=== PATIENT | male | born 1985 | race Caucasian/White ===

== ENCOUNTER 2017-11-14 19:50 | Emergency (ER) | payer SELFPAY ==
[2017-11-14 20:18] LABS: BILIRUBIN,URINE NEGATIVE (NEG); CLARITY,URINE CLEAR; COLOR,URINE YELLOW; GLUCOSE,URINE NEGATIVE (NEG); NITRITE,URINE NEGATIVE (NEG); PROTEIN,URINE NEGATIVE (NEG-TRACE); UROBILINOGEN,URINE 0.2 mg/dL (0.2 mg/dL)
[2017-11-14 20:40] LABS: BACTERIA,URINE 0 /HPF (0-FEW); RBC,URINE OCC /HPF (0-2); SQUAMOUS EPITHELIAL CELL,UR FEW /LPF; WBC,URINE OCC /HPF (0-4)
[2017-11-14] MEDS: fentaNYL PF VIAL 100 MCG/2 ML VIAL IV (21:08)
[2017-11-14] MEDS: fentaNYL PF VIAL 100 MCG/2 ML VIAL IM (21:19)
[2017-11-14 21:33] LABS: ADD MAN DIFF? NO
[2017-11-14 21:42] LABS: BASO # 0.1 x10^3/uL (0.0-0.2); BASO % 1 % (0-3); EOS # 0.2 x10^3/uL (0.0-0.7); EOS % 3 % (0-3); HEMATOCRIT 41.2 % (39.0-53.0); HEMOGLOBIN 14.1 g/dL (13.0-17.5); LYMPH # 1.9 x10^3/uL (1.0-4.8); LYMPH % 35 % (24-48); MEAN CORPUSCULAR HEMOGLOBIN 30 pg (25-35); MEAN CORPUSCULAR HGB CONC 34 g/dL (31-37); MEAN CORPUSCULAR VOLUME 87 fL (79-100); MONO # 0.4 x10^3/uL (0.0-1.1); MONO % 7 % (0-9); NEUT # 2.9 x10^3uL (1.8-7.7); NEUT % 53 % (31-73); PLATELET COUNT 262 x10^3/uL (140-400); RED BLOOD COUNT 4.75 x10^6/uL (4.30-5.70); RED CELL DISTRIBUTION WIDTH 12.8 % (11.5-14.5); WHITE BLOOD COUNT 5.5 x10^3/uL (4.0-11.0)
[2017-11-14 22:01] LABS: LACTIC ACID 1.5 mmol/L (0.4-2.0)
[2017-11-14 22:05] LABS: ANION GAP 9 (6-14); BLOOD UREA NITROGEN 9 mg/dL (8-26); BUN/CREATININE RATIO 8 (6-20); CARBON DIOXIDE 29 mmol/L (21-32); CHLORIDE 104 mmol/L (98-107); CREATININE 1.1 mg/dL (0.7-1.3); GFR 76.6; GLUCOSE 92 mg/dL (70-99); POTASSIUM 3.3 mmol/L (3.5-5.1); SODIUM 142 mmol/L (136-145)
[2017-11-14 22:07] LABS: CKMB INDEX 1.1 % (0-4); CREATINE KINASE 174 U/L (39-308)
[2017-11-14 22:07] LABS: NT-PRO BNP 60 pg/mL (0-124)
[2017-11-14 22:10] LABS: ALBUMIN 3.9 g/dL (3.4-5.0); ALBUMIN/GLOBULIN RATIO 1.1 (1.0-1.7); ALK PHOS 89 U/L (46-116); ALT (SGPT) 41 U/L (16-63); AST (SGOT) 30 U/L (15-37); C-REACTIVE PROTEIN 2.9 mg/L (0-3.3); TOTAL BILIRUBIN 0.4 mg/dL (0.2-1.0); TOTAL PROTEIN 7.5 g/dL (6.4-8.2)
== END 2017-11-14 23:12 | disposition home or self-care (01) ==
LOC: ER 19:50
DX: R60.0 Localized edema (principal); R21 Rash and other nonspecific skin eruption; J45.909 Unspecified asthma, uncomplicated; Z91.048 Other nonmedicinal substance allergy status
CPT/HCPCS: 36415; 71045; 80053; 81001; 82553; 83605; 83880; 85025; 86140; 86592; 93005; 96372; 99285-25; J3010

== ENCOUNTER 2017-12-23 18:38 | Emergency (ER) | payer SELFPAY ==
[2017-12-23 19:12] LABS: ADD MAN DIFF? NO
[2017-12-23 19:17] LABS: BASO % 1 % (0-3); EOS # 0.1 x10^3/uL (0.0-0.7); EOS % 1 % (0-3); HEMATOCRIT 40.4 % (39.0-53.0); HEMOGLOBIN 14.1 g/dL (13.0-17.5); LYMPH # 1.9 x10^3/uL (1.0-4.8); LYMPH % 29 % (24-48); MEAN CORPUSCULAR HEMOGLOBIN 30 pg (25-35); MEAN CORPUSCULAR HGB CONC 35 g/dL (31-37); MEAN CORPUSCULAR VOLUME 85 fL (79-100); MONO # 0.4 x10^3/uL (0.0-1.1); MONO % 7 % (0-9); NEUT % 62 % (31-73); PLATELET COUNT 309 x10^3/uL (140-400); RED BLOOD COUNT 4.77 x10^6/uL (4.30-5.70); RED CELL DISTRIBUTION WIDTH 12.8 % (11.5-14.5); WHITE BLOOD COUNT 6.4 x10^3/uL (4.0-11.0)
[2017-12-23] MEDS: DEXAMETHASONE SOD PHOS 20 MG/5 ML VIAL. IV (19:25)
[2017-12-23] MEDS: ASPIRIN 325 MG TABLET PO (19:25)
[2017-12-23] MEDS: IPRATRPIUM/ALBUTEROL 0.5/2.5MG 3 ML NEBU. NEB (19:36)
[2017-12-23 19:39] LABS: ANION GAP 9 (6-14); BLOOD UREA NITROGEN 5 mg/dL (8-26); BUN/CREATININE RATIO 4 (6-20); CALCIUM 9.1 mg/dL (8.5-10.1); CARBON DIOXIDE 28 mmol/L (21-32); CHLORIDE 103 mmol/L (98-107); CREATININE 1.2 mg/dL (0.7-1.3); GFR 69.3; GLUCOSE 91 mg/dL (70-99); POTASSIUM 3.6 mmol/L (3.5-5.1); SODIUM 140 mmol/L (136-145)
[2017-12-23 19:45] LABS: ALBUMIN 3.8 g/dL (3.4-5.0); ALBUMIN/GLOBULIN RATIO 1.1 (1.0-1.7); ALK PHOS 90 U/L (46-116); ALT (SGPT) 29 U/L (16-63); AST (SGOT) 15 U/L (15-37); MAGNESIUM 1.8 mg/dL (1.8-2.4); TOTAL BILIRUBIN 0.4 mg/dL (0.2-1.0); TOTAL PROTEIN 7.4 g/dL (6.4-8.2)
[2017-12-23 19:48] LABS: TROPONINI < 0.017 ng/mL (0.000-0.055)
[2017-12-23 20:05] LABS: NT-PRO BNP 10 pg/mL (0-124)
[2017-12-23 20:05] LABS: CKMB MASS 0.9 ng/mL (0.0-3.6); CREATINE KINASE 92 U/L (39-308)
== END 2017-12-23 20:52 | disposition home or self-care (01) ==
LOC: ER 18:38
DX: J40 Bronchitis, not specified as acute or chronic (principal); R42 Dizziness and giddiness; M79.89 Other specified soft tissue disorders; J45.909 Unspecified asthma, uncomplicated; Z87.891 Personal history of nicotine dependence; Z90.89 Acquired absence of other organs; Z91.041 Radiographic dye allergy status
CPT/HCPCS: 36415; 71046; 80053; 82553; 83735; 83880; 84484; 85025; 93005; 94640; 96374; 99285-25; J1100; J7620

== ENCOUNTER 2018-01-17 20:38 | Emergency (ER) | payer SELFPAY ==
[~2018-01-17] VITALS: Ht 180.3 cm; Wt 93.0 kg
[~2018-01-17 20:38] MED LIST: ALBU2.5V5 NEB; DOXY100T PO; GUAI473L15 PO; MUPI15CR TP; PRED20TA PO; PROAIR HFA8.5 GM INH
[2018-01-17 20:54] VITALS: BP 144/86
[2018-01-17] MEDS ORDERED: IV NORMAL SALINE 1000ML BAG 1,000 ML IV ONE (21:15)
[2018-01-17] MEDS ORDERED: ONDANSETRON PF 4 MG/2 ML VIAL. IV ONE (21:15)
[2018-01-17] MEDS ORDERED: TAMSULOSIN 0.4 MG CAP.ER.24H. PO ONE (21:15)
[2018-01-17] MEDS ORDERED: MORPHINE SULFATE 10 MG/ML VIAL. IV ONE ×3 (21:15→23:00)
--- NOTE | 2018-01-17 21:17 | PHYS DOC ---
Past Medical History Past Medical History: Asthma, Kidney Stone Past Surgical History: Other Additional Past Surgical Histo: compartment syndrome, right forearm surgery Alcohol Use: None Drug Use: None Adult General Chief Complaint Chief Complaint: FLANK PAIN HPI HPI Patient is a 32 year old male with history of asthma, kidney stones, who presents today complaining of 9 out of 10 right flank pain that began 2 hours prior to coming to the ED. Patient describes the pain as sharp and constant. He states he tried taking an NSAID with no relief. Patient is also complaining of nausea with no vomiting. He states this pain feels similar to the last time he had a kidney stone years ago. Review of Systems Review of Systems Constitutional: Denies fever or chills [] Eyes: Denies change in visual acuity, redness, or eye pain [] HENT: Denies nasal congestion or sore throat [] Respiratory: Denies cough or shortness of breath [] Cardiovascular: No additional information not addressed in HPI [] GI: Reports nausea. Denies abdominal pain vomiting, bloody stools or diarrhea [] : Reports right flank pain. Denies dysuria or hematuria [] Musculoskeletal: Denies back pain or joint pain [] Integument: Denies rash or skin lesions [] Neurologic: Denies headache, focal weakness or sensory changes [] All other systems were reviewed and found to be within normal limits, except as documented in this note. Current Medications Current Medications Current Medications Medications (Trade) Dose Ordered Sig/Parish Start Time Stop Time Status Last Admin Dose Admin Diazepam (Valium) 5 mg 1X ONCE 01/17/18 23:00 01/17/18 23:01 DC 01/17/18 22:55 5 MG Ketorolac Tromethamine (Toradol 30mg Vial) 30 mg 1X ONCE 01/17/18 22:00 01/17/18 22:01 DC 01/17/18 21:49 30 MG Morphine Sulfate (Morphine Sulfate) 5 mg 1X ONCE 01/17/18 23:00 01/17/18 23:01 DC 01/17/18 22:55 5 MG Ondansetron HCl (Zofran) 4 mg 1X ONCE 01/17/18 21:15 01/17/18 21:16 DC 01/17/18 21:05 4 MG Sodium Chloride 1,000 ml @ 1,000 mls/hr 1X ONCE 01/17/18 21:15 01/17/18 22:14 DC 01/17/18 21:05 1,000 MLS/HR Tamsulosin HCl (Flomax) 0.4 mg 1X ONCE 01/17/18 21:15 01/17/18 21:16 DC 01/17/18 21:04 0.4 MG Allergies Allergies Allergies Coded Allergies Type Severity Reaction Last Updated Verified Iodine and Iodide Containing Produc Allergy Severe 01/17/18 Yes Physical Exam Physical Exam Constitutional: Well developed, well nourished, no acute distress, non-toxic appearance. [] HENT: Normocephalic, atraumatic, bilateral external ears normal, oropharynx moist, no oral exudates, nose normal. [] Eyes: PERRLA, EOMI, conjunctiva normal, no discharge. [] Neck: Normal range of motion, no tenderness, supple, no stridor. [] Cardiovascular:Heart rate regular rhythm, no murmur [] Lungs & Thorax: Bilateral breath sounds clear to auscultation [] Abdomen: Bowel sounds normal, soft, no tenderness, no masses, no pulsatile masses. [] Skin: Warm, dry, no erythema, no rash. [] Back: No tenderness, moderate right CVA tenderness. [] Extremities: No tenderness, no cyanosis, no clubbing, ROM intact, no edema. [] Neurologic: Alert and oriented X 3, normal motor function, normal sensory function, no focal deficits noted. [] Psychologic: Affect normal, judgement normal, mood normal. [] Current Patient Data Vital Signs Vital Signs Date Time Temp Pulse Resp B/P (MAP) Pulse Ox O2 Delivery O2 Flow Rate FiO2 01/17/18 22:55 14 01/17/18 21:05 100 Room Air 01/17/18 20:54 98.0 85 144/86 (105) 98.0 Lab Values Laboratory Tests Test 01/17/18 21:15 01/17/18 22:15 01/17/18 22:22 Sodium Level 137 mmol/L (136-145) Potassium Level 3.5 mmol/L (3.5-5.1) Chloride Level 103 mmol/L (98-107) Carbon Dioxide Level 25 mmol/L (21-32) Anion Gap 9 (6-14) Blood Urea Nitrogen 5 mg/dL (8-26) L Creatinine 1.0 mg/dL (0.7-1.3) Estimated GFR (Cockcroft-Gault) 85.5 BUN/Creatinine Ratio 5 (6-20) L Glucose Level 109 mg/dL (70-99) H Calcium Level 8.7 mg/dL (8.5-10.1) Total Bilirubin 0.6 mg/dL (0.2-1.0) Aspartate Amino Transferase (AST) 21 U/L (15-37) Alanine Aminotransferase (ALT) 36 U/L (16-63) Alkaline Phosphatase 69 U/L (46-116) Total Protein 6.9 g/dL (6.4-8.2) Albumin 3.5 g/dL (3.4-5.0) Albumin/Globulin Ratio 1.0 (1.0-1.7) Lipase 99 U/L (73-393) Ethyl Alcohol Level < 10 mg/dL (0-10) Urine Collection Type Unknown Urine Color Yellow Urine Clarity Clear Urine pH 7.5 Urine Specific [place] 1.020 Urine Protein Negative mg/dL (NEG-TRACE) Urine Glucose (UA) Negative mg/dL (NEG) Urine Ketones (Stick) Negative mg/dL (NEG) Urine Blood Moderate (NEG) Urine Nitrite Negative (NEG) Urine Bilirubin Negative (NEG) Urine Urobilinogen Dipstick 0.2 mg/dL (0.2 mg/dL) Urine Leukocyte Esterase Trace (NEG) Urine RBC 0 /HPF (0-2) Urine WBC 1-4 /HPF (0-4) Urine Squamous Epithelial Cells Occ /LPF Urine Bacteria 0 /HPF (0-FEW) Urine Mucus Slight /LPF Urine Opiates Screen Pos (NEG) Urine Methadone Screen Neg (NEG) Urine Barbiturates Neg (NEG) Urine Phencyclidine Screen Neg (NEG) Urine Amphetamine/Methamphetamine Neg (NEG) Urine Benzodiazepines Screen Pos (NEG) Urine Cocaine Screen Neg (NEG) Urine Cannabinoids Screen Neg (NEG) Urine Ethyl Alcohol Neg (NEG) White Blood Count 5.8 x10^3/uL (4.0-11.0) Red Blood Count 4.45 x10^6/uL (4.30-5.70) Hemoglobin 13.3 g/dL (13.0-17.5) Hematocrit 37.9 % (39.0-53.0) L Mean Corpuscular Volume 85 fL (79-100) Mean Corpuscular Hemoglobin 30 pg (25-35) Mean Corpuscular Hemoglobin Concent 35 g/dL (31-37) Red Cell Distribution Width 13.2 % (11.5-14.5) Platelet Count 262 x10^3/uL (140-400) Neutrophils (%) (Auto) 68 % (31-73) Lymphocytes (%) (Auto) 24 % (24-48) Monocytes (%) (Auto) 6 % (0-9) Eosinophils (%) (Auto) 1 % (0-3) Basophils (%) (Auto) 1 % (0-3) Neutrophils # (Auto) 3.9 x10^3uL (1.8-7.7) Lymphocytes # (Auto) 1.4 x10^3/uL (1.0-4.8) Monocytes # (Auto) 0.4 x10^3/uL (0.0-1.1) Eosinophils # (Auto) 0.1 x10^3/uL (0.0-0.7) Basophils # (Auto) 0.0 x10^3/uL (0.0-0.2) Laboratory Tests 01/17/18 22:22 Laboratory Tests 01/17/18 21:15 EKG EKG [] Radiology/Procedures Radiology/Procedures []PROCEDURE: CT ABDOMEN PELVIS WO CONTRAST PQRS Compliance statement: One or more of the following individualized dose reduction techniques were utilized for this examination: 1. Automated exposure control. 2. Adjustment of the mA and/or kV according to patient size. 3. Use of iterative reconstruction technique. Indication:R FLANK PAIN H/O STONES TECHNIQUE: CT abdomen and pelvis without IV contrast with multiplanar reformats. COMPARISON: None FINDINGS: Limited evaluation of solid abdominal and pelvic organs due to lack of IV contrast. Heart is normal in size. No pericardial or pleural effusion. Clear lung bases. Noncontrast appearance of the liver, spleen, gallbladder, pancreas, adrenals and kidneys are within normal limits. No free pelvic fluid or ascites. No enlarged retroperitoneal or pelvic adenopathy. Normal appendix. No bowel obstruction. Urinary bladder demonstrates no radiopaque stones. The prostate and seminal vesicles show no large mass. No suspicious bony lesion. IMPRESSION: No acute findings. Electronically signed by: Gucci Whitmore DO (01/17/2018 9:47 PM) [facility] DICTATED and SIGNED BY: GUCCI WHITMORE DO DATE: 01/17/182140 Course & Med Decision Making Course & Med Decision Making Pertinent Labs and Imaging studies reviewed. (See chart for details) This is a 32-year-old male patient presenting to the ED today with a right flank pain and concern for kidney stone. Patient has previous history of kidney stones. Arrival to the ED patient was given morphine, Toradol, Flomax, Zofran and IV fluids. Pain is well controlled. Ct of the abdomen and pelvic with no contrast was negative for any acute findings. CBC, CMP are negative for any acute findings. Urine analysis is noted for moderate amount of blood and trace amount of leukocytes. Patient could've passed this kidney stone. Urine was sent for STD check. Patient to be discharged with Cipro. Also given prescription for Flomax for 6 days and hydrocodone. Follow-up with the urologist next week. Dragon Disclaimer Dragon Disclaimer This electronic medical record was generated, in whole or in part, using a voice recognition dictation system. Departure Departure Impression: Primary Impression: Right flank pain Additional Impression: Urinary tract infection Disposition: 01 HOME, SELF-CARE Condition: STABLE Referrals: YOMI BETANCOURT (PCP) follow up in one week RADHA ROMERO MD Follow-up in one week Patient Instructions: Flank Pain, [id number], Urinary Tract Infection Additional Instructions: You were evaluated in the emergency room for flank pain. Your CT of the abdomen was negative for any acute findings. Your urine has some infection in it with blood, you could have passed a kidney stone. We put you on antibiotics, ensure you complete them. Follow-up with the provided urologist in 1 week. Come back to the ED at any point symptoms worsen. Scripts Hydrocodone/Apap 5-325 (NORCO 5-325 TABLET) 1 Each Tablet 1 TAB PO Q6HRS, #10 TAB Prov: MUTUNGASHANTELL B[employer] WHEEL WORKER 01/17/18 Ondansetron (ZOFRAN ODT) 4 Mg Tab.rapdis 1 TAB SL Q8HRS, #15 TAB Prov: MUTUNGA,SHANTELL B[employer] WHEEL WORKER 01/17/18 Ciprofloxacin Hcl (CIPRO) 500 Mg Tablet 1 TAB PO BID, #14 TAB Prov: MUTUNGASHANTELL B[employer] WHEEL WORKER 01/17/18 Tamsulosin Hcl (FLOMAX) 0.4 Mg Cap.er.24h 1 CAP PO DAILY, #6 CAP 0 Refills Prov: SHANTELL HOPSON [employer] WHEEL WORKER 01/17/18 Attending Signature Attending Signature I have reviewed the PA/SPORTS MEDICINE COORDINATOR's note and plan of care. I was available for consultation as needed during the patient's visit in the emergency department. I agree with the clinical impression, plan, and disposition. Problem Qualifiers Additional Impression: Urinary tract infection Urinary tract infection type: site unspecified Hematuria presence: without hematuria Qualified Codes: N39.0 - Urinary tract infection, site not specified SHANTELL HOPSON B[employer] WHEEL WORKER Jan 17, 2018 21:17 SETH CORONA DO Jan 19, 2018 03:25
[2018-01-17 21:43] LABS: CALCIUM 8.7 mg/dL (8.5-10.1); GFR 85.5; POTASSIUM 3.5 mmol/L (3.5-5.1)
[2018-01-17 21:49] LABS: ALBUMIN 3.5 g/dL (3.4-5.0); TOTAL BILIRUBIN 0.6 mg/dL (0.2-1.0); TOTAL PROTEIN 6.9 g/dL (6.4-8.2)
--- NOTE | 2018-01-17 21:50 | RAD ---
PQRS Compliance statement: One or more of the following individualized dose reduction techniques were utilized for this examination: 1. Automated exposure control. 2. Adjustment of the mA and/or kV according to patient size. 3. Use of iterative reconstruction technique. Indication:R FLANK PAIN H/O STONES TECHNIQUE: CT abdomen and pelvis without IV contrast with multiplanar reformats. COMPARISON: None FINDINGS: Limited evaluation of solid abdominal and pelvic organs due to lack of IV contrast. Heart is normal in size. No pericardial or pleural effusion. Clear lung bases. Noncontrast appearance of the liver, spleen, gallbladder, pancreas, adrenals and kidneys are within normal limits. No free pelvic fluid or ascites. No enlarged retroperitoneal or pelvic adenopathy. Normal appendix. No bowel obstruction. Urinary bladder demonstrates no radiopaque stones. The prostate and seminal vesicles show no large mass. No suspicious bony lesion. IMPRESSION: No acute findings. Electronically signed by: Gucci Whitmore DO (01/17/2018 9:47 PM) [facility]
[2018-01-17] MEDS ORDERED: KETOROLAC 30 MG/ML VIAL. IV ONE (22:00)
[2018-01-17 22:20] LABS: BILIRUBIN,URINE NEGATIVE (NEG); CLARITY,URINE CLEAR; COLOR,URINE YELLOW; NITRITE,URINE NEGATIVE (NEG); PH,URINE 7.5; PROTEIN,URINE NEGATIVE (NEG-TRACE); UROBILINOGEN,URINE 0.2 mg/dL (0.2 mg/dL)
[2018-01-17 22:24] LABS: BACTERIA,URINE 0 /HPF (0-FEW); RBC,URINE 0 /HPF (0-2); SQUAMOUS EPITHELIAL CELL,UR OCC /LPF
[2018-01-17 22:26] LABS: BARBITURATES NEG (NEG); BENZODIAZEPINES POS (NEG); CANNABINOIDS NEG (NEG); COCAINE NEG (NEG); METHADONE NEG (NEG); OPIATES POS (NEG); PHENCYCLIDINE NEG (NEG)
[2018-01-17 22:27] LABS: BASO % 1 % (0-3); EOS # 0.1 x10^3/uL (0.0-0.7); EOS % 1 % (0-3); HEMATOCRIT 37.9 % (39.0-53.0); HEMOGLOBIN 13.3 g/dL (13.0-17.5); LYMPH # 1.4 x10^3/uL (1.0-4.8); LYMPH % 24 % (24-48); MEAN CORPUSCULAR HEMOGLOBIN 30 pg (25-35); MEAN CORPUSCULAR HGB CONC 35 g/dL (31-37); MEAN CORPUSCULAR VOLUME 85 fL (79-100); MONO # 0.4 x10^3/uL (0.0-1.1); MONO % 6 % (0-9); NEUT # 3.9 x10^3uL (1.8-7.7); NEUT % 68 % (31-73); PLATELET COUNT 262 x10^3/uL (140-400); RED BLOOD COUNT 4.45 x10^6/uL (4.30-5.70); RED CELL DISTRIBUTION WIDTH 13.2 % (11.5-14.5); WHITE BLOOD COUNT 5.8 x10^3/uL (4.0-11.0)
[2018-01-17 22:30] LABS: AMPHETAMINE/METHAMPHETAMINE NEG (NEG)
[2018-01-17] MEDS ORDERED: HYDR-971 PO (22:38)
[2018-01-17] MEDS ORDERED: TAMS0.4C97 PO (22:38)
[2018-01-17] MEDS ORDERED: CIPR500T94 PO (22:38)
[2018-01-17] MEDS ORDERED: ONDA4TAB10 SL (22:38)
[2018-01-17] MEDS ORDERED: diazePAM 5 MG TABLET PO ONE (23:00)
[2018-01-18] MEDS ORDERED: OXYC-323 PO (13:37)
[2018-01-18] MEDS ORDERED: CYCL10TA2 PO (13:37)
== END 2018-01-17 23:30 | disposition home or self-care (01) ==
LOC: ER 20:38
DX: N39.0 Urinary tract infection, site not specified (principal); J45.909 Unspecified asthma, uncomplicated; Z87.442 Personal history of urinary calculi; Z91.041 Radiographic dye allergy status
CPT/HCPCS: 36415; 74176; 80053; 80307; 81001; 83690; 85025; 87086; 87491; 87591; 96374; 96375; 96376; 99285; G0480; J1885; J2270; J2405; J7030; 96361; G0479

== ENCOUNTER 2018-01-18 12:09 | Emergency (ER) | payer SELFPAY ==
[~2018-01-18] VITALS: Ht 180.3 cm; Wt 93.0 kg
[~2018-01-18 12:09] MED LIST changes: +CIPR500T94 PO; +HYDR-971 PO; +ONDA4TAB10 SL; +TAMS0.4C97 PO
[2018-01-18 12:12] VITALS: BP 186/81
[2018-01-18] MEDS ORDERED: MORPHINE SULFATE 10 MG/ML VIAL. IM ONE (12:45)
[2018-01-18] MEDS ORDERED: diazePAM 5 MG TABLET PO ONE (12:45)
--- NOTE | 2018-01-18 12:53 | PHYS DOC ---
Past Medical History Past Medical History: Asthma, Kidney Stone Past Surgical History: Other Additional Past Surgical Histo: compartment syndrome, right forearm surgery Alcohol Use: None Drug Use: None Adult General Chief Complaint Chief Complaint: PAIN CONTROL HPI HPI Patient is a 32 year old male who presents with right rib and flank pain. The patient states he has a known prior history of kidney stones. Today, he presents to the emergency department complaining of pain in the right rib cage and right flank which she has had over the last 48 hours. 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 The patient was evaluated in this emergency department yesterday. He was checked for kidney stones with a CT scan but there were no stones present. He did not have hematuria. He also had complete lab panel that did not reveal acute findings. He has not had short of breath. No fever. The pain is over the area described. Pain is worse when he takes a deep breath. Pain is worse with movements. Review of Systems Review of Systems Constitutional: Denies fever Eyes: Denies change in visual acuity HENT: Denies nasal congestion Respiratory: Denies cough Cardiovascular: No additional information GI: Denies abdominal pain, nausea : Denies dysuria or hematuria Musculoskeletal: Denies back pain or joint pain Integument: Denies rash or skin lesions Neurologic: Denies headache All other systems were reviewed and found to be within normal limits, except as documented in this note. Current Medications Current Medications Current Medications Medications (Trade) Dose Ordered Sig/Parish Start Time Stop Time Status Last Admin Dose Admin Diazepam (Valium) 5 mg 1X ONCE 01/18/18 12:45 01/18/18 12:46 DC 01/18/18 12:54 5 MG Morphine Sulfate (Morphine Sulfate) 10 mg 1X ONCE 01/18/18 12:45 01/18/18 12:46 DC 01/18/18 12:54 10 MG Allergies Allergies Allergies Coded Allergies Type Severity Reaction Last Updated Verified Iodine and Iodide Containing Produc Allergy Severe 01/17/18 Yes Physical Exam Physical Exam Constitutional: Well developed, well nourished, no acute distress, non-toxic appearance HENT: Normocephalic, atraumatic, bilateral external ears normal, oropharynx moist Eyes: PERRLA, EOMI, conjunctiva normal Neck: Normal range of motion, no tenderness Cardiovascular:Heart rate regular rhythm, no murmur Lungs & Thorax: Bilateral breath sounds clear to auscultation Skin: Warm, dry, no erythema, no rash Extremities: No edema Neurologic: Alert and oriented X 3 Psychologic: Affect normal Current Patient Data Vital Signs Vital Signs Date Time Temp Pulse Resp B/P (MAP) Pulse Ox O2 Delivery O2 Flow Rate FiO2 01/18/18 12:54 18 01/18/18 12:12 97.7 93 186/81 (116) 100 Room Air 97.7 EKG EKG [] Radiology/Procedures Radiology/Procedures [] Course & Med Decision Making Course & Med Decision Making Pertinent Labs and Imaging studies reviewed. (See chart for details) 12:45: Patient is seen and examined. On physical exam, he has tenderness to palpation along the right lateral rib cage. He had a complete workup yesterday which was negative for any acute findings. Suspect this pain to be musculoskeletal in nature. Plan today is to treat the pain. The patient was given Nelson to use at home yesterday but states this medication did not adequately control his pain symptoms. 13:40: Patient currently resting comfortably. He has no distress. When aroused , the patient states his pain is completely resolved. Plan is for discharge home. He is advised to stop taking the Nelson he was prescribed. He is placed on Flexeril and Percocet for pain at home. He is also advised to continue ibuprofen and to stop taking Flomax. Patient is explained how to take opiate medications as well as precautions. He is advised not to work or drive while under the influence of these medications. All of his questions are answered prior to discharge and he is agreeable to the plan of care. Dragon Disclaimer Dragon Disclaimer This electronic medical record was generated, in whole or in part, using a voice recognition dictation system. Departure Departure Referrals: YOMI BETANCOURT (PCP) Scripts Oxycodone/Apap 5-325 (PERCOCET 5-325 MG TABLET) 1 Each Tablet 1-2 EACH PO PRN TID PRN for severe pain, #12 TAB pain Prov: ALCON CANADA DO 01/18/18 Cyclobenzaprine Hcl (CYCLOBENZAPRINE HCL) 10 Mg Tablet 1 TAB PO TID for muscle spasm, #21 TAB Prov: ALCON CANADA DO 01/18/18 ALCON CANADA DO Jan 18, 2018 12:53
[2018-01-18] MEDS ORDERED: CYCL10TA2 PO (13:37)
[2018-01-18] MEDS ORDERED: OXYC-323 PO (13:37)
== END 2018-01-18 13:46 | disposition home or self-care (01) ==
LOC: ER 12:09
DX: R07.81 Pleurodynia (principal); R10.9 Unspecified abdominal pain; J45.909 Unspecified asthma, uncomplicated; Z87.442 Personal history of urinary calculi; Z98.890 Other specified postprocedural states; Z91.041 Radiographic dye allergy status
CPT/HCPCS: 96372; 99283; J2270

== ENCOUNTER 2018-02-02 17:09 | Inpatient (IN) | payer SELFPAY ==
[~2018-02-02] VITALS: Ht 180.3 cm; Wt 93.0 kg
[~2018-02-02 17:09] MED LIST changes: +CYCL10TA2 PO; +OXYC-323 PO
[2018-02-02] MEDS ORDERED: IV NORMAL SALINE 1000ML BAG 1,000 ML IV SCH (17:57)
[2018-02-02] MEDS ORDERED: MORPHINE SULFATE 4 MG/ML VIAL. IV/SQ PRN (18:00)
[2018-02-02] MEDS ORDERED: diazePAM 5 MG TABLET PO ONE (18:00)
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
[2018-02-02 18:52] LABS: BASO # 0.1 x10^3/uL (0.0-0.2); BASO % 1 % (0-3); EOS % 0 % (0-3); HEMATOCRIT 44.6 % (39.0-53.0); HEMOGLOBIN 15.7 g/dL (13.0-17.5); LYMPH # 1.1 x10^3/uL (1.0-4.8); LYMPH % 11 % (24-48); MEAN CORPUSCULAR HEMOGLOBIN 30 pg (25-35); MEAN CORPUSCULAR HGB CONC 35 g/dL (31-37); MEAN CORPUSCULAR VOLUME 85 fL (79-100); MONO # 0.3 x10^3/uL (0.0-1.1); MONO % 3 % (0-9); NEUT # 8.5 x10^3uL (1.8-7.7); NEUT % 85 % (31-73); PLATELET COUNT 368 x10^3/uL (140-400); RED BLOOD COUNT 5.23 x10^6/uL (4.30-5.70); RED CELL DISTRIBUTION WIDTH 13.1 % (11.5-14.5)
[2018-02-02 19:02] LABS: CALCIUM 9.5 mg/dL (8.5-10.1); CREATININE 1.1 mg/dL (0.7-1.3); GFR 76.6; POTASSIUM 3.9 mmol/L (3.5-5.1)
[2018-02-02 19:07] LABS: MAGNESIUM 1.8 mg/dL (1.8-2.4)
--- NOTE | 2018-02-02 19:17 | RAD ---
Right forearm 2 views: Reason for examination: Fell today. Braced self with arm. History of compartment syndrome in the same forearm. No acute fracture or dislocation is seen. Bone density is normal. No abnormal periosteal reaction is seen. Wrist and elbow joints show no gross abnormalities. No joint effusion seen at the right elbow. There is soft tissue swelling over the dorsum of the distal forearm and wrist. IMPRESSION: No acute bony abnormality of the right forearm. Soft tissue swelling on the dorsum of the distal forearm and wrist. Right wrist 4 views: There is no evidence of fracture or dislocation. The bone density is normal. Joint spaces are maintained. No abnormal periosteal reaction is seen. There does appear to be soft tissue swelling on the dorsum of the wrist. IMPRESSION: Soft tissue swelling on the dorsum of the wrist. No acute bony abnormality evident. Electronically signed by: Ellen Deal MD (02/02/2018 7:14 PM) [facility]
[2018-02-02 19:18] LABS: % BANDS 3 % (0-9); % LYMPHS 8 % (24-48); % MONOS 3 % (0-10); % SEGS 86 % (35-66); PLT ESTIMATE ADEQUATE (ADEQUATE)
[2018-02-02] MEDS ORDERED: oxyCODONE/APAP 5/325 1 TAB TABLET PO PRN ×2 (21:00→21:15)
[2018-02-02] MEDS ORDERED: CALCIUM CARBONATE 500 MG TAB.CHEW PO PRN (21:00)
[2018-02-02] MEDS ORDERED: ONDANSETRON ODT 4 MG TAB.RAPDIS. PO PRN ×2 (21:00→21:15)
[2018-02-02] MEDS ORDERED: ACETAMINOPHEN 500 MG TABLET PO PRN (21:00)
[2018-02-02] MEDS ORDERED: ONDANSETRON PF 4 MG/2 ML VIAL. IV PRN (21:00)
[2018-02-02] MEDS ORDERED: ALBUTEROL SULFATE 2.5 MG/3 ML NEBU. NEB PRN (21:15)
[2018-02-02] MEDS ORDERED: NON FORMULARY ITEM (Albuterol Sulfate (Proair Hfa Inhaler) 1 PUFF) INH PRN (21:15)
[2018-02-02] MEDS ORDERED: guaiFENesin/CODEINE 100mg/10mg 5 ML LIQUID PO PRN (21:15)
[2018-02-02] MEDS: ZOLPIDEM 5 MG TABLET. PO PRN (22:36)
[2018-02-02] MEDS: oxyCODONE/APAP 10/325 1 TAB TABLET PO PRN (22:37)
[2018-02-02] MEDS: MORPHINE SULFATE 4 MG/ML VIAL. IV PRN (22:43)
[2018-02-02 23:00] VITALS: BP 122/70
[2018-02-02] MEDS: HYDROcodone/APAP 5/325MG 1 TAB TABLET PO SCH (23:56)
[2018-02-03] VITALS (9 sets, daily range): BP systolic 100–155; BP diastolic 46–73
[2018-02-03] MEDS: MORPHINE SULFATE 4 MG/ML VIAL. IV PRN ×2 (01:07→03:07)
[2018-02-03] MEDS: oxyCODONE/APAP 10/325 1 TAB TABLET PO PRN ×5 (03:06→23:05)
[2018-02-03] MEDS: diazePAM 5 MG TABLET PO PRN ×2 (03:58→22:35)
[2018-02-03] MEDS: fentaNYL PF VIAL 100 MCG/2 ML VIAL IV PRN ×12 (03:59→23:07)
[2018-02-03] MEDS: HYDROcodone/APAP 5/325MG 1 TAB TABLET PO SCH ×3 (05:41→18:14)
[2018-02-03] MEDS ORDERED: BUPIVACAINE-EPI 0.5%-1:200000 50 ML VIAL. ONE (08:34)
[2018-02-03] MEDS ORDERED: LIDOCAINE 1% Multi-Dose 20 ML VIAL. INJ ONE (09:00)
[2018-02-03] MEDS: CYCLOBENZAPRINE 10 MG TABLET. PO SCH ×3 (09:00→21:13)
[2018-02-03] MEDS ORDERED: LIDOCAINE 1% Multi-Dose 50 ML VIAL. INJ ONE (09:00)
[2018-02-03] MEDS: MUPIROCIN 2 % TOPICAL CREAM 15GM TUBE. TP SCH ×3 (09:00→21:00)
[2018-02-03] MEDS ORDERED: IV RINGERS,LACTATED 1000ML 1,000 ML IV SCH (09:23)
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
[2018-02-03] MEDS ORDERED: LIDOCAINE 1% PF 2 ML VIAL. ID PRN (09:30)
[2018-02-03] MEDS ORDERED: PROCHLORPERAZINE 10 MG/2 ML VIAL. IV PRN (09:30)
[2018-02-03] MEDS ORDERED: MORPHINE SULFATE 2 MG/ML VIAL. IV PRN (09:30)
[2018-02-03] MEDS ORDERED: fentaNYL PF VIAL 100 MCG/2 ML VIAL IV PRN ×2 (09:30→13:30)
[2018-02-03] MEDS ORDERED: MIDAZOLAM HCL/PF 2 MG/2 ML VIAL. ONE (09:33)
[2018-02-03] MEDS ORDERED: ONDANSETRON PF 4 MG/2 ML VIAL. ONE (09:41)
[2018-02-03] MEDS ORDERED: fentaNYL PF VIAL 100 MCG/2 ML VIAL ONE ×2 (09:41→10:43)
[2018-02-03] MEDS ORDERED: DEXAMETHASONE SOD PHOS 20 MG/5 ML VIAL. ONE (09:41)
[2018-02-03] MEDS ORDERED: SUCCINYLCHOLINE 200 MG/10 ML VIAL. ONE (09:42)
[2018-02-03] MEDS ORDERED: PROPOFOL 20 ML IV ONE (09:42)
[2018-02-03] MEDS ORDERED: FAMOTIDINE 20 MG/2 ML VIAL ONE (09:42)
[2018-02-03] MEDS ORDERED: MIDAZOLAM HCL/PF 2 MG/2 ML VIAL. IV ONE (09:45)
[2018-02-03] MEDS ORDERED: ROCURONIUM 50 MG/5 ML VIAL. ONE (09:45)
[2018-02-03] MEDS ORDERED: BUPIVACAINE-EPI 0.5%-1:200000 50 ML VIAL. INJ ONE (10:36)
[2018-02-03] MEDS ORDERED: NEOSTIGMINE METHYLSULFATE 5 MG/5 ML SYRINGE. ONE (11:04)
[2018-02-03] MEDS ORDERED: GLYCOPYRROLATE 1 MG/5 ML VIAL. ONE (11:05)
--- NOTE | 2018-02-03 11:27 | PDOC4 ---
Operative Note Operative Note Date of Procedure: February 03, 2018 Pre-Op Diagnosis: Forearm compartment syndrome and hand compartment syndrome, right Post-Op Diagnosis: Same Procedure: 1. Decompression fasciotomy, forearm and wrist, flexor and extensor compartments, without debridement of nonviable muscle, right CPT 99504 2. Decompression fasciotomy, hand, right CPT 61315 Surgeon: Esdras Messina MD [employer] Glazer: Gail Leiva PA-C Anesthesia: General EBL: 50 mL Specimens Obtained: none Complications: none Drains: none Tourniquet time: 5 minutes Findings: Compartment syndrome wrist and hand, extensive dorsal hematoma, Indications for Procedure: The patient is a 32-year-old man who injured his wrist when he fell onto the flexed wrist off of a trampoline yesterday. Initially the symptoms weren't too bad, but he had increasing pain overnight, increasing swelling, loss of light touch sensation. Compartment syndrome was diagnosed based on elevated pressure measurements greater than 50 mmHg in the extensor compartment at the distal forearm and wrist, using the Portero monitor. I recommended urgent fasciotomy and discussed the potential risks of scarring, need for additional surgery, bleeding, infection, possible need a skin graft or wound VAC, or other potential surgical or anesthetic complications. The patient has a history of prior compartment syndrome in this arm about 10 years ago, and is familiar with the treatment of compartment syndrome. The patient and I discussed the risks, benefits and alternatives of surgery. All of his questions about surgery were answered and he desired to proceed. Procedure in Detail: The patient was identified in the preoperative holding area. The correct right upper extremity was marked by me. The patient was taken to the operating room where general anesthesia was used. The patient was positioned supine on the operating table. Preoperative antibiotics were given intravenously. A timeout procedure was performed. A tourniquet was applied to the right upper limb. I remeasured the pressures, and measured 50 mmHg in the right forearm/wrist extensor compartment, 30 mmHg in the forearm/wrist flexor compartment, 50 mmHg on the radial dorsal hand, and greater than 100 mmHg on the ulnar dorsal hand. The compression fasciotomy of the hand, and flexor and extensor compartments was all indicated. The thenar and hypothenar compartments were soft. The limb was prepared in sterile fashion with surgical prep solution. Sterile drapes were applied. An Esmarch bandage was used to exsanguinate the limb and the tourniquet was inflated to 275 mmHg. The extensor forearm incision was made first with extensive hematoma which expressed immediately at skin incision. I did careful scissor dissection down to the extensor compartment tendons and muscles and released the compartments carefully, relieving the pressure. There was no nonviable tissue, except for the initial hematoma. The flexor forearm incision was made using the distal portion of the volar approach of Mario. Sharp dissection was used, and a small amount of hematoma and edema was noted, and the pressure was relieved with incision. Careful dissection was performed of the flexor carpi radialis, and flexor pollicis longus, relieving the pressure there. There was no nonviable tissue. The 2 dorsal hand incisions were made sharply, over the second and fourth metacarpals, and again significant pressure was encountered, along with hematoma and edema. The pressure was relieved primarily at incision. Careful dissection was performed down to the interosseous muscles, and the fascia opened for relief of pressure on the interosseous muscles and lumbricals. There was no nonviable tissue. The tourniquet was released. Copious irrigation was used at all of the incisions. The incision edges were injected with 0.5% Marcaine with epinephrine. Bovie electrocautery was used for hemostasis. All of the incisions were loosely reapproximated but not closed, using staple and vessel loop technique. Xeroform and sterile dressings were applied by Ms. Leiva. The patient tolerated the procedure well. Needle and sponge counts were correct. ESDRAS MESSINA MD Feb 03, 2018 11:27
[2018-02-03] MEDS ORDERED: POLYETHYLENE GLYCOL 3350 17 GM PACKET. PO PRN (11:30)
[2018-02-03] MEDS ORDERED: DEXTROSE 50% 25 GM / 50ML DISP.SYRIN. IV PRN (11:30)
[2018-02-03] MEDS ORDERED: ONDANSETRON PF 4 MG/2 ML VIAL. IV PRN (11:30)
[2018-02-03] MEDS: HYDROmorphone 2 MG/ML VIAL IV PRN ×4 (11:51→12:29)
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
[2018-02-03] MEDS: TAMSULOSIN 0.4 MG CAP.ER.24H. PO SCH (14:06)
[2018-02-03] MEDS: DOCUSATE SODIUM 100 MG CAPSULE. PO SCH (15:11)
[2018-02-03] MEDS: ZOLPIDEM 5 MG TABLET. PO PRN (23:33)
[2018-02-04] MEDS: HYDROcodone/APAP 5/325MG 1 TAB TABLET PO SCH ×2 (00:50→05:51)
[2018-02-04] MEDS: fentaNYL PF VIAL 100 MCG/2 ML VIAL IV PRN ×3 (01:30→08:44)
[2018-02-04 03:04] VITALS: BP 112/62
[2018-02-04] MEDS: oxyCODONE/APAP 10/325 1 TAB TABLET PO PRN ×4 (03:25→21:39)
[2018-02-04 05:30] LABS: BASO % 0 % (0-3); EOS % 0 % (0-3); HEMOGLOBIN 13.3 g/dL (13.0-17.5); LYMPH # 1.5 x10^3/uL (1.0-4.8); LYMPH % 9 % (24-48); MEAN CORPUSCULAR HEMOGLOBIN 30 pg (25-35); MEAN CORPUSCULAR HGB CONC 35 g/dL (31-37); MEAN CORPUSCULAR VOLUME 86 fL (79-100); MONO # 1.2 x10^3/uL (0.0-1.1); MONO % 7 % (0-9); NEUT # 14.6 x10^3uL (1.8-7.7); NEUT % 84 % (31-73); PLATELET COUNT 319 x10^3/uL (140-400); RED BLOOD COUNT 4.42 x10^6/uL (4.30-5.70); RED CELL DISTRIBUTION WIDTH 13.1 % (11.5-14.5); WHITE BLOOD COUNT 17.3 x10^3/uL (4.0-11.0)
[2018-02-04 05:46] LABS: CREATININE 1.1 mg/dL (0.7-1.3); GFR 76.6; POTASSIUM 3.8 mmol/L (3.5-5.1)
[2018-02-04] MEDS ORDERED: MAGNESIUM HYDROXIDE 2,400 MG/30 ML ORAL.SUSP. PO PRN (06:00)
[2018-02-04 07:00] VITALS: BP 105/54
[2018-02-04] MEDS: DOCUSATE SODIUM 100 MG CAPSULE. PO SCH (08:43)
[2018-02-04] MEDS: SENNOSIDES/DOCUSATE 8.6/50MG TABLET. PO SCH (08:44)
[2018-02-04] MEDS: TAMSULOSIN 0.4 MG CAP.ER.24H. PO SCH (08:44)
[2018-02-04] MEDS: CYCLOBENZAPRINE 10 MG TABLET. PO SCH ×3 (08:44→21:00)
[2018-02-04] MEDS: MUPIROCIN 2 % TOPICAL CREAM 15GM TUBE. TP SCH ×3 (08:47→21:00)
[2018-02-04] MEDS ORDERED: KETOROLAC 30 MG/ML VIAL. IV PRN (10:00)
--- NOTE | 2018-02-04 10:09 | PDOC ---
PROGRESS NOTES Subjective Subjective Pt states pain was initially better after surgery but is now worsening. Objective Vital Signs Vital Signs Date Time Temp Pulse Resp B/P (MAP) Pulse Ox O2 Delivery O2 Flow Rate FiO2 02/04/18 09:50 Room Air 02/04/18 07:00 98.7 72 18 105/54 (71) 98 98.7 02/04/18 06:32 2.0 Physical Exam Sitting up in bed with right arm propped on pillow. Right arm dressing c/d/i. Again holding fingers in flexed position. Able to passively straighten fingers, but this is painful. Sensation intact at fingers. Labs Laboratory Tests Test 02/02/18 18:30 02/02/18 18:40 02/04/18 04:50 White Blood Count 10.0 x10^3/uL (4.0-11.0) 17.3 x10^3/uL (4.0-11.0) Red Blood Count 5.23 x10^6/uL (4.30-5.70) 4.42 x10^6/uL (4.30-5.70) Hemoglobin 15.7 g/dL (13.0-17.5) 13.3 g/dL (13.0-17.5) Hematocrit 44.6 % (39.0-53.0) 38.0 % (39.0-53.0) Mean Corpuscular Volume 85 fL (79-100) 86 fL (79-100) Mean Corpuscular Hemoglobin 30 pg (25-35) 30 pg (25-35) Mean Corpuscular Hemoglobin Concent 35 g/dL (31-37) 35 g/dL (31-37) Red Cell Distribution Width 13.1 % (11.5-14.5) 13.1 % (11.5-14.5) Platelet Count 368 x10^3/uL (140-400) 319 x10^3/uL (140-400) Neutrophils (%) (Auto) 85 % (31-73) 84 % (31-73) Lymphocytes (%) (Auto) 11 % (24-48) 9 % (24-48) Monocytes (%) (Auto) 3 % (0-9) 7 % (0-9) Eosinophils (%) (Auto) 0 % (0-3) 0 % (0-3) Basophils (%) (Auto) 1 % (0-3) 0 % (0-3) Neutrophils # (Auto) 8.5 x10^3uL (1.8-7.7) 14.6 x10^3uL (1.8-7.7) Lymphocytes # (Auto) 1.1 x10^3/uL (1.0-4.8) 1.5 x10^3/uL (1.0-4.8) Monocytes # (Auto) 0.3 x10^3/uL (0.0-1.1) 1.2 x10^3/uL (0.0-1.1) Eosinophils # (Auto) 0.0 x10^3/uL (0.0-0.7) 0.0 x10^3/uL (0.0-0.7) Basophils # (Auto) 0.1 x10^3/uL (0.0-0.2) 0.0 x10^3/uL (0.0-0.2) Segmented Neutrophils % 86 % (35-66) Band Neutrophils % 3 % (0-9) Lymphocytes % 8 % (24-48) Monocytes % 3 % (0-10) Platelet Estimate Adequate (ADEQUATE) Sodium Level 139 mmol/L (136-145) 138 mmol/L (136-145) Potassium Level 3.9 mmol/L (3.5-5.1) 3.8 mmol/L (3.5-5.1) Chloride Level 99 mmol/L (98-107) 100 mmol/L (98-107) Carbon Dioxide Level 30 mmol/L (21-32) 29 mmol/L (21-32) Anion Gap 10 (6-14) 9 (6-14) Blood Urea Nitrogen 9 mg/dL (8-26) 9 mg/dL (8-26) Creatinine 1.1 mg/dL (0.7-1.3) 1.1 mg/dL (0.7-1.3) Estimated GFR (Cockcroft-Gault) 76.6 76.6 Glucose Level 112 mg/dL (70-99) 133 mg/dL (70-99) Calcium Level 9.5 mg/dL (8.5-10.1) 9.0 mg/dL (8.5-10.1) Magnesium Level 1.8 mg/dL (1.8-2.4) Creatine Kinase 79 U/L (39-308) C-Reactive Protein, Quantitative 0.7 mg/L (0-3.3) Phosphorus Level 2.8 mg/dL (2.6-4.7) Laboratory Tests Test 02/04/18 04:50 White Blood Count 17.3 x10^3/uL (4.0-11.0) Red Blood Count 4.42 x10^6/uL (4.30-5.70) Hemoglobin 13.3 g/dL (13.0-17.5) Hematocrit 38.0 % (39.0-53.0) Mean Corpuscular Volume 86 fL (79-100) Mean Corpuscular Hemoglobin 30 pg (25-35) Mean Corpuscular Hemoglobin Concent 35 g/dL (31-37) Red Cell Distribution Width 13.1 % (11.5-14.5) Platelet Count 319 x10^3/uL (140-400) Neutrophils (%) (Auto) 84 % (31-73) Lymphocytes (%) (Auto) 9 % (24-48) Monocytes (%) (Auto) 7 % (0-9) Eosinophils (%) (Auto) 0 % (0-3) Basophils (%) (Auto) 0 % (0-3) Neutrophils # (Auto) 14.6 x10^3uL (1.8-7.7) Lymphocytes # (Auto) 1.5 x10^3/uL (1.0-4.8) Monocytes # (Auto) 1.2 x10^3/uL (0.0-1.1) Eosinophils # (Auto) 0.0 x10^3/uL (0.0-0.7) Basophils # (Auto) 0.0 x10^3/uL (0.0-0.2) Sodium Level 138 mmol/L (136-145) Potassium Level 3.8 mmol/L (3.5-5.1) Chloride Level 100 mmol/L (98-107) Carbon Dioxide Level 29 mmol/L (21-32) Anion Gap 9 (6-14) Blood Urea Nitrogen 9 mg/dL (8-26) Creatinine 1.1 mg/dL (0.7-1.3) Estimated GFR (Cockcroft-Gault) 76.6 Glucose Level 133 mg/dL (70-99) Calcium Level 9.0 mg/dL (8.5-10.1) Assessment Assessment POD #1 right forearm, wrist, hand fasciotomies Plan Plan of Care Continue elevating right arm and applying ice. Will add Toradol and prednisone for swelling. Pt requested [facility] for pain control, which Dr. Messina has agreed to. D /w nurse. Plan for return to OR tomorrow 02/05/18 at 1pm for irrigation and debridement and hopeful wound closure. NPO after midnight. JULIO VILLANUEVA Feb 04, 2018 10:09
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
[2018-02-04] MEDS: IV NORMAL SALINE 1000ML BAG 1,000 ML IV SCH ×2 (10:42→22:07)
[2018-02-04 11:00] VITALS: BP 98/62
[2018-02-04] MEDS: KETOROLAC 30 MG/ML VIAL. IV SCH ×3 (11:52→23:52)
[2018-02-04] MEDS: predniSONE 10 MG TABLET PO SCH ×2 (11:53→21:00)
[2018-02-04] MEDS ORDERED: diphenhydrAMINE 50 MG/ML VIAL IVP ONE (12:00)
[2018-02-04 15:00] VITALS: BP 109/52
[2018-02-04] MEDS: diphenhydrAMINE HCL 25 MG CAPSULE PO PRN (15:40)
[2018-02-04] MEDS ORDERED: BISACODYL 10 MG SUPP.RECT. PR PRN (16:00)
[2018-02-04 19:00] VITALS: BP 127/58
[2018-02-04] MEDS: MAG HYDROX/ALUMINUM HYD/SIMETH 30 ML ORAL.SUSP PO PRN (19:10)
[2018-02-04] MEDS: LACTOBACILLUS RHAMNOSUS GG 1 CAPSULE. PO SCH (21:00)
[2018-02-04 23:02] VITALS: BP 121/67
[2018-02-05] MEDS: MORPHINE SULFATE/PF 30 ML IV PRN ×7 (00:13→20:06)
[2018-02-05] MEDS: diphenhydrAMINE HCL 25 MG CAPSULE PO PRN (02:33)
[2018-02-05 03:06] VITALS: BP 126/67
[2018-02-05] MEDS: diphenhydrAMINE 50 MG/ML VIAL IVP PRN ×3 (04:02→17:48)
[2018-02-05] MEDS: KETOROLAC 30 MG/ML VIAL. IV SCH ×4 (05:40→23:48)
[2018-02-05 07:00] VITALS: BP 136/68
[2018-02-05] MEDS ORDERED: LIDOCAINE 1% PF 2 ML VIAL. ID PRN (07:00)
[2018-02-05] MEDS ORDERED: MORPHINE SULFATE 2 MG/ML VIAL. IV PRN (07:00)
[2018-02-05] MEDS ORDERED: fentaNYL PF VIAL 100 MCG/2 ML VIAL IV PRN ×2 (07:00)
[2018-02-05] MEDS ORDERED: IV RINGERS,LACTATED 1000ML 1,000 ML IV SCH (07:00)
[2018-02-05] MEDS ORDERED: ONDANSETRON PF 4 MG/2 ML VIAL. IV PRN (07:00)
[2018-02-05] MEDS ORDERED: HYDROmorphone 2 MG/ML VIAL IV PRN (07:00)
[2018-02-05] MEDS ORDERED: PROCHLORPERAZINE 10 MG/2 ML VIAL. IV PRN (07:00)
[2018-02-05] MEDS: TAMSULOSIN 0.4 MG CAP.ER.24H. PO SCH (09:00)
[2018-02-05] MEDS: CYCLOBENZAPRINE 10 MG TABLET. PO SCH ×3 (09:00→21:11)
[2018-02-05] MEDS: MUPIROCIN 2 % TOPICAL CREAM 15GM TUBE. TP SCH ×3 (09:00→21:00)
[2018-02-05] MEDS ORDERED: BUPIVACAINE-EPI 0.5%-1:200000 50 ML VIAL. IJ ONE (10:30)
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
[2018-02-05 11:00] VITALS: BP 114/69
[2018-02-05] MEDS ORDERED: BUPIVACAINE 0.25% 50 ML VIAL. ONE (11:33)
[2018-02-05] MEDS ORDERED: MIDAZOLAM HCL/PF 2 MG/2 ML VIAL. ONE ×2 (12:44→12:52)
[2018-02-05] MEDS ORDERED: fentaNYL PF VIAL 100 MCG/2 ML VIAL ONE (12:44)
[2018-02-05] MEDS ORDERED: PROPOFOL 20 ML IV ONE (12:44)
[2018-02-05] MEDS ORDERED: MIDAZOLAM HCL/PF 2 MG/2 ML VIAL. IV ONE (13:00)
[2018-02-05] MEDS ORDERED: SUCCINYLCHOLINE 200 MG/10 ML VIAL. ONE (13:03)
[2018-02-05] MEDS ORDERED: KETOROLAC 30 MG/ML INJ FOR OR. INJ ONE (13:19)
[2018-02-05] MEDS ORDERED: ONDANSETRON PF 4 MG/2 ML VIAL. ONE (13:19)
[2018-02-05] MEDS ORDERED: DEXAMETHASONE SOD PHOS 20 MG/5 ML VIAL. ONE (13:19)
--- NOTE | 2018-02-05 14:07 | PDOC4 ---
Operative Note Operative Note Date of Procedure: February 05, 2018 Pre-Op Diagnosis: Open wounds right forearm and hand Post-Op Diagnosis: Same Procedure: * Debridement muscle and/or fascia, 20 cm or less, extensor compartment right forearm CPT 29826 * Repair, intermediate, wounds of extremities, 6 cm, flexor compartment right forearm CPT 00385 Surgeon: Esdras Messina MD Anesthesia: General EBL: 10 mL Specimens Obtained: none Complications: none Drains: none Findings: flexor compartment soft and able to be closed. Hand fasciotomy incisions and extensor forearm incision unable to be closed at this time. Indications for Procedure: The patient is a 32-year-old man who underwent forearm fasciotomy for compartment syndrome and hand fasciotomy for compartment syndrome 2 days ago. Symptoms are improving, although not completely resolved, and I recommended irrigation, debridement if required, and wound closure if possible. We discussed the potential risks of need for multiple staged surgeries for closure due to the typical findings of compartment syndrome where the tissue will not close immediately. He is familiar with that procedure and required multiple surgeries about 10 years ago when he had similar compartment syndrome in this arm. The patient and I discussed the risks, benefits and alternatives of surgery. All of his questions about surgery were answered and he desired to proceed. A written consent was obtained. Procedure in Detail: The patient was identified in the preoperative holding area. The correct extremity was marked by me. The patient was taken to the operating room where general anesthesia was used. The patient was positioned supine on the operating table. Preoperative antibiotics were given intravenously. A timeout procedure was performed. The limb was prepared in sterile fashion with surgical prep solution. Sterile drapes were applied. The prior staple and vessel loop loose closure was removed. All of the open wounds were irrigated, which includes the 2 open wounds on the dorsal hand, the wound on theextensor surface of the forearm distally, and the open wound on the flexor surface of the forearm distally. I palpated all the compartments in the forearm and hand, and they were soft. I reexplored the fasciotomy in the hand to ensure that there is no further pressure of the interosseous muscles. There was a small area of nonviable fascia on the extensor surface of the forearm wound, that was debrided by excision with electrocautery. There is no nonviable muscle. He typically keeps the hand in a flexed posture when he is awake but when he is asleep, there is supple range of motion, with no excess pressure or evidence of ongoing compartment syndrome. After thorough irrigation, I attempted to close the incisions. The volar flexor aspect forearm incision was supple and easily closed in layers with 3-0 Vicryl in the subcutaneous cutaneous tissue and 3-0 Prolene horizontal mattress sutures in the skin. The dorsal hand fasciotomy incisions and the extensor surface of the forearm fasciotomy incisions are unable to be closed at this time. There were irrigated a final time, and the skin edges were loosely tensioned with vessel loop and staple crisscross pattern. Xeroform was placed. Sterile dressings and a splint were applied. Needle and sponge counts were correct. There were no apparent complications. He will need further staged surgeries for closure and he possibly will require split-thickness skin graft for closure. I plan to reexplore and attempt closure in 2 days. ESDRAS MESSINA MD Feb 05, 2018 14:07
[2018-02-05 15:00] VITALS: BP 124/71
[2018-02-05] MEDS: DOCUSATE SODIUM 100 MG CAPSULE. PO SCH (16:51)
[2018-02-05] MEDS: predniSONE 10 MG TABLET PO SCH ×2 (16:51→21:11)
[2018-02-05] MEDS: LACTOBACILLUS RHAMNOSUS GG 1 CAPSULE. PO SCH ×2 (16:51→21:11)
[2018-02-05] MEDS: SENNOSIDES/DOCUSATE 8.6/50MG TABLET. PO SCH (16:51)
[2018-02-05] MEDS: diazePAM 5 MG TABLET PO PRN (17:50)
[2018-02-05] MEDS: IV NORMAL SALINE 1000ML BAG 1,000 ML IV SCH (17:53)
[2018-02-05 19:00] VITALS: BP 120/61
[2018-02-05 23:00] VITALS: BP 121/59
[2018-02-05] MEDS: ZOLPIDEM 5 MG TABLET. PO PRN (23:48)
[2018-02-06] MEDS: MORPHINE SULFATE/PF 30 ML IV PRN ×7 (00:23→21:57)
[2018-02-06] MEDS: diphenhydrAMINE HCL 25 MG CAPSULE PO PRN (00:23)
[2018-02-06 03:00] VITALS: BP 113/66
[2018-02-06] MEDS: KETOROLAC 30 MG/ML VIAL. IV SCH ×3 (05:04→20:22)
[2018-02-06] MEDS: IV NORMAL SALINE 1000ML BAG 1,000 ML IV SCH ×2 (05:05→15:35)
[2018-02-06 07:20] VITALS: BP 124/81
[2018-02-06] MEDS: MUPIROCIN 2 % TOPICAL CREAM 15GM TUBE. TP SCH ×3 (09:00→21:00)
[2018-02-06] MEDS: LACTOBACILLUS RHAMNOSUS GG 1 CAPSULE. PO SCH ×2 (10:15→20:21)
[2018-02-06] MEDS: CYCLOBENZAPRINE 10 MG TABLET. PO SCH ×3 (10:16→20:21)
[2018-02-06] MEDS: TAMSULOSIN 0.4 MG CAP.ER.24H. PO SCH (10:16)
[2018-02-06] MEDS: SENNOSIDES/DOCUSATE 8.6/50MG TABLET. PO SCH (10:16)
[2018-02-06] MEDS: DOCUSATE SODIUM 100 MG CAPSULE. PO SCH (10:16)
[2018-02-06] MEDS: predniSONE 10 MG TABLET PO SCH ×2 (10:16→20:21)
[2018-02-06] MEDS: MAG HYDROX/ALUMINUM HYD/SIMETH 30 ML ORAL.SUSP PO PRN (10:22)
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
[2018-02-06 11:20] VITALS: BP 113/61
[2018-02-06 15:00] VITALS: BP 125/78
[2018-02-06] MEDS: LORazepam 0.5 MG TABLET PO PRN (15:02)
--- NOTE | 2018-02-06 16:18 | PDOC ---
PROGRESS NOTES Subjective Subjective Pt states he is still having pain, but is better on morphine [employer] [place] [employer]. He is able to actively extend fingers now. Objective Vital Signs Vital Signs Date Time Temp Pulse Resp B/P (MAP) Pulse Ox O2 Delivery O2 Flow Rate FiO2 02/06/18 15:22 Room Air 02/06/18 11:20 97.9 86 20 113/61 (78) 98 97.9 02/06/18 05:50 2.0 Physical Exam Right arm dressing c/d/i. He is now actively extending fingers. Some numbness at fingertips, but neurovascularly intact. Labs Laboratory Tests Test 02/04/18 16:54 Glucose (Fingerstick) 115 mg/dL (70-99) Assessment Assessment POD #1 right forearm and hand irrigation and debridement, closure of volar wound Plan Plan of Care Continue postop care. Pain control. Plan for return to OR tomorrow 02/07/18 at 12 :30pm for irrigation and debridement and hopeful wound closure. NPO after midnight. JULIO VILLANUEVA Feb 06, 2018 16:18
[2018-02-06 19:00] VITALS: BP 105/70
[2018-02-06 23:00] VITALS: BP 109/69
[2018-02-07] MEDS: ZOLPIDEM 5 MG TABLET. PO PRN ×2 (00:09→21:20)
[2018-02-07] MEDS: KETOROLAC 30 MG/ML VIAL. IV SCH ×6 (00:09→23:47)
[2018-02-07] MEDS: MORPHINE SULFATE/PF 30 ML IV PRN ×4 (01:37→21:15)
[2018-02-07 03:00] VITALS: BP 109/74
[2018-02-07 07:00] VITALS: BP 122/81
[2018-02-07] MEDS: MUPIROCIN 2 % TOPICAL CREAM 15GM TUBE. TP SCH ×3 (09:00→21:00)
[2018-02-07] MEDS: LACTOBACILLUS RHAMNOSUS GG 1 CAPSULE. PO SCH ×2 (09:00→21:20)
[2018-02-07] MEDS: CYCLOBENZAPRINE 10 MG TABLET. PO SCH ×3 (09:00→21:20)
[2018-02-07] MEDS: predniSONE 10 MG TABLET PO SCH ×2 (09:00→21:20)
[2018-02-07] MEDS: IV NORMAL SALINE 1000ML BAG 1,000 ML IV SCH ×2 (10:00→21:20)
[2018-02-07] MEDS: diphenhydrAMINE 50 MG/ML VIAL IVP PRN (11:21)
[2018-02-07] MEDS ORDERED: BUPIVAC MPF-EPI 0.5%-1:200000 30 ML VIAL. ONE (11:29)
[2018-02-07] MEDS ORDERED: fentaNYL PF VIAL 100 MCG/2 ML VIAL ONE (12:00)
[2018-02-07] MEDS ORDERED: SUCCINYLCHOLINE 200 MG/10 ML VIAL. ONE (12:00)
[2018-02-07] MEDS ORDERED: MIDAZOLAM HCL/PF 2 MG/2 ML VIAL. ONE (12:00)
[2018-02-07] MEDS ORDERED: PROPOFOL 20 ML IV ONE (12:01)
[2018-02-07] MEDS ORDERED: DEXAMETHASONE SOD PHOS 20 MG/5 ML VIAL. ONE (12:01)
[2018-02-07] MEDS ORDERED: FAMOTIDINE 20 MG/2 ML VIAL ONE (12:01)
[2018-02-07] MEDS ORDERED: ONDANSETRON PF 4 MG/2 ML VIAL. ONE (12:01)
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
[2018-02-07] MEDS ORDERED: DESFLURANE 31 TO 60 MINUTES IH ONE ×2 (13:34→14:00)
--- NOTE | 2018-02-07 13:36 | PDOC4 ---
Operative Note Operative Note Date of Procedure: February 07, 2018 Pre-Op Diagnosis: open wounds hand and forearm, after fasciotomies for compartment syndrome Post-Op Diagnosis: Same Procedure: * Repair, intermediate, wounds of extremities, right forearm, 10.5 cm CPT 14486 * Repair, intermediate, wounds of right hand, 8.5 cm CPT 64974 Surgeon: Esdras Messina MD [place]: Gail Leiva PA-C Anesthesia: General EBL: 10 mL Specimens Obtained: none Complications: none Drains: none Findings: Compartments are now soft. Closure of both open wounds was without tension Indications for Procedure: The patient is a 32-year-old man who presented with compartment syndrome nearly a week ago. He had fasciotomies of the hand and forearm previously, and I was able to accomplish partial closure 2 days ago. I recommended return to the operating room today for irrigation, debridement if necessary, and attempted closure. The patient and I discussed the risks, benefits and alternatives of surgery. All of his questions about surgery were answered and he desired to proceed. A written consent was obtained. Procedure in Detail: The patient was identified in the preoperative holding area. The correct extremity was marked by me. The patient was taken to the operating room where general anesthesia was used. The patient was positioned supine on the operating table. He remains on scheduled antibiotics. A timeout procedure was performed. The limb was prepared in sterile fashion with Betadine. Sterile drapes were applied. All of the compartments remained soft and supple to palpation. There is persistent superficial edema but no evidence of ongoing compartment syndrome. Copious irrigation was performed with saline in all 3 open wounds, 2 on the hand and 1 on the extensor surface of the forearm. There was no nonviable muscle or fascia, and no debridement was required. The 2 dorsal hand incisions were a total of 8.5 cm. These were closed in layers with 3-0 Vicryl and 3-0 Prolene horizontal mattress suture without difficulty. The extensor surface of the forearm was irrigated with saline, and then closed in layers, without tension using 3-0 Vicryl simple interrupted sutures, and 3-0 Prolene horizontal mattress sutures. Needle and sponge counts were correct. There were no apparent complications. Sterile dressings and a splint were applied by Ms. Leiva. ESDRAS MESSINA MD Feb 07, 2018 13:36
[2018-02-07] MEDS ORDERED: ONDANSETRON PF 4 MG/2 ML VIAL. IV PRN (14:00)
[2018-02-07] MEDS ORDERED: POLYETHYLENE GLYCOL 3350 17 GM PACKET. PO PRN (14:00)
[2018-02-07] MEDS ORDERED: DEXTROSE 50% 25 GM / 50ML DISP.SYRIN. IV PRN (14:00)
[2018-02-07] MEDS: TAMSULOSIN 0.4 MG CAP.ER.24H. PO SCH (16:40)
[2018-02-07] MEDS: LORazepam 0.5 MG TABLET PO PRN (16:40)
[2018-02-07] MEDS: diphenhydrAMINE HCL 25 MG CAPSULE PO PRN (16:40)
[2018-02-07] MEDS: SENNOSIDES/DOCUSATE 8.6/50MG TABLET. PO SCH (16:40)
[2018-02-07] MEDS: DOCUSATE SODIUM 100 MG CAPSULE. PO SCH (16:40)
[2018-02-07 19:00] VITALS: BP 119/82
[2018-02-07 23:00] VITALS: BP 118/74
[2018-02-08 03:00] VITALS: BP 118/74
[2018-02-08] MEDS: KETOROLAC 30 MG/ML VIAL. IV SCH ×4 (05:28→23:31)
[2018-02-08 05:46] LABS: BASO % 0 % (0-3); EOS % 0 % (0-3); HEMATOCRIT 36.2 % (39.0-53.0); HEMOGLOBIN 12.3 g/dL (13.0-17.5); LYMPH # 1.1 x10^3/uL (1.0-4.8); LYMPH % 7 % (24-48); MEAN CORPUSCULAR HEMOGLOBIN 30 pg (25-35); MEAN CORPUSCULAR HGB CONC 34 g/dL (31-37); MEAN CORPUSCULAR VOLUME 87 fL (79-100); MONO # 0.6 x10^3/uL (0.0-1.1); MONO % 4 % (0-9); NEUT # 13.2 x10^3uL (1.8-7.7); NEUT % 88 % (31-73); PLATELET COUNT 298 x10^3/uL (140-400); RED BLOOD COUNT 4.15 x10^6/uL (4.30-5.70); RED CELL DISTRIBUTION WIDTH 13.5 % (11.5-14.5)
[2018-02-08] MEDS ORDERED: MAGNESIUM HYDROXIDE 2,400 MG/30 ML ORAL.SUSP. PO PRN (06:00)
[2018-02-08 06:11] LABS: CALCIUM 8.7 mg/dL (8.5-10.1); CREATININE 0.8 mg/dL (0.7-1.3); GFR 110.7; POTASSIUM 3.9 mmol/L (3.5-5.1)
[2018-02-08 07:00] VITALS: BP 134/75
[2018-02-08] MEDS: IV NORMAL SALINE 1000ML BAG 1,000 ML IV SCH ×2 (07:35→20:36)
[2018-02-08] MEDS ORDERED: SENNOSIDES/DOCUSATE 8.6/50MG TABLET. PO SCH (09:00)
[2018-02-08] MEDS: DOCUSATE SODIUM 100 MG CAPSULE. PO SCH (09:15)
[2018-02-08] MEDS: LACTOBACILLUS RHAMNOSUS GG 1 CAPSULE. PO SCH ×2 (09:15→20:36)
[2018-02-08] MEDS: predniSONE 10 MG TABLET PO SCH ×2 (09:16→20:37)
[2018-02-08] MEDS: MUPIROCIN 2 % TOPICAL CREAM 15GM TUBE. TP SCH ×3 (09:16→19:12)
[2018-02-08] MEDS: TAMSULOSIN 0.4 MG CAP.ER.24H. PO SCH (09:16)
[2018-02-08] MEDS: SENNOSIDES/DOCUSATE 8.6/50MG TABLET. PO SCH (09:16)
[2018-02-08] MEDS: CYCLOBENZAPRINE 10 MG TABLET. PO SCH ×3 (09:16→20:37)
[2018-02-08] MEDS: MORPHINE SULFATE/PF 30 ML IV PRN ×3 (09:27→23:57)
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
[2018-02-08] MEDS: MORPHINE ER 15 MG TABLET.ER PO SCH ×2 (10:40→20:36)
[2018-02-08] MEDS: oxyCODONE/APAP 10/325 1 TAB TABLET PO PRN ×3 (10:40→19:16)
[2018-02-08 11:00] VITALS: BP 160/78
[2018-02-08] MEDS: LORazepam 0.5 MG TABLET PO PRN (12:51)
[2018-02-08] MEDS: MORPHINE SULFATE 4 MG/ML VIAL. IV PRN ×4 (12:52→19:17)
[2018-02-08 14:48] LABS: HEMATOCRIT 38.9 % (39.0-53.0); HEMOGLOBIN 13.2 g/dL (13.0-17.5)
[2018-02-08 15:00] VITALS: BP 115/68
[2018-02-08] MEDS ORDERED: BISACODYL 10 MG SUPP.RECT. PR PRN (16:00)
[2018-02-08 19:00] VITALS: BP 130/89
[2018-02-08] MEDS: MAG HYDROX/ALUMINUM HYD/SIMETH 30 ML ORAL.SUSP PO PRN (19:21)
[2018-02-08] MEDS ORDERED: NALOXONE 0.4 MG/ML VIAL. IV PRN (20:15)
[2018-02-08] MEDS: ZOLPIDEM 5 MG TABLET. PO PRN (20:36)
[2018-02-08 23:00] VITALS: BP 132/87
[2018-02-08] MEDS: diphenhydrAMINE 50 MG/ML VIAL IVP PRN (23:56)
[2018-02-09 03:00] VITALS: BP 137/87
[2018-02-09] MEDS: MORPHINE SULFATE/PF 30 ML IV PRN ×7 (03:25→22:16)
[2018-02-09] MEDS: KETOROLAC 30 MG/ML VIAL. IV SCH (05:09)
[2018-02-09] MEDS: diphenhydrAMINE 50 MG/ML VIAL IVP PRN ×3 (05:52→18:11)
[2018-02-09 07:00] VITALS: BP 120/80
[2018-02-09] MEDS: MUPIROCIN 2 % TOPICAL CREAM 15GM TUBE. TP SCH ×3 (07:37→20:24)
[2018-02-09] MEDS: DOCUSATE SODIUM 100 MG CAPSULE. PO SCH (08:03)
[2018-02-09] MEDS: LACTOBACILLUS RHAMNOSUS GG 1 CAPSULE. PO SCH ×2 (08:03→20:25)
[2018-02-09] MEDS: TAMSULOSIN 0.4 MG CAP.ER.24H. PO SCH (08:04)
[2018-02-09] MEDS: CYCLOBENZAPRINE 10 MG TABLET. PO SCH ×3 (08:04→20:26)
[2018-02-09] MEDS: predniSONE 10 MG TABLET PO SCH ×2 (08:05→20:26)
[2018-02-09] MEDS: MORPHINE ER 15 MG TABLET.ER PO SCH ×2 (08:05→20:26)
[2018-02-09] MEDS: SENNOSIDES/DOCUSATE 8.6/50MG TABLET. PO SCH (08:05)
[2018-02-09] MEDS: LORazepam 0.5 MG TABLET PO PRN ×2 (08:06→18:26)
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
[2018-02-09 11:00] VITALS: BP 114/74
[2018-02-09 15:00] VITALS: BP 117/74
[2018-02-09] MEDS: MAG HYDROX/ALUMINUM HYD/SIMETH 30 ML ORAL.SUSP PO PRN (18:26)
[2018-02-09 19:00] VITALS: BP 122/74
[2018-02-09] MEDS: IV NORMAL SALINE 1000ML BAG 1,000 ML IV SCH (20:25)
[2018-02-09] MEDS: ZOLPIDEM 5 MG TABLET. PO PRN (20:26)
[2018-02-09 23:02] VITALS: BP 112/74
[2018-02-10] MEDS: diphenhydrAMINE 50 MG/ML VIAL IVP PRN ×2 (00:01→05:58)
[2018-02-10 03:02] VITALS: BP 113/72
[2018-02-10] MEDS: MORPHINE SULFATE/PF 30 ML IV PRN ×2 (03:07→07:41)
[2018-02-10 07:00] VITALS: BP 128/80
[2018-02-10] MEDS: LACTOBACILLUS RHAMNOSUS GG 1 CAPSULE. PO SCH ×2 (09:00→20:57)
[2018-02-10] MEDS: MUPIROCIN 2 % TOPICAL CREAM 15GM TUBE. TP SCH ×3 (09:00→19:34)
[2018-02-10] MEDS: MORPHINE ER 15 MG TABLET.ER PO SCH ×2 (09:41→20:57)
[2018-02-10] MEDS: DOCUSATE SODIUM 100 MG CAPSULE. PO SCH (09:41)
[2018-02-10] MEDS: SENNOSIDES/DOCUSATE 8.6/50MG TABLET. PO SCH (09:42)
[2018-02-10] MEDS: predniSONE 10 MG TABLET PO SCH ×2 (09:42→20:57)
[2018-02-10] MEDS: CYCLOBENZAPRINE 10 MG TABLET. PO SCH ×3 (09:42→20:57)
[2018-02-10] MEDS: TAMSULOSIN 0.4 MG CAP.ER.24H. PO SCH (09:42)
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
[2018-02-10 11:00] VITALS: BP 108/76
[2018-02-10 13:42] LABS: CALCIUM 8.5 mg/dL (8.5-10.1); CREATININE 0.8 mg/dL (0.7-1.3); GFR 110.7; POTASSIUM 3.7 mmol/L (3.5-5.1)
[2018-02-10] MEDS: diphenhydrAMINE HCL 25 MG CAPSULE PO PRN (13:55)
[2018-02-10] MEDS: oxyCODONE/APAP 10/325 1 TAB TABLET PO PRN ×3 (13:55→22:29)
[2018-02-10 14:14] LABS: BASO # 0.1 x10^3/uL (0.0-0.2); BASO % 1 % (0-3); EOS # 0.2 x10^3/uL (0.0-0.7); EOS % 1 % (0-3); HEMATOCRIT 39.3 % (39.0-53.0); HEMOGLOBIN 13.1 g/dL (13.0-17.5); LYMPH # 1.7 x10^3/uL (1.0-4.8); LYMPH % 12 % (24-48); MEAN CORPUSCULAR HEMOGLOBIN 30 pg (25-35); MEAN CORPUSCULAR HGB CONC 33 g/dL (31-37); MEAN CORPUSCULAR VOLUME 90 fL (79-100); MONO # 1.2 x10^3/uL (0.0-1.1); MONO % 9 % (0-9); NEUT # 10.7 x10^3uL (1.8-7.7); NEUT % 77 % (31-73); PLATELET COUNT 261 x10^3/uL (140-400); RED BLOOD COUNT 4.37 x10^6/uL (4.30-5.70); WHITE BLOOD COUNT 13.8 x10^3/uL (4.0-11.0)
[2018-02-10 14:48] LABS: % BANDS 2 % (0-9); % EOS 1 % (0-5); % LYMPHS 13 % (24-48); % METAS 1 % (0-0); % MONOS 5 % (0-10)
[2018-02-10 14:49] LABS: % MYELOS 3 % (0-0); % SEGS 75 % (35-66)
[2018-02-10 14:50] LABS: PLT ESTIMATE ADEQUATE (ADEQUATE)
[2018-02-10 15:00] VITALS: BP 153/84
[2018-02-10 19:00] VITALS: BP 123/71
[2018-02-10] MEDS: LORazepam 0.5 MG TABLET PO PRN (20:56)
[2018-02-10] MEDS: ZOLPIDEM 5 MG TABLET. PO PRN (20:58)
[2018-02-10] MEDS: MAG HYDROX/ALUMINUM HYD/SIMETH 30 ML ORAL.SUSP PO PRN (21:24)
[2018-02-10 23:00] VITALS: BP 116/78
[2018-02-11] MEDS: oxyCODONE/APAP 10/325 1 TAB TABLET PO PRN ×6 (02:28→23:00)
[2018-02-11 03:00] VITALS: BP 123/66
[2018-02-11] MEDS: MAG HYDROX/ALUMINUM HYD/SIMETH 30 ML ORAL.SUSP PO PRN ×2 (05:46→23:06)
[2018-02-11 07:00] VITALS: BP 122/69
[2018-02-11] MEDS: MORPHINE ER 15 MG TABLET.ER PO SCH ×2 (08:43→21:24)
[2018-02-11] MEDS: predniSONE 10 MG TABLET PO SCH ×2 (08:43→21:23)
[2018-02-11] MEDS: SENNOSIDES/DOCUSATE 8.6/50MG TABLET. PO SCH (08:43)
[2018-02-11] MEDS: DOCUSATE SODIUM 100 MG CAPSULE. PO SCH (08:43)
[2018-02-11] MEDS: CYCLOBENZAPRINE 10 MG TABLET. PO SCH ×3 (08:43→21:23)
[2018-02-11] MEDS: TAMSULOSIN 0.4 MG CAP.ER.24H. PO SCH (08:43)
[2018-02-11] MEDS: MUPIROCIN 2 % TOPICAL CREAM 15GM TUBE. TP SCH ×3 (08:45→21:00)
[2018-02-11] MEDS: LACTOBACILLUS RHAMNOSUS GG 1 CAPSULE. PO SCH ×2 (10:32→21:23)
[2018-02-11 11:00] VITALS: BP 124/78
[2018-02-11] MEDS ORDERED: MORPHINE SULFATE 4 MG/ML VIAL. IV ONE ×2 (11:15→11:30)
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
[2018-02-11] MEDS: LORazepam 0.5 MG TABLET PO PRN (14:37)
[2018-02-11 15:00] VITALS: BP 131/78
--- NOTE | 2018-02-11 16:11 | PDOC ---
PROGRESS NOTES Subjective Subjective Pt states right hand and forearm is now more swollen and painful. Per RN, patient took off postop splint and dressing. Objective Vital Signs Vital Signs Date Time Temp Pulse Resp B/P (MAP) Pulse Ox O2 Delivery O2 Flow Rate FiO2 02/11/18 15:57 Room Air 02/11/18 11:00 98.1 105 18 124/78 (93) 96 98.1 02/11/18 03:25 2.0 Physical Exam Dressing removed. Incisions are intact and well-approximated with sutures in the skin. Minimal drainage. Mild swelling. Holding hand in fist with wrist flexed again. Generalized tenderness to palpation of hand and forearm. NVI distally. Labs Laboratory Tests Test 02/10/18 13:10 White Blood Count 13.8 x10^3/uL (4.0-11.0) Red Blood Count 4.37 x10^6/uL (4.30-5.70) Hemoglobin 13.1 g/dL (13.0-17.5) Hematocrit 39.3 % (39.0-53.0) Mean Corpuscular Volume 90 fL (79-100) Mean Corpuscular Hemoglobin 30 pg (25-35) Mean Corpuscular Hemoglobin Concent 33 g/dL (31-37) Red Cell Distribution Width 14.0 % (11.5-14.5) Platelet Count 261 x10^3/uL (140-400) Neutrophils (%) (Auto) 77 % (31-73) Lymphocytes (%) (Auto) 12 % (24-48) Monocytes (%) (Auto) 9 % (0-9) Eosinophils (%) (Auto) 1 % (0-3) Basophils (%) (Auto) 1 % (0-3) Neutrophils # (Auto) 10.7 x10^3uL (1.8-7.7) Lymphocytes # (Auto) 1.7 x10^3/uL (1.0-4.8) Monocytes # (Auto) 1.2 x10^3/uL (0.0-1.1) Eosinophils # (Auto) 0.2 x10^3/uL (0.0-0.7) Basophils # (Auto) 0.1 x10^3/uL (0.0-0.2) Segmented Neutrophils % 75 % (35-66) Band Neutrophils % 2 % (0-9) Lymphocytes % 13 % (24-48) Monocytes % 5 % (0-10) Eosinophils % 1 % (0-5) Metamyelocytes % 1 % (0-0) Myelocytes % 3 % (0-0) Platelet Estimate Adequate (ADEQUATE) Sodium Level 138 mmol/L (136-145) Potassium Level 3.7 mmol/L (3.5-5.1) Chloride Level 101 mmol/L (98-107) Carbon Dioxide Level 30 mmol/L (21-32) Anion Gap 7 (6-14) Blood Urea Nitrogen 13 mg/dL (8-26) Creatinine 0.8 mg/dL (0.7-1.3) Estimated GFR (Cockcroft-Gault) 110.7 Glucose Level 114 mg/dL (70-99) Calcium Level 8.5 mg/dL (8.5-10.1) Assessment Assessment POD #4 right forearm and hand debridement and wound closure Plan Plan of Care Compartments remain soft and incisions are well-approximated. 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 Messina declined, but we will add morphine 4mg q4hrs. Right wrist and forearm MRI ordered. JULIO VILLANUEVA Feb 11, 2018 16:11
[2018-02-11] MEDS: MORPHINE SULFATE 4 MG/ML VIAL. IV PRN ×2 (16:42→21:24)
[2018-02-11] MEDS: diphenhydrAMINE 50 MG/ML VIAL IVP PRN (16:48)
[2018-02-11 19:00] VITALS: BP 112/64
[2018-02-11] MEDS: ZOLPIDEM 5 MG TABLET. PO PRN (21:24)
[2018-02-11 23:00] VITALS: BP 126/78
[2018-02-12] MEDS: MORPHINE SULFATE 4 MG/ML VIAL. IV PRN ×5 (01:58→21:30)
[2018-02-12] MEDS: LORazepam 0.5 MG TABLET PO PRN ×3 (01:58→22:57)
[2018-02-12 03:00] VITALS: BP 118/85
[2018-02-12] MEDS: oxyCODONE/APAP 10/325 1 TAB TABLET PO PRN ×6 (03:55→22:57)
[2018-02-12 07:00] VITALS: BP 117/67
[2018-02-12] MEDS: LACTOBACILLUS RHAMNOSUS GG 1 CAPSULE. PO SCH ×2 (08:31→20:45)
[2018-02-12] MEDS: TAMSULOSIN 0.4 MG CAP.ER.24H. PO SCH (08:32)
[2018-02-12] MEDS: MORPHINE ER 15 MG TABLET.ER PO SCH ×2 (08:32→20:45)
[2018-02-12] MEDS: predniSONE 10 MG TABLET PO SCH ×2 (08:32→20:46)
[2018-02-12] MEDS: CYCLOBENZAPRINE 10 MG TABLET. PO SCH ×3 (08:32→20:45)
[2018-02-12] MEDS: SENNOSIDES/DOCUSATE 8.6/50MG TABLET. PO SCH (08:33)
[2018-02-12] MEDS: DOCUSATE SODIUM 100 MG CAPSULE. PO SCH (08:33)
[2018-02-12] MEDS: MUPIROCIN 2 % TOPICAL CREAM 15GM TUBE. TP SCH ×3 (08:34→20:48)
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
[2018-02-12 11:00] VITALS: BP 120/73
[2018-02-12] MEDS ORDERED: VANCOMYCIN 1.5 GM in IV NORMAL SALINE 500ML BAG 500 ML IV ONE (12:00)
[2018-02-12] MEDS ORDERED: VANCOMYCIN 2 GM in IV NORMAL SALINE 500ML BAG 500 ML IV ONE (12:15)
[2018-02-12] MEDS: diphenhydrAMINE HCL 25 MG CAPSULE PO PRN (12:55)
--- NOTE | 2018-02-12 16:00 | RAD ---
MR of the right wrist without contrast HISTORY: Compartment syndrome. Wrist pain. Swelling. TECHNIQUE: Routine multiplanar sequences are obtained. FINDINGS: Subcutaneous edema with swelling particularly along the dorsum of the wrist. No organized fluid collection. Mild edema/fluid around the flexor digitorum tendons and in the carpal tunnel, particularly at its deeper aspect. There is moderate to severe motion degradation on the exam. No evidence of acute tendon rupture. No significant tendon sheath fluid. No obvious TFCC tear or ligament tear but motion degradation could limit evaluation. No large joint effusion. No bone destruction or acute fracture. IMPRESSION: 1. Soft tissue swelling or cellulitis along the posterior wrist and within the deep carpal tunnel. 2. No other definite abnormalities. Note there is moderate to severe motion degradation. Electronically signed by: Francisco Reich MD (02/12/2018 3:57 PM) [facility]
[2018-02-12 17:53] VITALS: BP 109/71
[2018-02-12 19:00] VITALS: BP 112/77
[2018-02-12] MEDS: ZOLPIDEM 5 MG TABLET. PO PRN (20:45)
[2018-02-12 23:00] VITALS: BP 121/70
[2018-02-12] MEDS: MAG HYDROX/ALUMINUM HYD/SIMETH 30 ML ORAL.SUSP PO PRN (23:23)
[2018-02-13] MEDS: MORPHINE SULFATE 4 MG/ML VIAL. IV PRN ×6 (01:44→22:32)
[2018-02-13 03:00] VITALS: BP 108/74
[2018-02-13] MEDS: oxyCODONE/APAP 10/325 1 TAB TABLET PO PRN ×5 (03:39→21:23)
[2018-02-13 07:00] VITALS: BP 121/73
[2018-02-13] MEDS ORDERED: TETANUS AND DIPHTHERIA TOX/PF 0.5 ML DISP.SYRIN. VAX IM ONE (08:00)
[2018-02-13] MEDS ORDERED: TETANUS IMMUNE GLOBULIN PF 250 UNIT DISP.SYRIN. VAX IM ONE (08:00)
[2018-02-13] MEDS: DOCUSATE SODIUM 100 MG CAPSULE. PO SCH (08:25)
[2018-02-13] MEDS: TAMSULOSIN 0.4 MG CAP.ER.24H. PO SCH (08:25)
[2018-02-13] MEDS: CYCLOBENZAPRINE 10 MG TABLET. PO SCH ×3 (08:25→20:56)
[2018-02-13] MEDS: MORPHINE ER 15 MG TABLET.ER PO SCH ×2 (08:26→20:56)
[2018-02-13] MEDS: predniSONE 10 MG TABLET PO SCH ×2 (08:26→20:57)
[2018-02-13] MEDS: SENNOSIDES/DOCUSATE 8.6/50MG TABLET. PO SCH (08:26)
[2018-02-13] MEDS: PIPERACILLIN/TAZOBACTAM 4.5 GM in IV NORMAL SALINE 100ML 100 ML IV SCH ×3 (08:30→18:28)
--- NOTE | 2018-02-13 08:53 | PDOC ---
Infectious Disease Note Vital Sign Vital Signs Vital Signs Date Time Temp Pulse Resp B/P (MAP) Pulse Ox O2 Delivery O2 Flow Rate FiO2 02/13/18 06:49 Room Air 02/13/18 03:00 97.8 109 18 108/74 (85) 98 97.8 02/12/18 21:30 2.0 Labs Lab Laboratory Tests Test 02/12/18 12:10 Erythrocyte Sedimentation Rate 6 (0-15) Lactic Acid Level 1.8 mmol/L (0.4-2.0) Micro IMPRESSION: 1. Soft tissue swelling or cellulitis along the posterior wrist and within the deep carpal tunnel. 2. No other definite abnormalities. Note there is moderate to severe motion degradation. Objective Assessment Right forearm compartment syndrome s/p Decompression fasciotomy, forearm and wrist, flexor and extensor compartments, without debridement of nonviable muscle , right Decompression fasciotomy, hand, right 02/03 back to OR 02/05 and 02/07 Right wrist/hand contracture Leukocytosis - on steroids H/o Asthma Plan Plan of Care Wounds look very clean but will change abx to address deeper structures with spasms. D/c Cefazolin and dose Zosyn/Zyvox (decrease potential toxin production of potential toxin producing bacteria)/Flagyl Dose Tetanus vaccine and immunoglobulin although his contractures started within hours of the injury so unlikely tetanus as incubation period min 3 days but can't remember his last vaccine May benefit neuro eval F/u labs Thank you # [id number] SELENA MAGANA MD Feb 13, 2018 08:53
[2018-02-13] MEDS: MUPIROCIN 2 % TOPICAL CREAM 15GM TUBE. TP SCH ×3 (09:00→20:58)
[2018-02-13 09:30] LABS: BASO % 0 % (0-3); EOS # 0.1 x10^3/uL (0.0-0.7); EOS % 1 % (0-3); HEMATOCRIT 44.4 % (39.0-53.0); HEMOGLOBIN 15.3 g/dL (13.0-17.5); LYMPH % 17 % (24-48); MEAN CORPUSCULAR HEMOGLOBIN 30 pg (25-35); MEAN CORPUSCULAR HGB CONC 34 g/dL (31-37); MEAN CORPUSCULAR VOLUME 88 fL (79-100); MONO # 0.8 x10^3/uL (0.0-1.1); MONO % 7 % (0-9); NEUT # 8.9 x10^3uL (1.8-7.7); NEUT % 75 % (31-73); PLATELET COUNT 302 x10^3/uL (140-400); RED BLOOD COUNT 5.06 x10^6/uL (4.30-5.70); RED CELL DISTRIBUTION WIDTH 13.9 % (11.5-14.5); WHITE BLOOD COUNT 11.9 x10^3/uL (4.0-11.0)
[2018-02-13 09:56] LABS: ALBUMIN 3.7 g/dL (3.4-5.0); CALCIUM 9.4 mg/dL (8.5-10.1); CREATININE 0.9 mg/dL (0.7-1.3); GFR 96.6; POTASSIUM 3.6 mmol/L (3.5-5.1); TOTAL BILIRUBIN 0.6 mg/dL (0.2-1.0); TOTAL PROTEIN 7.5 g/dL (6.4-8.2)
[2018-02-13] MEDS: LINEZOLID 600 MG TABLET PO SCH ×2 (09:57→20:56)
[2018-02-13] MEDS: LACTOBACILLUS RHAMNOSUS GG 1 CAPSULE. PO SCH ×2 (09:58→20:56)
[2018-02-13] MEDS: diphenhydrAMINE HCL 25 MG CAPSULE PO PRN ×2 (10:17→18:29)
--- NOTE | 2018-02-13 10:43 | PDOC ---
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 Pulse 114 Resp 18 20 20 B/P (MAP) 121/73 (89) Pulse Ox 99 98 98 O2 Delivery Room Air Room Air Room Air Room Air 02/13/18 02/13/18 09:27 10:00 Resp 20 Pulse Ox 98 O2 Delivery Room Air Room Air Intake and Output 02/12/18 02/12/18 02/13/18 15:00 23:00 07:00 Intake Total 500 ml 720 ml Balance 500 ml 720 ml MARCELLUS CAIN MD Feb 13, 2018 10:43
[2018-02-13 11:00] VITALS: BP 109/72
[2018-02-13] MEDS: LORazepam 0.5 MG TABLET PO PRN ×2 (12:38→20:57)
--- NOTE | 2018-02-13 13:06 | CONS ---
DATE OF CONSULTATION: 02/13/2018 INFECTIOUS DISEASE CONSULTATION LOCATION: The patient is in room 526. REQUESTING PHYSICIAN: Dr. Lloyd. REASON FOR CONSULTATION: Questionable cellulitis. HISTORY OF PRESENT ILLNESS: The patient is a 32-year-old gentleman with a history of previous right upper extremity compartment syndrome. He presented to [facility] Emergency Room on 02/02/2018m having fell off a, trampoline and landing on his right outstretched arm approximately 3 hours prior to his presentation. He began to experience increased swelling and contractions of his fingers. He was evaluated by Dr. Messina and was taken to the operating room on 02/03/2018 for a forearm compartment syndrome and hand compartment syndrome, underwent decompression fasciotomy of the forearm and wrist flexor and extensor compartments without debridement of nonviable muscle and decompression fasciotomy of the hand on the right. He was taken back to the operating room on two other occasions, including 02/05/2018 and 02/07/2018. He has been on IV cefazolin since at least 02/03/2018. He has also received steroids. He has not run a fever. He complains of ongoing wrist contractures on the right side. He has a sensation and increased pain, but is unable to straighten his fingers. He underwent an MRI of the right upper extremity on 02/11/2018, which revealed soft tissue swelling or cellulitis along the posterior wrist and within the deep carpal tunnel. No other definite abnormalities. Currently, the patient is sitting in bed. Denies any fevers, chills or sweats. He has no headaches. He has no change in vision. No swallowing problems. No shortness of air or cough. Denies nausea, vomiting or diarrhea. No dysuria, frequency or urgency. PAST MEDICAL HISTORY: Positive for asthma; previous compartment syndrome on his right upper extremity, has had surgery there; surgery on his ears and submandibular area and tonsillectomy. REVIEW OF SYSTEMS: Otherwise negative, except for what is mentioned above. ALLERGIES: LISTED IODINATED CONTRAST. FAMILY HISTORY: Noncontributory. 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 PHYSICAL EXAMINATION: VITAL SIGNS: He is afebrile. Temperature is 97.8, pulse 109, respirations 20, satting 98% on room air and blood pressure 108/74. CONSTITUTIONAL: He is cooperative. He is in no acute distress. HEENT: Pupils are equal and reactive. Normal conjunctivae. Oral cavity, pharynx is clear. NECK: Supple, with good range of motion. No JVD. LUNGS: Clear to auscultation bilaterally. HEART: S1, S2, mild tachycardic. No murmur. ABDOMEN: Soft, nontender and nondistended, with positive bowel sounds. EXTREMITIES: Without clubbing or cyanosis. His right forearm has intact and well-approximated wounds. There is no surrounding erythema. There is no warmth. There is no drainage. He has trace to 1+ edema. He has tattoos. His right wrist and fingers are contracted. He has tenderness, but he does have good capillary refill and is neurovascularly intact. SKIN: Otherwise without signs of rash. NEUROLOGIC: He is nonfocal and answers questions appropriately. PSYCHIATRIC: Affect is appropriate. LABORATORY DATA: Laboratory values from 02/10/2018, white count 13.8, hemoglobin 13.1, platelets of 261,000 with bands 2, segs 75 and lymphs 13. Labs from today are currently ordered and pending. Most recent creatinine is 0.8, glucose of 114. Drug screen from 01/17/2018 positive for benzos and opiates. MRI reviewed in the history of present illness. IMPRESSION: 1. Right forearm compartment syndrome, status post decompression fasciotomy forearm and wrist flexor and extensor compartments, without debridement of nonviable muscle on the right; decompression fasciotomy of the right hand on 02/03/2018. He has come in back to the operating room on 02/05/2018 as well as 02/07/2018. 2. Right wrist hand contracture. 3. Leukocytosis, currently on steroids. 4. History of asthma. RECOMMENDATIONS: The wounds look very clean, but we will change antibiotics to address deeper structures with ongoing spasms. We will discontinue the cefazolin dose Zosyn, Zyvox as well as Flagyl. He cannot remember when his last tetanus vaccine was; therefore, we will dose the vaccine and also give him a dose of immunoglobulin, although his contracture started within hours of the injury, so unlikely tetanus with incubation, minimum of 3 days, but cannot remember when his last vaccine was. May benefit from neuro eval and follow up labs. Thank you for letting me participate in the patient's care. Should you have further questions, please do not hesitate to contact me. Discussed with nursing as well as pharmacy. SELENA MAGANA MD DR: MARIANA/sydnie JOB#: [id number] / [id number]
[2018-02-13 15:00] VITALS: BP 114/69
--- NOTE | 2018-02-13 16:06 | PDOC2 ---
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 patient's care. CIRILO MEIER MD Feb 13, 2018 16:06
--- NOTE | 2018-02-13 17:25 | PDOC ---
PROGRESS NOTES Subjective Subjective Pt still c/o severe pain and still holding hand in fist with wrist flexed. Objective Vital Signs Vital Signs Date Time Temp Pulse Resp B/P (MAP) Pulse Ox O2 Delivery O2 Flow Rate FiO2 02/13/18 17:17 20 98 Room Air 02/13/18 11:00 96.1 97 109/72 (84) 96.1 02/12/18 21:30 2.0 Physical Exam Holding hand in fist with wrist flexed. Unable to relax hand. Compartments soft. Dressing c/d/i. Labs Laboratory Tests Test 02/12/18 12:10 02/13/18 09:00 Erythrocyte Sedimentation Rate 6 (0-15) Lactic Acid Level 1.8 mmol/L (0.4-2.0) White Blood Count 11.9 x10^3/uL (4.0-11.0) Red Blood Count 5.06 x10^6/uL (4.30-5.70) Hemoglobin 15.3 g/dL (13.0-17.5) Hematocrit 44.4 % (39.0-53.0) Mean Corpuscular Volume 88 fL (79-100) Mean Corpuscular Hemoglobin 30 pg (25-35) Mean Corpuscular Hemoglobin Concent 34 g/dL (31-37) Red Cell Distribution Width 13.9 % (11.5-14.5) Platelet Count 302 x10^3/uL (140-400) Neutrophils (%) (Auto) 75 % (31-73) Lymphocytes (%) (Auto) 17 % (24-48) Monocytes (%) (Auto) 7 % (0-9) Eosinophils (%) (Auto) 1 % (0-3) Basophils (%) (Auto) 0 % (0-3) Neutrophils # (Auto) 8.9 x10^3uL (1.8-7.7) Lymphocytes # (Auto) 2.0 x10^3/uL (1.0-4.8) Monocytes # (Auto) 0.8 x10^3/uL (0.0-1.1) Eosinophils # (Auto) 0.1 x10^3/uL (0.0-0.7) Basophils # (Auto) 0.0 x10^3/uL (0.0-0.2) Sodium Level 138 mmol/L (136-145) Potassium Level 3.6 mmol/L (3.5-5.1) Chloride Level 97 mmol/L (98-107) Carbon Dioxide Level 30 mmol/L (21-32) Anion Gap 11 (6-14) Blood Urea Nitrogen 19 mg/dL (8-26) Creatinine 0.9 mg/dL (0.7-1.3) Estimated GFR (Cockcroft-Gault) 96.6 BUN/Creatinine Ratio 21 (6-20) Glucose Level 114 mg/dL (70-99) Calcium Level 9.4 mg/dL (8.5-10.1) Total Bilirubin 0.6 mg/dL (0.2-1.0) Aspartate Amino Transf (AST/SGOT) 12 U/L (15-37) Alanine Aminotransferase (ALT/SGPT) 36 U/L (16-63) Alkaline Phosphatase 77 U/L (46-116) Total Protein 7.5 g/dL (6.4-8.2) Albumin 3.7 g/dL (3.4-5.0) Albumin/Globulin Ratio 1.0 (1.0-1.7) Laboratory Tests Test 02/13/18 09:00 White Blood Count 11.9 x10^3/uL (4.0-11.0) Red Blood Count 5.06 x10^6/uL (4.30-5.70) Hemoglobin 15.3 g/dL (13.0-17.5) Hematocrit 44.4 % (39.0-53.0) Mean Corpuscular Volume 88 fL (79-100) Mean Corpuscular Hemoglobin 30 pg (25-35) Mean Corpuscular Hemoglobin Concent 34 g/dL (31-37) Red Cell Distribution Width 13.9 % (11.5-14.5) Platelet Count 302 x10^3/uL (140-400) Neutrophils (%) (Auto) 75 % (31-73) Lymphocytes (%) (Auto) 17 % (24-48) Monocytes (%) (Auto) 7 % (0-9) Eosinophils (%) (Auto) 1 % (0-3) Basophils (%) (Auto) 0 % (0-3) Neutrophils # (Auto) 8.9 x10^3uL (1.8-7.7) Lymphocytes # (Auto) 2.0 x10^3/uL (1.0-4.8) Monocytes # (Auto) 0.8 x10^3/uL (0.0-1.1) Eosinophils # (Auto) 0.1 x10^3/uL (0.0-0.7) Basophils # (Auto) 0.0 x10^3/uL (0.0-0.2) Sodium Level 138 mmol/L (136-145) Potassium Level 3.6 mmol/L (3.5-5.1) Chloride Level 97 mmol/L (98-107) Carbon Dioxide Level 30 mmol/L (21-32) Anion Gap 11 (6-14) Blood Urea Nitrogen 19 mg/dL (8-26) Creatinine 0.9 mg/dL (0.7-1.3) Estimated GFR (Cockcroft-Gault) 96.6 BUN/Creatinine Ratio 21 (6-20) Glucose Level 114 mg/dL (70-99) Calcium Level 9.4 mg/dL (8.5-10.1) Total Bilirubin 0.6 mg/dL (0.2-1.0) Aspartate Amino Transf (AST/SGOT) 12 U/L (15-37) Alanine Aminotransferase (ALT/SGPT) 36 U/L (16-63) Alkaline Phosphatase 77 U/L (46-116) Total Protein 7.5 g/dL (6.4-8.2) Albumin 3.7 g/dL (3.4-5.0) Albumin/Globulin Ratio 1.0 (1.0-1.7) Assessment Assessment s/p right forearm and hand fasciotomies with subsequent debridements and closure Plan Plan of Care Pt is still having severe pain and holding hand in flexed position. We will take patient back to the OR tomorrow around 12pm for examination under anesthesia, including rechecking compartment pressures and splinting. Changed Percocet 10/325 to 2 tabs q4hrs for hopeful better pain control. NPO after midnight. JULIO VILLANUEVA Feb 13, 2018 17:25
[2018-02-13 19:00] VITALS: BP 105/74
[2018-02-13] MEDS: ZOLPIDEM 5 MG TABLET. PO PRN (20:56)
[2018-02-13 23:02] VITALS: BP 95/78
[2018-02-14] VITALS (11 sets, daily range): BP systolic 106–141; BP diastolic 58–97
[2018-02-14] MEDS: oxyCODONE/APAP 10/325 1 TAB TABLET PO PRN ×5 (01:40→21:37)
[2018-02-14] MEDS: diphenhydrAMINE HCL 25 MG CAPSULE PO PRN ×3 (02:45→18:24)
[2018-02-14] MEDS: MORPHINE SULFATE 4 MG/ML VIAL. IV PRN ×6 (02:45→23:04)
[2018-02-14] MEDS: PIPERACILLIN/TAZOBACTAM 4.5 GM in IV NORMAL SALINE 100ML 100 ML IV SCH ×5 (05:03→18:23)
--- NOTE | 2018-02-14 07:29 | PDOC ---
Infectious Disease Note Subjective Subjective Doing ok but hand is the same No F/C/S/N/V/d/SOA/Rash ROS ROS o/w neg Vital Sign Vital Signs Vital Signs Date Time Temp Pulse Resp B/P (MAP) Pulse Ox O2 Delivery O2 Flow Rate FiO2 02/14/18 06:29 Room Air 02/14/18 03:15 96 02/14/18 03:14 97.0 94 20 117/61 (79) 97.0 02/13/18 21:23 2.0 Physical Exam PHYSICAL EXAM CONSTITUTIONAL: He is cooperative. He is in no acute distress. HEENT: Pupils are equal and reactive. Normal conjunctivae. Oral cavity, pharynx is clear. NECK: Supple, with good range of motion. No JVD. LUNGS: Clear to auscultation bilaterally. HEART: S1, S2, mild tachycardic. No murmur. ABDOMEN: Soft, nontender and nondistended, with positive bowel sounds. EXTREMITIES: Without clubbing or cyanosis. His right forearm has trace to 1+ edema. He has tattoos. His right wrist and fingers are contracted. He has tenderness, but he does have good capillary refill and is neurovascularly intact. SKIN: Otherwise without signs of rash. NEUROLOGIC: He is nonfocal and answers questions appropriately. PSYCHIATRIC: Affect is appropriate Labs Lab Laboratory Tests Test 02/13/18 09:00 White Blood Count 11.9 x10^3/uL (4.0-11.0) Red Blood Count 5.06 x10^6/uL (4.30-5.70) Hemoglobin 15.3 g/dL (13.0-17.5) Hematocrit 44.4 % (39.0-53.0) Mean Corpuscular Volume 88 fL (79-100) Mean Corpuscular Hemoglobin 30 pg (25-35) Mean Corpuscular Hemoglobin Concent 34 g/dL (31-37) Red Cell Distribution Width 13.9 % (11.5-14.5) Platelet Count 302 x10^3/uL (140-400) Neutrophils (%) (Auto) 75 % (31-73) Lymphocytes (%) (Auto) 17 % (24-48) Monocytes (%) (Auto) 7 % (0-9) Eosinophils (%) (Auto) 1 % (0-3) Basophils (%) (Auto) 0 % (0-3) Neutrophils # (Auto) 8.9 x10^3uL (1.8-7.7) Lymphocytes # (Auto) 2.0 x10^3/uL (1.0-4.8) Monocytes # (Auto) 0.8 x10^3/uL (0.0-1.1) Eosinophils # (Auto) 0.1 x10^3/uL (0.0-0.7) Basophils # (Auto) 0.0 x10^3/uL (0.0-0.2) Sodium Level 138 mmol/L (136-145) Potassium Level 3.6 mmol/L (3.5-5.1) Chloride Level 97 mmol/L (98-107) Carbon Dioxide Level 30 mmol/L (21-32) Anion Gap 11 (6-14) Blood Urea Nitrogen 19 mg/dL (8-26) Creatinine 0.9 mg/dL (0.7-1.3) Estimated GFR (Cockcroft-Gault) 96.6 BUN/Creatinine Ratio 21 (6-20) Glucose Level 114 mg/dL (70-99) Calcium Level 9.4 mg/dL (8.5-10.1) Total Bilirubin 0.6 mg/dL (0.2-1.0) Aspartate Amino Transf (AST/SGOT) 12 U/L (15-37) Alanine Aminotransferase (ALT/SGPT) 36 U/L (16-63) Alkaline Phosphatase 77 U/L (46-116) Total Protein 7.5 g/dL (6.4-8.2) Albumin 3.7 g/dL (3.4-5.0) Albumin/Globulin Ratio 1.0 (1.0-1.7) Micro IMPRESSION: 1. Soft tissue swelling or cellulitis along the posterior wrist and within the deep carpal tunnel. 2. No other definite abnormalities. Note there is moderate to severe motion degradation. Objective Assessment Right forearm compartment syndrome s/p Decompression fasciotomy, forearm and wrist, flexor and extensor compartments, without debridement of nonviable muscle , right Decompression fasciotomy, hand, right 02/03 back to OR 02/05 and 02/07 Right wrist/hand contracture - ? sec to injury from sec compartment syndrome Leukocytosis - on steroids - improved prior to abx change H/o Asthma Plan Plan of Care Wounds look very clean but will changed abx 02/13 to address deeper structures with spasms. Cont Zosyn/Zyvox (decrease potential toxin production of potential toxin producing bacteria)/Flagyl Dosed Tetanus vaccine and immunoglobulin 02/13 although his contractures started within hours of the injury so unlikely tetanus as incubation period min 3 days but can't remember his last vaccine Await for eval under anesthesia today F/u labs SELENA MAGANA MD Feb 14, 2018 07:29
[2018-02-14] MEDS ORDERED: fentaNYL PF VIAL 100 MCG/2 ML VIAL IV PRN (07:30)
[2018-02-14] MEDS ORDERED: LIDOCAINE 1% PF 2 ML VIAL. ID PRN (07:30)
[2018-02-14] MEDS ORDERED: HYDROmorphone 2 MG/ML VIAL IV PRN (07:30)
[2018-02-14] MEDS ORDERED: ONDANSETRON PF 4 MG/2 ML VIAL. IV PRN ×2 (07:30→13:45)
[2018-02-14] MEDS ORDERED: PROCHLORPERAZINE 10 MG/2 ML VIAL. IV PRN (07:30)
[2018-02-14] MEDS ORDERED: MORPHINE SULFATE 2 MG/ML VIAL. IV PRN (07:30)
[2018-02-14] MEDS: LACTOBACILLUS RHAMNOSUS GG 1 CAPSULE. PO SCH ×2 (08:13→21:00)
[2018-02-14] MEDS: DOCUSATE SODIUM 100 MG CAPSULE. PO SCH (08:13)
[2018-02-14] MEDS: TAMSULOSIN 0.4 MG CAP.ER.24H. PO SCH (08:14)
[2018-02-14] MEDS: CYCLOBENZAPRINE 10 MG TABLET. PO SCH ×3 (08:14→21:01)
[2018-02-14] MEDS: MORPHINE ER 15 MG TABLET.ER PO SCH ×2 (08:15→21:02)
[2018-02-14] MEDS: SENNOSIDES/DOCUSATE 8.6/50MG TABLET. PO SCH (08:15)
[2018-02-14] MEDS: predniSONE 10 MG TABLET PO SCH ×2 (08:15→21:00)
[2018-02-14] MEDS: MUPIROCIN 2 % TOPICAL CREAM 15GM TUBE. TP SCH ×3 (08:16→21:00)
[2018-02-14] MEDS: LINEZOLID 600 MG TABLET PO SCH ×2 (08:16→21:00)
[2018-02-14 09:36] LABS: ALBUMIN/GLOBULIN RATIO 0.8 (1.0-1.7); CALCIUM 8.5 mg/dL (8.5-10.1); CREATININE 0.9 mg/dL (0.7-1.3); GFR 96.6; POTASSIUM 4.3 mmol/L (3.5-5.1); TOTAL BILIRUBIN 0.7 mg/dL (0.2-1.0)
--- NOTE | 2018-02-14 10:27 | PDOC ---
PROGRESS NOTES Assessment Problems Medical Problems: (1) Arm pain Status: Acute (2) Wrist spasm Status: Acute If there is any neurological damage is very mild Flexion of fingers and wrist due to musculoskeletal issues Plan Note Dr. Messina's plans for surgery Rehab Will follow Subjective No change in complaints Objective Vital Signs Date Time Temp Pulse Resp B/P (MAP) Pulse Ox O2 Delivery O2 Flow Rate FiO2 02/14/18 10:00 20 96 Room Air 02/14/18 07:00 97.1 105 114/76 (89) 97.1 02/13/18 21:23 2.0 Intake and Output 02/14/18 07:00 Intake Total 325 ml Balance 325 ml Intake Oral 325 ml # Voids 5 PHYSICAL EXAM Alert. Oriented to time, place and person. PERRL. EOMI. CN: no focal findings. Muscle tone: normal. Muscle strength: right fingers and wrist are flexed, he can move them a little , strength is otherwise normal DTR: 2+ Plantar reflex: flexor Gait: not examined in bed. Sensory exam: patchy right forearm loss. No cerebellar signs elicited. Review of Relevant I have reviewed the following items le (where applicable) has been applied. Labs Laboratory Tests Test 02/12/18 12:10 02/13/18 09:00 02/14/18 08:33 Erythrocyte Sedimentation Rate 6 (0-15) Lactic Acid Level 1.8 mmol/L (0.4-2.0) White Blood Count 11.9 x10^3/uL (4.0-11.0) Red Blood Count 5.06 x10^6/uL (4.30-5.70) Hemoglobin 15.3 g/dL (13.0-17.5) Hematocrit 44.4 % (39.0-53.0) Mean Corpuscular Volume 88 fL (79-100) Mean Corpuscular Hemoglobin 30 pg (25-35) Mean Corpuscular Hemoglobin Concent 34 g/dL (31-37) Red Cell Distribution Width 13.9 % (11.5-14.5) Platelet Count 302 x10^3/uL (140-400) Neutrophils (%) (Auto) 75 % (31-73) Lymphocytes (%) (Auto) 17 % (24-48) Monocytes (%) (Auto) 7 % (0-9) Eosinophils (%) (Auto) 1 % (0-3) Basophils (%) (Auto) 0 % (0-3) Neutrophils # (Auto) 8.9 x10^3uL (1.8-7.7) Lymphocytes # (Auto) 2.0 x10^3/uL (1.0-4.8) Monocytes # (Auto) 0.8 x10^3/uL (0.0-1.1) Eosinophils # (Auto) 0.1 x10^3/uL (0.0-0.7) Basophils # (Auto) 0.0 x10^3/uL (0.0-0.2) Sodium Level 138 mmol/L (136-145) 132 mmol/L (136-145) Potassium Level 3.6 mmol/L (3.5-5.1) 4.3 mmol/L (3.5-5.1) Chloride Level 97 mmol/L (98-107) 98 mmol/L (98-107) Carbon Dioxide Level 30 mmol/L (21-32) 24 mmol/L (21-32) Anion Gap 11 (6-14) 10 (6-14) Blood Urea Nitrogen 19 mg/dL (8-26) 20 mg/dL (8-26) Creatinine 0.9 mg/dL (0.7-1.3) 0.9 mg/dL (0.7-1.3) Estimated GFR (Cockcroft-Gault) 96.6 96.6 BUN/Creatinine Ratio 21 (6-20) 22 (6-20) Glucose Level 114 mg/dL (70-99) 103 mg/dL (70-99) Calcium Level 9.4 mg/dL (8.5-10.1) 8.5 mg/dL (8.5-10.1) Total Bilirubin 0.6 mg/dL (0.2-1.0) 0.7 mg/dL (0.2-1.0) Aspartate Amino Transf (AST/SGOT) 12 U/L (15-37) 17 U/L (15-37) Alanine Aminotransferase (ALT/SGPT) 36 U/L (16-63) 29 U/L (16-63) Alkaline Phosphatase 77 U/L (46-116) 73 U/L (46-116) Total Protein 7.5 g/dL (6.4-8.2) 7.0 g/dL (6.4-8.2) Albumin 3.7 g/dL (3.4-5.0) 3.0 g/dL (3.4-5.0) Albumin/Globulin Ratio 1.0 (1.0-1.7) 0.8 (1.0-1.7) Laboratory Tests Test 02/14/18 08:33 Sodium Level 132 mmol/L (136-145) Potassium Level 4.3 mmol/L (3.5-5.1) Chloride Level 98 mmol/L (98-107) Carbon Dioxide Level 24 mmol/L (21-32) Anion Gap 10 (6-14) Blood Urea Nitrogen 20 mg/dL (8-26) Creatinine 0.9 mg/dL (0.7-1.3) Estimated GFR (Cockcroft-Gault) 96.6 BUN/Creatinine Ratio 22 (6-20) Glucose Level 103 mg/dL (70-99) Calcium Level 8.5 mg/dL (8.5-10.1) Total Bilirubin 0.7 mg/dL (0.2-1.0) Aspartate Amino Transf (AST/SGOT) 17 U/L (15-37) Alanine Aminotransferase (ALT/SGPT) 29 U/L (16-63) Alkaline Phosphatase 73 U/L (46-116) Total Protein 7.0 g/dL (6.4-8.2) Albumin 3.0 g/dL (3.4-5.0) Albumin/Globulin Ratio 0.8 (1.0-1.7) Medications Current Medications Morphine Sulfate (Morphine Sulfate) 4 mg PRN Q15MIN PRN IV/SQ PAIN GREATER THAN 3/10 Last administered on 02/02/18at 18:48; Start 02/02/18 at 18:00; Stop at 03:55; Status DC Sodium Chloride 1,000 ml @ 1,000 mls/hr Q1H IV Last administered on 02/02/18at 18:50; Start 02/02/18 at 17:57; Stop 02/02/18 at 18:56; Status DC Diazepam (Valium) 5 mg 1X ONCE PO Last administered on 02/02/18at 18:47; Start 02/02/18 at 18:00; Stop 02/02/18 at 18:05; Status DC Morphine Sulfate (Morphine Sulfate) 4 mg PRN Q2HR PRN IV SEVERE PAIN Last administered on 02/03/18at 03:07; Start 02/02/18 at 21:00; Stop 02/03/18 at 03:51 ; Status DC Oxycodone/ Acetaminophen (Percocet 10/325) 1 tab PRN Q4HRS PRN PO SEVERE PAIN Last administered on 02/08/18at 19:16; Start 02/02/18 at 21:00; Stop 02/08/18 at 20:14; Status DC Oxycodone/ Acetaminophen (Percocet 5/325) 1 tab PRN Q4HRS PRN PO MODERATE PAIN ; Start 02/02/18 at 21:00; Stop 02/08/18 at 10:27; Status DC Zolpidem Tartrate (Ambien) 5 mg PRN QHS PRN PO INSOMNIA Last administered on at 20:56; Start 02/02/18 at 21:00 Ondansetron HCl (Zofran) 4 mg PRN Q6HRS PRN IV NAUSEA/VOMITING 1ST CHOICE; Start 02/02/18 at 21:00; Status Cancel Ondansetron HCl (Zofran Odt) 4 mg PRN Q6HRS PRN PO NAUSEA/VOMITING 1ST CHOICE; Start 02/02/18 at 21:00 Acetaminophen (Tylenol) 500 mg PRN Q6HRS PRN PO MILD PAIN / TEMP; Start at 21:00 Calcium Carbonate/ Glycine (Tums) 500 mg PRN AFTMEALHC PRN PO INDIGESTION; Start 02/02/18 at 21:00 Albuterol Sulfate (Ventolin Neb Soln) 2.5 mg PRN Q4HRS PRN NEB soa; Start 02/02 at 21:15 Cyclobenzaprine HCl (Flexeril) 10 mg TID PO Last administered on 02/14/18at 08: 14; Start 02/03/18 at 09:00 Acetaminophen/ Hydrocodone Bitart (Lortab 5/325) 1 tab Q6HRS PO Last administered on 02/04/18at 05:51; Start 02/03/18 at 00:00; Stop 02/04/18 at 10:03 ; Status DC Mupirocin (Bactroban) 1 bienvenido TID TP ; Start 02/03/18 at 09:00 Ondansetron HCl (Zofran Odt) 4 mg PRN Q8HRS PRN PO NAUSEA VOMITING 1ST CHOICE; Start 02/02/18 at 21:15; Stop 02/02/18 at 21:15; Status DC Oxycodone/ Acetaminophen (Percocet 5/325) 1 tab PRN TID PRN PO severe pain; Start 02/02/18 at 21:15; Status Cancel Tamsulosin HCl (Flomax) 0.4 mg DAILY PO Last administered on 02/14/18at 08:14; Start 02/03/18 at 09:00 Non-Formulary Medication (Albuterol Sulfate (Proair Hfa Inhaler)) 1 puff PRN Q6HRS PRN INH SHORTNESS OF BREATH; Start 02/02/18 at 21:15; Status UNV Guaifenesin/ Codeine Phosphate (Robitussin Ac) 10 ml PRN Q6HRS PRN PO COUGH; Start 02/02/18 at 21:15 Fentanyl Citrate (Fentanyl 2ml Vial) 50 mcg PRN Q2HR PRN IV SEVERE PAIN Last administered on 02/04/18at 08:44; Start 02/03/18 at 04:00; Stop 02/04/18 at 21:51 ; Status DC Diazepam (Valium) 10 mg PRN Q8HRS PRN PO ANXIETY Last administered on at 17:50; Start 02/03/18 at 04:00; Stop 02/07/18 at 19:56; Status DC Lidocaine HCl (Lidocaine 1% 20ml Vial) 20 ml 1X ONCE INJ ; Start 02/03/18 at 09 :00; Stop 02/03/18 at 09:01; Status Cancel Lidocaine HCl (Lidocaine 1% 50ml Vial) 20 ml 1X ONCE INJ Last administered on 02/03/18at 09:07; Start 02/03/18 at 09:00; Stop 02/03/18 at 09:01; Status DC Fentanyl Citrate (Fentanyl 2ml Vial) 25 mcg PRN Q5MIN PRN IV MILD PAIN; Start 02/03/18 at 09:30; Stop 02/03/18 at 19:00; Status DC Fentanyl Citrate (Fentanyl 2ml Vial) 50 mcg PRN Q5MIN PRN IV MODERATE TO SEVERE PAIN Last administered on 02/03/18at 12:40; Start 02/03/18 at 09:30; Stop 02/03/18 at 19:00; Status DC Morphine Sulfate (Morphine Sulfate) 1 mg PRN Q10MIN PRN IV SEVERE PAIN; Start 02/03/18 at 09:30; Stop 02/03/18 at 19:00; Status DC Ringer's Solution 1,000 ml @ 30 mls/hr Q24H IV Last administered on 02/03/18at 09:35; Start 02/03/18 at 09:23; Stop 02/03/18 at 21:22; Status DC Lidocaine HCl (Xylocaine-Mpf 1% 2ml Vial) 2 ml 1X PRN PRN ID IV START; Start at 09:30; Stop 02/03/18 at 19:00; Status DC Hydromorphone HCl (Dilaudid) 0.5 mg PRN Q10MIN PRN IV SEV PAIN, Second choice Last administered on 02/03/18at 12:29; Start 02/03/18 at 09:30; Stop 02/03/18 at 19:00; Status DC Prochlorperazine Edisylate (Compazine) 5 mg PACU PRN PRN IV NAUSEA, MRX1; Start 02/03/18 at 09:30; Stop 02/03/18 at 19:00; Status DC Midazolam HCl (Versed) 2 mg STK-MED ONCE .ROUTE ; Start 02/03/18 at 09:33; Stop 02/03/18 at 09:34; Status DC Bupivacaine HCl/ Epinephrine Bitart (Marcaine-Epi 0.5%-1:[id number]) 50 ml STK-MED ONCE .ROUTE ; Start 02/03/18 at 08:34; Stop 02/03/18 at 09:35; Status DC Midazolam HCl (Versed) 2 mg 1X ONCE IV Last administered on 02/03/18at 09:41; Start 02/03/18 at 09:45; Stop 02/03/18 at 09:46; Status DC Dexamethasone Sodium Phosphate (Decadron) 20 mg STK-MED ONCE .ROUTE ; Start at 09:41; Stop 02/03/18 at 09:42; Status DC Ondansetron HCl (Zofran) 4 mg STK-MED ONCE .ROUTE ; Start 02/03/18 at 09:41; Stop 02/03/18 at 09:42; Status DC Fentanyl Citrate (Fentanyl 2ml Vial) 100 mcg STK-MED ONCE .ROUTE ; Start at 09:41; Stop 02/03/18 at 09:42; Status DC Famotidine (Pepcid Vial) 20 mg STK-MED ONCE .ROUTE ; Start 02/03/18 at 09:42; Stop 02/03/18 at 09:43; Status DC Propofol 20 ml @ As Directed STK-MED ONCE IV ; Start 02/03/18 at 09:42; Stop at 09:43; Status DC Succinylcholine Chloride (Anectine) 200 mg STK-MED ONCE .ROUTE ; Start 02/03/18 at 09:42; Stop 02/03/18 at 09:43; Status DC Rocuronium [place] (Zemuron) 50 mg STK-MED ONCE .ROUTE ; Start 02/03/18 at 09:45 ; Stop 02/03/18 at 09:46; Status DC Cefazolin Sodium/ Dextrose 50 ml @ As Directed STK-MED ONCE IV ; Start 02/03/18 at 09:46; Stop 02/03/18 at 09:47; Status DC Cefazolin Sodium/ Dextrose 50 ml @ 100 mls/hr 1X PREOP PRN IV Pre Op dose Last administered on 02/03/18at 10:30; Start 02/03/18 at 10:30; Stop 02/03/18 at 18:00; Status DC Fentanyl Citrate (Fentanyl 2ml Vial) 100 mcg STK-MED ONCE .ROUTE ; Start at 10:43; Stop 02/03/18 at 10:44; Status DC Bupivacaine HCl/ Epinephrine Bitart (Marcaine-Epi 0.5%-1:[id number]) 50 ml STK-MED ONCE INJ Last administered on 02/03/18at 10:36; Start 02/03/18 at 10:36; Stop at 11:17; Status DC Neostigmine Methylsulfate (Neostigmine Methylsulfate) 5 mg STK-MED ONCE .ROUTE ; Start 02/03/18 at 11:04; Stop 02/03/18 at 11:05; Status DC Glycopyrrolate (Robinul) 1 mg STK-MED ONCE .ROUTE ; Start 02/03/18 at 11:05; Stop 02/03/18 at 11:06; Status DC Senna/Docusate Sodium (Senna Plus) 1 tab DAILY PO Last administered on at 08:15; Start 02/04/18 at 09:00 Polyethylene Glycol (miraLAX PACKET) 17 gm PRN DAILY PRN PO CONSTIPATION 1ST CHOICE; Start 02/03/18 at 11:30 Ondansetron HCl (Zofran) 4 mg PRN Q4HRS PRN IV NAUSEA/VOMITING; Start 02/03/18 at 11:30 Magnesium Hydroxide (Milk Of Magnesia) 2,400 mg 1X PRN PRN PO CONSTIPATION; Start 02/04/18 at 06:00; Stop 02/05/18 at 05:59; Status DC Bisacodyl (Dulcolax Supp) 10 mg 1X PRN PRN IA CONSTIPATION; Start 02/04/18 at 16:00; Stop 02/05/18 at 15:59; Status DC Dextrose (Dextrose 50%-Water Syringe) 12.5 gm PRN Q15MIN PRN IV SEE COMMENTS; Start 02/03/18 at 11:30 Cefazolin Sodium/ Dextrose 50 ml @ 100 mls/hr Q6H IV ; Start 02/03/18 at 11:30 ; Stop 02/03/18 at 23:59; Status UNV Cefazolin Sodium/ Dextrose 50 ml @ 100 mls/hr Q8HRS IV Last administered on at 05:48; Start 02/03/18 at 14:00; Stop 02/13/18 at 08:24; Status DC Fentanyl Citrate (Fentanyl 2ml Vial) 50 mcg PRN Q5MIN PRN IV MODERATE TO SEVERE PAIN; Start 02/03/18 at 13:30; Stop 02/03/18 at 19:00; Status DC Docusate Sodium (Colace) 100 mg DAILY PO Last administered on 02/14/18at 08:13; Start 02/03/18 at 14:00 Fentanyl Citrate 30 ml @ 0 mls/hr CONT PRN PRN IV PER PROTOCOL Last administered on 02/04/18at 21:05; Start 02/04/18 at 10:00; Stop 02/04/18 at 23:03 ; Status DC Prednisone (Prednisone) 10 mg BID PO Last administered on 02/14/18at 08:15; Start 02/04/18 at 11:00 Ketorolac Tromethamine (Toradol 30mg Vial) 30 mg Q6HRS PRN IV PAIN; Start 02/04 at 10:00; Stop 02/04/18 at 10:24; Status DC Sodium Chloride 1,000 ml @ 75 mls/hr [id number] IV Last administered on at 21:20; Start 02/04/18 at 10:15; Stop 02/08/18 at 17:22; Status DC Ketorolac Tromethamine (Toradol 30mg Vial) 30 mg Q6HRS IV Last administered on 02/09/18at 05:09; Start 02/04/18 at 12:00; Stop 02/09/18 at 11:59; Status DC Ondansetron HCl (Zofran) 4 mg PRN Q6HRS PRN IV NAUSEA/VOMITING; Start 02/05/18 at 07:00; Stop 02/05/18 at 18:00; Status DC Fentanyl Citrate (Fentanyl 2ml Vial) 25 mcg PRN Q5MIN PRN IV MILD PAIN; Start 02/05/18 at 07:00; Stop 02/05/18 at 18:00; Status DC Fentanyl Citrate (Fentanyl 2ml Vial) 50 mcg PRN Q5MIN PRN IV MODERATE TO SEVERE PAIN; Start 02/05/18 at 07:00; Stop 02/05/18 at 18:00; Status DC Morphine Sulfate (Morphine Sulfate) 1 mg PRN Q10MIN PRN IV SEVERE PAIN; Start 02/05/18 at 07:00; Stop 02/05/18 at 18:00; Status DC Ringer's Solution 1,000 ml @ 30 mls/hr Q24H IV ; Start 02/05/18 at 07:00; Stop 02/05/18 at 17:44; Status DC Lidocaine HCl (Xylocaine-Mpf 1% 2ml Vial) 2 ml PRN 1X PRN ID IV START; Start at 07:00; Stop 02/05/18 at 18:00; Status DC Hydromorphone HCl (Dilaudid) 0.5 mg PRN Q10MIN PRN IV SEV PAIN, Second choice; Start 02/05/18 at 07:00; Stop 02/05/18 at 18:00; Status DC Prochlorperazine Edisylate (Compazine) 5 mg PACU PRN PRN IV NAUSEA, MRX1; Start 02/05/18 at 07:00; Stop 02/05/18 at 18:00; Status DC Diphenhydramine HCl (Benadryl) 25 mg PRN Q6HRS PRN PO ITCHING Last administered on 02/14/18at 02:45; Start 02/04/18 at 11:45 Diphenhydramine HCl (Benadryl) 25 mg 1X ONCE IVP Last administered on at 11:52; Start 02/04/18 at 12:00; Stop 02/04/18 at 12:01; Status DC Lactobacillus Rhamnosus (Culturelle) 1 cap BID PO Last administered on at 08:13; Start 02/04/18 at 21:00 Al Hydroxide/Mg Hydroxide (Mylanta Plus Xs) 30 ml PRN Q2HR PRN PO HEARTBURN / GAS Last administered on 02/12/18at 23:23; Start 02/04/18 at 18:45 Morphine Sulfate 30 ml @ 0 mls/hr CONT PRN PRN IV PER PROTOCOL Last administered on 02/08/18at 09:27; Start 02/04/18 at 23:00; Stop 02/08/18 at 10:28 ; Status DC Diphenhydramine HCl (Benadryl) 25 mg PRN Q6HRS PRN IVP ITCHING Last administered on 02/10/18at 05:58; Start 02/05/18 at 03:15; Stop 02/10/18 at 15:28 ; Status DC Bupivacaine HCl/ Epinephrine Bitart (Marcaine-Epi 0.5%-1:[id number]) 50 ml 1X ONCE IJ ; Start 02/05/18 at 10:30; Stop 02/05/18 at 10:31; Status Cancel Bupivacaine HCl (Marcaine 0.25%) 50 ml STK-MED ONCE .ROUTE Last administered on 02/05/18at 13:56; Start 02/05/18 at 11:33; Stop 02/05/18 at 12:34; Status DC Propofol 20 ml @ As Directed STK-MED ONCE IV ; Start 02/05/18 at 12:44; Stop at 12:45; Status DC Midazolam HCl (Versed) 2 mg STK-MED ONCE .ROUTE ; Start 02/05/18 at 12:44; Stop 02/05/18 at 12:45; Status DC Fentanyl Citrate (Fentanyl 2ml Vial) 100 mcg STK-MED ONCE .ROUTE ; Start at 12:44; Stop 02/05/18 at 12:45; Status DC Midazolam HCl (Versed) 2 mg STK-MED ONCE .ROUTE ; Start 02/05/18 at 12:52; Stop 02/05/18 at 12:53; Status DC Succinylcholine Chloride (Anectine) 200 mg STK-MED ONCE .ROUTE ; Start 02/05/18 at 13:03; Stop 02/05/18 at 13:04; Status DC Midazolam HCl (Versed) 2 mg 1X ONCE IV Last administered on 02/05/18at 13:09; Start 02/05/18 at 13:00; Stop 02/05/18 at 13:08; Status DC Ondansetron HCl (Zofran) 4 mg STK-MED ONCE .ROUTE ; Start 02/05/18 at 13:19; Stop 02/05/18 at 13:20; Status DC Dexamethasone Sodium Phosphate (Decadron) 20 mg STK-MED ONCE .ROUTE ; Start at 13:19; Stop 02/05/18 at 13:20; Status DC Ketorolac Tromethamine (Toradol For Or Only) 30 mg STK-MED ONCE INJ ; Start at 13:19; Stop 02/05/18 at 13:20; Status DC Potassium Chloride/Sodium Chloride 1,000 ml @ 125 mls/hr Q8H IV ; Start at 09:00; Stop 02/06/18 at 14:20; Status DC Lorazepam (Ativan) 0.5 mg PRN Q8HRS PRN PO ANXIETY Last administered on at 20:57; Start 02/06/18 at 13:15 Lorazepam (Ativan) 0.5 mg 1X ONCE IV Last administered on 02/07/18at 11:19; Start 02/07/18 at 08:45; Stop 02/07/18 at 08:46; Status DC Fentanyl Citrate (Fentanyl 2ml Vial) 100 mcg STK-MED ONCE .ROUTE ; Start at 12:00; Stop 02/07/18 at 12:01; Status DC Midazolam HCl (Versed) 2 mg STK-MED ONCE .ROUTE ; Start 02/07/18 at 12:00; Stop 02/07/18 at 12:01; Status DC Succinylcholine Chloride (Anectine) 200 mg STK-MED ONCE .ROUTE ; Start 02/07/18 at 12:00; Stop 02/07/18 at 12:01; Status DC Dexamethasone Sodium Phosphate (Decadron) 20 mg STK-MED ONCE .ROUTE ; Start at 12:01; Stop 02/07/18 at 12:02; Status DC Famotidine (Pepcid Vial) 20 mg STK-MED ONCE .ROUTE ; Start 02/07/18 at 12:01; Stop 02/07/18 at 12:02; Status DC Propofol 20 ml @ As Directed STK-MED ONCE IV ; Start 02/07/18 at 12:01; Stop at 12:02; Status DC Ondansetron HCl (Zofran) 4 mg STK-MED ONCE .ROUTE ; Start 02/07/18 at 12:01; Stop 02/07/18 at 12:02; Status DC Bupivacaine HCl/ Epinephrine Bitart (Sensorcain-Mpf Epi 0.5%-1:[id number]) 30 ml STK -MED ONCE .ROUTE Last administered on 02/07/18at 13:29; Start 02/07/18 at 11:29 ; Stop 02/07/18 at 12:30; Status DC Desflurane (Suprane) 30 ml STK-MED ONCE IH ; Start 02/07/18 at 13:34; Stop 02/07 at 13:35; Status DC Senna/Docusate Sodium (Senna Plus) 1 tab DAILY PO ; Start 02/08/18 at 09:00; Status UNV Polyethylene Glycol (miraLAX PACKET) 17 gm PRN DAILY PRN PO CONSTIPATION; Start 02/07/18 at 14:00; Status UNV Ondansetron HCl (Zofran) 4 mg PRN Q4HRS PRN IV NAUSEA/VOMITING; Start 02/07/18 at 14:00; Status UNV Magnesium Hydroxide (Milk Of Magnesia) 2,400 mg 1X PRN PRN PO CONSTIPATION; Start 02/08/18 at 06:00; Stop 02/09/18 at 05:59; Status DC Bisacodyl (Dulcolax Supp) 10 mg 1X PRN PRN IA CONSTIPATION; Start 02/08/18 at 16:00; Stop 02/09/18 at 15:59; Status DC Dextrose (Dextrose 50%-Water Syringe) 12.5 gm PRN Q15MIN PRN IV SEE COMMENTS; Start 02/07/18 at 14:00; Status UNV Cefazolin Sodium/ Dextrose 50 ml @ 100 mls/hr Q6H IV ; Start 02/07/18 at 14:00 ; Stop 02/08/18 at 02:29; Status UNV Desflurane (Suprane) 30 ml STK-MED ONCE IH ; Start 02/07/18 at 14:00; Stop 02/07 at 14:01; Status DC Morphine Sulfate (Ms Contin) 15 mg BID PO Last administered on 02/14/18at 08:15 ; Start 02/08/18 at 10:30 Morphine Sulfate (Morphine Sulfate) 4 mg PRN Q2HR PRN IV PAIN Last administered on 02/08/18at 19:17; Start 02/08/18 at 10:30; Stop 02/08/18 at 20:14 ; Status DC Naloxone HCl (Narcan) 0.4 mg PRN Q2MIN PRN IV SEE INSTRUCTIONS; Start 02/08/18 at 20:15 Sodium Chloride 1,000 ml @ 25 mls/hr Q24H IV Last administered on 02/09/18at 20 :25; Start 02/08/18 at 20:10; Stop 02/10/18 at 19:44; Status DC Morphine Sulfate 30 ml @ 0 mls/hr CONT PRN PRN IV PER PROTOCOL Last administered on 02/10/18at 07:41; Start 02/08/18 at 20:15; Stop 02/10/18 at 08:52 ; Status DC Diphenhydramine HCl (Benadryl) 25 mg PRN Q6HRS PRN IVP ITCHING Last administered on 02/11/18at 16:48; Start 02/09/18 at 11:00 Oxycodone/ Acetaminophen (Percocet 10/325) 1 tab PRN Q4HRS PRN PO MODERATE PAIN Last administered on 02/13/18at 12:38; Start 02/10/18 at 10:00 Morphine Sulfate (Morphine Sulfate) 4 mg 1X ONCE IV Last administered on at 11:15; Start 02/11/18 at 11:15; Stop 02/11/18 at 11:16; Status DC Morphine Sulfate (Morphine Sulfate) 4 mg 1X ONCE IV Last administered on at 14:28; Start 02/11/18 at 11:30; Stop 02/11/18 at 11:31; Status DC Morphine Sulfate (Morphine Sulfate) 4 mg PRN Q4HRS PRN IV PAIN Last administered on 02/14/18at 06:29; Start 02/11/18 at 16:15 Vancomycin HCl 1.5 gm/Sodium Chloride 500 ml @ 250 mls/hr 1X ONCE IV ; Start 02/12/18 at 12:00; Stop 02/12/18 at 13:59; Status UNV Vancomycin HCl 2 gm/Sodium Chloride 500 ml @ 250 mls/hr ONCE ONCE IV Last administered on 02/12/18at 12:48; Start 02/12/18 at 12:15; Stop 02/12/18 at 14:14 ; Status DC Metronidazole 100 ml @ 100 mls/hr Q6HRS IV Last administered on 02/14/18at 05: 42; Start 02/13/18 at 08:00 Tetanus/ Diphtheria Toxoids (Tenivac Syringe) 0.5 ml ONCE ONCE VAX IM Last administered on 02/13/18at 09:45; Start 02/13/18 at 08:00; Stop 02/13/18 at 08:30 ; Status DC Tetanus Immune Globulin (Hypertet) 2 ml ONCE ONCE VAX IM Last administered on at 09:39; Start 02/13/18 at 08:00; Stop 02/13/18 at 08:28; Status DC Piperacillin Sod/ Tazobactam Sod 4.5 gm/Sodium Chloride 100 ml @ 200 mls/hr Q6HRS IV Last administered on 02/14/18at 05:03; Start 02/13/18 at 08:30 Linezolid (Zyvox) 600 mg BID PO Last administered on 02/14/18at 08:16; Start at 09:00 Oxycodone/ Acetaminophen (Percocet 10/325) 2 tab PRN Q4HRS PRN PO SEVERE PAIN Last administered on 02/14/18at 10:00; Start 02/13/18 at 17:00 Ondansetron HCl (Zofran) 4 mg PRN Q6HRS PRN IV NAUSEA/VOMITING; Start 02/14/18 at 07:30; Stop 02/14/18 at 18:00 Fentanyl Citrate (Fentanyl 2ml Vial) 25 mcg PRN Q5MIN PRN IV MILD PAIN; Start 02/14/18 at 07:30; Stop 02/14/18 at 18:00 Fentanyl Citrate (Fentanyl 2ml Vial) 50 mcg PRN Q5MIN PRN IV MODERATE TO SEVERE PAIN; Start 02/14/18 at 07:30; Stop 02/14/18 at 18:00 Morphine Sulfate (Morphine Sulfate) 1 mg PRN Q10MIN PRN IV SEVERE PAIN; Start 02/14/18 at 07:30; Stop 02/14/18 at 18:00 Ringer's Solution 1,000 ml @ 30 mls/hr Q24H IV ; Start 02/14/18 at 07:26; Stop 02/14/18 at 19:25 Lidocaine HCl (Xylocaine-Mpf 1% 2ml Vial) 2 ml 1X PRN PRN ID IV START; Start at 07:30; Stop 02/14/18 at 18:00 Hydromorphone HCl (Dilaudid) 0.5 mg PRN Q10MIN PRN IV SEV PAIN, Second choice; Start 02/14/18 at 07:30; Stop 02/14/18 at 18:00 Prochlorperazine Edisylate (Compazine) 5 mg PACU PRN PRN IV NAUSEA, MRX1; Start 02/14/18 at 07:30; Stop 02/14/18 at 18:00 Active Scripts Active Percocet 5-325 Mg Tablet (Oxycodone/Acetaminophen) 1 Each Tablet 1-2 Each PO PRN TID PRN pain Cyclobenzaprine Hcl 10 Mg Tablet 1 Tab PO TID [place] 5-325 Tablet (Acetaminophen/Hydrocodone Bitart) 1 Each Tablet 1 Tab PO Q6HRS Zofran Odt (Ondansetron) 4 Mg Tab.rapdis 1 Tab SL Q8HRS Cipro (Ciprofloxacin Hcl) 500 Mg Tablet 1 Tab PO BID Flomax (Tamsulosin Hcl) 0.4 Mg Cap.er.24h 1 Cap PO DAILY Albuterol Sulfate Neb Soln (Albuterol Sulfate) 2.5 Mg/3 Ml Vial.neb 1 Vial NEB PRN Q4HRS Guaifenesin Ac Cough Syrup (Guaifenesin/Codeine Phosphate) 473 Ml Liquid 10 Ml PO Q4-6HRS PRN Prednisone 20 Mg Tablet 2 Tab PO DAILY Start on Saturday12/24/17 Proair Hfa Inhaler (Albuterol Sulfate) 8.5 Gm Hfa.aer.ad 1 Puff INH PRN Q6HRS PRN Doxycycline Hyclate 100 Mg Tablet 1 Tab PO BID Bactroban Cream (Mupirocin) 15 Gm Cream..g. 1 [place] TP TID Vitals/I & O Vital Sign - Last 24 Hours 02/13/18 02/13/18 02/13/18 02/13/18 11:00 12:26 12:38 13:38 Temp 96.1 96.1 Pulse 97 Resp 18 20 20 20 B/P (MAP) 109/72 (84) Pulse Ox 97 98 98 O2 Delivery Room Air Room Air Room Air 02/13/18 02/13/18 02/13/18 02/13/18 14:26 15:00 17:17 18:30 Temp 98.0 98.0 Pulse 90 Resp 20 18 20 20 B/P (MAP) 114/69 (84) Pulse Ox 98 99 98 98 O2 Delivery Room Air Room Air Room Air Room Air 02/13/18 02/13/18 02/13/18 02/13/18 19:00 19:11 20:56 21:23 Temp 97.7 97.7 Pulse 112 Resp 20 B/P (MAP) 105/74 (84) Pulse Ox 95 98 98 O2 Delivery Room Air Room Air Room Air Room Air O2 Flow Rate 2.0 02/13/18 02/13/18 02/14/18 02/14/18 22:32 23:02 00:56 01:40 Temp 97.5 97.5 Pulse 100 Resp 20 B/P (MAP) 95/78 (84) Pulse Ox 95 95 O2 Delivery Room Air Room Air Room Air Room Air 02/14/18 02/14/18 02/14/18 02/14/18 02:45 03:14 05:43 06:29 Temp 97.0 97.0 Pulse 94 Resp 20 B/P (MAP) 117/61 (79) Pulse Ox 96 O2 Delivery Room Air Room Air Room Air Room Air 02/14/18 02/14/18 02/14/18 02/14/18 06:43 06:59 07:00 08:00 Temp 97.1 97.1 Pulse 105 Resp 20 20 18 B/P (MAP) 114/76 (89) Pulse Ox 96 96 96 O2 Delivery Room Air Room Air Room Air Room Air 02/14/18 02/14/18 08:15 10:00 Resp 20 20 Pulse Ox 96 96 O2 Delivery Room Air Room Air Intake and Output 02/13/18 02/13/18 02/14/18 15:00 23:00 07:00 Intake Total 325 ml Balance 325 ml CIRILO MEIER MD Feb 14, 2018 10:27
[2018-02-14] MEDS ORDERED: BUPIVACAINE-EPI 0.5%-1:200000 50 ML VIAL. ONE (10:43)
[2018-02-14] MEDS: IV RINGERS,LACTATED 1000ML 1,000 ML IV SCH ×2 (12:34→14:13)
[2018-02-14] MEDS ORDERED: DEXAMETHASONE SOD PHOS 20 MG/5 ML VIAL. ONE (13:23)
[2018-02-14] MEDS ORDERED: ONDANSETRON PF 4 MG/2 ML VIAL. ONE (13:23)
[2018-02-14] MEDS ORDERED: PROPOFOL 20 ML IV ONE (13:23)
[2018-02-14] MEDS ORDERED: SEVOFLURANE 31 TO 60 MINUTES. IH ONE (13:26)
[2018-02-14 13:31] LABS: BASO % 0 % (0-3); EOS % 0 % (0-3); HEMATOCRIT 39.6 % (39.0-53.0); HEMOGLOBIN 13.7 g/dL (13.0-17.5); LYMPH # 0.9 x10^3/uL (1.0-4.8); LYMPH % 8 % (24-48); MEAN CORPUSCULAR HEMOGLOBIN 30 pg (25-35); MEAN CORPUSCULAR HGB CONC 35 g/dL (31-37); MEAN CORPUSCULAR VOLUME 88 fL (79-100); MONO # 0.5 x10^3/uL (0.0-1.1); MONO % 4 % (0-9); NEUT # 10.1 x10^3uL (1.8-7.7); NEUT % 88 % (31-73); PLATELET COUNT 288 x10^3/uL (140-400); RED BLOOD COUNT 4.51 x10^6/uL (4.30-5.70); RED CELL DISTRIBUTION WIDTH 13.9 % (11.5-14.5); WHITE BLOOD COUNT 11.5 x10^3/uL (4.0-11.0)
[2018-02-14] MEDS ORDERED: POLYETHYLENE GLYCOL 3350 17 GM PACKET. PO PRN (13:45)
[2018-02-14] MEDS ORDERED: DEXTROSE 50% 25 GM / 50ML DISP.SYRIN. IV PRN (13:45)
[2018-02-14] MEDS ORDERED: fentaNYL PF VIAL 100 MCG/2 ML VIAL ONE (13:52)
--- NOTE | 2018-02-14 14:00 | PDOC4 ---
Operative Note Operative Note Date of Procedure: February 14, 2018 Pre-Op Diagnosis: Recent compartment syndrome right hand and forearm, hand contracture and pain Post-Op Diagnosis: Same Procedure: Examination under anesthesia, with intracompartmental pressure monitoring, and splinting. Surgeon: Esdras Messina MD Tax Consultant: Gail Leiva PA-C Anesthesia: General EBL: None Specimens Obtained: none Complications: none Drains: none Findings: As soon as the patient is relaxed under anesthesia, the wrist contracture relaxes. With fingertip pressure, I was able to extend fully all of the fingers and the hand, with no evidence of elevated pressures. I used the [employer] intra-compartment pressure monitoring device and verified pressures in the forearm and hand which indicate no ongoing compartment syndrome. Location Pressure Volar forearm 4 mm Hg Dorsal forearm 6 mm Hg Lateral hand interosseous space 6 mm Hg Medial hand interosseous space 17 mm Hg Thenar muscles 16 mm Hg Hypothenar muscles 4 mm Hg Indications for Procedure: The patient is a 32-year-old man with arm injury, and documented compartment syndrome at admission. He underwent fasciotomies of the volar and dorsal forearm, and of the hand. He still has a lot of pain, and he is holding the wrist and fingers in a maximally flexed position including severe flexion at the metacarpophalangeal joints. It is difficult to examine him. There is obvious spasm or contracture of the flexor compartment, and the muscles are firm, at least when he is awake. The reason for the ongoing active muscle contracture is not clear. The positioning of his hand is not consistent with Volkmann ischemia. Checking the pressures under anesthesia is indicated because they can be artificially elevated by active muscle contracture. I also recommend applying a splint under anesthesia, because it is impossible to splint him correctly while he is awake due to his severe pain and spasm. The patient and I discussed the risks, benefits and alternatives of surgery. I explained that if the compartment pressures were elevated we would repeat the fasciotomies. All of his questions were answered and he desires to proceed. Procedure in Detail: The patient was identified in the preoperative holding area. The correct extremity was marked by me. The patient was taken to the operating room where general anesthesia was used. The patient was positioned supine on the operating table. At the induction of anesthesia, the wrist flexion contracture relaxed, and the finger flexion contractures nearly relaxed. With gentle finger pressure I was able to fully extend the wrist, the metacarpophalangeal joints, and the interphalangeal joints. There is no evidence of ischemia. The compartments seem soft, and the spasm seen at the flexor carpi radialis and flexor carpi ulnaris resolve when he is asleep. I prepared multiple areas of the right forearm and hand with topical Betadine, and used the [employer] intracompartmental pressure monitor to check hand and forearm pressures as above. None of these pressures are diagnostic of compartment syndrome. The limb was cleansed with saline. Xeroform was placed over the prior incisions which are closed with sutures. A well-padded volar and dorsal splint was applied with the fingers in the safe position (wrist extended, metacarpophalangeal joints flexed, interphalangeal joints extended.) I used 15 layers of plaster each in the dorsal slab and the volar slab, hopefully to prevent his ability to overcome the splint. This should help prevent any long- term contracture. I made sure the splint hardened before he was awakened. Needle and sponge counts were correct. There were no apparent complications. He returned to the recovery room in stable condition. ESDRAS MESSINA MD Feb 14, 2018 14:00
[2018-02-14] MEDS: fentaNYL PF VIAL 100 MCG/2 ML VIAL IV PRN ×2 (14:12→14:35)
[2018-02-14] MEDS ORDERED: HYDROmorphone 2 MG/ML VIAL IV ONE (15:03)
--- NOTE | 2018-02-14 20:13 | PDOC ---
PROGRESS NOTES Chief Complaint Chief Complaint traumatic right forearm compartment syndrome from fall off a trampoline Examination under anesthesia, with intracompartmental pressure monitoring, and splinting. History of Present Illness History of Present Illness Has a total of 3 surgeries on the right forearm this admission, third one was unplanned but needed (first OR was left open, to heal via secondary intention) Off [employer] today (Saturday) right forearm is swollen some bleeding and sutures are very tense Ortho aware, to see the patient today Patient claims pain is not controlled POSSIBLE POST-OP INFEVTION Plan: neurology consult ID CONSULT ESR LACTIC ACID VANC 1 GM IV X 1 Percocet tens and MS Contin 15 twice a day on chart He is on Ativan 0.5 by mouth Orthopedics following Vitals Vitals Vital Signs Date Time Temp Pulse Resp B/P (MAP) Pulse Ox O2 Delivery O2 Flow Rate FiO2 02/14/18 19:00 97.9 110 20 120/65 (83) 95 Room Air 97.9 02/14/18 18:21 3.0 Physical Exam Physical Exam CONSTITUTIONAL: He is cooperative. He is in no acute distress. HEENT: Pupils are equal and reactive. Normal conjunctivae. Oral cavity, pharynx is clear. NECK: Supple, with good range of motion. No JVD. LUNGS: Clear to auscultation bilaterally. HEART: S1, S2, mild tachycardic. No murmur. ABDOMEN: Soft, nontender and nondistended, with positive bowel sounds. EXTREMITIES: Without clubbing or cyanosis. His right forearm has trace to 1+ edema. He has tattoos. His right wrist and fingers are contracted. He has tenderness, but he does have good capillary refill and is neurovascularly intact. SKIN: Otherwise without signs of rash. NEUROLOGIC: He is nonfocal and answers questions appropriately. PSYCHIATRIC: Affect is appropriate General: Alert, Oriented X3, Cooperative, mild distress, moderate distress Heart: Regular rate, Normal S1, Normal S2 Lungs: Clear Abdomen: Normal bowel sounds, Soft, No tenderness Extremities: No clubbing, No cyanosis, Other (unusual exam. Dorsal hand and wrist swelling, could be a hematoma, but pressures very high using [employer]uel[employer] monitor ~50 mm Hg. Volar compartments are in spasm and he can't straighten fingers and has pain with attempt to straighten fingers, but the volar compartment pressure is 10 mm Hg. Slight dysesthesias. No cyanosis.) Skin: Other (DRESSING DRY) Labs LABS Laboratory Tests Test 02/14/18 08:33 02/14/18 13:20 Sodium Level 132 mmol/L (136-145) Potassium Level 4.3 mmol/L (3.5-5.1) Chloride Level 98 mmol/L (98-107) Carbon Dioxide Level 24 mmol/L (21-32) Anion Gap 10 (6-14) Blood Urea Nitrogen 20 mg/dL (8-26) Creatinine 0.9 mg/dL (0.7-1.3) Estimated GFR (Cockcroft-Gault) 96.6 BUN/Creatinine Ratio 22 (6-20) Glucose Level 103 mg/dL (70-99) Calcium Level 8.5 mg/dL (8.5-10.1) Total Bilirubin 0.7 mg/dL (0.2-1.0) Aspartate Amino Transf (AST/SGOT) 17 U/L (15-37) Alanine Aminotransferase (ALT/SGPT) 29 U/L (16-63) Alkaline Phosphatase 73 U/L (46-116) Total Protein 7.0 g/dL (6.4-8.2) Albumin 3.0 g/dL (3.4-5.0) Albumin/Globulin Ratio 0.8 (1.0-1.7) White Blood Count 11.5 x10^3/uL (4.0-11.0) Red Blood Count 4.51 x10^6/uL (4.30-5.70) Hemoglobin 13.7 g/dL (13.0-17.5) Hematocrit 39.6 % (39.0-53.0) Mean Corpuscular Volume 88 fL (79-100) Mean Corpuscular Hemoglobin 30 pg (25-35) Mean Corpuscular Hemoglobin Concent 35 g/dL (31-37) Red Cell Distribution Width 13.9 % (11.5-14.5) Platelet Count 288 x10^3/uL (140-400) Neutrophils (%) (Auto) 88 % (31-73) Lymphocytes (%) (Auto) 8 % (24-48) Monocytes (%) (Auto) 4 % (0-9) Eosinophils (%) (Auto) 0 % (0-3) Basophils (%) (Auto) 0 % (0-3) Neutrophils # (Auto) 10.1 x10^3uL (1.8-7.7) Lymphocytes # (Auto) 0.9 x10^3/uL (1.0-4.8) Monocytes # (Auto) 0.5 x10^3/uL (0.0-1.1) Eosinophils # (Auto) 0.0 x10^3/uL (0.0-0.7) Basophils # (Auto) 0.0 x10^3/uL (0.0-0.2) Assessment and Plan Assessmemt and Plan Problems Medical Problems: (1) Arm pain Status: Acute (2) Wrist spasm Status: Acute Comment Review of Relevant I have reviewed the following items le (where applicable) has been applied. Labs Laboratory Tests Test 02/13/18 09:00 02/14/18 08:33 02/14/18 13:20 White Blood Count 11.9 x10^3/uL (4.0-11.0) 11.5 x10^3/uL (4.0-11.0) Red Blood Count 5.06 x10^6/uL (4.30-5.70) 4.51 x10^6/uL (4.30-5.70) Hemoglobin 15.3 g/dL (13.0-17.5) 13.7 g/dL (13.0-17.5) Hematocrit 44.4 % (39.0-53.0) 39.6 % (39.0-53.0) Mean Corpuscular Volume 88 fL (79-100) 88 fL (79-100) Mean Corpuscular Hemoglobin 30 pg (25-35) 30 pg (25-35) Mean Corpuscular Hemoglobin Concent 34 g/dL (31-37) 35 g/dL (31-37) Red Cell Distribution Width 13.9 % (11.5-14.5) 13.9 % (11.5-14.5) Platelet Count 302 x10^3/uL (140-400) 288 x10^3/uL (140-400) Neutrophils (%) (Auto) 75 % (31-73) 88 % (31-73) Lymphocytes (%) (Auto) 17 % (24-48) 8 % (24-48) Monocytes (%) (Auto) 7 % (0-9) 4 % (0-9) Eosinophils (%) (Auto) 1 % (0-3) 0 % (0-3) Basophils (%) (Auto) 0 % (0-3) 0 % (0-3) Neutrophils # (Auto) 8.9 x10^3uL (1.8-7.7) 10.1 x10^3uL (1.8-7.7) Lymphocytes # (Auto) 2.0 x10^3/uL (1.0-4.8) 0.9 x10^3/uL (1.0-4.8) Monocytes # (Auto) 0.8 x10^3/uL (0.0-1.1) 0.5 x10^3/uL (0.0-1.1) Eosinophils # (Auto) 0.1 x10^3/uL (0.0-0.7) 0.0 x10^3/uL (0.0-0.7) Basophils # (Auto) 0.0 x10^3/uL (0.0-0.2) 0.0 x10^3/uL (0.0-0.2) Sodium Level 138 mmol/L (136-145) 132 mmol/L (136-145) Potassium Level 3.6 mmol/L (3.5-5.1) 4.3 mmol/L (3.5-5.1) Chloride Level 97 mmol/L (98-107) 98 mmol/L (98-107) Carbon Dioxide Level 30 mmol/L (21-32) 24 mmol/L (21-32) Anion Gap 11 (6-14) 10 (6-14) Blood Urea Nitrogen 19 mg/dL (8-26) 20 mg/dL (8-26) Creatinine 0.9 mg/dL (0.7-1.3) 0.9 mg/dL (0.7-1.3) Estimated GFR (Cockcroft-Gault) 96.6 96.6 BUN/Creatinine Ratio 21 (6-20) 22 (6-20) Glucose Level 114 mg/dL (70-99) 103 mg/dL (70-99) Calcium Level 9.4 mg/dL (8.5-10.1) 8.5 mg/dL (8.5-10.1) Total Bilirubin 0.6 mg/dL (0.2-1.0) 0.7 mg/dL (0.2-1.0) Aspartate Amino Transf (AST/SGOT) 12 U/L (15-37) 17 U/L (15-37) Alanine Aminotransferase (ALT/SGPT) 36 U/L (16-63) 29 U/L (16-63) Alkaline Phosphatase 77 U/L (46-116) 73 U/L (46-116) Total Protein 7.5 g/dL (6.4-8.2) 7.0 g/dL (6.4-8.2) Albumin 3.7 g/dL (3.4-5.0) 3.0 g/dL (3.4-5.0) Albumin/Globulin Ratio 1.0 (1.0-1.7) 0.8 (1.0-1.7) Laboratory Tests Test 02/14/18 08:33 02/14/18 13:20 Sodium Level 132 mmol/L (136-145) Potassium Level 4.3 mmol/L (3.5-5.1) Chloride Level 98 mmol/L (98-107) Carbon Dioxide Level 24 mmol/L (21-32) Anion Gap 10 (6-14) Blood Urea Nitrogen 20 mg/dL (8-26) Creatinine 0.9 mg/dL (0.7-1.3) Estimated GFR (Cockcroft-Gault) 96.6 BUN/Creatinine Ratio 22 (6-20) Glucose Level 103 mg/dL (70-99) Calcium Level 8.5 mg/dL (8.5-10.1) Total Bilirubin 0.7 mg/dL (0.2-1.0) Aspartate Amino Transf (AST/SGOT) 17 U/L (15-37) Alanine Aminotransferase (ALT/SGPT) 29 U/L (16-63) Alkaline Phosphatase 73 U/L (46-116) Total Protein 7.0 g/dL (6.4-8.2) Albumin 3.0 g/dL (3.4-5.0) Albumin/Globulin Ratio 0.8 (1.0-1.7) White Blood Count 11.5 x10^3/uL (4.0-11.0) Red Blood Count 4.51 x10^6/uL (4.30-5.70) Hemoglobin 13.7 g/dL (13.0-17.5) Hematocrit 39.6 % (39.0-53.0) Mean Corpuscular Volume 88 fL (79-100) Mean Corpuscular Hemoglobin 30 pg (25-35) Mean Corpuscular Hemoglobin Concent 35 g/dL (31-37) Red Cell Distribution Width 13.9 % (11.5-14.5) Platelet Count 288 x10^3/uL (140-400) Neutrophils (%) (Auto) 88 % (31-73) Lymphocytes (%) (Auto) 8 % (24-48) Monocytes (%) (Auto) 4 % (0-9) Eosinophils (%) (Auto) 0 % (0-3) Basophils (%) (Auto) 0 % (0-3) Neutrophils # (Auto) 10.1 x10^3uL (1.8-7.7) Lymphocytes # (Auto) 0.9 x10^3/uL (1.0-4.8) Monocytes # (Auto) 0.5 x10^3/uL (0.0-1.1) Eosinophils # (Auto) 0.0 x10^3/uL (0.0-0.7) Basophils # (Auto) 0.0 x10^3/uL (0.0-0.2) Medications Current Medications Morphine Sulfate (Morphine Sulfate) 4 mg PRN Q15MIN PRN IV/SQ PAIN GREATER THAN 3/10 Last administered on 02/02/18at 18:48; Start 02/02/18 at 18:00; Stop at 03:55; Status DC Sodium Chloride 1,000 ml @ 1,000 mls/hr Q1H IV Last administered on 02/02/18at 18:50; Start 02/02/18 at 17:57; Stop 02/02/18 at 18:56; Status DC Diazepam (Valium) 5 mg 1X ONCE PO Last administered on 02/02/18at 18:47; Start 02/02/18 at 18:00; Stop 02/02/18 at 18:05; Status DC Morphine Sulfate (Morphine Sulfate) 4 mg PRN Q2HR PRN IV SEVERE PAIN Last administered on 02/03/18at 03:07; Start 02/02/18 at 21:00; Stop 02/03/18 at 03:51 ; Status DC Oxycodone/ Acetaminophen (Percocet 10/325) 1 tab PRN Q4HRS PRN PO SEVERE PAIN Last administered on 02/08/18at 19:16; Start 02/02/18 at 21:00; Stop 02/08/18 at 20:14; Status DC Oxycodone/ Acetaminophen (Percocet 5/325) 1 tab PRN Q4HRS PRN PO MODERATE PAIN ; Start 02/02/18 at 21:00; Stop 02/08/18 at 10:27; Status DC Zolpidem Tartrate (Ambien) 5 mg PRN QHS PRN PO INSOMNIA Last administered on at 20:56; Start 02/02/18 at 21:00 Ondansetron HCl (Zofran) 4 mg PRN Q6HRS PRN IV NAUSEA/VOMITING 1ST CHOICE; Start 02/02/18 at 21:00; Status Cancel Ondansetron HCl (Zofran Odt) 4 mg PRN Q6HRS PRN PO NAUSEA/VOMITING 1ST CHOICE; Start 02/02/18 at 21:00 Acetaminophen (Tylenol) 500 mg PRN Q6HRS PRN PO MILD PAIN / TEMP; Start at 21:00 Calcium Carbonate/ Glycine (Tums) 500 mg PRN AFTMEALHC PRN PO INDIGESTION; Start 02/02/18 at 21:00 Albuterol Sulfate (Ventolin Neb Soln) 2.5 mg PRN Q4HRS PRN NEB soa; Start 02/02 at 21:15 Cyclobenzaprine HCl (Flexeril) 10 mg TID PO Last administered on 02/14/18at 08: 14; Start 02/03/18 at 09:00 Acetaminophen/ Hydrocodone Bitart (Lortab 5/325) 1 tab Q6HRS PO Last administered on 02/04/18at 05:51; Start 02/03/18 at 00:00; Stop 02/04/18 at 10:03 ; Status DC Mupirocin (Bactroban) 1 bienvenido TID TP ; Start 02/03/18 at 09:00 Ondansetron HCl (Zofran Odt) 4 mg PRN Q8HRS PRN PO NAUSEA VOMITING 1ST CHOICE; Start 02/02/18 at 21:15; Stop 02/02/18 at 21:15; Status DC Oxycodone/ Acetaminophen (Percocet 5/325) 1 tab PRN TID PRN PO severe pain; Start 02/02/18 at 21:15; Status Cancel Tamsulosin HCl (Flomax) 0.4 mg DAILY PO Last administered on 02/14/18at 08:14; Start 02/03/18 at 09:00 Non-Formulary Medication (Albuterol Sulfate (Proair Hfa Inhaler)) 1 puff PRN Q6HRS PRN INH SHORTNESS OF BREATH; Start 02/02/18 at 21:15; Status UNV Guaifenesin/ Codeine Phosphate (Robitussin Ac) 10 ml PRN Q6HRS PRN PO COUGH; Start 02/02/18 at 21:15 Fentanyl Citrate (Fentanyl 2ml Vial) 50 mcg PRN Q2HR PRN IV SEVERE PAIN Last administered on 02/04/18at 08:44; Start 02/03/18 at 04:00; Stop 02/04/18 at 21:51 ; Status DC Diazepam (Valium) 10 mg PRN Q8HRS PRN PO ANXIETY Last administered on at 17:50; Start 02/03/18 at 04:00; Stop 02/07/18 at 19:56; Status DC Lidocaine HCl (Lidocaine 1% 20ml Vial) 20 ml 1X ONCE INJ ; Start 02/03/18 at 09 :00; Stop 02/03/18 at 09:01; Status Cancel Lidocaine HCl (Lidocaine 1% 50ml Vial) 20 ml 1X ONCE INJ Last administered on 02/03/18at 09:07; Start 02/03/18 at 09:00; Stop 02/03/18 at 09:01; Status DC Fentanyl Citrate (Fentanyl 2ml Vial) 25 mcg PRN Q5MIN PRN IV MILD PAIN; Start 02/03/18 at 09:30; Stop 02/03/18 at 19:00; Status DC Fentanyl Citrate (Fentanyl 2ml Vial) 50 mcg PRN Q5MIN PRN IV MODERATE TO SEVERE PAIN Last administered on 02/03/18at 12:40; Start 02/03/18 at 09:30; Stop 02/03/18 at 19:00; Status DC Morphine Sulfate (Morphine Sulfate) 1 mg PRN Q10MIN PRN IV SEVERE PAIN; Start 02/03/18 at 09:30; Stop 02/03/18 at 19:00; Status DC Ringer's Solution 1,000 ml @ 30 mls/hr Q24H IV Last administered on 02/03/18at 09:35; Start 02/03/18 at 09:23; Stop 02/03/18 at 21:22; Status DC Lidocaine HCl (Xylocaine-Mpf 1% 2ml Vial) 2 ml 1X PRN PRN ID IV START; Start at 09:30; Stop 02/03/18 at 19:00; Status DC Hydromorphone HCl (Dilaudid) 0.5 mg PRN Q10MIN PRN IV SEV PAIN, Second choice Last administered on 02/03/18at 12:29; Start 02/03/18 at 09:30; Stop 02/03/18 at 19:00; Status DC Prochlorperazine Edisylate (Compazine) 5 mg PACU PRN PRN IV NAUSEA, MRX1; Start 02/03/18 at 09:30; Stop 02/03/18 at 19:00; Status DC Midazolam HCl (Versed) 2 mg STK-MED ONCE .ROUTE ; Start 02/03/18 at 09:33; Stop 02/03/18 at 09:34; Status DC Bupivacaine HCl/ Epinephrine Bitart (Marcaine-Epi 0.5%-1:[id number]) 50 ml STK-MED ONCE .ROUTE ; Start 02/03/18 at 08:34; Stop 02/03/18 at 09:35; Status DC Midazolam HCl (Versed) 2 mg 1X ONCE IV Last administered on 02/03/18at 09:41; Start 02/03/18 at 09:45; Stop 02/03/18 at 09:46; Status DC Dexamethasone Sodium Phosphate (Decadron) 20 mg STK-MED ONCE .ROUTE ; Start at 09:41; Stop 02/03/18 at 09:42; Status DC Ondansetron HCl (Zofran) 4 mg STK-MED ONCE .ROUTE ; Start 02/03/18 at 09:41; Stop 02/03/18 at 09:42; Status DC Fentanyl Citrate (Fentanyl 2ml Vial) 100 mcg STK-MED ONCE .ROUTE ; Start at 09:41; Stop 02/03/18 at 09:42; Status DC Famotidine (Pepcid Vial) 20 mg STK-MED ONCE .ROUTE ; Start 02/03/18 at 09:42; Stop 02/03/18 at 09:43; Status DC Propofol 20 ml @ As Directed STK-MED ONCE IV ; Start 02/03/18 at 09:42; Stop at 09:43; Status DC Succinylcholine Chloride (Anectine) 200 mg STK-MED ONCE .ROUTE ; Start 02/03/18 at 09:42; Stop 02/03/18 at 09:43; Status DC Rocuronium Rifton (Zemuron) 50 mg STK-MED ONCE .ROUTE ; Start 02/03/18 at 09:45 ; Stop 02/03/18 at 09:46; Status DC Cefazolin Sodium/ Dextrose 50 ml @ As Directed STK-MED ONCE IV ; Start 02/03/18 at 09:46; Stop 02/03/18 at 09:47; Status DC Cefazolin Sodium/ Dextrose 50 ml @ 100 mls/hr 1X PREOP PRN IV Pre Op dose Last administered on 02/03/18at 10:30; Start 02/03/18 at 10:30; Stop 02/03/18 at 18:00; Status DC Fentanyl Citrate (Fentanyl 2ml Vial) 100 mcg STK-MED ONCE .ROUTE ; Start at 10:43; Stop 02/03/18 at 10:44; Status DC Bupivacaine HCl/ Epinephrine Bitart (Marcaine-Epi 0.5%-1:[id number]) 50 ml STK-MED ONCE INJ Last administered on 02/03/18at 10:36; Start 02/03/18 at 10:36; Stop at 11:17; Status DC Neostigmine Methylsulfate (Neostigmine Methylsulfate) 5 mg STK-MED ONCE .ROUTE ; Start 02/03/18 at 11:04; Stop 02/03/18 at 11:05; Status DC Glycopyrrolate (Robinul) 1 mg STK-MED ONCE .ROUTE ; Start 02/03/18 at 11:05; Stop 02/03/18 at 11:06; Status DC Senna/Docusate Sodium (Senna Plus) 1 tab DAILY PO Last administered on at 08:15; Start 02/04/18 at 09:00 Polyethylene Glycol (miraLAX PACKET) 17 gm PRN DAILY PRN PO CONSTIPATION 1ST CHOICE; Start 02/03/18 at 11:30 Ondansetron HCl (Zofran) 4 mg PRN Q4HRS PRN IV NAUSEA/VOMITING; Start 02/03/18 at 11:30 Magnesium Hydroxide (Milk Of Magnesia) 2,400 mg 1X PRN PRN PO CONSTIPATION; Start 02/04/18 at 06:00; Stop 02/05/18 at 05:59; Status DC Bisacodyl (Dulcolax Supp) 10 mg 1X PRN PRN MA CONSTIPATION; Start 02/04/18 at 16:00; Stop 02/05/18 at 15:59; Status DC Dextrose (Dextrose 50%-Water Syringe) 12.5 gm PRN Q15MIN PRN IV SEE COMMENTS; Start 02/03/18 at 11:30; Stop 02/14/18 at 15:08; Status DC Cefazolin Sodium/ Dextrose 50 ml @ 100 mls/hr Q6H IV ; Start 02/03/18 at 11:30 ; Stop 02/03/18 at 23:59; Status UNV Cefazolin Sodium/ Dextrose 50 ml @ 100 mls/hr Q8HRS IV Last administered on at 05:48; Start 02/03/18 at 14:00; Stop 02/13/18 at 08:24; Status DC Fentanyl Citrate (Fentanyl 2ml Vial) 50 mcg PRN Q5MIN PRN IV MODERATE TO SEVERE PAIN; Start 02/03/18 at 13:30; Stop 02/03/18 at 19:00; Status DC Docusate Sodium (Colace) 100 mg DAILY PO Last administered on 02/14/18at 08:13; Start 02/03/18 at 14:00 Fentanyl Citrate 30 ml @ 0 mls/hr CONT PRN PRN IV PER PROTOCOL Last administered on 02/04/18at 21:05; Start 02/04/18 at 10:00; Stop 02/04/18 at 23:03 ; Status DC Prednisone (Prednisone) 10 mg BID PO Last administered on 02/14/18at 08:15; Start 02/04/18 at 11:00 Ketorolac Tromethamine (Toradol 30mg Vial) 30 mg Q6HRS PRN IV PAIN; Start 02/04 at 10:00; Stop 02/04/18 at 10:24; Status DC Sodium Chloride 1,000 ml @ 75 mls/hr [id number] IV Last administered on at 21:20; Start 02/04/18 at 10:15; Stop 02/08/18 at 17:22; Status DC Ketorolac Tromethamine (Toradol 30mg Vial) 30 mg Q6HRS IV Last administered on 02/09/18at 05:09; Start 02/04/18 at 12:00; Stop 02/09/18 at 11:59; Status DC Ondansetron HCl (Zofran) 4 mg PRN Q6HRS PRN IV NAUSEA/VOMITING; Start 02/05/18 at 07:00; Stop 02/05/18 at 18:00; Status DC Fentanyl Citrate (Fentanyl 2ml Vial) 25 mcg PRN Q5MIN PRN IV MILD PAIN; Start 02/05/18 at 07:00; Stop 02/05/18 at 18:00; Status DC Fentanyl Citrate (Fentanyl 2ml Vial) 50 mcg PRN Q5MIN PRN IV MODERATE TO SEVERE PAIN; Start 02/05/18 at 07:00; Stop 02/05/18 at 18:00; Status DC Morphine Sulfate (Morphine Sulfate) 1 mg PRN Q10MIN PRN IV SEVERE PAIN; Start 02/05/18 at 07:00; Stop 02/05/18 at 18:00; Status DC Ringer's Solution 1,000 ml @ 30 mls/hr Q24H IV ; Start 02/05/18 at 07:00; Stop 02/05/18 at 17:44; Status DC Lidocaine HCl (Xylocaine-Mpf 1% 2ml Vial) 2 ml PRN 1X PRN ID IV START; Start at 07:00; Stop 02/05/18 at 18:00; Status DC Hydromorphone HCl (Dilaudid) 0.5 mg PRN Q10MIN PRN IV SEV PAIN, Second choice; Start 02/05/18 at 07:00; Stop 02/05/18 at 18:00; Status DC Prochlorperazine Edisylate (Compazine) 5 mg PACU PRN PRN IV NAUSEA, MRX1; Start 02/05/18 at 07:00; Stop 02/05/18 at 18:00; Status DC Diphenhydramine HCl (Benadryl) 25 mg PRN Q6HRS PRN PO ITCHING Last administered on 02/14/18at 18:24; Start 02/04/18 at 11:45 Diphenhydramine HCl (Benadryl) 25 mg 1X ONCE IVP Last administered on at 11:52; Start 02/04/18 at 12:00; Stop 02/04/18 at 12:01; Status DC Lactobacillus Rhamnosus (Culturelle) 1 cap BID PO Last administered on at 08:13; Start 02/04/18 at 21:00 Al Hydroxide/Mg Hydroxide (Mylanta Plus Xs) 30 ml PRN Q2HR PRN PO HEARTBURN / GAS Last administered on 02/12/18at 23:23; Start 02/04/18 at 18:45 Morphine Sulfate 30 ml @ 0 mls/hr CONT PRN PRN IV PER PROTOCOL Last administered on 02/08/18at 09:27; Start 02/04/18 at 23:00; Stop 02/08/18 at 10:28 ; Status DC Diphenhydramine HCl (Benadryl) 25 mg PRN Q6HRS PRN IVP ITCHING Last administered on 02/10/18at 05:58; Start 02/05/18 at 03:15; Stop 02/10/18 at 15:28 ; Status DC Bupivacaine HCl/ Epinephrine Bitart (Marcaine-Epi 0.5%-1:[id number]) 50 ml 1X ONCE IJ ; Start 02/05/18 at 10:30; Stop 02/05/18 at 10:31; Status Cancel Bupivacaine HCl (Marcaine 0.25%) 50 ml STK-MED ONCE .ROUTE Last administered on 02/05/18at 13:56; Start 02/05/18 at 11:33; Stop 02/05/18 at 12:34; Status DC Propofol 20 ml @ As Directed STK-MED ONCE IV ; Start 02/05/18 at 12:44; Stop at 12:45; Status DC Midazolam HCl (Versed) 2 mg STK-MED ONCE .ROUTE ; Start 02/05/18 at 12:44; Stop 02/05/18 at 12:45; Status DC Fentanyl Citrate (Fentanyl 2ml Vial) 100 mcg STK-MED ONCE .ROUTE ; Start at 12:44; Stop 02/05/18 at 12:45; Status DC Midazolam HCl (Versed) 2 mg STK-MED ONCE .ROUTE ; Start 02/05/18 at 12:52; Stop 02/05/18 at 12:53; Status DC Succinylcholine Chloride (Anectine) 200 mg STK-MED ONCE .ROUTE ; Start 02/05/18 at 13:03; Stop 02/05/18 at 13:04; Status DC Midazolam HCl (Versed) 2 mg 1X ONCE IV Last administered on 02/05/18at 13:09; Start 02/05/18 at 13:00; Stop 02/05/18 at 13:08; Status DC Ondansetron HCl (Zofran) 4 mg STK-MED ONCE .ROUTE ; Start 02/05/18 at 13:19; Stop 02/05/18 at 13:20; Status DC Dexamethasone Sodium Phosphate (Decadron) 20 mg STK-MED ONCE .ROUTE ; Start at 13:19; Stop 02/05/18 at 13:20; Status DC Ketorolac Tromethamine (Toradol For Or Only) 30 mg STK-MED ONCE INJ ; Start at 13:19; Stop 02/05/18 at 13:20; Status DC Potassium Chloride/Sodium Chloride 1,000 ml @ 125 mls/hr Q8H IV ; Start at 09:00; Stop 02/06/18 at 14:20; Status DC Lorazepam (Ativan) 0.5 mg PRN Q8HRS PRN PO ANXIETY Last administered on at 20:57; Start 02/06/18 at 13:15 Lorazepam (Ativan) 0.5 mg 1X ONCE IV Last administered on 02/07/18at 11:19; Start 02/07/18 at 08:45; Stop 02/07/18 at 08:46; Status DC Fentanyl Citrate (Fentanyl 2ml Vial) 100 mcg STK-MED ONCE .ROUTE ; Start at 12:00; Stop 02/07/18 at 12:01; Status DC Midazolam HCl (Versed) 2 mg STK-MED ONCE .ROUTE ; Start 02/07/18 at 12:00; Stop 02/07/18 at 12:01; Status DC Succinylcholine Chloride (Anectine) 200 mg STK-MED ONCE .ROUTE ; Start 02/07/18 at 12:00; Stop 02/07/18 at 12:01; Status DC Dexamethasone Sodium Phosphate (Decadron) 20 mg STK-MED ONCE .ROUTE ; Start at 12:01; Stop 02/07/18 at 12:02; Status DC Famotidine (Pepcid Vial) 20 mg STK-MED ONCE .ROUTE ; Start 02/07/18 at 12:01; Stop 02/07/18 at 12:02; Status DC Propofol 20 ml @ As Directed STK-MED ONCE IV ; Start 02/07/18 at 12:01; Stop at 12:02; Status DC Ondansetron HCl (Zofran) 4 mg STK-MED ONCE .ROUTE ; Start 02/07/18 at 12:01; Stop 02/07/18 at 12:02; Status DC Bupivacaine HCl/ Epinephrine Bitart (Sensorcain-Mpf Epi 0.5%-1:[id number]) 30 ml STK -MED ONCE .ROUTE Last administered on 02/07/18at 13:29; Start 02/07/18 at 11:29 ; Stop 02/07/18 at 12:30; Status DC Desflurane (Suprane) 30 ml STK-MED ONCE IH ; Start 02/07/18 at 13:34; Stop 02/07 at 13:35; Status DC Senna/Docusate Sodium (Senna Plus) 1 tab DAILY PO ; Start 02/08/18 at 09:00; Status UNV Polyethylene Glycol (miraLAX PACKET) 17 gm PRN DAILY PRN PO CONSTIPATION; Start 02/07/18 at 14:00; Status UNV Ondansetron HCl (Zofran) 4 mg PRN Q4HRS PRN IV NAUSEA/VOMITING; Start 02/07/18 at 14:00; Status UNV Magnesium Hydroxide (Milk Of Magnesia) 2,400 mg 1X PRN PRN PO CONSTIPATION; Start 02/08/18 at 06:00; Stop 02/09/18 at 05:59; Status DC Bisacodyl (Dulcolax Supp) 10 mg 1X PRN PRN MA CONSTIPATION; Start 02/08/18 at 16:00; Stop 02/09/18 at 15:59; Status DC Dextrose (Dextrose 50%-Water Syringe) 12.5 gm PRN Q15MIN PRN IV SEE COMMENTS; Start 02/07/18 at 14:00; Status UNV Cefazolin Sodium/ Dextrose 50 ml @ 100 mls/hr Q6H IV ; Start 02/07/18 at 14:00 ; Stop 02/08/18 at 02:29; Status UNV Desflurane (Suprane) 30 ml STK-MED ONCE IH ; Start 02/07/18 at 14:00; Stop 02/07 at 14:01; Status DC Morphine Sulfate (Ms Contin) 15 mg BID PO Last administered on 02/14/18at 08:15 ; Start 02/08/18 at 10:30 Morphine Sulfate (Morphine Sulfate) 4 mg PRN Q2HR PRN IV PAIN Last administered on 02/08/18at 19:17; Start 02/08/18 at 10:30; Stop 02/08/18 at 20:14 ; Status DC Naloxone HCl (Narcan) 0.4 mg PRN Q2MIN PRN IV SEE INSTRUCTIONS; Start 02/08/18 at 20:15 Sodium Chloride 1,000 ml @ 25 mls/hr Q24H IV Last administered on 02/09/18at 20 :25; Start 02/08/18 at 20:10; Stop 02/10/18 at 19:44; Status DC Morphine Sulfate 30 ml @ 0 mls/hr CONT PRN PRN IV PER PROTOCOL Last administered on 02/10/18at 07:41; Start 02/08/18 at 20:15; Stop 02/10/18 at 08:52 ; Status DC Diphenhydramine HCl (Benadryl) 25 mg PRN Q6HRS PRN IVP ITCHING Last administered on 02/11/18at 16:48; Start 02/09/18 at 11:00 Oxycodone/ Acetaminophen (Percocet 10/325) 1 tab PRN Q4HRS PRN PO MODERATE PAIN Last administered on 02/13/18at 12:38; Start 02/10/18 at 10:00 Morphine Sulfate (Morphine Sulfate) 4 mg 1X ONCE IV Last administered on at 11:15; Start 02/11/18 at 11:15; Stop 02/11/18 at 11:16; Status DC Morphine Sulfate (Morphine Sulfate) 4 mg 1X ONCE IV Last administered on at 14:28; Start 02/11/18 at 11:30; Stop 02/11/18 at 11:31; Status DC Morphine Sulfate (Morphine Sulfate) 4 mg PRN Q4HRS PRN IV PAIN Last administered on 02/14/18at 18:27; Start 02/11/18 at 16:15 Vancomycin HCl 1.5 gm/Sodium Chloride 500 ml @ 250 mls/hr 1X ONCE IV ; Start 02/12/18 at 12:00; Stop 02/12/18 at 13:59; Status UNV Vancomycin HCl 2 gm/Sodium Chloride 500 ml @ 250 mls/hr ONCE ONCE IV Last administered on 02/12/18at 12:48; Start 02/12/18 at 12:15; Stop 02/12/18 at 14:14 ; Status DC Metronidazole 100 ml @ 100 mls/hr Q6HRS IV Last administered on 02/14/18at 17: 22; Start 02/13/18 at 08:00 Tetanus/ Diphtheria Toxoids (Tenivac Syringe) 0.5 ml ONCE ONCE VAX IM Last administered on 02/13/18at 09:45; Start 02/13/18 at 08:00; Stop 02/13/18 at 08:30 ; Status DC Tetanus Immune Globulin (Hypertet) 2 ml ONCE ONCE VAX IM Last administered on at 09:39; Start 02/13/18 at 08:00; Stop 02/13/18 at 08:28; Status DC Piperacillin Sod/ Tazobactam Sod 4.5 gm/Sodium Chloride 100 ml @ 200 mls/hr Q6HRS IV Last administered on 02/14/18at 18:23; Start 02/13/18 at 08:30 Linezolid (Zyvox) 600 mg BID PO Last administered on 02/14/18at 08:16; Start at 09:00 Oxycodone/ Acetaminophen (Percocet 10/325) 2 tab PRN Q4HRS PRN PO SEVERE PAIN Last administered on 02/14/18at 17:21; Start 02/13/18 at 17:00 Ondansetron HCl (Zofran) 4 mg PRN Q6HRS PRN IV NAUSEA/VOMITING; Start 02/14/18 at 07:30; Stop 02/14/18 at 18:00; Status DC Fentanyl Citrate (Fentanyl 2ml Vial) 25 mcg PRN Q5MIN PRN IV MILD PAIN Last administered on 02/14/18at 14:35; Start 02/14/18 at 07:30; Stop 02/14/18 at 18:00 ; Status DC Fentanyl Citrate (Fentanyl 2ml Vial) 50 mcg PRN Q5MIN PRN IV MODERATE TO SEVERE PAIN Last administered on 02/14/18at 13:56; Start 02/14/18 at 07:30; Stop 02/14/18 at 18:00; Status DC Morphine Sulfate (Morphine Sulfate) 1 mg PRN Q10MIN PRN IV SEVERE PAIN; Start 02/14/18 at 07:30; Stop 02/14/18 at 18:00; Status DC Ringer's Solution 1,000 ml @ 30 mls/hr Q24H IV Last administered on 02/14/18at 14:13; Start 02/14/18 at 07:26; Stop 02/14/18 at 19:25; Status DC Lidocaine HCl (Xylocaine-Mpf 1% 2ml Vial) 2 ml 1X PRN PRN ID IV START; Start at 07:30; Stop 02/14/18 at 18:00; Status DC Hydromorphone HCl (Dilaudid) 0.5 mg PRN Q10MIN PRN IV SEV PAIN, Second choice Last administered on 02/14/18at 14:52; Start 02/14/18 at 07:30; Stop 02/14/18 at 18:00; Status DC Prochlorperazine Edisylate (Compazine) 5 mg PACU PRN PRN IV NAUSEA, MRX1; Start 02/14/18 at 07:30; Stop 02/14/18 at 18:00; Status DC Bupivacaine HCl/ Epinephrine Bitart (Marcaine-Epi 0.5%-1:[id number]) 50 ml [employer]-MED ONCE .ROUTE ; Start 02/14/18 at 10:43; Stop 02/14/18 at 11:44; Status DC Lorazepam (Ativan) 4 mg 1X ONCE IV Last administered on 02/14/18at 13:57; Start 02/14/18 at 13:45; Stop 02/14/18 at 13:46; Status DC Senna/Docusate Sodium (Senna Plus) 1 tab DAILY PO ; Start 02/15/18 at 09:00 Polyethylene Glycol (miraLAX PACKET) 17 gm PRN DAILY PRN PO CONSTIPATION; Start 02/14/18 at 13:45 Ondansetron HCl (Zofran) 4 mg PRN Q4HRS PRN IV NAUSEA/VOMITING; Start 02/14/18 at 13:45; Stop 02/14/18 at 16:46; Status DC Magnesium Hydroxide (Milk Of Magnesia) 2,400 mg 1X PRN PRN PO CONSTIPATION; Start 02/15/18 at 06:00; Stop 02/16/18 at 05:59 Dextrose (Dextrose 50%-Water Syringe) 12.5 gm PRN Q15MIN PRN IV SEE COMMENTS; Start 02/14/18 at 13:45 Hydromorphone HCl (Dilaudid) 1.5 mg 1X ONCE IV Last administered on 02/14/18at 15:03; Start 02/14/18 at 15:03; Stop 02/14/18 at 15:07; Status DC Propofol 20 ml @ As Directed STK-MED ONCE IV ; Start 02/14/18 at 13:23; Stop at 18:56; Status DC Ondansetron HCl (Zofran) 4 mg STK-MED ONCE .ROUTE ; Start 02/14/18 at 13:23; Stop 02/14/18 at 18:56; Status DC Dexamethasone Sodium Phosphate (Decadron) 20 mg STK-MED ONCE .ROUTE ; Start at 13:23; Stop 02/14/18 at 18:56; Status DC Sevoflurane (Ultane) 30 ml STK-MED ONCE IH ; Start 02/14/18 at 13:26; Stop 02/14 at 18:56; Status DC Fentanyl Citrate (Fentanyl 2ml Vial) 100 mcg STK-MED ONCE .ROUTE ; Start at 13:52; Stop 02/14/18 at 18:56; Status DC Active Scripts Active Percocet 5-325 Mg Tablet (Oxycodone/Acetaminophen) 1 Each Tablet 1-2 Each PO PRN TID PRN pain Cyclobenzaprine Hcl 10 Mg Tablet 1 Tab PO TID [place] 5-325 Tablet (Acetaminophen/Hydrocodone Bitart) 1 Each Tablet 1 Tab PO Q6HRS Zofran Odt (Ondansetron) 4 Mg Tab.rapdis 1 Tab SL Q8HRS Cipro (Ciprofloxacin Hcl) 500 Mg Tablet 1 Tab PO BID Flomax (Tamsulosin Hcl) 0.4 Mg Cap.er.24h 1 Cap PO DAILY Albuterol Sulfate Neb Soln (Albuterol Sulfate) 2.5 Mg/3 Ml Vial.neb 1 Vial NEB PRN Q4HRS Guaifenesin Ac Cough Syrup (Guaifenesin/Codeine Phosphate) 473 Ml Liquid 10 Ml PO Q4-6HRS PRN Prednisone 20 Mg Tablet 2 Tab PO DAILY Start on Saturday12/24/17 Proair Hfa Inhaler (Albuterol Sulfate) 8.5 Gm Hfa.aer.ad 1 Puff INH PRN Q6HRS PRN Doxycycline Hyclate 100 Mg Tablet 1 Tab PO BID Bactroban Cream (Mupirocin) 15 Gm Cream..g. 1 [place] TP TID Vitals/I & O Vital Sign - Last 24 Hours 02/13/18 02/13/18 02/13/18 02/13/18 20:56 21:23 22:32 23:02 Temp 97.5 97.5 Pulse 100 Resp 20 B/P (MAP) 95/78 (84) Pulse Ox 98 98 95 O2 Delivery Room Air Room Air Room Air Room Air O2 Flow Rate 2.0 02/14/18 02/14/18 02/14/18 02/14/18 00:56 01:40 02:45 03:14 Temp 97.0 97.0 Pulse 94 Resp 20 B/P (MAP) 117/61 (79) Pulse Ox 95 96 O2 Delivery Room Air Room Air Room Air Room Air 02/14/18 02/14/18 02/14/18 02/14/18 05:43 06:29 07:00 08:00 Temp 97.1 97.1 Pulse 105 Resp 18 B/P (MAP) 114/76 (89) Pulse Ox 96 O2 Delivery Room Air Room Air Room Air Room Air 02/14/18 02/14/18 02/14/18 02/14/18 08:15 10:00 10:33 11:00 Resp 20 20 20 20 Pulse Ox 96 96 96 96 O2 Delivery Room Air Room Air Room Air Room Air 02/14/18 02/14/18 02/14/18 02/14/18 11:00 13:40 13:40 13:55 Temp 98.0 98.4 98.0 98.4 Pulse 106 94 106 Resp 18 22 20 B/P (MAP) 106/74 (85) 141/75 139/76 Pulse Ox 94 100 98 O2 Delivery Room Air Simple Mask Mask Simple Mask O2 Flow Rate 10 10 10 02/14/18 02/14/18 02/14/18 02/14/18 13:56 14:10 14:12 14:18 Pulse 115 Resp 20 20 20 20 B/P (MAP) 120/75 Pulse Ox 99 91 92 O2 Delivery Room Air Simple Mask Room Air O2 Flow Rate 10.0 02/14/18 02/14/18 02/14/18 02/14/18 14:25 14:35 14:40 14:52 Pulse 99 98 Resp 20 20 20 20 B/P (MAP) 115/73 115/73 Pulse Ox 95 95 91 94 O2 Delivery Room Air Room Air Room Air Nasal Cannula O2 Flow Rate 2.0 02/14/18 02/14/18 02/14/18 02/14/18 14:56 15:03 15:11 15:30 Temp 98.0 98.0 Pulse 110 100 Resp 20 20 18 B/P (MAP) 156/65 116/70 (85) Pulse Ox 99 95 92 O2 Delivery Nasal Cannula Nasal Cannula Nasal Cannula Nasal Cannula O2 Flow Rate 2 2.0 2 2.0 02/14/18 02/14/18 02/14/18 02/14/18 15:33 15:52 15:59 16:17 Temp 97.5 97.5 Pulse 95 105 115 Resp 20 20 18 18 B/P (MAP) 109/61 (77) 119/67 (84) 123/67 (85) Pulse Ox 92 91 98 99 O2 Delivery Nasal Cannula Nasal Cannula Nasal Cannula Nasal Cannula O2 Flow Rate 2.0 2.0 3.0 3.0 02/14/18 02/14/18 02/14/18 02/14/18 17:21 17:26 18:21 18:27 Pulse 118 Resp 20 20 20 20 B/P (MAP) 141/97 (112) Pulse Ox 99 96 96 95 O2 Delivery Nasal Cannula Nasal Cannula Nasal Cannula Room Air O2 Flow Rate 3.0 3.0 3.0 02/14/18 02/14/18 18:37 19:00 Temp 97.9 97.9 Pulse 118 110 Resp 20 20 B/P (MAP) 125/58 (80) 120/65 (83) Pulse Ox 96 95 O2 Delivery Room Air Room Air Intake and Output 02/13/18 02/13/18 02/14/18 15:00 23:00 07:00 Intake Total 325 ml Balance 325 ml AISLINN BOWMAN MD Feb 14, 2018 20:13
[2018-02-15] MEDS: PIPERACILLIN/TAZOBACTAM 4.5 GM in IV NORMAL SALINE 100ML 100 ML IV SCH ×5 (00:46→23:43)
[2018-02-15] MEDS: oxyCODONE/APAP 10/325 1 TAB TABLET PO PRN ×6 (01:40→22:06)
[2018-02-15] MEDS: LORazepam 0.5 MG TABLET PO PRN ×2 (01:43→14:10)
[2018-02-15] MEDS: MAG HYDROX/ALUMINUM HYD/SIMETH 30 ML ORAL.SUSP PO PRN ×2 (01:43→23:49)
[2018-02-15] MEDS: MORPHINE SULFATE 4 MG/ML VIAL. IV PRN ×6 (03:09→23:44)
[2018-02-15 03:14] VITALS: BP 132/76
[2018-02-15] MEDS ORDERED: MAGNESIUM HYDROXIDE 2,400 MG/30 ML ORAL.SUSP. PO PRN (06:00)
[2018-02-15 07:19] LABS: ALBUMIN 3.3 g/dL (3.4-5.0); ALBUMIN/GLOBULIN RATIO 1.1 (1.0-1.7); CREATININE 0.9 mg/dL (0.7-1.3); GFR 96.6; POTASSIUM 4.4 mmol/L (3.5-5.1); TOTAL BILIRUBIN 0.4 mg/dL (0.2-1.0); TOTAL PROTEIN 6.4 g/dL (6.4-8.2)
[2018-02-15 07:48] VITALS: BP 111/61
[2018-02-15] MEDS: LACTOBACILLUS RHAMNOSUS GG 1 CAPSULE. PO SCH ×2 (08:13→21:04)
[2018-02-15] MEDS: DOCUSATE SODIUM 100 MG CAPSULE. PO SCH (08:13)
[2018-02-15] MEDS: SENNOSIDES/DOCUSATE 8.6/50MG TABLET. PO SCH (08:13)
[2018-02-15] MEDS: TAMSULOSIN 0.4 MG CAP.ER.24H. PO SCH (08:13)
[2018-02-15] MEDS: predniSONE 10 MG TABLET PO SCH ×2 (08:13→21:04)
[2018-02-15] MEDS: CYCLOBENZAPRINE 10 MG TABLET. PO SCH ×3 (08:13→21:04)
[2018-02-15] MEDS: LINEZOLID 600 MG TABLET PO SCH ×2 (08:13→21:04)
[2018-02-15] MEDS: MUPIROCIN 2 % TOPICAL CREAM 15GM TUBE. TP SCH ×3 (08:14→21:00)
[2018-02-15] MEDS ORDERED: SENNOSIDES/DOCUSATE 8.6/50MG TABLET. PO SCH (09:00)
[2018-02-15] MEDS: MORPHINE ER 15 MG TABLET.ER PO SCH ×2 (09:07→21:05)
[2018-02-15 09:11] LABS: BASO # 0.1 x10^3/uL (0.0-0.2); BASO % 1 % (0-3); EOS % 0 % (0-3); HEMATOCRIT 41.6 % (39.0-53.0); HEMOGLOBIN 13.9 g/dL (13.0-17.5); LYMPH # 1.3 x10^3/uL (1.0-4.8); LYMPH % 8 % (24-48); MEAN CORPUSCULAR HEMOGLOBIN 30 pg (25-35); MEAN CORPUSCULAR HGB CONC 33 g/dL (31-37); MEAN CORPUSCULAR VOLUME 90 fL (79-100); MONO # 0.8 x10^3/uL (0.0-1.1); MONO % 5 % (0-9); NEUT # 13.8 x10^3uL (1.8-7.7); NEUT % 87 % (31-73); PLATELET COUNT 299 x10^3/uL (140-400); RED BLOOD COUNT 4.62 x10^6/uL (4.30-5.70); RED CELL DISTRIBUTION WIDTH 13.7 % (11.5-14.5)
--- NOTE | 2018-02-15 10:26 | PDOC ---
PROGRESS NOTES Chief Complaint Chief Complaint traumatic right forearm compartment syndrome from fall off a trampoline History of Present Illness History of Present Illness Has a total of 3 surgeries on the right forearm this admission, third one was unplanned but needed (first OR was left open, to heal via secondary intention) Off [employer] 01/11/18 s/p another surgery 02/14/18 right forearm in splint wrapped with dressing Patient state pain control is better Plan: continue Abx per ID, given tetanus shot and IGg pain control He is on Ativan 0.5 by mouth Vitals Vitals Vital Signs Date Time Temp Pulse Resp B/P (MAP) Pulse Ox O2 Delivery O2 Flow Rate FiO2 02/15/18 10:10 97 Room Air 3.0 02/15/18 07:48 97.6 94 18 111/61 (78) 97.6 Physical Exam Physical Exam CONSTITUTIONAL: He is cooperative. He is in no acute distress. HEENT: Pupils are equal and reactive. Normal conjunctivae. Oral cavity, pharynx is clear. NECK: Supple, with good range of motion. No JVD. LUNGS: Clear to auscultation bilaterally. HEART: S1, S2, mild tachycardic. No murmur. ABDOMEN: Soft, nontender and nondistended, with positive bowel sounds. EXTREMITIES: Without clubbing or cyanosis. His right forearm is wrapped with dressing, He has tattoos. His right fingers are moving better. He has tenderness, but he does have good capillary refill and is neurovascularly intact. SKIN: Otherwise without signs of rash. NEUROLOGIC: He is nonfocal and answers questions appropriately. PSYCHIATRIC: Affect is appropriate General: Alert, Oriented X3, Cooperative, No acute distress Heart: Regular rate, Normal S1, Normal S2 Lungs: Clear Abdomen: Normal bowel sounds, Soft, No tenderness Extremities: No clubbing, No cyanosis, Other Skin: Other (DRESSING DRY) Labs LABS Laboratory Tests Test 02/14/18 13:20 02/15/18 06:30 02/15/18 08:45 White Blood Count 11.5 x10^3/uL (4.0-11.0) 16.0 x10^3/uL (4.0-11.0) Red Blood Count 4.51 x10^6/uL (4.30-5.70) 4.62 x10^6/uL (4.30-5.70) Hemoglobin 13.7 g/dL (13.0-17.5) 13.9 g/dL (13.0-17.5) Hematocrit 39.6 % (39.0-53.0) 41.6 % (39.0-53.0) Mean Corpuscular Volume 88 fL (79-100) 90 fL (79-100) Mean Corpuscular Hemoglobin 30 pg (25-35) 30 pg (25-35) Mean Corpuscular Hemoglobin Concent 35 g/dL (31-37) 33 g/dL (31-37) Red Cell Distribution Width 13.9 % (11.5-14.5) 13.7 % (11.5-14.5) Platelet Count 288 x10^3/uL (140-400) 299 x10^3/uL (140-400) Neutrophils (%) (Auto) 88 % (31-73) 87 % (31-73) Lymphocytes (%) (Auto) 8 % (24-48) 8 % (24-48) Monocytes (%) (Auto) 4 % (0-9) 5 % (0-9) Eosinophils (%) (Auto) 0 % (0-3) 0 % (0-3) Basophils (%) (Auto) 0 % (0-3) 1 % (0-3) Neutrophils # (Auto) 10.1 x10^3uL (1.8-7.7) 13.8 x10^3uL (1.8-7.7) Lymphocytes # (Auto) 0.9 x10^3/uL (1.0-4.8) 1.3 x10^3/uL (1.0-4.8) Monocytes # (Auto) 0.5 x10^3/uL (0.0-1.1) 0.8 x10^3/uL (0.0-1.1) Eosinophils # (Auto) 0.0 x10^3/uL (0.0-0.7) 0.0 x10^3/uL (0.0-0.7) Basophils # (Auto) 0.0 x10^3/uL (0.0-0.2) 0.1 x10^3/uL (0.0-0.2) Sodium Level 138 mmol/L (136-145) Potassium Level 4.4 mmol/L (3.5-5.1) Chloride Level 101 mmol/L (98-107) Carbon Dioxide Level 26 mmol/L (21-32) Anion Gap 11 (6-14) Blood Urea Nitrogen 17 mg/dL (8-26) Creatinine 0.9 mg/dL (0.7-1.3) Estimated GFR (Cockcroft-Gault) 96.6 BUN/Creatinine Ratio 19 (6-20) Glucose Level 121 mg/dL (70-99) Calcium Level 9.0 mg/dL (8.5-10.1) Total Bilirubin 0.4 mg/dL (0.2-1.0) Aspartate Amino Transf (AST/SGOT) 14 U/L (15-37) Alanine Aminotransferase (ALT/SGPT) 26 U/L (16-63) Alkaline Phosphatase 60 U/L (46-116) Total Protein 6.4 g/dL (6.4-8.2) Albumin 3.3 g/dL (3.4-5.0) Albumin/Globulin Ratio 1.1 (1.0-1.7) Assessment and Plan Assessmemt and Plan Problems Medical Problems: (1) Arm pain Status: Acute (2) Wrist spasm Status: Acute Comment Review of Relevant I have reviewed the following items le (where applicable) has been applied. Labs Laboratory Tests Test 02/14/18 08:33 02/14/18 13:20 02/15/18 06:30 02/15/18 08:45 Sodium Level 132 mmol/L (136-145) 138 mmol/L (136-145) Potassium Level 4.3 mmol/L (3.5-5.1) 4.4 mmol/L (3.5-5.1) Chloride Level 98 mmol/L (98-107) 101 mmol/L (98-107) Carbon Dioxide Level 24 mmol/L (21-32) 26 mmol/L (21-32) Anion Gap 10 (6-14) 11 (6-14) Blood Urea Nitrogen 20 mg/dL (8-26) 17 mg/dL (8-26) Creatinine 0.9 mg/dL (0.7-1.3) 0.9 mg/dL (0.7-1.3) Estimated GFR (Cockcroft-Gault) 96.6 96.6 BUN/Creatinine Ratio 22 (6-20) 19 (6-20) Glucose Level 103 mg/dL (70-99) 121 mg/dL (70-99) Calcium Level 8.5 mg/dL (8.5-10.1) 9.0 mg/dL (8.5-10.1) Total Bilirubin 0.7 mg/dL (0.2-1.0) 0.4 mg/dL (0.2-1.0) Aspartate Amino Transf (AST/SGOT) 17 U/L (15-37) 14 U/L (15-37) Alanine Aminotransferase (ALT/SGPT) 29 U/L (16-63) 26 U/L (16-63) Alkaline Phosphatase 73 U/L (46-116) 60 U/L (46-116) Total Protein 7.0 g/dL (6.4-8.2) 6.4 g/dL (6.4-8.2) Albumin 3.0 g/dL (3.4-5.0) 3.3 g/dL (3.4-5.0) Albumin/Globulin Ratio 0.8 (1.0-1.7) 1.1 (1.0-1.7) White Blood Count 11.5 x10^3/uL (4.0-11.0) 16.0 x10^3/uL (4.0-11.0) Red Blood Count 4.51 x10^6/uL (4.30-5.70) 4.62 x10^6/uL (4.30-5.70) Hemoglobin 13.7 g/dL (13.0-17.5) 13.9 g/dL (13.0-17.5) Hematocrit 39.6 % (39.0-53.0) 41.6 % (39.0-53.0) Mean Corpuscular Volume 88 fL (79-100) 90 fL (79-100) Mean Corpuscular Hemoglobin 30 pg (25-35) 30 pg (25-35) Mean Corpuscular Hemoglobin Concent 35 g/dL (31-37) 33 g/dL (31-37) Red Cell Distribution Width 13.9 % (11.5-14.5) 13.7 % (11.5-14.5) Platelet Count 288 x10^3/uL (140-400) 299 x10^3/uL (140-400) Neutrophils (%) (Auto) 88 % (31-73) 87 % (31-73) Lymphocytes (%) (Auto) 8 % (24-48) 8 % (24-48) Monocytes (%) (Auto) 4 % (0-9) 5 % (0-9) Eosinophils (%) (Auto) 0 % (0-3) 0 % (0-3) Basophils (%) (Auto) 0 % (0-3) 1 % (0-3) Neutrophils # (Auto) 10.1 x10^3uL (1.8-7.7) 13.8 x10^3uL (1.8-7.7) Lymphocytes # (Auto) 0.9 x10^3/uL (1.0-4.8) 1.3 x10^3/uL (1.0-4.8) Monocytes # (Auto) 0.5 x10^3/uL (0.0-1.1) 0.8 x10^3/uL (0.0-1.1) Eosinophils # (Auto) 0.0 x10^3/uL (0.0-0.7) 0.0 x10^3/uL (0.0-0.7) Basophils # (Auto) 0.0 x10^3/uL (0.0-0.2) 0.1 x10^3/uL (0.0-0.2) Laboratory Tests Test 02/14/18 13:20 02/15/18 06:30 02/15/18 08:45 White Blood Count 11.5 x10^3/uL (4.0-11.0) 16.0 x10^3/uL (4.0-11.0) Red Blood Count 4.51 x10^6/uL (4.30-5.70) 4.62 x10^6/uL (4.30-5.70) Hemoglobin 13.7 g/dL (13.0-17.5) 13.9 g/dL (13.0-17.5) Hematocrit 39.6 % (39.0-53.0) 41.6 % (39.0-53.0) Mean Corpuscular Volume 88 fL (79-100) 90 fL (79-100) Mean Corpuscular Hemoglobin 30 pg (25-35) 30 pg (25-35) Mean Corpuscular Hemoglobin Concent 35 g/dL (31-37) 33 g/dL (31-37) Red Cell Distribution Width 13.9 % (11.5-14.5) 13.7 % (11.5-14.5) Platelet Count 288 x10^3/uL (140-400) 299 x10^3/uL (140-400) Neutrophils (%) (Auto) 88 % (31-73) 87 % (31-73) Lymphocytes (%) (Auto) 8 % (24-48) 8 % (24-48) Monocytes (%) (Auto) 4 % (0-9) 5 % (0-9) Eosinophils (%) (Auto) 0 % (0-3) 0 % (0-3) Basophils (%) (Auto) 0 % (0-3) 1 % (0-3) Neutrophils # (Auto) 10.1 x10^3uL (1.8-7.7) 13.8 x10^3uL (1.8-7.7) Lymphocytes # (Auto) 0.9 x10^3/uL (1.0-4.8) 1.3 x10^3/uL (1.0-4.8) Monocytes # (Auto) 0.5 x10^3/uL (0.0-1.1) 0.8 x10^3/uL (0.0-1.1) Eosinophils # (Auto) 0.0 x10^3/uL (0.0-0.7) 0.0 x10^3/uL (0.0-0.7) Basophils # (Auto) 0.0 x10^3/uL (0.0-0.2) 0.1 x10^3/uL (0.0-0.2) Sodium Level 138 mmol/L (136-145) Potassium Level 4.4 mmol/L (3.5-5.1) Chloride Level 101 mmol/L (98-107) Carbon Dioxide Level 26 mmol/L (21-32) Anion Gap 11 (6-14) Blood Urea Nitrogen 17 mg/dL (8-26) Creatinine 0.9 mg/dL (0.7-1.3) Estimated GFR (Cockcroft-Gault) 96.6 BUN/Creatinine Ratio 19 (6-20) Glucose Level 121 mg/dL (70-99) Calcium Level 9.0 mg/dL (8.5-10.1) Total Bilirubin 0.4 mg/dL (0.2-1.0) Aspartate Amino Transf (AST/SGOT) 14 U/L (15-37) Alanine Aminotransferase (ALT/SGPT) 26 U/L (16-63) Alkaline Phosphatase 60 U/L (46-116) Total Protein 6.4 g/dL (6.4-8.2) Albumin 3.3 g/dL (3.4-5.0) Albumin/Globulin Ratio 1.1 (1.0-1.7) Medications Current Medications Morphine Sulfate (Morphine Sulfate) 4 mg PRN Q15MIN PRN IV/SQ PAIN GREATER THAN 3/10 Last administered on 02/02/18at 18:48; Start 02/02/18 at 18:00; Stop at 03:55; Status DC Sodium Chloride 1,000 ml @ 1,000 mls/hr Q1H IV Last administered on 02/02/18at 18:50; Start 02/02/18 at 17:57; Stop 02/02/18 at 18:56; Status DC Diazepam (Valium) 5 mg 1X ONCE PO Last administered on 02/02/18at 18:47; Start 02/02/18 at 18:00; Stop 02/02/18 at 18:05; Status DC Morphine Sulfate (Morphine Sulfate) 4 mg PRN Q2HR PRN IV SEVERE PAIN Last administered on 02/03/18at 03:07; Start 02/02/18 at 21:00; Stop 02/03/18 at 03:51 ; Status DC Oxycodone/ Acetaminophen (Percocet 10/325) 1 tab PRN Q4HRS PRN PO SEVERE PAIN Last administered on 02/08/18at 19:16; Start 02/02/18 at 21:00; Stop 02/08/18 at 20:14; Status DC Oxycodone/ Acetaminophen (Percocet 5/325) 1 tab PRN Q4HRS PRN PO MODERATE PAIN ; Start 02/02/18 at 21:00; Stop 02/08/18 at 10:27; Status DC Zolpidem Tartrate (Ambien) 5 mg PRN QHS PRN PO INSOMNIA Last administered on at 20:56; Start 02/02/18 at 21:00 Ondansetron HCl (Zofran) 4 mg PRN Q6HRS PRN IV NAUSEA/VOMITING 1ST CHOICE; Start 02/02/18 at 21:00; Status Cancel Ondansetron HCl (Zofran Odt) 4 mg PRN Q6HRS PRN PO NAUSEA/VOMITING 1ST CHOICE; Start 02/02/18 at 21:00 Acetaminophen (Tylenol) 500 mg PRN Q6HRS PRN PO MILD PAIN / TEMP; Start at 21:00 Calcium Carbonate/ Glycine (Tums) 500 mg PRN AFTMEALHC PRN PO INDIGESTION; Start 02/02/18 at 21:00 Albuterol Sulfate (Ventolin Neb Soln) 2.5 mg PRN Q4HRS PRN NEB soa; Start 02/02 at 21:15 Cyclobenzaprine HCl (Flexeril) 10 mg TID PO Last administered on 02/15/18at 08: 13; Start 02/03/18 at 09:00 Acetaminophen/ Hydrocodone Bitart (Lortab 5/325) 1 tab Q6HRS PO Last administered on 02/04/18at 05:51; Start 02/03/18 at 00:00; Stop 02/04/18 at 10:03 ; Status DC Mupirocin (Bactroban) 1 bienvenido TID TP ; Start 02/03/18 at 09:00 Ondansetron HCl (Zofran Odt) 4 mg PRN Q8HRS PRN PO NAUSEA VOMITING 1ST CHOICE; Start 02/02/18 at 21:15; Stop 02/02/18 at 21:15; Status DC Oxycodone/ Acetaminophen (Percocet 5/325) 1 tab PRN TID PRN PO severe pain; Start 02/02/18 at 21:15; Status Cancel Tamsulosin HCl (Flomax) 0.4 mg DAILY PO Last administered on 02/15/18at 08:13; Start 02/03/18 at 09:00 Non-Formulary Medication (Albuterol Sulfate (Proair Hfa Inhaler)) 1 puff PRN Q6HRS PRN INH SHORTNESS OF BREATH; Start 02/02/18 at 21:15; Status UNV Guaifenesin/ Codeine Phosphate (Robitussin Ac) 10 ml PRN Q6HRS PRN PO COUGH; Start 02/02/18 at 21:15 Fentanyl Citrate (Fentanyl 2ml Vial) 50 mcg PRN Q2HR PRN IV SEVERE PAIN Last administered on 02/04/18at 08:44; Start 02/03/18 at 04:00; Stop 02/04/18 at 21:51 ; Status DC Diazepam (Valium) 10 mg PRN Q8HRS PRN PO ANXIETY Last administered on at 17:50; Start 02/03/18 at 04:00; Stop 02/07/18 at 19:56; Status DC Lidocaine HCl (Lidocaine 1% 20ml Vial) 20 ml 1X ONCE INJ ; Start 02/03/18 at 09 :00; Stop 02/03/18 at 09:01; Status Cancel Lidocaine HCl (Lidocaine 1% 50ml Vial) 20 ml 1X ONCE INJ Last administered on 02/03/18at 09:07; Start 02/03/18 at 09:00; Stop 02/03/18 at 09:01; Status DC Fentanyl Citrate (Fentanyl 2ml Vial) 25 mcg PRN Q5MIN PRN IV MILD PAIN; Start 02/03/18 at 09:30; Stop 02/03/18 at 19:00; Status DC Fentanyl Citrate (Fentanyl 2ml Vial) 50 mcg PRN Q5MIN PRN IV MODERATE TO SEVERE PAIN Last administered on 02/03/18at 12:40; Start 02/03/18 at 09:30; Stop 02/03/18 at 19:00; Status DC Morphine Sulfate (Morphine Sulfate) 1 mg PRN Q10MIN PRN IV SEVERE PAIN; Start 02/03/18 at 09:30; Stop 02/03/18 at 19:00; Status DC Ringer's Solution 1,000 ml @ 30 mls/hr Q24H IV Last administered on 02/03/18at 09:35; Start 02/03/18 at 09:23; Stop 02/03/18 at 21:22; Status DC Lidocaine HCl (Xylocaine-Mpf 1% 2ml Vial) 2 ml 1X PRN PRN ID IV START; Start at 09:30; Stop 02/03/18 at 19:00; Status DC Hydromorphone HCl (Dilaudid) 0.5 mg PRN Q10MIN PRN IV SEV PAIN, Second choice Last administered on 02/03/18at 12:29; Start 02/03/18 at 09:30; Stop 02/03/18 at 19:00; Status DC Prochlorperazine Edisylate (Compazine) 5 mg PACU PRN PRN IV NAUSEA, MRX1; Start 02/03/18 at 09:30; Stop 02/03/18 at 19:00; Status DC Midazolam HCl (Versed) 2 mg STK-MED ONCE .ROUTE ; Start 02/03/18 at 09:33; Stop 02/03/18 at 09:34; Status DC Bupivacaine HCl/ Epinephrine Bitart (Marcaine-Epi 0.5%-[id number]) 50 ml STK-MED ONCE .ROUTE ; Start 02/03/18 at 08:34; Stop 02/03/18 at 09:35; Status DC Midazolam HCl (Versed) 2 mg 1X ONCE IV Last administered on 02/03/18at 09:41; Start 02/03/18 at 09:45; Stop 02/03/18 at 09:46; Status DC Dexamethasone Sodium Phosphate (Decadron) 20 mg STK-MED ONCE .ROUTE ; Start at 09:41; Stop 02/03/18 at 09:42; Status DC Ondansetron HCl (Zofran) 4 mg STK-MED ONCE .ROUTE ; Start 02/03/18 at 09:41; Stop 02/03/18 at 09:42; Status DC Fentanyl Citrate (Fentanyl 2ml Vial) 100 mcg STK-MED ONCE .ROUTE ; Start at 09:41; Stop 02/03/18 at 09:42; Status DC Famotidine (Pepcid Vial) 20 mg STK-MED ONCE .ROUTE ; Start 02/03/18 at 09:42; Stop 02/03/18 at 09:43; Status DC Propofol 20 ml @ As Directed STK-MED ONCE IV ; Start 02/03/18 at 09:42; Stop at 09:43; Status DC Succinylcholine Chloride (Anectine) 200 mg STK-MED ONCE .ROUTE ; Start 02/03/18 at 09:42; Stop 02/03/18 at 09:43; Status DC Rocuronium [place] (Zemuron) 50 mg STK-MED ONCE .ROUTE ; Start 02/03/18 at 09:45 ; Stop 02/03/18 at 09:46; Status DC Cefazolin Sodium/ Dextrose 50 ml @ As Directed STK-MED ONCE IV ; Start 02/03/18 at 09:46; Stop 02/03/18 at 09:47; Status DC Cefazolin Sodium/ Dextrose 50 ml @ 100 mls/hr 1X PREOP PRN IV Pre Op dose Last administered on 02/03/18at 10:30; Start 02/03/18 at 10:30; Stop 02/03/18 at 18:00; Status DC Fentanyl Citrate (Fentanyl 2ml Vial) 100 mcg STK-MED ONCE .ROUTE ; Start at 10:43; Stop 02/03/18 at 10:44; Status DC Bupivacaine HCl/ Epinephrine Bitart (Marcaine-Epi 0.5%-[id number]) 50 ml STK-MED ONCE INJ Last administered on 02/03/18at 10:36; Start 02/03/18 at 10:36; Stop at 11:17; Status DC Neostigmine Methylsulfate (Neostigmine Methylsulfate) 5 mg STK-MED ONCE .ROUTE ; Start 02/03/18 at 11:04; Stop 02/03/18 at 11:05; Status DC Glycopyrrolate (Robinul) 1 mg STK-MED ONCE .ROUTE ; Start 02/03/18 at 11:05; Stop 02/03/18 at 11:06; Status DC Senna/Docusate Sodium (Senna Plus) 1 tab DAILY PO Last administered on at 08:13; Start 02/04/18 at 09:00 Polyethylene Glycol (miraLAX PACKET) 17 gm PRN DAILY PRN PO CONSTIPATION 1ST CHOICE; Start 02/03/18 at 11:30 Ondansetron HCl (Zofran) 4 mg PRN Q4HRS PRN IV NAUSEA/VOMITING; Start 02/03/18 at 11:30 Magnesium Hydroxide (Milk Of Magnesia) 2,400 mg 1X PRN PRN PO CONSTIPATION; Start 02/04/18 at 06:00; Stop 02/05/18 at 05:59; Status DC Bisacodyl (Dulcolax Supp) 10 mg 1X PRN PRN [place] CONSTIPATION; Start 02/04/18 at 16:00; Stop 02/05/18 at 15:59; Status DC Dextrose (Dextrose 50%-Water Syringe) 12.5 gm PRN Q15MIN PRN IV SEE COMMENTS; Start 02/03/18 at 11:30; Stop 02/14/18 at 15:08; Status DC Cefazolin Sodium/ Dextrose 50 ml @ 100 mls/hr Q6H IV ; Start 02/03/18 at 11:30 ; Stop 02/03/18 at 23:59; Status UNV Cefazolin Sodium/ Dextrose 50 ml @ 100 mls/hr Q8HRS IV Last administered on at 05:48; Start 02/03/18 at 14:00; Stop 02/13/18 at 08:24; Status DC Fentanyl Citrate (Fentanyl 2ml Vial) 50 mcg PRN Q5MIN PRN IV MODERATE TO SEVERE PAIN; Start 02/03/18 at 13:30; Stop 02/03/18 at 19:00; Status DC Docusate Sodium (Colace) 100 mg DAILY PO Last administered on 02/15/18at 08:13; Start 02/03/18 at 14:00 Fentanyl Citrate 30 ml @ 0 mls/hr CONT PRN PRN IV PER PROTOCOL Last administered on 02/04/18at 21:05; Start 02/04/18 at 10:00; Stop 02/04/18 at 23:03 ; Status DC Prednisone (Prednisone) 10 mg BID PO Last administered on 02/15/18at 08:13; Start 02/04/18 at 11:00 Ketorolac Tromethamine (Toradol 30mg Vial) 30 mg Q6HRS PRN IV PAIN; Start 02/04 at 10:00; Stop 02/04/18 at 10:24; Status DC Sodium Chloride 1,000 ml @ 75 mls/hr [id number] IV Last administered on at 21:20; Start 02/04/18 at 10:15; Stop 02/08/18 at 17:22; Status DC Ketorolac Tromethamine (Toradol 30mg Vial) 30 mg Q6HRS IV Last administered on 02/09/18at 05:09; Start 02/04/18 at 12:00; Stop 02/09/18 at 11:59; Status DC Ondansetron HCl (Zofran) 4 mg PRN Q6HRS PRN IV NAUSEA/VOMITING; Start 02/05/18 at 07:00; Stop 02/05/18 at 18:00; Status DC Fentanyl Citrate (Fentanyl 2ml Vial) 25 mcg PRN Q5MIN PRN IV MILD PAIN; Start 02/05/18 at 07:00; Stop 02/05/18 at 18:00; Status DC Fentanyl Citrate (Fentanyl 2ml Vial) 50 mcg PRN Q5MIN PRN IV MODERATE TO SEVERE PAIN; Start 02/05/18 at 07:00; Stop 02/05/18 at 18:00; Status DC Morphine Sulfate (Morphine Sulfate) 1 mg PRN Q10MIN PRN IV SEVERE PAIN; Start 02/05/18 at 07:00; Stop 02/05/18 at 18:00; Status DC Ringer's Solution 1,000 ml @ 30 mls/hr Q24H IV ; Start 02/05/18 at 07:00; Stop 02/05/18 at 17:44; Status DC Lidocaine HCl (Xylocaine-Mpf 1% 2ml Vial) 2 ml PRN 1X PRN ID IV START; Start at 07:00; Stop 02/05/18 at 18:00; Status DC Hydromorphone HCl (Dilaudid) 0.5 mg PRN Q10MIN PRN IV SEV PAIN, Second choice; Start 02/05/18 at 07:00; Stop 02/05/18 at 18:00; Status DC Prochlorperazine Edisylate (Compazine) 5 mg PACU PRN PRN IV NAUSEA, MRX1; Start 02/05/18 at 07:00; Stop 02/05/18 at 18:00; Status DC Diphenhydramine HCl (Benadryl) 25 mg PRN Q6HRS PRN PO ITCHING Last administered on 02/14/18at 18:24; Start 02/04/18 at 11:45 Diphenhydramine HCl (Benadryl) 25 mg 1X ONCE IVP Last administered on at 11:52; Start 02/04/18 at 12:00; Stop 02/04/18 at 12:01; Status DC Lactobacillus Rhamnosus (Culturelle) 1 cap BID PO Last administered on at 08:13; Start 02/04/18 at 21:00 Al Hydroxide/Mg Hydroxide (Mylanta Plus Xs) 30 ml PRN Q2HR PRN PO HEARTBURN / GAS Last administered on 02/15/18at 01:43; Start 02/04/18 at 18:45 Morphine Sulfate 30 ml @ 0 mls/hr CONT PRN PRN IV PER PROTOCOL Last administered on 02/08/18at 09:27; Start 02/04/18 at 23:00; Stop 02/08/18 at 10:28 ; Status DC Diphenhydramine HCl (Benadryl) 25 mg PRN Q6HRS PRN IVP ITCHING Last administered on 02/10/18at 05:58; Start 02/05/18 at 03:15; Stop 02/10/18 at 15:28 ; Status DC Bupivacaine HCl/ Epinephrine Bitart (Marcaine-Epi 0.5%-1:[id number]) 50 ml 1X ONCE IJ ; Start 02/05/18 at 10:30; Stop 02/05/18 at 10:31; Status Cancel Bupivacaine HCl (Marcaine 0.25%) 50 ml STK-MED ONCE .ROUTE Last administered on 02/05/18at 13:56; Start 02/05/18 at 11:33; Stop 02/05/18 at 12:34; Status DC Propofol 20 ml @ As Directed STK-MED ONCE IV ; Start 02/05/18 at 12:44; Stop at 12:45; Status DC Midazolam HCl (Versed) 2 mg STK-MED ONCE .ROUTE ; Start 02/05/18 at 12:44; Stop 02/05/18 at 12:45; Status DC Fentanyl Citrate (Fentanyl 2ml Vial) 100 mcg STK-MED ONCE .ROUTE ; Start at 12:44; Stop 02/05/18 at 12:45; Status DC Midazolam HCl (Versed) 2 mg STK-MED ONCE .ROUTE ; Start 02/05/18 at 12:52; Stop 02/05/18 at 12:53; Status DC Succinylcholine Chloride (Anectine) 200 mg STK-MED ONCE .ROUTE ; Start 02/05/18 at 13:03; Stop 02/05/18 at 13:04; Status DC Midazolam HCl (Versed) 2 mg 1X ONCE IV Last administered on 02/05/18at 13:09; Start 02/05/18 at 13:00; Stop 02/05/18 at 13:08; Status DC Ondansetron HCl (Zofran) 4 mg STK-MED ONCE .ROUTE ; Start 02/05/18 at 13:19; Stop 02/05/18 at 13:20; Status DC Dexamethasone Sodium Phosphate (Decadron) 20 mg STK-MED ONCE .ROUTE ; Start at 13:19; Stop 02/05/18 at 13:20; Status DC Ketorolac Tromethamine (Toradol For Or Only) 30 mg STK-MED ONCE INJ ; Start at 13:19; Stop 02/05/18 at 13:20; Status DC Potassium Chloride/Sodium Chloride 1,000 ml @ 125 mls/hr Q8H IV ; Start at 09:00; Stop 02/06/18 at 14:20; Status DC Lorazepam (Ativan) 0.5 mg PRN Q8HRS PRN PO ANXIETY Last administered on at 01:43; Start 02/06/18 at 13:15 Lorazepam (Ativan) 0.5 mg 1X ONCE IV Last administered on 02/07/18at 11:19; Start 02/07/18 at 08:45; Stop 02/07/18 at 08:46; Status DC Fentanyl Citrate (Fentanyl 2ml Vial) 100 mcg STK-MED ONCE .ROUTE ; Start at 12:00; Stop 02/07/18 at 12:01; Status DC Midazolam HCl (Versed) 2 mg STK-MED ONCE .ROUTE ; Start 02/07/18 at 12:00; Stop 02/07/18 at 12:01; Status DC Succinylcholine Chloride (Anectine) 200 mg STK-MED ONCE .ROUTE ; Start 02/07/18 at 12:00; Stop 02/07/18 at 12:01; Status DC Dexamethasone Sodium Phosphate (Decadron) 20 mg STK-MED ONCE .ROUTE ; Start at 12:01; Stop 02/07/18 at 12:02; Status DC Famotidine (Pepcid Vial) 20 mg STK-MED ONCE .ROUTE ; Start 02/07/18 at 12:01; Stop 02/07/18 at 12:02; Status DC Propofol 20 ml @ As Directed STK-MED ONCE IV ; Start 02/07/18 at 12:01; Stop at 12:02; Status DC Ondansetron HCl (Zofran) 4 mg STK-MED ONCE .ROUTE ; Start 02/07/18 at 12:01; Stop 02/07/18 at 12:02; Status DC Bupivacaine HCl/ Epinephrine Bitart (Sensorcain-Mpf Epi 0.5%-[id number]) 30 ml STK -MED ONCE .ROUTE Last administered on 02/07/18at 13:29; Start 02/07/18 at 11:29 ; Stop 02/07/18 at 12:30; Status DC Desflurane (Suprane) 30 ml STK-MED ONCE IH ; Start 02/07/18 at 13:34; Stop 02/07 at 13:35; Status DC Senna/Docusate Sodium (Senna Plus) 1 tab DAILY PO ; Start 02/08/18 at 09:00; Status UNV Polyethylene Glycol (miraLAX PACKET) 17 gm PRN DAILY PRN PO CONSTIPATION; Start 02/07/18 at 14:00; Status UNV Ondansetron HCl (Zofran) 4 mg PRN Q4HRS PRN IV NAUSEA/VOMITING; Start 02/07/18 at 14:00; Status UNV Magnesium Hydroxide (Milk Of Magnesia) 2,400 mg 1X PRN PRN PO CONSTIPATION; Start 02/08/18 at 06:00; Stop 02/09/18 at 05:59; Status DC Bisacodyl (Dulcolax Supp) 10 mg 1X PRN PRN [place] CONSTIPATION; Start 02/08/18 at 16:00; Stop 02/09/18 at 15:59; Status DC Dextrose (Dextrose 50%-Water Syringe) 12.5 gm PRN Q15MIN PRN IV SEE COMMENTS; Start 02/07/18 at 14:00; Status UNV Cefazolin Sodium/ Dextrose 50 ml @ 100 mls/hr Q6H IV ; Start 02/07/18 at 14:00 ; Stop 02/08/18 at 02:29; Status UNV Desflurane (Suprane) 30 ml STK-MED ONCE IH ; Start 02/07/18 at 14:00; Stop 02/07 at 14:01; Status DC Morphine Sulfate (Ms Contin) 15 mg BID PO Last administered on 02/15/18at 09:07 ; Start 02/08/18 at 10:30 Morphine Sulfate (Morphine Sulfate) 4 mg PRN Q2HR PRN IV PAIN Last administered on 02/08/18at 19:17; Start 02/08/18 at 10:30; Stop 02/08/18 at 20:14 ; Status DC Naloxone HCl (Narcan) 0.4 mg PRN Q2MIN PRN IV SEE INSTRUCTIONS; Start 02/08/18 at 20:15 Sodium Chloride 1,000 ml @ 25 mls/hr Q24H IV Last administered on 02/09/18at 20 :25; Start 02/08/18 at 20:10; Stop 02/10/18 at 19:44; Status DC Morphine Sulfate 30 ml @ 0 mls/hr CONT PRN PRN IV PER PROTOCOL Last administered on 02/10/18at 07:41; Start 02/08/18 at 20:15; Stop 02/10/18 at 08:52 ; Status DC Diphenhydramine HCl (Benadryl) 25 mg PRN Q6HRS PRN IVP ITCHING Last administered on 02/11/18at 16:48; Start 02/09/18 at 11:00 Oxycodone/ Acetaminophen (Percocet 10/325) 1 tab PRN Q4HRS PRN PO MODERATE PAIN Last administered on 02/13/18at 12:38; Start 02/10/18 at 10:00 Morphine Sulfate (Morphine Sulfate) 4 mg 1X ONCE IV Last administered on at 11:15; Start 02/11/18 at 11:15; Stop 02/11/18 at 11:16; Status DC Morphine Sulfate (Morphine Sulfate) 4 mg 1X ONCE IV Last administered on at 14:28; Start 02/11/18 at 11:30; Stop 02/11/18 at 11:31; Status DC Morphine Sulfate (Morphine Sulfate) 4 mg PRN Q4HRS PRN IV PAIN Last administered on 02/15/18at 07:19; Start 02/11/18 at 16:15 Vancomycin HCl 1.5 gm/Sodium Chloride 500 ml @ 250 mls/hr 1X ONCE IV ; Start 02/12/18 at 12:00; Stop 02/12/18 at 13:59; Status UNV Vancomycin HCl 2 gm/Sodium Chloride 500 ml @ 250 mls/hr ONCE ONCE IV Last administered on 02/12/18at 12:48; Start 02/12/18 at 12:15; Stop 02/12/18 at 14:14 ; Status DC Metronidazole 100 ml @ 100 mls/hr Q6HRS IV Last administered on 02/15/18at 06: 12; Start 02/13/18 at 08:00 Tetanus/ Diphtheria Toxoids (Tenivac Syringe) 0.5 ml ONCE ONCE VAX IM Last administered on 02/13/18at 09:45; Start 02/13/18 at 08:00; Stop 02/13/18 at 08:30 ; Status DC Tetanus Immune Globulin (Hypertet) 2 ml ONCE ONCE VAX IM Last administered on at 09:39; Start 02/13/18 at 08:00; Stop 02/13/18 at 08:28; Status DC Piperacillin Sod/ Tazobactam Sod 4.5 gm/Sodium Chloride 100 ml @ 200 mls/hr Q6HRS IV Last administered on 02/15/18at 06:12; Start 02/13/18 at 08:30 Linezolid (Zyvox) 600 mg BID PO Last administered on 02/15/18at 08:13; Start at 09:00 Oxycodone/ Acetaminophen (Percocet 10/325) 2 tab PRN Q4HRS PRN PO SEVERE PAIN Last administered on 02/15/18at 10:10; Start 02/13/18 at 17:00 Ondansetron HCl (Zofran) 4 mg PRN Q6HRS PRN IV NAUSEA/VOMITING; Start 02/14/18 at 07:30; Stop 02/14/18 at 18:00; Status DC Fentanyl Citrate (Fentanyl 2ml Vial) 25 mcg PRN Q5MIN PRN IV MILD PAIN Last administered on 02/14/18at 14:35; Start 02/14/18 at 07:30; Stop 02/14/18 at 18:00 ; Status DC Fentanyl Citrate (Fentanyl 2ml Vial) 50 mcg PRN Q5MIN PRN IV MODERATE TO SEVERE PAIN Last administered on 02/14/18at 13:56; Start 02/14/18 at 07:30; Stop 02/14/18 at 18:00; Status DC Morphine Sulfate (Morphine Sulfate) 1 mg PRN Q10MIN PRN IV SEVERE PAIN; Start 02/14/18 at 07:30; Stop 02/14/18 at 18:00; Status DC Ringer's Solution 1,000 ml @ 30 mls/hr Q24H IV Last administered on 02/14/18at 14:13; Start 02/14/18 at 07:26; Stop 02/14/18 at 19:25; Status DC Lidocaine HCl (Xylocaine-Mpf 1% 2ml Vial) 2 ml 1X PRN PRN ID IV START; Start at 07:30; Stop 02/14/18 at 18:00; Status DC Hydromorphone HCl (Dilaudid) 0.5 mg PRN Q10MIN PRN IV SEV PAIN, Second choice Last administered on 02/14/18at 14:52; Start 02/14/18 at 07:30; Stop 02/14/18 at 18:00; Status DC Prochlorperazine Edisylate (Compazine) 5 mg PACU PRN PRN IV NAUSEA, MRX1; Start 02/14/18 at 07:30; Stop 02/14/18 at 18:00; Status DC Bupivacaine HCl/ Epinephrine Bitart (Marcaine-Epi 0.5%-[id number]) 50 ml STK-MED ONCE .ROUTE ; Start 02/14/18 at 10:43; Stop 02/14/18 at 11:44; Status DC Lorazepam (Ativan) 4 mg 1X ONCE IV Last administered on 02/14/18at 13:57; Start 02/14/18 at 13:45; Stop 02/14/18 at 13:46; Status DC Senna/Docusate Sodium (Senna Plus) 1 tab DAILY PO ; Start 02/15/18 at 09:00; Stop 02/15/18 at 09:00; Status DC Polyethylene Glycol (miraLAX PACKET) 17 gm PRN DAILY PRN PO CONSTIPATION; Start 02/14/18 at 13:45; Stop 02/15/18 at 08:08; Status DC Ondansetron HCl (Zofran) 4 mg PRN Q4HRS PRN IV NAUSEA/VOMITING; Start 02/14/18 at 13:45; Stop 02/14/18 at 16:46; Status DC Magnesium Hydroxide (Milk Of Magnesia) 2,400 mg 1X PRN PRN PO CONSTIPATION; Start 02/15/18 at 06:00; Stop 02/16/18 at 05:59 Dextrose (Dextrose 50%-Water Syringe) 12.5 gm PRN Q15MIN PRN IV SEE COMMENTS; Start 02/14/18 at 13:45 Hydromorphone HCl (Dilaudid) 1.5 mg 1X ONCE IV Last administered on 02/14/18at 15:03; Start 02/14/18 at 15:03; Stop 02/14/18 at 15:07; Status DC Propofol 20 ml @ As Directed STK-MED ONCE IV ; Start 02/14/18 at 13:23; Stop at 18:56; Status DC Ondansetron HCl (Zofran) 4 mg STK-MED ONCE .ROUTE ; Start 02/14/18 at 13:23; Stop 02/14/18 at 18:56; Status DC Dexamethasone Sodium Phosphate (Decadron) 20 mg STK-MED ONCE .ROUTE ; Start at 13:23; Stop 02/14/18 at 18:56; Status DC Sevoflurane (Ultane) 30 ml STK-MED ONCE IH ; Start 02/14/18 at 13:26; Stop 02/14 at 18:56; Status DC Fentanyl Citrate (Fentanyl 2ml Vial) 100 mcg STK-MED ONCE .ROUTE ; Start at 13:52; Stop 02/14/18 at 18:56; Status DC Active Scripts Active Percocet 5-325 Mg Tablet (Oxycodone/Acetaminophen) 1 Each Tablet 1-2 Each PO PRN TID PRN pain Cyclobenzaprine Hcl 10 Mg Tablet 1 Tab PO TID [place] 5-325 Tablet (Acetaminophen/Hydrocodone Bitart) 1 Each Tablet 1 Tab PO Q6HRS Zofran Odt (Ondansetron) 4 Mg Tab.rapdis 1 Tab SL Q8HRS Cipro (Ciprofloxacin Hcl) 500 Mg Tablet 1 Tab PO BID Flomax (Tamsulosin Hcl) 0.4 Mg Cap.er.24h 1 Cap PO DAILY Albuterol Sulfate Neb Soln (Albuterol Sulfate) 2.5 Mg/3 Ml Vial.neb 1 Vial NEB PRN Q4HRS Guaifenesin Ac Cough Syrup (Guaifenesin/Codeine Phosphate) 473 Ml Liquid 10 Ml PO Q4-6HRS PRN Prednisone 20 Mg Tablet 2 Tab PO DAILY Start on Saturday12/24/17 Proair Hfa Inhaler (Albuterol Sulfate) 8.5 Gm Hfa.aer.ad 1 Puff INH PRN Q6HRS PRN Doxycycline Hyclate 100 Mg Tablet 1 Tab PO BID Bactroban Cream (Mupirocin) 15 Gm Cream..g. 1 [place] TP TID Vitals/I & O Vital Sign - Last 24 Hours 02/14/18 02/14/18 02/14/18 02/14/18 10:33 11:00 13:40 13:40 Temp 98.0 98.4 98.0 98.4 Pulse 106 94 Resp 20 18 22 B/P (MAP) 106/74 (85) 141/75 Pulse Ox 96 94 100 O2 Delivery Room Air Room Air Simple Mask Mask O2 Flow Rate 10 10 02/14/18 02/14/18 02/14/18 02/14/18 13:55 13:56 14:10 14:12 Pulse 106 115 Resp 20 20 20 20 B/P (MAP) 139/76 120/75 Pulse Ox 98 99 91 O2 Delivery Simple Mask Room Air Simple Mask O2 Flow Rate 10 10.0 02/14/18 02/14/18 02/14/18 02/14/18 14:18 14:25 14:35 14:40 Pulse 99 98 Resp 20 20 20 20 B/P (MAP) 115/73 115/73 Pulse Ox 92 95 95 91 O2 Delivery Room Air Room Air Room Air Room Air 02/14/18 02/14/18 02/14/18 02/14/18 14:52 14:56 15:03 15:11 Temp 98.0 98.0 Pulse 110 Resp 20 20 20 B/P (MAP) 156/65 Pulse Ox 94 99 95 O2 Delivery Nasal Cannula Nasal Cannula Nasal Cannula Nasal Cannula O2 Flow Rate 2.0 2 2.0 2 02/14/18 02/14/18 02/14/18 02/14/18 15:30 15:33 15:52 15:59 Temp 97.5 97.5 Pulse 100 95 105 Resp 18 20 20 18 B/P (MAP) 116/70 (85) 109/61 (77) 119/67 (84) Pulse Ox 92 92 91 98 O2 Delivery Nasal Cannula Nasal Cannula Nasal Cannula Nasal Cannula O2 Flow Rate 2.0 2.0 2.0 3.0 02/14/18 02/14/18 02/14/18 02/14/18 16:17 17:21 17:26 18:21 Pulse 115 118 Resp 18 20 20 B/P (MAP) 123/67 (85) 141/97 (112) Pulse Ox 99 99 96 O2 Delivery Nasal Cannula Nasal Cannula Nasal Cannula O2 Flow Rate 3.0 3.0 3.0 3.0 02/14/18 02/14/18 02/14/18 02/14/18 18:27 18:37 19:00 20:00 Temp 97.9 97.9 Pulse 118 110 Resp 20 20 20 B/P (MAP) 125/58 (80) 120/65 (83) Pulse Ox 95 96 95 O2 Delivery Room Air Room Air Room Air Room Air 02/14/18 02/14/18 02/14/18 02/14/18 21:02 21:37 23:01 23:04 Temp 97.5 97.5 Pulse 88 Resp 20 20 20 B/P (MAP) 108/67 (81) Pulse Ox 95 96 96 O2 Delivery Nasal Cannula Room Air Room Air Nasal Cannula O2 Flow Rate 3.0 3.0 02/15/18 02/15/18 02/15/18 02/15/18 01:02 01:40 03:09 03:14 Temp 96.8 96.8 Pulse 98 Resp 18 20 20 20 B/P (MAP) 132/76 (94) Pulse Ox 98 96 96 98 O2 Delivery Room Air Nasal Cannula Room Air Room Air 02/15/18 02/15/18 02/15/18 02/15/18 03:39 06:11 07:11 07:19 Resp 18 18 20 20 Pulse Ox 98 98 98 O2 Delivery Room Air Room Air Room Air 9/29/18 02/15/18 02/15/18 02/15/18 07:30 07:48 07:50 09:07 Temp 97.6 97.6 Pulse 94 Resp 18 B/P (MAP) 111/61 (78) Pulse Ox 97 97 O2 Delivery Room Air Room Air Room Air Room Air O2 Flow Rate 3.0 3.0 02/15/18 10:10 Pulse Ox 97 O2 Delivery Room Air O2 Flow Rate 3.0 Intake and Output 02/14/18 02/14/18 02/15/18 15:00 23:00 07:00 Intake Total 1600 ml 290 ml Balance 1600 ml 290 ml MANDY FRANCIS MD Feb 15, 2018 10:26
[2018-02-15 11:16] VITALS: BP 112/60
--- NOTE | 2018-02-15 13:33 | PDOC ---
Infectious Disease Note Subjective Subjective Mild right arm pain Denies numbness/tingling No F/C/S/N/V/D ROS ROS per HPI otherwise negative Vital Sign Vital Signs Vital Signs Date Time Temp Pulse Resp B/P (MAP) Pulse Ox O2 Delivery O2 Flow Rate FiO2 02/15/18 13:12 97 Room Air 96.0 02/15/18 11:16 97.7 93 18 112/60 (77) 97.7 Physical Exam PHYSICAL EXAM GENERAL: Propped up in bed, watching TV, appears comfortable LUNGS: Clear to auscultation bilaterally. HEART: S1, S2 ABDOMEN: Soft, NT EXTREMITIES: Right forearm/hand in splint. Fingers are warm, cap refill brisk. No cyanosis SKIN: without rash. Multiple tattoos NEUROLOGIC: Alert and oriented Labs Lab Laboratory Tests Test 02/15/18 06:30 02/15/18 08:45 Sodium Level 138 mmol/L (136-145) Potassium Level 4.4 mmol/L (3.5-5.1) Chloride Level 101 mmol/L (98-107) Carbon Dioxide Level 26 mmol/L (21-32) Anion Gap 11 (6-14) Blood Urea Nitrogen 17 mg/dL (8-26) Creatinine 0.9 mg/dL (0.7-1.3) Estimated GFR (Cockcroft-Gault) 96.6 BUN/Creatinine Ratio 19 (6-20) Glucose Level 121 mg/dL (70-99) Calcium Level 9.0 mg/dL (8.5-10.1) Total Bilirubin 0.4 mg/dL (0.2-1.0) Aspartate Amino Transf (AST/SGOT) 14 U/L (15-37) Alanine Aminotransferase (ALT/SGPT) 26 U/L (16-63) Alkaline Phosphatase 60 U/L (46-116) Total Protein 6.4 g/dL (6.4-8.2) Albumin 3.3 g/dL (3.4-5.0) Albumin/Globulin Ratio 1.1 (1.0-1.7) White Blood Count 16.0 x10^3/uL (4.0-11.0) Red Blood Count 4.62 x10^6/uL (4.30-5.70) Hemoglobin 13.9 g/dL (13.0-17.5) Hematocrit 41.6 % (39.0-53.0) Mean Corpuscular Volume 90 fL (79-100) Mean Corpuscular Hemoglobin 30 pg (25-35) Mean Corpuscular Hemoglobin Concent 33 g/dL (31-37) Red Cell Distribution Width 13.7 % (11.5-14.5) Platelet Count 299 x10^3/uL (140-400) Neutrophils (%) (Auto) 87 % (31-73) Lymphocytes (%) (Auto) 8 % (24-48) Monocytes (%) (Auto) 5 % (0-9) Eosinophils (%) (Auto) 0 % (0-3) Basophils (%) (Auto) 1 % (0-3) Neutrophils # (Auto) 13.8 x10^3uL (1.8-7.7) Lymphocytes # (Auto) 1.3 x10^3/uL (1.0-4.8) Monocytes # (Auto) 0.8 x10^3/uL (0.0-1.1) Eosinophils # (Auto) 0.0 x10^3/uL (0.0-0.7) Basophils # (Auto) 0.1 x10^3/uL (0.0-0.2) Objective Assessment Right forearm compartment syndrome s/p Decompression fasciotomy, forearm and wrist, flexor and extensor compartments, without debridement of nonviable muscle Decompression fasciotomy, hand, right 02/03 back to OR 02/05 & 02/07. 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 Chart reviewed in detail. Case discussed with REGISTERED DIETETIC TECHNICIAN. I agree with the above Plan MARCELLA CASTILLO APRN Feb 15, 2018 13:33 LUKAS MOTA MD Feb 15, 2018 18:18
[2018-02-15 15:24] VITALS: BP 107/55
--- NOTE | 2018-02-15 18:37 | PDOC ---
PROGRESS NOTES Subjective Subjective Pt states he is doing better today. Has some pain, but states it is controlled. Objective Vital Signs Vital Signs Date Time Temp Pulse Resp B/P (MAP) Pulse Ox O2 Delivery O2 Flow Rate FiO2 02/15/18 18:06 95 Room Air 96.0 02/15/18 15:24 98.2 99 18 107/55 (72) 98.2 Physical Exam Left arm splint and dressing c/d/i. Neurovascularly intact at fingertips. Labs Laboratory Tests Test 02/14/18 08:33 02/14/18 13:20 02/15/18 06:30 02/15/18 08:45 Sodium Level 132 mmol/L (136-145) 138 mmol/L (136-145) Potassium Level 4.3 mmol/L (3.5-5.1) 4.4 mmol/L (3.5-5.1) Chloride Level 98 mmol/L (98-107) 101 mmol/L (98-107) Carbon Dioxide Level 24 mmol/L (21-32) 26 mmol/L (21-32) Anion Gap 10 (6-14) 11 (6-14) Blood Urea Nitrogen 20 mg/dL (8-26) 17 mg/dL (8-26) Creatinine 0.9 mg/dL (0.7-1.3) 0.9 mg/dL (0.7-1.3) Estimated GFR (Cockcroft-Gault) 96.6 96.6 BUN/Creatinine Ratio 22 (6-20) 19 (6-20) Glucose Level 103 mg/dL (70-99) 121 mg/dL (70-99) Calcium Level 8.5 mg/dL (8.5-10.1) 9.0 mg/dL (8.5-10.1) Total Bilirubin 0.7 mg/dL (0.2-1.0) 0.4 mg/dL (0.2-1.0) Aspartate Amino Transf (AST/SGOT) 17 U/L (15-37) 14 U/L (15-37) Alanine Aminotransferase (ALT/SGPT) 29 U/L (16-63) 26 U/L (16-63) Alkaline Phosphatase 73 U/L (46-116) 60 U/L (46-116) Total Protein 7.0 g/dL (6.4-8.2) 6.4 g/dL (6.4-8.2) Albumin 3.0 g/dL (3.4-5.0) 3.3 g/dL (3.4-5.0) Albumin/Globulin Ratio 0.8 (1.0-1.7) 1.1 (1.0-1.7) White Blood Count 11.5 x10^3/uL (4.0-11.0) 16.0 x10^3/uL (4.0-11.0) Red Blood Count 4.51 x10^6/uL (4.30-5.70) 4.62 x10^6/uL (4.30-5.70) Hemoglobin 13.7 g/dL (13.0-17.5) 13.9 g/dL (13.0-17.5) Hematocrit 39.6 % (39.0-53.0) 41.6 % (39.0-53.0) Mean Corpuscular Volume 88 fL (79-100) 90 fL (79-100) Mean Corpuscular Hemoglobin 30 pg (25-35) 30 pg (25-35) Mean Corpuscular Hemoglobin Concent 35 g/dL (31-37) 33 g/dL (31-37) Red Cell Distribution Width 13.9 % (11.5-14.5) 13.7 % (11.5-14.5) Platelet Count 288 x10^3/uL (140-400) 299 x10^3/uL (140-400) Neutrophils (%) (Auto) 88 % (31-73) 87 % (31-73) Lymphocytes (%) (Auto) 8 % (24-48) 8 % (24-48) Monocytes (%) (Auto) 4 % (0-9) 5 % (0-9) Eosinophils (%) (Auto) 0 % (0-3) 0 % (0-3) Basophils (%) (Auto) 0 % (0-3) 1 % (0-3) Neutrophils # (Auto) 10.1 x10^3uL (1.8-7.7) 13.8 x10^3uL (1.8-7.7) Lymphocytes # (Auto) 0.9 x10^3/uL (1.0-4.8) 1.3 x10^3/uL (1.0-4.8) Monocytes # (Auto) 0.5 x10^3/uL (0.0-1.1) 0.8 x10^3/uL (0.0-1.1) Eosinophils # (Auto) 0.0 x10^3/uL (0.0-0.7) 0.0 x10^3/uL (0.0-0.7) Basophils # (Auto) 0.0 x10^3/uL (0.0-0.2) 0.1 x10^3/uL (0.0-0.2) Laboratory Tests Test 02/15/18 06:30 02/15/18 08:45 Sodium Level 138 mmol/L (136-145) Potassium Level 4.4 mmol/L (3.5-5.1) Chloride Level 101 mmol/L (98-107) Carbon Dioxide Level 26 mmol/L (21-32) Anion Gap 11 (6-14) Blood Urea Nitrogen 17 mg/dL (8-26) Creatinine 0.9 mg/dL (0.7-1.3) Estimated GFR (Cockcroft-Gault) 96.6 BUN/Creatinine Ratio 19 (6-20) Glucose Level 121 mg/dL (70-99) Calcium Level 9.0 mg/dL (8.5-10.1) Total Bilirubin 0.4 mg/dL (0.2-1.0) Aspartate Amino Transf (AST/SGOT) 14 U/L (15-37) Alanine Aminotransferase (ALT/SGPT) 26 U/L (16-63) Alkaline Phosphatase 60 U/L (46-116) Total Protein 6.4 g/dL (6.4-8.2) Albumin 3.3 g/dL (3.4-5.0) Albumin/Globulin Ratio 1.1 (1.0-1.7) White Blood Count 16.0 x10^3/uL (4.0-11.0) Red Blood Count 4.62 x10^6/uL (4.30-5.70) Hemoglobin 13.9 g/dL (13.0-17.5) Hematocrit 41.6 % (39.0-53.0) Mean Corpuscular Volume 90 fL (79-100) Mean Corpuscular Hemoglobin 30 pg (25-35) Mean Corpuscular Hemoglobin Concent 33 g/dL (31-37) Red Cell Distribution Width 13.7 % (11.5-14.5) Platelet Count 299 x10^3/uL (140-400) Neutrophils (%) (Auto) 87 % (31-73) Lymphocytes (%) (Auto) 8 % (24-48) Monocytes (%) (Auto) 5 % (0-9) Eosinophils (%) (Auto) 0 % (0-3) Basophils (%) (Auto) 1 % (0-3) Neutrophils # (Auto) 13.8 x10^3uL (1.8-7.7) Lymphocytes # (Auto) 1.3 x10^3/uL (1.0-4.8) Monocytes # (Auto) 0.8 x10^3/uL (0.0-1.1) Eosinophils # (Auto) 0.0 x10^3/uL (0.0-0.7) Basophils # (Auto) 0.1 x10^3/uL (0.0-0.2) Assessment Assessment s/p left hand and arm fasciotomies with subsequent debridements and closure POD #1 left arm EUA, including compartment pressures and splinting Plan Plan of Care Continue left arm splint. Encouraged patient to keep splint intact this time. States he is doing better and pain is now controlled. From ortho standpoint, patient may be discharged when medically stable. Followup in 10-14 days. JULIO VILLANUEVA Feb 15, 2018 18:37
[2018-02-15 19:00] VITALS: BP 119/65
[2018-02-15] MEDS: diphenhydrAMINE HCL 25 MG CAPSULE PO PRN (22:05)
[2018-02-15 23:00] VITALS: BP 117/64
[2018-02-16] MEDS: oxyCODONE/APAP 10/325 1 TAB TABLET PO PRN ×6 (02:38→23:01)
[2018-02-16 03:00] VITALS: BP 107/68
[2018-02-16] MEDS: MORPHINE SULFATE 4 MG/ML VIAL. IV PRN ×5 (04:38→20:57)
[2018-02-16 06:08] LABS: BASO % 0 % (0-3); EOS % 0 % (0-3); HEMATOCRIT 37.5 % (39.0-53.0); HEMOGLOBIN 13.1 g/dL (13.0-17.5); LYMPH % 12 % (24-48); MEAN CORPUSCULAR HEMOGLOBIN 31 pg (25-35); MEAN CORPUSCULAR HGB CONC 35 g/dL (31-37); MEAN CORPUSCULAR VOLUME 89 fL (79-100); MONO # 0.6 x10^3/uL (0.0-1.1); MONO % 7 % (0-9); NEUT # 7.1 x10^3uL (1.8-7.7); NEUT % 81 % (31-73); PLATELET COUNT 257 x10^3/uL (140-400); RED BLOOD COUNT 4.23 x10^6/uL (4.30-5.70); RED CELL DISTRIBUTION WIDTH 13.8 % (11.5-14.5); WHITE BLOOD COUNT 8.8 x10^3/uL (4.0-11.0)
[2018-02-16] MEDS: PIPERACILLIN/TAZOBACTAM 4.5 GM in IV NORMAL SALINE 100ML 100 ML IV SCH ×3 (06:14→20:04)
[2018-02-16 06:31] LABS: ALBUMIN 3.3 g/dL (3.4-5.0); CALCIUM 8.6 mg/dL (8.5-10.1); CREATININE 0.9 mg/dL (0.7-1.3); GFR 96.6; POTASSIUM 4.1 mmol/L (3.5-5.1); TOTAL BILIRUBIN 0.3 mg/dL (0.2-1.0); TOTAL PROTEIN 6.7 g/dL (6.4-8.2)
[2018-02-16 07:00] VITALS: BP 114/71
[2018-02-16] MEDS: TAMSULOSIN 0.4 MG CAP.ER.24H. PO SCH (08:41)
[2018-02-16] MEDS: CYCLOBENZAPRINE 10 MG TABLET. PO SCH ×3 (08:42→20:05)
[2018-02-16] MEDS: predniSONE 10 MG TABLET PO SCH ×2 (08:42→20:05)
[2018-02-16] MEDS: DOCUSATE SODIUM 100 MG CAPSULE. PO SCH (08:42)
[2018-02-16] MEDS: SENNOSIDES/DOCUSATE 8.6/50MG TABLET. PO SCH (08:42)
[2018-02-16] MEDS: LINEZOLID 600 MG TABLET PO SCH ×2 (08:42→20:05)
[2018-02-16] MEDS: LACTOBACILLUS RHAMNOSUS GG 1 CAPSULE. PO SCH ×2 (08:42→20:05)
[2018-02-16] MEDS: diphenhydrAMINE 50 MG/ML VIAL IVP PRN ×2 (08:44→16:54)
[2018-02-16] MEDS: MUPIROCIN 2 % TOPICAL CREAM 15GM TUBE. TP SCH ×3 (09:00→20:08)
[2018-02-16] MEDS: MORPHINE ER 15 MG TABLET.ER PO SCH ×3 (09:45→20:05)
--- NOTE | 2018-02-16 10:37 | PDOC ---
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 He is in no acute distress. HEENT: Pupils are equal and reactive. Normal conjunctivae. Oral cavity, pharynx is clear. NECK: Supple, with good range of motion. No JVD. LUNGS: Clear to auscultation bilaterally. HEART: S1, S2, mild tachycardic. No murmur. ABDOMEN: Soft, nontender and nondistended, with positive bowel sounds. EXTREMITIES: Without clubbing or cyanosis. His right forearm is wrapped with dressing, He has tattoos. His right fingers are moving better. He has tenderness, but he does have good capillary refill and is neurovascularly intact. SKIN: Otherwise without signs of rash. NEUROLOGIC: He is nonfocal and answers questions appropriately. PSYCHIATRIC: Affect is appropriate General: Alert, Oriented X3, Cooperative, No acute distress Heart: Regular rate, Normal S1, Normal S2 Lungs: Clear Abdomen: Normal bowel sounds, Soft, No tenderness Extremities: No clubbing, No cyanosis, Other Skin: Other (DRESSING DRY) Labs LABS Laboratory Tests Test 02/16/18 05:10 White Blood Count 8.8 x10^3/uL (4.0-11.0) Red Blood Count 4.23 x10^6/uL (4.30-5.70) Hemoglobin 13.1 g/dL (13.0-17.5) Hematocrit 37.5 % (39.0-53.0) Mean Corpuscular Volume 89 fL (79-100) Mean Corpuscular Hemoglobin 31 pg (25-35) Mean Corpuscular Hemoglobin Concent 35 g/dL (31-37) Red Cell Distribution Width 13.8 % (11.5-14.5) Platelet Count 257 x10^3/uL (140-400) Neutrophils (%) (Auto) 81 % (31-73) Lymphocytes (%) (Auto) 12 % (24-48) Monocytes (%) (Auto) 7 % (0-9) Eosinophils (%) (Auto) 0 % (0-3) Basophils (%) (Auto) 0 % (0-3) Neutrophils # (Auto) 7.1 x10^3uL (1.8-7.7) Lymphocytes # (Auto) 1.0 x10^3/uL (1.0-4.8) Monocytes # (Auto) 0.6 x10^3/uL (0.0-1.1) Eosinophils # (Auto) 0.0 x10^3/uL (0.0-0.7) Basophils # (Auto) 0.0 x10^3/uL (0.0-0.2) Sodium Level 139 mmol/L (136-145) Potassium Level 4.1 mmol/L (3.5-5.1) Chloride Level 102 mmol/L (98-107) Carbon Dioxide Level 28 mmol/L (21-32) Anion Gap 9 (6-14) Blood Urea Nitrogen 14 mg/dL (8-26) Creatinine 0.9 mg/dL (0.7-1.3) Estimated GFR (Cockcroft-Gault) 96.6 BUN/Creatinine Ratio 16 (6-20) Glucose Level 118 mg/dL (70-99) Calcium Level 8.6 mg/dL (8.5-10.1) Total Bilirubin 0.3 mg/dL (0.2-1.0) Aspartate Amino Transf (AST/SGOT) 10 U/L (15-37) Alanine Aminotransferase (ALT/SGPT) 22 U/L (16-63) Alkaline Phosphatase 61 U/L (46-116) Total Protein 6.7 g/dL (6.4-8.2) Albumin 3.3 g/dL (3.4-5.0) Albumin/Globulin Ratio 1.0 (1.0-1.7) Assessment and Plan Assessmemt and Plan Problems Medical Problems: (1) Arm pain Status: Acute (2) Wrist spasm Status: Acute Comment Review of Relevant I have reviewed the following items le (where applicable) has been applied. Labs Laboratory Tests Test 02/14/18 13:20 02/15/18 06:30 02/15/18 08:45 02/16/18 05:10 White Blood Count 11.5 x10^3/uL (4.0-11.0) 16.0 x10^3/uL (4.0-11.0) 8.8 x10^3/uL (4.0-11.0) Red Blood Count 4.51 x10^6/uL (4.30-5.70) 4.62 x10^6/uL (4.30-5.70) 4.23 x10^6/uL (4.30-5.70) Hemoglobin 13.7 g/dL (13.0-17.5) 13.9 g/dL (13.0-17.5) 13.1 g/dL (13.0-17.5) Hematocrit 39.6 % (39.0-53.0) 41.6 % (39.0-53.0) 37.5 % (39.0-53.0) Mean Corpuscular Volume 88 fL (79-100) 90 fL (79-100) 89 fL (79-100) Mean Corpuscular Hemoglobin 30 pg (25-35) 30 pg (25-35) 31 pg (25-35) Mean Corpuscular Hemoglobin Concent 35 g/dL (31-37) 33 g/dL (31-37) 35 g/dL (31-37) Red Cell Distribution Width 13.9 % (11.5-14.5) 13.7 % (11.5-14.5) 13.8 % (11.5-14.5) Platelet Count 288 x10^3/uL (140-400) 299 x10^3/uL (140-400) 257 x10^3/uL (140-400) Neutrophils (%) (Auto) 88 % (31-73) 87 % (31-73) 81 % (31-73) Lymphocytes (%) (Auto) 8 % (24-48) 8 % (24-48) 12 % (24-48) Monocytes (%) (Auto) 4 % (0-9) 5 % (0-9) 7 % (0-9) Eosinophils (%) (Auto) 0 % (0-3) 0 % (0-3) 0 % (0-3) Basophils (%) (Auto) 0 % (0-3) 1 % (0-3) 0 % (0-3) Neutrophils # (Auto) 10.1 x10^3uL (1.8-7.7) 13.8 x10^3uL (1.8-7.7) 7.1 x10^3uL (1.8-7.7) Lymphocytes # (Auto) 0.9 x10^3/uL (1.0-4.8) 1.3 x10^3/uL (1.0-4.8) 1.0 x10^3/uL (1.0-4.8) Monocytes # (Auto) 0.5 x10^3/uL (0.0-1.1) 0.8 x10^3/uL (0.0-1.1) 0.6 x10^3/uL (0.0-1.1) Eosinophils # (Auto) 0.0 x10^3/uL (0.0-0.7) 0.0 x10^3/uL (0.0-0.7) 0.0 x10^3/uL (0.0-0.7) Basophils # (Auto) 0.0 x10^3/uL (0.0-0.2) 0.1 x10^3/uL (0.0-0.2) 0.0 x10^3/uL (0.0-0.2) Sodium Level 138 mmol/L (136-145) 139 mmol/L (136-145) Potassium Level 4.4 mmol/L (3.5-5.1) 4.1 mmol/L (3.5-5.1) Chloride Level 101 mmol/L (98-107) 102 mmol/L (98-107) Carbon Dioxide Level 26 mmol/L (21-32) 28 mmol/L (21-32) Anion Gap 11 (6-14) 9 (6-14) Blood Urea Nitrogen 17 mg/dL (8-26) 14 mg/dL (8-26) Creatinine 0.9 mg/dL (0.7-1.3) 0.9 mg/dL (0.7-1.3) Estimated GFR (Cockcroft-Gault) 96.6 96.6 BUN/Creatinine Ratio 19 (6-20) 16 (6-20) Glucose Level 121 mg/dL (70-99) 118 mg/dL (70-99) Calcium Level 9.0 mg/dL (8.5-10.1) 8.6 mg/dL (8.5-10.1) Total Bilirubin 0.4 mg/dL (0.2-1.0) 0.3 mg/dL (0.2-1.0) Aspartate Amino Transf (AST/SGOT) 14 U/L (15-37) 10 U/L (15-37) Alanine Aminotransferase (ALT/SGPT) 26 U/L (16-63) 22 U/L (16-63) Alkaline Phosphatase 60 U/L (46-116) 61 U/L (46-116) Total Protein 6.4 g/dL (6.4-8.2) 6.7 g/dL (6.4-8.2) Albumin 3.3 g/dL (3.4-5.0) 3.3 g/dL (3.4-5.0) Albumin/Globulin Ratio 1.1 (1.0-1.7) 1.0 (1.0-1.7) Laboratory Tests Test 02/16/18 05:10 White Blood Count 8.8 x10^3/uL (4.0-11.0) Red Blood Count 4.23 x10^6/uL (4.30-5.70) Hemoglobin 13.1 g/dL (13.0-17.5) Hematocrit 37.5 % (39.0-53.0) Mean Corpuscular Volume 89 fL (79-100) Mean Corpuscular Hemoglobin 31 pg (25-35) Mean Corpuscular Hemoglobin Concent 35 g/dL (31-37) Red Cell Distribution Width 13.8 % (11.5-14.5) Platelet Count 257 x10^3/uL (140-400) Neutrophils (%) (Auto) 81 % (31-73) Lymphocytes (%) (Auto) 12 % (24-48) Monocytes (%) (Auto) 7 % (0-9) Eosinophils (%) (Auto) 0 % (0-3) Basophils (%) (Auto) 0 % (0-3) Neutrophils # (Auto) 7.1 x10^3uL (1.8-7.7) Lymphocytes # (Auto) 1.0 x10^3/uL (1.0-4.8) Monocytes # (Auto) 0.6 x10^3/uL (0.0-1.1) Eosinophils # (Auto) 0.0 x10^3/uL (0.0-0.7) Basophils # (Auto) 0.0 x10^3/uL (0.0-0.2) Sodium Level 139 mmol/L (136-145) Potassium Level 4.1 mmol/L (3.5-5.1) Chloride Level 102 mmol/L (98-107) Carbon Dioxide Level 28 mmol/L (21-32) Anion Gap 9 (6-14) Blood Urea Nitrogen 14 mg/dL (8-26) Creatinine 0.9 mg/dL (0.7-1.3) Estimated GFR (Cockcroft-Gault) 96.6 BUN/Creatinine Ratio 16 (6-20) Glucose Level 118 mg/dL (70-99) Calcium Level 8.6 mg/dL (8.5-10.1) Total Bilirubin 0.3 mg/dL (0.2-1.0) Aspartate Amino Transf (AST/SGOT) 10 U/L (15-37) Alanine Aminotransferase (ALT/SGPT) 22 U/L (16-63) Alkaline Phosphatase 61 U/L (46-116) Total Protein 6.7 g/dL (6.4-8.2) Albumin 3.3 g/dL (3.4-5.0) Albumin/Globulin Ratio 1.0 (1.0-1.7) Medications Current Medications Morphine Sulfate (Morphine Sulfate) 4 mg PRN Q15MIN PRN IV/SQ PAIN GREATER THAN 3/10 Last administered on 02/02/18at 18:48; Start 02/02/18 at 18:00; Stop at 03:55; Status DC Sodium Chloride 1,000 ml @ 1,000 mls/hr Q1H IV Last administered on 02/02/18at 18:50; Start 02/02/18 at 17:57; Stop 02/02/18 at 18:56; Status DC Diazepam (Valium) 5 mg 1X ONCE PO Last administered on 02/02/18at 18:47; Start 02/02/18 at 18:00; Stop 02/02/18 at 18:05; Status DC Morphine Sulfate (Morphine Sulfate) 4 mg PRN Q2HR PRN IV SEVERE PAIN Last administered on 02/03/18at 03:07; Start 02/02/18 at 21:00; Stop 02/03/18 at 03:51 ; Status DC Oxycodone/ Acetaminophen (Percocet 10/325) 1 tab PRN Q4HRS PRN PO SEVERE PAIN Last administered on 02/08/18at 19:16; Start 02/02/18 at 21:00; Stop 02/08/18 at 20:14; Status DC Oxycodone/ Acetaminophen (Percocet 5/325) 1 tab PRN Q4HRS PRN PO MODERATE PAIN ; Start 02/02/18 at 21:00; Stop 02/08/18 at 10:27; Status DC Zolpidem Tartrate (Ambien) 5 mg PRN QHS PRN PO INSOMNIA Last administered on at 20:56; Start 02/02/18 at 21:00 Ondansetron HCl (Zofran) 4 mg PRN Q6HRS PRN IV NAUSEA/VOMITING 1ST CHOICE; Start 02/02/18 at 21:00; Status Cancel Ondansetron HCl (Zofran Odt) 4 mg PRN Q6HRS PRN PO NAUSEA/VOMITING 1ST CHOICE; Start 02/02/18 at 21:00 Acetaminophen (Tylenol) 500 mg PRN Q6HRS PRN PO MILD PAIN / TEMP; Start at 21:00 Calcium Carbonate/ Glycine (Tums) 500 mg PRN AFTMEALHC PRN PO INDIGESTION; Start 02/02/18 at 21:00 Albuterol Sulfate (Ventolin Neb Soln) 2.5 mg PRN Q4HRS PRN NEB soa; Start 02/02 at 21:15 Cyclobenzaprine HCl (Flexeril) 10 mg TID PO Last administered on 02/16/18 08: 42; Start 02/03/18 at 09:00 Acetaminophen/ Hydrocodone Bitart (Lortab 5/325) 1 tab Q6HRS PO Last administered on 02/04/18at 05:51; Start 02/03/18 at 00:00; Stop 02/04/18 at 10:03 ; Status DC Mupirocin (Bactroban) 1 bienvenido TID TP ; Start 02/03/18 at 09:00 Ondansetron HCl (Zofran Odt) 4 mg PRN Q8HRS PRN PO NAUSEA VOMITING 1ST CHOICE; Start 02/02/18 at 21:15; Stop 02/02/18 at 21:15; Status DC Oxycodone/ Acetaminophen (Percocet 5/325) 1 tab PRN TID PRN PO severe pain; Start 02/02/18 at 21:15; Status Cancel Tamsulosin HCl (Flomax) 0.4 mg DAILY PO Last administered on 02/16/18 08:41; Start 02/03/18 at 09:00 Non-Formulary Medication (Albuterol Sulfate (Proair Hfa Inhaler)) 1 puff PRN Q6HRS PRN INH SHORTNESS OF BREATH; Start 02/02/18 at 21:15; Status UNV Guaifenesin/ Codeine Phosphate (Robitussin Ac) 10 ml PRN Q6HRS PRN PO COUGH; Start 02/02/18 at 21:15 Fentanyl Citrate (Fentanyl 2ml Vial) 50 mcg PRN Q2HR PRN IV SEVERE PAIN Last administered on 02/04/18at 08:44; Start 02/03/18 at 04:00; Stop 02/04/18 at 21:51 ; Status DC Diazepam (Valium) 10 mg PRN Q8HRS PRN PO ANXIETY Last administered on at 17:50; Start 02/03/18 at 04:00; Stop 02/07/18 at 19:56; Status DC Lidocaine HCl (Lidocaine 1% 20ml Vial) 20 ml 1X ONCE INJ ; Start 02/03/18 at 09 :00; Stop 02/03/18 at 09:01; Status Cancel Lidocaine HCl (Lidocaine 1% 50ml Vial) 20 ml 1X ONCE INJ Last administered on 02/03/18at 09:07; Start 02/03/18 at 09:00; Stop 02/03/18 at 09:01; Status DC Fentanyl Citrate (Fentanyl 2ml Vial) 25 mcg PRN Q5MIN PRN IV MILD PAIN; Start 02/03/18 at 09:30; Stop 02/03/18 at 19:00; Status DC Fentanyl Citrate (Fentanyl 2ml Vial) 50 mcg PRN Q5MIN PRN IV MODERATE TO SEVERE PAIN Last administered on 02/03/18at 12:40; Start 02/03/18 at 09:30; Stop 02/03/18 at 19:00; Status DC Morphine Sulfate (Morphine Sulfate) 1 mg PRN Q10MIN PRN IV SEVERE PAIN; Start 02/03/18 at 09:30; Stop 02/03/18 at 19:00; Status DC Ringer's Solution 1,000 ml @ 30 mls/hr Q24H IV Last administered on 02/03/18at 09:35; Start 02/03/18 at 09:23; Stop 02/03/18 at 21:22; Status DC Lidocaine HCl (Xylocaine-Mpf 1% 2ml Vial) 2 ml 1X PRN PRN ID IV START; Start at 09:30; Stop 02/03/18 at 19:00; Status DC Hydromorphone HCl (Dilaudid) 0.5 mg PRN Q10MIN PRN IV SEV PAIN, Second choice Last administered on 02/03/18at 12:29; Start 02/03/18 at 09:30; Stop 02/03/18 at 19:00; Status DC Prochlorperazine Edisylate (Compazine) 5 mg PACU PRN PRN IV NAUSEA, MRX1; Start 02/03/18 at 09:30; Stop 02/03/18 at 19:00; Status DC Midazolam HCl (Versed) 2 mg STK-MED ONCE .ROUTE ; Start 02/03/18 at 09:33; Stop 02/03/18 at 09:34; Status DC Bupivacaine HCl/ Epinephrine Bitart (Marcaine-Epi 0.5%-1:702648) 50 ml STK-MED ONCE .ROUTE ; Start 02/03/18 at 08:34; Stop 02/03/18 at 09:35; Status DC Midazolam HCl (Versed) 2 mg 1X ONCE IV Last administered on 02/03/18at 09:41; Start 02/03/18 at 09:45; Stop 02/03/18 at 09:46; Status DC Dexamethasone Sodium Phosphate (Decadron) 20 mg STK-MED ONCE .ROUTE ; Start at 09:41; Stop 02/03/18 at 09:42; Status DC Ondansetron HCl (Zofran) 4 mg STK-MED ONCE .ROUTE ; Start 02/03/18 at 09:41; Stop 02/03/18 at 09:42; Status DC Fentanyl Citrate (Fentanyl 2ml Vial) 100 mcg STK-MED ONCE .ROUTE ; Start at 09:41; Stop 02/03/18 at 09:42; Status DC Famotidine (Pepcid Vial) 20 mg STK-MED ONCE .ROUTE ; Start 02/03/18 at 09:42; Stop 02/03/18 at 09:43; Status DC Propofol 20 ml @ As Directed STK-MED ONCE IV ; Start 02/03/18 at 09:42; Stop at 09:43; Status DC Succinylcholine Chloride (Anectine) 200 mg STK-MED ONCE .ROUTE ; Start 02/03/18 at 09:42; Stop 02/03/18 at 09:43; Status DC Rocuronium [place] (Zemuron) 50 mg STK-MED ONCE .ROUTE ; Start 02/03/18 at 09:45 ; Stop 02/03/18 at 09:46; Status DC Cefazolin Sodium/ Dextrose 50 ml @ As Directed STK-MED ONCE IV ; Start 02/03/18 at 09:46; Stop 02/03/18 at 09:47; Status DC Cefazolin Sodium/ Dextrose 50 ml @ 100 mls/hr 1X PREOP PRN IV Pre Op dose Last administered on 02/03/18at 10:30; Start 02/03/18 at 10:30; Stop 02/03/18 at 18:00; Status DC Fentanyl Citrate (Fentanyl 2ml Vial) 100 mcg STK-MED ONCE .ROUTE ; Start at 10:43; Stop 02/03/18 at 10:44; Status DC Bupivacaine HCl/ Epinephrine Bitart (Marcaine-Epi 0.5%-1:[id number]) 50 ml STK-MED ONCE INJ Last administered on 02/03/18at 10:36; Start 02/03/18 at 10:36; Stop at 11:17; Status DC Neostigmine Methylsulfate (Neostigmine Methylsulfate) 5 mg STK-MED ONCE .ROUTE ; Start 02/03/18 at 11:04; Stop 02/03/18 at 11:05; Status DC Glycopyrrolate (Robinul) 1 mg STK-MED ONCE .ROUTE ; Start 02/03/18 at 11:05; Stop 02/03/18 at 11:06; Status DC Senna/Docusate Sodium (Senna Plus) 1 tab DAILY PO Last administered on at 08:42; Start 02/04/18 at 09:00 Polyethylene Glycol (miraLAX PACKET) 17 gm PRN DAILY PRN PO CONSTIPATION 1ST CHOICE; Start 02/03/18 at 11:30 Ondansetron HCl (Zofran) 4 mg PRN Q4HRS PRN IV NAUSEA/VOMITING; Start 02/03/18 at 11:30 Magnesium Hydroxide (Milk Of Magnesia) 2,400 mg 1X PRN PRN PO CONSTIPATION; Start 02/04/18 at 06:00; Stop 02/05/18 at 05:59; Status DC Bisacodyl (Dulcolax Supp) 10 mg 1X PRN PRN [place] CONSTIPATION; Start 02/04/18 at 16:00; Stop 02/05/18 at 15:59; Status DC Dextrose (Dextrose 50%-Water Syringe) 12.5 gm PRN Q15MIN PRN IV SEE COMMENTS; Start 02/03/18 at 11:30; Stop 02/14/18 at 15:08; Status DC Cefazolin Sodium/ Dextrose 50 ml @ 100 mls/hr Q6H IV ; Start 02/03/18 at 11:30 ; Stop 02/03/18 at 23:59; Status UNV Cefazolin Sodium/ Dextrose 50 ml @ 100 mls/hr Q8HRS IV Last administered on at 05:48; Start 02/03/18 at 14:00; Stop 02/13/18 at 08:24; Status DC Fentanyl Citrate (Fentanyl 2ml Vial) 50 mcg PRN Q5MIN PRN IV MODERATE TO SEVERE PAIN; Start 02/03/18 at 13:30; Stop 02/03/18 at 19:00; Status DC Docusate Sodium (Colace) 100 mg DAILY PO Last administered on 02/16/18at 08:42; Start 02/03/18 at 14:00 Fentanyl Citrate 30 ml @ 0 mls/hr CONT PRN PRN IV PER PROTOCOL Last administered on 02/04/18at 21:05; Start 02/04/18 at 10:00; Stop 02/04/18 at 23:03 ; Status DC Prednisone (Prednisone) 10 mg BID PO Last administered on 02/16/18at 08:42; Start 02/04/18 at 11:00 Ketorolac Tromethamine (Toradol 30mg Vial) 30 mg Q6HRS PRN IV PAIN; Start 02/04 at 10:00; Stop 02/04/18 at 10:24; Status DC Sodium Chloride 1,000 ml @ 75 mls/hr [id number] IV Last administered on at 21:20; Start 02/04/18 at 10:15; Stop 02/08/18 at 17:22; Status DC Ketorolac Tromethamine (Toradol 30mg Vial) 30 mg Q6HRS IV Last administered on 02/09/18at 05:09; Start 02/04/18 at 12:00; Stop 02/09/18 at 11:59; Status DC Ondansetron HCl (Zofran) 4 mg PRN Q6HRS PRN IV NAUSEA/VOMITING; Start 02/05/18 at 07:00; Stop 02/05/18 at 18:00; Status DC Fentanyl Citrate (Fentanyl 2ml Vial) 25 mcg PRN Q5MIN PRN IV MILD PAIN; Start 02/05/18 at 07:00; Stop 02/05/18 at 18:00; Status DC Fentanyl Citrate (Fentanyl 2ml Vial) 50 mcg PRN Q5MIN PRN IV MODERATE TO SEVERE PAIN; Start 02/05/18 at 07:00; Stop 02/05/18 at 18:00; Status DC Morphine Sulfate (Morphine Sulfate) 1 mg PRN Q10MIN PRN IV SEVERE PAIN; Start 02/05/18 at 07:00; Stop 02/05/18 at 18:00; Status DC Ringer's Solution 1,000 ml @ 30 mls/hr Q24H IV ; Start 02/05/18 at 07:00; Stop 02/05/18 at 17:44; Status DC Lidocaine HCl (Xylocaine-Mpf 1% 2ml Vial) 2 ml PRN 1X PRN ID IV START; Start at 07:00; Stop 02/05/18 at 18:00; Status DC Hydromorphone HCl (Dilaudid) 0.5 mg PRN Q10MIN PRN IV SEV PAIN, Second choice; Start 02/05/18 at 07:00; Stop 02/05/18 at 18:00; Status DC Prochlorperazine Edisylate (Compazine) 5 mg PACU PRN PRN IV NAUSEA, MRX1; Start 02/05/18 at 07:00; Stop 02/05/18 at 18:00; Status DC Diphenhydramine HCl (Benadryl) 25 mg PRN Q6HRS PRN PO ITCHING Last administered on 02/15/18at 22:05; Start 02/04/18 at 11:45 Diphenhydramine HCl (Benadryl) 25 mg 1X ONCE IVP Last administered on at 11:52; Start 02/04/18 at 12:00; Stop 02/04/18 at 12:01; Status DC Lactobacillus Rhamnosus (Culturelle) 1 cap BID PO Last administered on at 08:42; Start 02/04/18 at 21:00 Al Hydroxide/Mg Hydroxide (Mylanta Plus Xs) 30 ml PRN Q2HR PRN PO HEARTBURN / GAS Last administered on 02/15/18at 23:49; Start 02/04/18 at 18:45 Morphine Sulfate 30 ml @ 0 mls/hr CONT PRN PRN IV PER PROTOCOL Last administered on 02/08/18at 09:27; Start 02/04/18 at 23:00; Stop 02/08/18 at 10:28 ; Status DC Diphenhydramine HCl (Benadryl) 25 mg PRN Q6HRS PRN IVP ITCHING Last administered on 02/10/18at 05:58; Start 02/05/18 at 03:15; Stop 02/10/18 at 15:28 ; Status DC Bupivacaine HCl/ Epinephrine Bitart (Marcaine-Epi 0.5%-1:[id number]) 50 ml 1X ONCE IJ ; Start 02/05/18 at 10:30; Stop 02/05/18 at 10:31; Status Cancel Bupivacaine HCl (Marcaine 0.25%) 50 ml STK-MED ONCE .ROUTE Last administered on 02/05/18at 13:56; Start 02/05/18 at 11:33; Stop 02/05/18 at 12:34; Status DC Propofol 20 ml @ As Directed STK-MED ONCE IV ; Start 02/05/18 at 12:44; Stop at 12:45; Status DC Midazolam HCl (Versed) 2 mg STK-MED ONCE .ROUTE ; Start 02/05/18 at 12:44; Stop 02/05/18 at 12:45; Status DC Fentanyl Citrate (Fentanyl 2ml Vial) 100 mcg STK-MED ONCE .ROUTE ; Start at 12:44; Stop 02/05/18 at 12:45; Status DC Midazolam HCl (Versed) 2 mg STK-MED ONCE .ROUTE ; Start 02/05/18 at 12:52; Stop 02/05/18 at 12:53; Status DC Succinylcholine Chloride (Anectine) 200 mg STK-MED ONCE .ROUTE ; Start 02/05/18 at 13:03; Stop 02/05/18 at 13:04; Status DC Midazolam HCl (Versed) 2 mg 1X ONCE IV Last administered on 02/05/18at 13:09; Start 02/05/18 at 13:00; Stop 02/05/18 at 13:08; Status DC Ondansetron HCl (Zofran) 4 mg STK-MED ONCE .ROUTE ; Start 02/05/18 at 13:19; Stop 02/05/18 at 13:20; Status DC Dexamethasone Sodium Phosphate (Decadron) 20 mg STK-MED ONCE .ROUTE ; Start at 13:19; Stop 02/05/18 at 13:20; Status DC Ketorolac Tromethamine (Toradol For Or Only) 30 mg STK-MED ONCE INJ ; Start at 13:19; Stop 02/05/18 at 13:20; Status DC Potassium Chloride/Sodium Chloride 1,000 ml @ 125 mls/hr Q8H IV ; Start at 09:00; Stop 02/06/18 at 14:20; Status DC Lorazepam (Ativan) 0.5 mg PRN Q8HRS PRN PO ANXIETY Last administered on at 14:10; Start 02/06/18 at 13:15 Lorazepam (Ativan) 0.5 mg 1X ONCE IV Last administered on 02/07/18at 11:19; Start 02/07/18 at 08:45; Stop 02/07/18 at 08:46; Status DC Fentanyl Citrate (Fentanyl 2ml Vial) 100 mcg STK-MED ONCE .ROUTE ; Start at 12:00; Stop 02/07/18 at 12:01; Status DC Midazolam HCl (Versed) 2 mg STK-MED ONCE .ROUTE ; Start 02/07/18 at 12:00; Stop 02/07/18 at 12:01; Status DC Succinylcholine Chloride (Anectine) 200 mg STK-MED ONCE .ROUTE ; Start 02/07/18 at 12:00; Stop 02/07/18 at 12:01; Status DC Dexamethasone Sodium Phosphate (Decadron) 20 mg STK-MED ONCE .ROUTE ; Start at 12:01; Stop 02/07/18 at 12:02; Status DC Famotidine (Pepcid Vial) 20 mg STK-MED ONCE .ROUTE ; Start 02/07/18 at 12:01; Stop 02/07/18 at 12:02; Status DC Propofol 20 ml @ As Directed STK-MED ONCE IV ; Start 02/07/18 at 12:01; Stop at 12:02; Status DC Ondansetron HCl (Zofran) 4 mg STK-MED ONCE .ROUTE ; Start 02/07/18 at 12:01; Stop 02/07/18 at 12:02; Status DC Bupivacaine HCl/ Epinephrine Bitart (Sensorcain-Mpf Epi 0.5%-[id number]) 30 ml STK -MED ONCE .ROUTE Last administered on 02/07/18at 13:29; Start 02/07/18 at 11:29 ; Stop 02/07/18 at 12:30; Status DC Desflurane (Suprane) 30 ml STK-MED ONCE IH ; Start 02/07/18 at 13:34; Stop 02/07 at 13:35; Status DC Senna/Docusate Sodium (Senna Plus) 1 tab DAILY PO ; Start 02/08/18 at 09:00; Status UNV Polyethylene Glycol (miraLAX PACKET) 17 gm PRN DAILY PRN PO CONSTIPATION; Start 02/07/18 at 14:00; Status UNV Ondansetron HCl (Zofran) 4 mg PRN Q4HRS PRN IV NAUSEA/VOMITING; Start 02/07/18 at 14:00; Status UNV Magnesium Hydroxide (Milk Of Magnesia) 2,400 mg 1X PRN PRN PO CONSTIPATION; Start 02/08/18 at 06:00; Stop 02/09/18 at 05:59; Status DC Bisacodyl (Dulcolax Supp) 10 mg 1X PRN PRN [place] CONSTIPATION; Start 02/08/18 at 16:00; Stop 02/09/18 at 15:59; Status DC Dextrose (Dextrose 50%-Water Syringe) 12.5 gm PRN Q15MIN PRN IV SEE COMMENTS; Start 02/07/18 at 14:00; Status UNV Cefazolin Sodium/ Dextrose 50 ml @ 100 mls/hr Q6H IV ; Start 02/07/18 at 14:00 ; Stop 02/08/18 at 02:29; Status UNV Desflurane (Suprane) 30 ml STK-MED ONCE IH ; Start 02/07/18 at 14:00; Stop 02/07 at 14:01; Status DC Morphine Sulfate (Ms Contin) 15 mg BID PO Last administered on 02/16/18at 09:45 ; Start 02/08/18 at 10:30 Morphine Sulfate (Morphine Sulfate) 4 mg PRN Q2HR PRN IV PAIN Last administered on 02/08/18at 19:17; Start 02/08/18 at 10:30; Stop 02/08/18 at 20:14 ; Status DC Naloxone HCl (Narcan) 0.4 mg PRN Q2MIN PRN IV SEE INSTRUCTIONS; Start 02/08/18 at 20:15 Sodium Chloride 1,000 ml @ 25 mls/hr Q24H IV Last administered on 02/09/18at 20 :25; Start 02/08/18 at 20:10; Stop 02/10/18 at 19:44; Status DC Morphine Sulfate 30 ml @ 0 mls/hr CONT PRN PRN IV PER PROTOCOL Last administered on 02/10/18at 07:41; Start 02/08/18 at 20:15; Stop 02/10/18 at 08:52 ; Status DC Diphenhydramine HCl (Benadryl) 25 mg PRN Q6HRS PRN IVP ITCHING Last administered on 02/16/18at 08:44; Start 02/09/18 at 11:00 Oxycodone/ Acetaminophen (Percocet 10/325) 1 tab PRN Q4HRS PRN PO MODERATE PAIN Last administered on 02/13/18at 12:38; Start 02/10/18 at 10:00 Morphine Sulfate (Morphine Sulfate) 4 mg 1X ONCE IV Last administered on at 11:15; Start 02/11/18 at 11:15; Stop 02/11/18 at 11:16; Status DC Morphine Sulfate (Morphine Sulfate) 4 mg 1X ONCE IV Last administered on at 14:28; Start 02/11/18 at 11:30; Stop 02/11/18 at 11:31; Status DC Morphine Sulfate (Morphine Sulfate) 4 mg PRN Q4HRS PRN IV PAIN Last administered on 02/16/18at 08:44; Start 02/11/18 at 16:15 Vancomycin HCl 1.5 gm/Sodium Chloride 500 ml @ 250 mls/hr 1X ONCE IV ; Start 02/12/18 at 12:00; Stop 02/12/18 at 13:59; Status UNV Vancomycin HCl 2 gm/Sodium Chloride 500 ml @ 250 mls/hr ONCE ONCE IV Last administered on 02/12/18at 12:48; Start 02/12/18 at 12:15; Stop 02/12/18 at 14:14 ; Status DC Metronidazole 100 ml @ 100 mls/hr Q6HRS IV Last administered on 02/16/18at 06: 14; Start 02/13/18 at 08:00 Tetanus/ Diphtheria Toxoids (Tenivac Syringe) 0.5 ml ONCE ONCE VAX IM Last administered on 02/13/18at 09:45; Start 02/13/18 at 08:00; Stop 02/13/18 at 08:30 ; Status DC Tetanus Immune Globulin (Hypertet) 2 ml ONCE ONCE VAX IM Last administered on at 09:39; Start 02/13/18 at 08:00; Stop 02/13/18 at 08:28; Status DC Piperacillin Sod/ Tazobactam Sod 4.5 gm/Sodium Chloride 100 ml @ 200 mls/hr Q6HRS IV Last administered on 02/16/18at 06:14; Start 02/13/18 at 08:30 Linezolid (Zyvox) 600 mg BID PO Last administered on 02/16/18at 08:42; Start at 09:00 Oxycodone/ Acetaminophen (Percocet 10/325) 2 tab PRN Q4HRS PRN PO SEVERE PAIN Last administered on 02/16/18at 06:44; Start 02/13/18 at 17:00 Ondansetron HCl (Zofran) 4 mg PRN Q6HRS PRN IV NAUSEA/VOMITING; Start 02/14/18 at 07:30; Stop 02/14/18 at 18:00; Status DC Fentanyl Citrate (Fentanyl 2ml Vial) 25 mcg PRN Q5MIN PRN IV MILD PAIN Last administered on 02/14/18at 14:35; Start 02/14/18 at 07:30; Stop 02/14/18 at 18:00 ; Status DC Fentanyl Citrate (Fentanyl 2ml Vial) 50 mcg PRN Q5MIN PRN IV MODERATE TO SEVERE PAIN Last administered on 02/14/18at 13:56; Start 02/14/18 at 07:30; Stop 02/14/18 at 18:00; Status DC Morphine Sulfate (Morphine Sulfate) 1 mg PRN Q10MIN PRN IV SEVERE PAIN; Start 02/14/18 at 07:30; Stop 02/14/18 at 18:00; Status DC Ringer's Solution 1,000 ml @ 30 mls/hr Q24H IV Last administered on 02/14/18at 14:13; Start 02/14/18 at 07:26; Stop 02/14/18 at 19:25; Status DC Lidocaine HCl (Xylocaine-Mpf 1% 2ml Vial) 2 ml 1X PRN PRN ID IV START; Start at 07:30; Stop 02/14/18 at 18:00; Status DC Hydromorphone HCl (Dilaudid) 0.5 mg PRN Q10MIN PRN IV SEV PAIN, Second choice Last administered on 02/14/18at 14:52; Start 02/14/18 at 07:30; Stop 02/14/18 at 18:00; Status DC Prochlorperazine Edisylate (Compazine) 5 mg PACU PRN PRN IV NAUSEA, MRX1; Start 02/14/18 at 07:30; Stop 02/14/18 at 18:00; Status DC Bupivacaine HCl/ Epinephrine Bitart (Marcaine-Epi 0.5%-[id number]) 50 ml STK-MED ONCE .ROUTE ; Start 02/14/18 at 10:43; Stop 02/14/18 at 11:44; Status DC Lorazepam (Ativan) 4 mg 1X ONCE IV Last administered on 02/14/18at 13:57; Start 02/14/18 at 13:45; Stop 02/14/18 at 13:46; Status DC Senna/Docusate Sodium (Senna Plus) 1 tab DAILY PO ; Start 02/15/18 at 09:00; Stop 02/15/18 at 09:00; Status DC Polyethylene Glycol (miraLAX PACKET) 17 gm PRN DAILY PRN PO CONSTIPATION; Start 02/14/18 at 13:45; Stop 02/15/18 at 08:08; Status DC Ondansetron HCl (Zofran) 4 mg PRN Q4HRS PRN IV NAUSEA/VOMITING; Start 02/14/18 at 13:45; Stop 02/14/18 at 16:46; Status DC Magnesium Hydroxide (Milk Of Magnesia) 2,400 mg 1X PRN PRN PO CONSTIPATION; Start 02/15/18 at 06:00; Stop 02/16/18 at 05:59; Status DC Dextrose (Dextrose 50%-Water Syringe) 12.5 gm PRN Q15MIN PRN IV SEE COMMENTS; Start 02/14/18 at 13:45 Hydromorphone HCl (Dilaudid) 1.5 mg 1X ONCE IV Last administered on 02/14/18at 15:03; Start 02/14/18 at 15:03; Stop 02/14/18 at 15:07; Status DC Propofol 20 ml @ As Directed STK-MED ONCE IV ; Start 02/14/18 at 13:23; Stop at 18:56; Status DC Ondansetron HCl (Zofran) 4 mg STK-MED ONCE .ROUTE ; Start 02/14/18 at 13:23; Stop 02/14/18 at 18:56; Status DC Dexamethasone Sodium Phosphate (Decadron) 20 mg STK-MED ONCE .ROUTE ; Start at 13:23; Stop 02/14/18 at 18:56; Status DC Sevoflurane (Ultane) 30 ml STK-MED ONCE IH ; Start 02/14/18 at 13:26; Stop 02/14 at 18:56; Status DC Fentanyl Citrate (Fentanyl 2ml Vial) 100 mcg STK-MED ONCE .ROUTE ; Start at 13:52; Stop 02/14/18 at 18:56; Status DC Active Scripts Active Percocet 5-325 Mg Tablet (Oxycodone/Acetaminophen) 1 Each Tablet 1-2 Each PO PRN TID PRN pain Cyclobenzaprine Hcl 10 Mg Tablet 1 Tab PO TID [place] 5-325 Tablet (Acetaminophen/Hydrocodone Bitart) 1 Each Tablet 1 Tab PO Q6HRS Zofran Odt (Ondansetron) 4 Mg Tab.rapdis 1 Tab SL Q8HRS Cipro (Ciprofloxacin Hcl) 500 Mg Tablet 1 Tab PO BID Flomax (Tamsulosin Hcl) 0.4 Mg Cap.er.24h 1 Cap PO DAILY Albuterol Sulfate Neb Soln (Albuterol Sulfate) 2.5 Mg/3 Ml Vial.neb 1 Vial NEB PRN Q4HRS Guaifenesin Ac Cough Syrup (Guaifenesin/Codeine Phosphate) 473 Ml Liquid 10 Ml PO Q4-6HRS PRN Prednisone 20 Mg Tablet 2 Tab PO DAILY Start on Saturday12/24/17 Proair Hfa Inhaler (Albuterol Sulfate) 8.5 Gm Hfa.aer.ad 1 Puff INH PRN Q6HRS PRN Doxycycline Hyclate 100 Mg Tablet 1 Tab PO BID Bactroban Cream (Mupirocin) 15 Gm Cream..g. 1 [place] TP TID Vitals/I & O Vital Sign - Last 24 Hours 02/15/18 02/15/18 02/15/18 02/15/18 11:12 11:16 13:12 14:10 Temp 97.7 97.7 Pulse 93 Resp 18 B/P (MAP) 112/60 (77) Pulse Ox 97 97 O2 Delivery Room Air Room Air Room Air O2 Flow Rate 3.0 96.0 96.0 96.0 02/15/18 02/15/18 02/15/18 02/15/18 14:58 15:24 18:06 19:00 Temp 98.2 97.9 98.2 97.9 Pulse 99 94 Resp 18 18 B/P (MAP) 107/55 (72) 119/65 (83) Pulse Ox 97 95 95 94 O2 Delivery Room Air Room Air Room Air Room Air O2 Flow Rate 96.0 96.0 02/15/18 02/15/18 02/15/18 02/15/18 19:06 20:00 21:05 22:06 Resp 18 20 Pulse Ox 95 95 95 O2 Delivery Room Air Room Air Room Air Room Air O2 Flow Rate 96.0 02/15/18 02/15/18 02/16/18 02/16/18 23:00 23:44 01:05 02:38 Temp 97.9 97.9 Pulse 75 Resp 18 20 18 20 B/P (MAP) 117/64 (81) Pulse Ox 95 95 95 95 O2 Delivery Room Air Room Air Room Air Room Air 02/16/18 02/16/18 02/16/18 02/16/18 03:00 03:38 04:38 05:38 Temp 97.6 97.6 Pulse 75 Resp 18 20 18 20 B/P (MAP) 107/68 (81) Pulse Ox 96 96 O2 Delivery Room Air Room Air 02/16/18 02/16/18 02/16/18 02/16/18 06:44 07:00 07:45 07:45 Temp 97.9 97.9 Pulse 85 Resp 20 18 B/P (MAP) 114/71 (85) Pulse Ox 96 100 100 O2 Delivery Room Air Room Air Room Air Room Air O2 Flow Rate 96.0 96.0 02/16/18 02/16/18 02/16/18 08:44 09:20 09:45 Pulse Ox 100 100 100 O2 Delivery Room Air Room Air Room Air O2 Flow Rate 96.0 96.0 96.0 Intake and Output 02/15/18 02/15/18 02/16/18 15:00 23:00 07:00 Intake Total 120 ml Balance 120 ml MANDY FRANCIS MD Feb 16, 2018 10:37
[2018-02-16 11:00] VITALS: BP 112/70
[2018-02-16 15:57] VITALS: BP 110/66
[2018-02-16] MEDS: MAG HYDROX/ALUMINUM HYD/SIMETH 30 ML ORAL.SUSP PO PRN (16:54)
--- NOTE | 2018-02-16 17:11 | PDOC ---
Infectious Disease Note Subjective Subjective Mild right arm pain and ongoing pulling sensation Denies numbness/tingling No F/C/S/N/V/D ROS ROS per HPI otherwise neg Vital Sign Vital Signs Vital Signs Date Time Temp Pulse Resp B/P (MAP) Pulse Ox O2 Delivery O2 Flow Rate FiO2 02/16/18 16:54 96 Room Air 96.0 02/16/18 15:57 97.9 79 18 110/66 (81) 97.9 Physical Exam PHYSICAL EXAM GENERAL: Propped un ip bed, watching sports, NAD HEENT: Oral cavity, pharynx is clear. LUNGS: Clear to auscultation bilaterally. HEART: S1, S2 ABDOMEN: Soft, nontender and nondistended, with positive bowel sounds. EXTREMITIES: No gross edema. Right forearm/hand post-op splint in place. Fingers warm, brisk cap refill. No discoloration SKIN: Otherwise without signs of rash. NEUROLOGIC: ALert and oriented Labs Lab Laboratory Tests Test 02/16/18 05:10 White Blood Count 8.8 x10^3/uL (4.0-11.0) Red Blood Count 4.23 x10^6/uL (4.30-5.70) Hemoglobin 13.1 g/dL (13.0-17.5) Hematocrit 37.5 % (39.0-53.0) Mean Corpuscular Volume 89 fL (79-100) Mean Corpuscular Hemoglobin 31 pg (25-35) Mean Corpuscular Hemoglobin Concent 35 g/dL (31-37) Red Cell Distribution Width 13.8 % (11.5-14.5) Platelet Count 257 x10^3/uL (140-400) Neutrophils (%) (Auto) 81 % (31-73) Lymphocytes (%) (Auto) 12 % (24-48) Monocytes (%) (Auto) 7 % (0-9) Eosinophils (%) (Auto) 0 % (0-3) Basophils (%) (Auto) 0 % (0-3) Neutrophils # (Auto) 7.1 x10^3uL (1.8-7.7) Lymphocytes # (Auto) 1.0 x10^3/uL (1.0-4.8) Monocytes # (Auto) 0.6 x10^3/uL (0.0-1.1) Eosinophils # (Auto) 0.0 x10^3/uL (0.0-0.7) Basophils # (Auto) 0.0 x10^3/uL (0.0-0.2) Sodium Level 139 mmol/L (136-145) Potassium Level 4.1 mmol/L (3.5-5.1) Chloride Level 102 mmol/L (98-107) Carbon Dioxide Level 28 mmol/L (21-32) Anion Gap 9 (6-14) Blood Urea Nitrogen 14 mg/dL (8-26) Creatinine 0.9 mg/dL (0.7-1.3) Estimated GFR (Cockcroft-Gault) 96.6 BUN/Creatinine Ratio 16 (6-20) Glucose Level 118 mg/dL (70-99) Calcium Level 8.6 mg/dL (8.5-10.1) Total Bilirubin 0.3 mg/dL (0.2-1.0) Aspartate Amino Transf (AST/SGOT) 10 U/L (15-37) Alanine Aminotransferase (ALT/SGPT) 22 U/L (16-63) Alkaline Phosphatase 61 U/L (46-116) Total Protein 6.7 g/dL (6.4-8.2) Albumin 3.3 g/dL (3.4-5.0) Albumin/Globulin Ratio 1.0 (1.0-1.7) Objective Assessment Right forearm compartment syndrome s/p Decompression fasciotomy, forearm and wrist, flexor and extensor compartments, without debridement of nonviable muscle Decompression fasciotomy, hand, right 02/03 back to OR 02/05 & 02/07. 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 improved H/o Asthma Plan Plan of Care Cont Zosyn, Zyvox (decrease potential toxin production) and Flagyl Dosed Tetanus vaccine and immunoglobulin on 02/13 although his contractures started within hours of the injury so unlikely tetanus as incubation period min 3 days but can't remember his last vaccine Supportive care Pt seen and examined. Chart reviewed in detail. Case discussed with INTERNAL COMMUNICATIONS MANAGER. Agree with above plan MARCELLA CASTILLO APRN Feb 16, 2018 17:11 LUKAS MOTA MD Feb 16, 2018 18:39
[2018-02-16] MEDS: LORazepam 0.5 MG TABLET PO PRN (18:46)
[2018-02-16 19:00] VITALS: BP 113/73
[2018-02-17] MEDS: PIPERACILLIN/TAZOBACTAM 4.5 GM in IV NORMAL SALINE 100ML 100 ML IV SCH ×3 (00:28→11:33)
[2018-02-17] MEDS: MORPHINE SULFATE 4 MG/ML VIAL. IV PRN ×6 (01:23→22:07)
[2018-02-17] MEDS: diphenhydrAMINE 50 MG/ML VIAL IVP PRN ×3 (01:23→17:55)
[2018-02-17 03:00] VITALS: BP 114/62
[2018-02-17 04:03] LABS: HEMATOCRIT 40.6 % (39.0-53.0); HEMOGLOBIN 13.8 g/dL (13.0-17.5); RED BLOOD COUNT 4.56 x10^6/uL (4.30-5.70); RED CELL DISTRIBUTION WIDTH 14.2 % (11.5-14.5)
[2018-02-17] MEDS: oxyCODONE/APAP 10/325 1 TAB TABLET PO PRN ×5 (04:07→20:33)
[2018-02-17 04:34] LABS: ALBUMIN 3.4 g/dL (3.4-5.0); ALBUMIN/GLOBULIN RATIO 0.9 (1.0-1.7); CALCIUM 9.1 mg/dL (8.5-10.1); CREATININE 0.9 mg/dL (0.7-1.3); GFR 96.6; POTASSIUM 4.3 mmol/L (3.5-5.1); TOTAL BILIRUBIN 0.5 mg/dL (0.2-1.0)
[2018-02-17] MEDS: LORazepam 0.5 MG TABLET PO PRN (06:15)
[2018-02-17 07:00] VITALS: BP 111/72
[2018-02-17] MEDS: LACTOBACILLUS RHAMNOSUS GG 1 CAPSULE. PO SCH ×2 (08:24→20:31)
[2018-02-17] MEDS: LINEZOLID 600 MG TABLET PO SCH ×2 (08:24→20:31)
[2018-02-17] MEDS: SENNOSIDES/DOCUSATE 8.6/50MG TABLET. PO SCH (08:24)
[2018-02-17] MEDS: CYCLOBENZAPRINE 10 MG TABLET. PO SCH ×3 (08:24→20:32)
[2018-02-17] MEDS: DOCUSATE SODIUM 100 MG CAPSULE. PO SCH (08:24)
[2018-02-17] MEDS: TAMSULOSIN 0.4 MG CAP.ER.24H. PO SCH (08:24)
[2018-02-17] MEDS: MORPHINE ER 15 MG TABLET.ER PO SCH ×2 (08:25→20:32)
[2018-02-17] MEDS: MUPIROCIN 2 % TOPICAL CREAM 15GM TUBE. TP SCH ×3 (08:31→20:33)
[2018-02-17] MEDS: predniSONE 10 MG TABLET PO SCH ×2 (08:31→20:31)
--- NOTE | 2018-02-17 10:04 | PDOC ---
PROGRESS NOTES Assessment Problems Medical Problems: (1) Arm pain Status: Acute (2) Wrist spasm Status: Acute If there is any neurological damage it is very mild Status-post repeat operation on 02/14, now has splint. Note that the hand completely relaxed under anesthesia Flexion of fingers and wrist due to musculoskeletal issues Plan Consider outpatient EMG study, useless to do now especially since he is in a splint Rehab Will follow Subjective Feels better with splint Objective Vital Signs Date Time Temp Pulse Resp B/P (MAP) Pulse Ox O2 Delivery O2 Flow Rate FiO2 02/17/18 08:25 18 Room Air 02/17/18 07:00 97.7 104 111/72 (85) 99 97.7 02/16/18 18:39 96.0 Intake and Output 02/17/18 07:00 Intake Total 600 ml Balance 600 ml Intake Oral 600 ml # Voids 6 PHYSICAL EXAM Alert. Oriented to time, place and person. PERRL. EOMI. CN: no focal findings. Muscle tone: normal. Muscle strength: right fingers and wrist are flexed, he can move them a little , strength is otherwise normal DTR: 2+ Plantar reflex: flexor Gait: not examined in bed. Sensory exam: patchy right forearm loss. No cerebellar signs elicited. Review of Relevant I have reviewed the following items le (where applicable) has been applied. Labs Laboratory Tests Test 02/16/18 05:10 02/17/18 03:40 White Blood Count 8.8 x10^3/uL (4.0-11.0) 9.0 x10^3/uL (4.0-11.0) Red Blood Count 4.23 x10^6/uL (4.30-5.70) 4.56 x10^6/uL (4.30-5.70) Hemoglobin 13.1 g/dL (13.0-17.5) 13.8 g/dL (13.0-17.5) Hematocrit 37.5 % (39.0-53.0) 40.6 % (39.0-53.0) Mean Corpuscular Volume 89 fL (79-100) 89 fL (79-100) Mean Corpuscular Hemoglobin 31 pg (25-35) 30 pg (25-35) Mean Corpuscular Hemoglobin Concent 35 g/dL (31-37) 34 g/dL (31-37) Red Cell Distribution Width 13.8 % (11.5-14.5) 14.2 % (11.5-14.5) Platelet Count 257 x10^3/uL (140-400) 273 x10^3/uL (140-400) Neutrophils (%) (Auto) 81 % (31-73) Lymphocytes (%) (Auto) 12 % (24-48) Monocytes (%) (Auto) 7 % (0-9) Eosinophils (%) (Auto) 0 % (0-3) Basophils (%) (Auto) 0 % (0-3) Neutrophils # (Auto) 7.1 x10^3uL (1.8-7.7) Lymphocytes # (Auto) 1.0 x10^3/uL (1.0-4.8) Monocytes # (Auto) 0.6 x10^3/uL (0.0-1.1) Eosinophils # (Auto) 0.0 x10^3/uL (0.0-0.7) Basophils # (Auto) 0.0 x10^3/uL (0.0-0.2) Sodium Level 139 mmol/L (136-145) 136 mmol/L (136-145) Potassium Level 4.1 mmol/L (3.5-5.1) 4.3 mmol/L (3.5-5.1) Chloride Level 102 mmol/L (98-107) 101 mmol/L (98-107) Carbon Dioxide Level 28 mmol/L (21-32) 24 mmol/L (21-32) Anion Gap 9 (6-14) 11 (6-14) Blood Urea Nitrogen 14 mg/dL (8-26) 11 mg/dL (8-26) Creatinine 0.9 mg/dL (0.7-1.3) 0.9 mg/dL (0.7-1.3) Estimated GFR (Cockcroft-Gault) 96.6 96.6 BUN/Creatinine Ratio 16 (6-20) 12 (6-20) Glucose Level 118 mg/dL (70-99) 119 mg/dL (70-99) Calcium Level 8.6 mg/dL (8.5-10.1) 9.1 mg/dL (8.5-10.1) Total Bilirubin 0.3 mg/dL (0.2-1.0) 0.5 mg/dL (0.2-1.0) Aspartate Amino Transf (AST/SGOT) 10 U/L (15-37) 11 U/L (15-37) Alanine Aminotransferase (ALT/SGPT) 22 U/L (16-63) 21 U/L (16-63) Alkaline Phosphatase 61 U/L (46-116) 59 U/L (46-116) Total Protein 6.7 g/dL (6.4-8.2) 7.0 g/dL (6.4-8.2) Albumin 3.3 g/dL (3.4-5.0) 3.4 g/dL (3.4-5.0) Albumin/Globulin Ratio 1.0 (1.0-1.7) 0.9 (1.0-1.7) Laboratory Tests Test 02/17/18 03:40 White Blood Count 9.0 x10^3/uL (4.0-11.0) Red Blood Count 4.56 x10^6/uL (4.30-5.70) Hemoglobin 13.8 g/dL (13.0-17.5) Hematocrit 40.6 % (39.0-53.0) Mean Corpuscular Volume 89 fL (79-100) Mean Corpuscular Hemoglobin 30 pg (25-35) Mean Corpuscular Hemoglobin Concent 34 g/dL (31-37) Red Cell Distribution Width 14.2 % (11.5-14.5) Platelet Count 273 x10^3/uL (140-400) Sodium Level 136 mmol/L (136-145) Potassium Level 4.3 mmol/L (3.5-5.1) Chloride Level 101 mmol/L (98-107) Carbon Dioxide Level 24 mmol/L (21-32) Anion Gap 11 (6-14) Blood Urea Nitrogen 11 mg/dL (8-26) Creatinine 0.9 mg/dL (0.7-1.3) Estimated GFR (Cockcroft-Gault) 96.6 BUN/Creatinine Ratio 12 (6-20) Glucose Level 119 mg/dL (70-99) Calcium Level 9.1 mg/dL (8.5-10.1) Total Bilirubin 0.5 mg/dL (0.2-1.0) Aspartate Amino Transf (AST/SGOT) 11 U/L (15-37) Alanine Aminotransferase (ALT/SGPT) 21 U/L (16-63) Alkaline Phosphatase 59 U/L (46-116) Total Protein 7.0 g/dL (6.4-8.2) Albumin 3.4 g/dL (3.4-5.0) Albumin/Globulin Ratio 0.9 (1.0-1.7) Medications Current Medications Morphine Sulfate (Morphine Sulfate) 4 mg PRN Q15MIN PRN IV/SQ PAIN GREATER THAN 3/10 Last administered on 02/02/18at 18:48; Start 02/02/18 at 18:00; Stop at 03:55; Status DC Sodium Chloride 1,000 ml @ 1,000 mls/hr Q1H IV Last administered on 02/02/18at 18:50; Start 02/02/18 at 17:57; Stop 02/02/18 at 18:56; Status DC Diazepam (Valium) 5 mg 1X ONCE PO Last administered on 02/02/18at 18:47; Start 02/02/18 at 18:00; Stop 02/02/18 at 18:05; Status DC Morphine Sulfate (Morphine Sulfate) 4 mg PRN Q2HR PRN IV SEVERE PAIN Last administered on 02/03/18at 03:07; Start 02/02/18 at 21:00; Stop 02/03/18 at 03:51 ; Status DC Oxycodone/ Acetaminophen (Percocet 10/325) 1 tab PRN Q4HRS PRN PO SEVERE PAIN Last administered on 02/08/18at 19:16; Start 02/02/18 at 21:00; Stop 02/08/18 at 20:14; Status DC Oxycodone/ Acetaminophen (Percocet 5/325) 1 tab PRN Q4HRS PRN PO MODERATE PAIN ; Start 02/02/18 at 21:00; Stop 02/08/18 at 10:27; Status DC Zolpidem Tartrate (Ambien) 5 mg PRN QHS PRN PO INSOMNIA Last administered on at 20:56; Start 02/02/18 at 21:00 Ondansetron HCl (Zofran) 4 mg PRN Q6HRS PRN IV NAUSEA/VOMITING 1ST CHOICE; Start 02/02/18 at 21:00; Status Cancel Ondansetron HCl (Zofran Odt) 4 mg PRN Q6HRS PRN PO NAUSEA/VOMITING 1ST CHOICE; Start 02/02/18 at 21:00 Acetaminophen (Tylenol) 500 mg PRN Q6HRS PRN PO MILD PAIN / TEMP; Start at 21:00 Calcium Carbonate/ Glycine (Tums) 500 mg PRN AFTMEALHC PRN PO INDIGESTION; Start 02/02/18 at 21:00 Albuterol Sulfate (Ventolin Neb Soln) 2.5 mg PRN Q4HRS PRN NEB soa; Start 02/02 at 21:15 Cyclobenzaprine HCl (Flexeril) 10 mg TID PO Last administered on 02/17/18at 08: 24; Start 02/03/18 at 09:00 Acetaminophen/ Hydrocodone Bitart (Lortab 5/325) 1 tab Q6HRS PO Last administered on 02/04/18at 05:51; Start 02/03/18 at 00:00; Stop 02/04/18 at 10:03 ; Status DC Mupirocin (Bactroban) 1 bienvenido TID TP ; Start 02/03/18 at 09:00 Ondansetron HCl (Zofran Odt) 4 mg PRN Q8HRS PRN PO NAUSEA VOMITING 1ST CHOICE; Start 02/02/18 at 21:15; Stop 02/02/18 at 21:15; Status DC Oxycodone/ Acetaminophen (Percocet 5/325) 1 tab PRN TID PRN PO severe pain; Start 02/02/18 at 21:15; Status Cancel Tamsulosin HCl (Flomax) 0.4 mg DAILY PO Last administered on 02/17/18at 08:24; Start 02/03/18 at 09:00 Non-Formulary Medication (Albuterol Sulfate (Proair Hfa Inhaler)) 1 puff PRN Q6HRS PRN INH SHORTNESS OF BREATH; Start 02/02/18 at 21:15; Status UNV Guaifenesin/ Codeine Phosphate (Robitussin Ac) 10 ml PRN Q6HRS PRN PO COUGH; Start 02/02/18 at 21:15 Fentanyl Citrate (Fentanyl 2ml Vial) 50 mcg PRN Q2HR PRN IV SEVERE PAIN Last administered on 02/04/18at 08:44; Start 02/03/18 at 04:00; Stop 02/04/18 at 21:51 ; Status DC Diazepam (Valium) 10 mg PRN Q8HRS PRN PO ANXIETY Last administered on at 17:50; Start 02/03/18 at 04:00; Stop 02/07/18 at 19:56; Status DC Lidocaine HCl (Lidocaine 1% 20ml Vial) 20 ml 1X ONCE INJ ; Start 02/03/18 at 09 :00; Stop 02/03/18 at 09:01; Status Cancel Lidocaine HCl (Lidocaine 1% 50ml Vial) 20 ml 1X ONCE INJ Last administered on 02/03/18at 09:07; Start 02/03/18 at 09:00; Stop 02/03/18 at 09:01; Status DC Fentanyl Citrate (Fentanyl 2ml Vial) 25 mcg PRN Q5MIN PRN IV MILD PAIN; Start 02/03/18 at 09:30; Stop 02/03/18 at 19:00; Status DC Fentanyl Citrate (Fentanyl 2ml Vial) 50 mcg PRN Q5MIN PRN IV MODERATE TO SEVERE PAIN Last administered on 02/03/18at 12:40; Start 02/03/18 at 09:30; Stop 02/03/18 at 19:00; Status DC Morphine Sulfate (Morphine Sulfate) 1 mg PRN Q10MIN PRN IV SEVERE PAIN; Start 02/03/18 at 09:30; Stop 02/03/18 at 19:00; Status DC Ringer's Solution 1,000 ml @ 30 mls/hr Q24H IV Last administered on 02/03/18at 09:35; Start 02/03/18 at 09:23; Stop 02/03/18 at 21:22; Status DC Lidocaine HCl (Xylocaine-Mpf 1% 2ml Vial) 2 ml 1X PRN PRN ID IV START; Start at 09:30; Stop 02/03/18 at 19:00; Status DC Hydromorphone HCl (Dilaudid) 0.5 mg PRN Q10MIN PRN IV SEV PAIN, Second choice Last administered on 02/03/18at 12:29; Start 02/03/18 at 09:30; Stop 02/03/18 at 19:00; Status DC Prochlorperazine Edisylate (Compazine) 5 mg PACU PRN PRN IV NAUSEA, MRX1; Start 02/03/18 at 09:30; Stop 02/03/18 at 19:00; Status DC Midazolam HCl (Versed) 2 mg STK-MED ONCE .ROUTE ; Start 02/03/18 at 09:33; Stop 02/03/18 at 09:34; Status DC Bupivacaine HCl/ Epinephrine Bitart (Marcaine-Epi 0.5%-1:[id number]) 50 ml STK-MED ONCE .ROUTE ; Start 02/03/18 at 08:34; Stop 02/03/18 at 09:35; Status DC Midazolam HCl (Versed) 2 mg 1X ONCE IV Last administered on 02/03/18at 09:41; Start 02/03/18 at 09:45; Stop 02/03/18 at 09:46; Status DC Dexamethasone Sodium Phosphate (Decadron) 20 mg STK-MED ONCE .ROUTE ; Start at 09:41; Stop 02/03/18 at 09:42; Status DC Ondansetron HCl (Zofran) 4 mg STK-MED ONCE .ROUTE ; Start 02/03/18 at 09:41; Stop 02/03/18 at 09:42; Status DC Fentanyl Citrate (Fentanyl 2ml Vial) 100 mcg STK-MED ONCE .ROUTE ; Start at 09:41; Stop 02/03/18 at 09:42; Status DC Famotidine (Pepcid Vial) 20 mg STK-MED ONCE .ROUTE ; Start 02/03/18 at 09:42; Stop 02/03/18 at 09:43; Status DC Propofol 20 ml @ As Directed STK-MED ONCE IV ; Start 02/03/18 at 09:42; Stop at 09:43; Status DC Succinylcholine Chloride (Anectine) 200 mg STK-MED ONCE .ROUTE ; Start 02/03/18 at 09:42; Stop 02/03/18 at 09:43; Status DC Rocuronium [place] (Zemuron) 50 mg STK-MED ONCE .ROUTE ; Start 02/03/18 at 09:45 ; Stop 02/03/18 at 09:46; Status DC Cefazolin Sodium/ Dextrose 50 ml @ As Directed STK-MED ONCE IV ; Start 02/03/18 at 09:46; Stop 02/03/18 at 09:47; Status DC Cefazolin Sodium/ Dextrose 50 ml @ 100 mls/hr 1X PREOP PRN IV Pre Op dose Last administered on 02/03/18at 10:30; Start 02/03/18 at 10:30; Stop 02/03/18 at 18:00; Status DC Fentanyl Citrate (Fentanyl 2ml Vial) 100 mcg STK-MED ONCE .ROUTE ; Start at 10:43; Stop 02/03/18 at 10:44; Status DC Bupivacaine HCl/ Epinephrine Bitart (Marcaine-Epi 0.5%-1:[id number]) 50 ml STK-MED ONCE INJ Last administered on 02/03/18at 10:36; Start 02/03/18 at 10:36; Stop at 11:17; Status DC Neostigmine Methylsulfate (Neostigmine Methylsulfate) 5 mg STK-MED ONCE .ROUTE ; Start 02/03/18 at 11:04; Stop 02/03/18 at 11:05; Status DC Glycopyrrolate (Robinul) 1 mg STK-MED ONCE .ROUTE ; Start 02/03/18 at 11:05; Stop 02/03/18 at 11:06; Status DC Senna/Docusate Sodium (Senna Plus) 1 tab DAILY PO Last administered on at 08:24; Start 02/04/18 at 09:00 Polyethylene Glycol (miraLAX PACKET) 17 gm PRN DAILY PRN PO CONSTIPATION 1ST CHOICE; Start 02/03/18 at 11:30 Ondansetron HCl (Zofran) 4 mg PRN Q4HRS PRN IV NAUSEA/VOMITING; Start 02/03/18 at 11:30 Magnesium Hydroxide (Milk Of Magnesia) 2,400 mg 1X PRN PRN PO CONSTIPATION; Start 02/04/18 at 06:00; Stop 02/05/18 at 05:59; Status DC Bisacodyl (Dulcolax Supp) 10 mg 1X PRN PRN [place] CONSTIPATION; Start 02/04/18 at 16:00; Stop 02/05/18 at 15:59; Status DC Dextrose (Dextrose 50%-Water Syringe) 12.5 gm PRN Q15MIN PRN IV SEE COMMENTS; Start 02/03/18 at 11:30; Stop 02/14/18 at 15:08; Status DC Cefazolin Sodium/ Dextrose 50 ml @ 100 mls/hr Q6H IV ; Start 02/03/18 at 11:30 ; Stop 02/03/18 at 23:59; Status UNV Cefazolin Sodium/ Dextrose 50 ml @ 100 mls/hr Q8HRS IV Last administered on at 05:48; Start 02/03/18 at 14:00; Stop 02/13/18 at 08:24; Status DC Fentanyl Citrate (Fentanyl 2ml Vial) 50 mcg PRN Q5MIN PRN IV MODERATE TO SEVERE PAIN; Start 02/03/18 at 13:30; Stop 02/03/18 at 19:00; Status DC Docusate Sodium (Colace) 100 mg DAILY PO Last administered on 02/17/18at 08:24; Start 02/03/18 at 14:00 Fentanyl Citrate 30 ml @ 0 mls/hr CONT PRN PRN IV PER PROTOCOL Last administered on 02/04/18at 21:05; Start 02/04/18 at 10:00; Stop 02/04/18 at 23:03 ; Status DC Prednisone (Prednisone) 10 mg BID PO Last administered on 02/17/18at 08:31; Start 02/04/18 at 11:00 Ketorolac Tromethamine (Toradol 30mg Vial) 30 mg Q6HRS PRN IV PAIN; Start 02/04 at 10:00; Stop 02/04/18 at 10:24; Status DC Sodium Chloride 1,000 ml @ 75 mls/hr [id number] IV Last administered on at 21:20; Start 02/04/18 at 10:15; Stop 02/08/18 at 17:22; Status DC Ketorolac Tromethamine (Toradol 30mg Vial) 30 mg Q6HRS IV Last administered on 02/09/18at 05:09; Start 02/04/18 at 12:00; Stop 02/09/18 at 11:59; Status DC Ondansetron HCl (Zofran) 4 mg PRN Q6HRS PRN IV NAUSEA/VOMITING; Start 02/05/18 at 07:00; Stop 02/05/18 at 18:00; Status DC Fentanyl Citrate (Fentanyl 2ml Vial) 25 mcg PRN Q5MIN PRN IV MILD PAIN; Start 02/05/18 at 07:00; Stop 02/05/18 at 18:00; Status DC Fentanyl Citrate (Fentanyl 2ml Vial) 50 mcg PRN Q5MIN PRN IV MODERATE TO SEVERE PAIN; Start 02/05/18 at 07:00; Stop 02/05/18 at 18:00; Status DC Morphine Sulfate (Morphine Sulfate) 1 mg PRN Q10MIN PRN IV SEVERE PAIN; Start 02/05/18 at 07:00; Stop 02/05/18 at 18:00; Status DC Ringer's Solution 1,000 ml @ 30 mls/hr Q24H IV ; Start 02/05/18 at 07:00; Stop 02/05/18 at 17:44; Status DC Lidocaine HCl (Xylocaine-Mpf 1% 2ml Vial) 2 ml PRN 1X PRN ID IV START; Start at 07:00; Stop 02/05/18 at 18:00; Status DC Hydromorphone HCl (Dilaudid) 0.5 mg PRN Q10MIN PRN IV SEV PAIN, Second choice; Start 02/05/18 at 07:00; Stop 02/05/18 at 18:00; Status DC Prochlorperazine Edisylate (Compazine) 5 mg PACU PRN PRN IV NAUSEA, MRX1; Start 02/05/18 at 07:00; Stop 02/05/18 at 18:00; Status DC Diphenhydramine HCl (Benadryl) 25 mg PRN Q6HRS PRN PO ITCHING Last administered on 02/15/18at 22:05; Start 02/04/18 at 11:45 Diphenhydramine HCl (Benadryl) 25 mg 1X ONCE IVP Last administered on at 11:52; Start 02/04/18 at 12:00; Stop 02/04/18 at 12:01; Status DC Lactobacillus Rhamnosus (Culturelle) 1 cap BID PO Last administered on at 08:24; Start 02/04/18 at 21:00 Al Hydroxide/Mg Hydroxide (Mylanta Plus Xs) 30 ml PRN Q2HR PRN PO HEARTBURN / GAS Last administered on 02/16/18at 16:54; Start 02/04/18 at 18:45 Morphine Sulfate 30 ml @ 0 mls/hr CONT PRN PRN IV PER PROTOCOL Last administered on 02/08/18at 09:27; Start 02/04/18 at 23:00; Stop 02/08/18 at 10:28 ; Status DC Diphenhydramine HCl (Benadryl) 25 mg PRN Q6HRS PRN IVP ITCHING Last administered on 02/10/18at 05:58; Start 02/05/18 at 03:15; Stop 02/10/18 at 15:28 ; Status DC Bupivacaine HCl/ Epinephrine Bitart (Marcaine-Epi 0.5%-1:[id number]) 50 ml 1X ONCE IJ ; Start 02/05/18 at 10:30; Stop 02/05/18 at 10:31; Status Cancel Bupivacaine HCl (Marcaine 0.25%) 50 ml STK-MED ONCE .ROUTE Last administered on 02/05/18at 13:56; Start 02/05/18 at 11:33; Stop 02/05/18 at 12:34; Status DC Propofol 20 ml @ As Directed STK-MED ONCE IV ; Start 02/05/18 at 12:44; Stop at 12:45; Status DC Midazolam HCl (Versed) 2 mg STK-MED ONCE .ROUTE ; Start 02/05/18 at 12:44; Stop 02/05/18 at 12:45; Status DC Fentanyl Citrate (Fentanyl 2ml Vial) 100 mcg STK-MED ONCE .ROUTE ; Start at 12:44; Stop 02/05/18 at 12:45; Status DC Midazolam HCl (Versed) 2 mg STK-MED ONCE .ROUTE ; Start 02/05/18 at 12:52; Stop 02/05/18 at 12:53; Status DC Succinylcholine Chloride (Anectine) 200 mg STK-MED ONCE .ROUTE ; Start 02/05/18 at 13:03; Stop 02/05/18 at 13:04; Status DC Midazolam HCl (Versed) 2 mg 1X ONCE IV Last administered on 02/05/18at 13:09; Start 02/05/18 at 13:00; Stop 02/05/18 at 13:08; Status DC Ondansetron HCl (Zofran) 4 mg STK-MED ONCE .ROUTE ; Start 02/05/18 at 13:19; Stop 02/05/18 at 13:20; Status DC Dexamethasone Sodium Phosphate (Decadron) 20 mg STK-MED ONCE .ROUTE ; Start at 13:19; Stop 02/05/18 at 13:20; Status DC Ketorolac Tromethamine (Toradol For Or Only) 30 mg STK-MED ONCE INJ ; Start at 13:19; Stop 02/05/18 at 13:20; Status DC Potassium Chloride/Sodium Chloride 1,000 ml @ 125 mls/hr Q8H IV ; Start at 09:00; Stop 02/06/18 at 14:20; Status DC Lorazepam (Ativan) 0.5 mg PRN Q8HRS PRN PO ANXIETY Last administered on at 06:15; Start 02/06/18 at 13:15 Lorazepam (Ativan) 0.5 mg 1X ONCE IV Last administered on 02/07/18at 11:19; Start 02/07/18 at 08:45; Stop 02/07/18 at 08:46; Status DC Fentanyl Citrate (Fentanyl 2ml Vial) 100 mcg STK-MED ONCE .ROUTE ; Start at 12:00; Stop 02/07/18 at 12:01; Status DC Midazolam HCl (Versed) 2 mg STK-MED ONCE .ROUTE ; Start 02/07/18 at 12:00; Stop 02/07/18 at 12:01; Status DC Succinylcholine Chloride (Anectine) 200 mg STK-MED ONCE .ROUTE ; Start 02/07/18 at 12:00; Stop 02/07/18 at 12:01; Status DC Dexamethasone Sodium Phosphate (Decadron) 20 mg STK-MED ONCE .ROUTE ; Start at 12:01; Stop 02/07/18 at 12:02; Status DC Famotidine (Pepcid Vial) 20 mg STK-MED ONCE .ROUTE ; Start 02/07/18 at 12:01; Stop 02/07/18 at 12:02; Status DC Propofol 20 ml @ As Directed STK-MED ONCE IV ; Start 02/07/18 at 12:01; Stop at 12:02; Status DC Ondansetron HCl (Zofran) 4 mg STK-MED ONCE .ROUTE ; Start 02/07/18 at 12:01; Stop 02/07/18 at 12:02; Status DC Bupivacaine HCl/ Epinephrine Bitart (Sensorcain-Mpf Epi 0.5%-1:[id number]) 30 ml STK -MED ONCE .ROUTE Last administered on 02/07/18at 13:29; Start 02/07/18 at 11:29 ; Stop 02/07/18 at 12:30; Status DC Desflurane (Suprane) 30 ml STK-MED ONCE IH ; Start 02/07/18 at 13:34; Stop 02/07 at 13:35; Status DC Senna/Docusate Sodium (Senna Plus) 1 tab DAILY PO ; Start 02/08/18 at 09:00; Status UNV Polyethylene Glycol (miraLAX PACKET) 17 gm PRN DAILY PRN PO CONSTIPATION; Start 02/07/18 at 14:00; Status UNV Ondansetron HCl (Zofran) 4 mg PRN Q4HRS PRN IV NAUSEA/VOMITING; Start 02/07/18 at 14:00; Status UNV Magnesium Hydroxide (Milk Of Magnesia) 2,400 mg 1X PRN PRN PO CONSTIPATION; Start 02/08/18 at 06:00; Stop 02/09/18 at 05:59; Status DC Bisacodyl (Dulcolax Supp) 10 mg 1X PRN PRN [place] CONSTIPATION; Start 02/08/18 at 16:00; Stop 02/09/18 at 15:59; Status DC Dextrose (Dextrose 50%-Water Syringe) 12.5 gm PRN Q15MIN PRN IV SEE COMMENTS; Start 02/07/18 at 14:00; Status UNV Cefazolin Sodium/ Dextrose 50 ml @ 100 mls/hr Q6H IV ; Start 02/07/18 at 14:00 ; Stop 02/08/18 at 02:29; Status UNV Desflurane (Suprane) 30 ml STK-MED ONCE IH ; Start 02/07/18 at 14:00; Stop 02/07 at 14:01; Status DC Morphine Sulfate (Ms Contin) 15 mg BID PO Last administered on 02/17/18at 08:25 ; Start 02/08/18 at 10:30 Morphine Sulfate (Morphine Sulfate) 4 mg PRN Q2HR PRN IV PAIN Last administered on 02/08/18at 19:17; Start 02/08/18 at 10:30; Stop 02/08/18 at 20:14 ; Status DC Naloxone HCl (Narcan) 0.4 mg PRN Q2MIN PRN IV SEE INSTRUCTIONS; Start 02/08/18 at 20:15 Sodium Chloride 1,000 ml @ 25 mls/hr Q24H IV Last administered on 02/09/18at 20 :25; Start 02/08/18 at 20:10; Stop 02/10/18 at 19:44; Status DC Morphine Sulfate 30 ml @ 0 mls/hr CONT PRN PRN IV PER PROTOCOL Last administered on 02/10/18at 07:41; Start 02/08/18 at 20:15; Stop 02/10/18 at 08:52 ; Status DC Diphenhydramine HCl (Benadryl) 25 mg PRN Q6HRS PRN IVP ITCHING Last administered on 02/17/18at 01:23; Start 02/09/18 at 11:00 Oxycodone/ Acetaminophen (Percocet 10/325) 1 tab PRN Q4HRS PRN PO MODERATE PAIN Last administered on 02/16/18at 10:45; Start 02/10/18 at 10:00 Morphine Sulfate (Morphine Sulfate) 4 mg 1X ONCE IV Last administered on at 11:15; Start 02/11/18 at 11:15; Stop 02/11/18 at 11:16; Status DC Morphine Sulfate (Morphine Sulfate) 4 mg 1X ONCE IV Last administered on at 14:28; Start 02/11/18 at 11:30; Stop 02/11/18 at 11:31; Status DC Morphine Sulfate (Morphine Sulfate) 4 mg PRN Q4HRS PRN IV PAIN Last administered on 02/17/18at 05:25; Start 02/11/18 at 16:15 Vancomycin HCl 1.5 gm/Sodium Chloride 500 ml @ 250 mls/hr 1X ONCE IV ; Start 02/12/18 at 12:00; Stop 02/12/18 at 13:59; Status UNV Vancomycin HCl 2 gm/Sodium Chloride 500 ml @ 250 mls/hr ONCE ONCE IV Last administered on 02/12/18at 12:48; Start 02/12/18 at 12:15; Stop 02/12/18 at 14:14 ; Status DC Metronidazole 100 ml @ 100 mls/hr Q6HRS IV Last administered on 02/17/18at 06: 13; Start 02/13/18 at 08:00 Tetanus/ Diphtheria Toxoids (Tenivac Syringe) 0.5 ml ONCE ONCE VAX IM Last administered on 02/13/18at 09:45; Start 02/13/18 at 08:00; Stop 02/13/18 at 08:30 ; Status DC Tetanus Immune Globulin (Hypertet) 2 ml ONCE ONCE VAX IM Last administered on at 09:39; Start 02/13/18 at 08:00; Stop 02/13/18 at 08:28; Status DC Piperacillin Sod/ Tazobactam Sod 4.5 gm/Sodium Chloride 100 ml @ 200 mls/hr Q6HRS IV Last administered on 02/17/18at 05:25; Start 02/13/18 at 08:30 Linezolid (Zyvox) 600 mg BID PO Last administered on 02/17/18at 08:24; Start at 09:00 Oxycodone/ Acetaminophen (Percocet 10/325) 2 tab PRN Q4HRS PRN PO SEVERE PAIN Last administered on 02/17/18at 08:23; Start 02/13/18 at 17:00 Ondansetron HCl (Zofran) 4 mg PRN Q6HRS PRN IV NAUSEA/VOMITING; Start 02/14/18 at 07:30; Stop 02/14/18 at 18:00; Status DC Fentanyl Citrate (Fentanyl 2ml Vial) 25 mcg PRN Q5MIN PRN IV MILD PAIN Last administered on 02/14/18at 14:35; Start 02/14/18 at 07:30; Stop 02/14/18 at 18:00 ; Status DC Fentanyl Citrate (Fentanyl 2ml Vial) 50 mcg PRN Q5MIN PRN IV MODERATE TO SEVERE PAIN Last administered on 02/14/18at 13:56; Start 02/14/18 at 07:30; Stop 02/14/18 at 18:00; Status DC Morphine Sulfate (Morphine Sulfate) 1 mg PRN Q10MIN PRN IV SEVERE PAIN; Start 02/14/18 at 07:30; Stop 02/14/18 at 18:00; Status DC Ringer's Solution 1,000 ml @ 30 mls/hr Q24H IV Last administered on 02/14/18at 14:13; Start 02/14/18 at 07:26; Stop 02/14/18 at 19:25; Status DC Lidocaine HCl (Xylocaine-Mpf 1% 2ml Vial) 2 ml 1X PRN PRN ID IV START; Start at 07:30; Stop 02/14/18 at 18:00; Status DC Hydromorphone HCl (Dilaudid) 0.5 mg PRN Q10MIN PRN IV SEV PAIN, Second choice Last administered on 02/14/18at 14:52; Start 02/14/18 at 07:30; Stop 02/14/18 at 18:00; Status DC Prochlorperazine Edisylate (Compazine) 5 mg PACU PRN PRN IV NAUSEA, MRX1; Start 02/14/18 at 07:30; Stop 02/14/18 at 18:00; Status DC Bupivacaine HCl/ Epinephrine Bitart (Marcaine-Epi 0.5%-1:[id number]) 50 ml STK-MED ONCE .ROUTE ; Start 02/14/18 at 10:43; Stop 02/14/18 at 11:44; Status DC Lorazepam (Ativan) 4 mg 1X ONCE IV Last administered on 02/14/18at 13:57; Start 02/14/18 at 13:45; Stop 02/14/18 at 13:46; Status DC Senna/Docusate Sodium (Senna Plus) 1 tab DAILY PO ; Start 02/15/18 at 09:00; Stop 02/15/18 at 09:00; Status DC Polyethylene Glycol (miraLAX PACKET) 17 gm PRN DAILY PRN PO CONSTIPATION; Start 02/14/18 at 13:45; Stop 02/15/18 at 08:08; Status DC Ondansetron HCl (Zofran) 4 mg PRN Q4HRS PRN IV NAUSEA/VOMITING; Start 02/14/18 at 13:45; Stop 02/14/18 at 16:46; Status DC Magnesium Hydroxide (Milk Of Magnesia) 2,400 mg 1X PRN PRN PO CONSTIPATION; Start 02/15/18 at 06:00; Stop 02/16/18 at 05:59; Status DC Dextrose (Dextrose 50%-Water Syringe) 12.5 gm PRN Q15MIN PRN IV SEE COMMENTS; Start 02/14/18 at 13:45 Hydromorphone HCl (Dilaudid) 1.5 mg 1X ONCE IV Last administered on 02/14/18at 15:03; Start 02/14/18 at 15:03; Stop 02/14/18 at 15:07; Status DC Propofol 20 ml @ As Directed STK-MED ONCE IV ; Start 02/14/18 at 13:23; Stop at 18:56; Status DC Ondansetron HCl (Zofran) 4 mg STK-MED ONCE .ROUTE ; Start 02/14/18 at 13:23; Stop 02/14/18 at 18:56; Status DC Dexamethasone Sodium Phosphate (Decadron) 20 mg STK-MED ONCE .ROUTE ; Start at 13:23; Stop 02/14/18 at 18:56; Status DC Sevoflurane (Ultane) 30 ml STK-MED ONCE IH ; Start 02/14/18 at 13:26; Stop 02/14 at 18:56; Status DC Fentanyl Citrate (Fentanyl 2ml Vial) 100 mcg STK-MED ONCE .ROUTE ; Start at 13:52; Stop 02/14/18 at 18:56; Status DC Active Scripts Active Percocet 5-325 Mg Tablet (Oxycodone/Acetaminophen) 1 Each Tablet 1-2 Each PO PRN TID PRN pain Cyclobenzaprine Hcl 10 Mg Tablet 1 Tab PO TID [place] 5-325 Tablet (Acetaminophen/Hydrocodone Bitart) 1 Each Tablet 1 Tab PO Q6HRS Zofran Odt (Ondansetron) 4 Mg Tab.rapdis 1 Tab SL Q8HRS Cipro (Ciprofloxacin Hcl) 500 Mg Tablet 1 Tab PO BID Flomax (Tamsulosin Hcl) 0.4 Mg Cap.er.24h 1 Cap PO DAILY Albuterol Sulfate Neb Soln (Albuterol Sulfate) 2.5 Mg/3 Ml Vial.neb 1 Vial NEB PRN Q4HRS Guaifenesin Ac Cough Syrup (Guaifenesin/Codeine Phosphate) 473 Ml Liquid 10 Ml PO Q4-6HRS PRN Prednisone 20 Mg Tablet 2 Tab PO DAILY Start on Saturday12/24/17 Proair Hfa Inhaler (Albuterol Sulfate) 8.5 Gm Hfa.aer.ad 1 Puff INH PRN Q6HRS PRN Doxycycline Hyclate 100 Mg Tablet 1 Tab PO BID Bactroban Cream (Mupirocin) 15 Gm Cream..g. 1 [place] TP TID Vitals/I & O Vital Sign - Last 24 Hours 02/16/18 02/16/18 02/16/18 02/16/18 10:45 11:00 11:45 12:50 Temp 97.9 97.9 Pulse 107 Resp 18 B/P (MAP) 112/70 (84) Pulse Ox 100 96 100 100 O2 Delivery Room Air Room Air Room Air Room Air O2 Flow Rate 96.0 96.0 96.0 02/16/18 02/16/18 02/16/18 02/16/18 13:21 14:42 15:45 15:57 Temp 97.9 97.9 Pulse 79 Resp 18 B/P (MAP) 110/66 (81) Pulse Ox 100 96 O2 Delivery Room Air Room Air O2 Flow Rate 96.0 96.0 96.0 02/16/18 02/16/18 02/16/18 02/16/18 16:54 17:30 18:39 19:00 Temp 97.9 97.9 Pulse 87 Resp 18 B/P (MAP) 113/73 (86) Pulse Ox 96 96 95 O2 Delivery Room Air Room Air Room Air O2 Flow Rate 96.0 96.0 96.0 02/16/18 02/16/18 02/16/18 02/16/18 20:00 20:05 20:57 23:01 Pulse Ox 96 96 96 O2 Delivery Room Air Room Air Room Air Room Air 02/17/18 02/17/18 02/17/18 02/17/18 00:01 01:23 03:00 04:07 Temp 98.2 98.2 Pulse 77 Resp 18 B/P (MAP) 114/62 (79) Pulse Ox 96 96 97 96 O2 Delivery Room Air Room Air Room Air Room Air 02/17/18 02/17/18 02/17/18 10/1/18 05:07 05:25 06:00 07:00 Temp 97.7 97.7 Pulse 104 Resp 14 B/P (MAP) 111/72 (85) Pulse Ox 96 96 96 99 O2 Delivery Room Air Room Air Room Air Room Air 02/17/18 02/17/18 08:23 08:25 Resp 18 18 O2 Delivery Room Air Room Air Intake and Output 02/16/18 02/16/18 02/17/18 15:00 23:00 07:00 Intake Total 360 ml 240 ml Balance 360 ml 240 ml CIRILO MEIER MD Feb 17, 2018 10:04
[2018-02-17 11:00] VITALS: BP 115/75
--- NOTE | 2018-02-17 11:05 | PDOC ---
PROGRESS NOTES Chief Complaint Chief Complaint traumatic right forearm compartment syndrome from fall off a trampoline History of Present Illness History of Present Illness s/p 4 surgeries on the right forearm this admission, still on IV abx, will ask ID to taper, start DC planning pain ok with current, will DC the IV option s/p splint placement surgery 02/14/18 right forearm in splint wrapped with dressing Patient state pain control is better but still has pain WBC down , responding to treatment Vitals Vitals continue Abx per ID, given tetanus shot and IGg pain control He is on Ativan 0.5 by mouth WBC down today 02/16/18 Vital Signs Date Time Temp Pulse Resp B/P (MAP) Pulse Ox O2 Delivery O2 Flow Rate FiO2 02/17/18 10:04 18 Room Air 02/17/18 07:00 97.7 104 111/72 (85) 99 97.7 02/16/18 18:39 96.0 Physical Exam Physical Exam GENERAL: Propped un ip bed, watching sports, NAD HEENT: Oral cavity, pharynx is clear. LUNGS: Clear to auscultation bilaterally. HEART: S1, S2 ABDOMEN: Soft, nontender and nondistended, with positive bowel sounds. EXTREMITIES: No gross edema. Right forearm/hand post-op splint in place. Fingers warm, brisk cap refill. No discoloration SKIN: Otherwise without signs of rash. NEUROLOGIC: ALert and oriented General: Alert, Oriented X3, Cooperative, No acute distress Heart: Regular rate, Normal S1, Normal S2 Lungs: Clear Abdomen: Normal bowel sounds, Soft, No tenderness Extremities: No clubbing, No cyanosis, Other Skin: Other (DRESSING DRY) Labs LABS Laboratory Tests Test 02/17/18 03:40 White Blood Count 9.0 x10^3/uL (4.0-11.0) Red Blood Count 4.56 x10^6/uL (4.30-5.70) Hemoglobin 13.8 g/dL (13.0-17.5) Hematocrit 40.6 % (39.0-53.0) Mean Corpuscular Volume 89 fL (79-100) Mean Corpuscular Hemoglobin 30 pg (25-35) Mean Corpuscular Hemoglobin Concent 34 g/dL (31-37) Red Cell Distribution Width 14.2 % (11.5-14.5) Platelet Count 273 x10^3/uL (140-400) Sodium Level 136 mmol/L (136-145) Potassium Level 4.3 mmol/L (3.5-5.1) Chloride Level 101 mmol/L (98-107) Carbon Dioxide Level 24 mmol/L (21-32) Anion Gap 11 (6-14) Blood Urea Nitrogen 11 mg/dL (8-26) Creatinine 0.9 mg/dL (0.7-1.3) Estimated GFR (Cockcroft-Gault) 96.6 BUN/Creatinine Ratio 12 (6-20) Glucose Level 119 mg/dL (70-99) Calcium Level 9.1 mg/dL (8.5-10.1) Total Bilirubin 0.5 mg/dL (0.2-1.0) Aspartate Amino Transf (AST/SGOT) 11 U/L (15-37) Alanine Aminotransferase (ALT/SGPT) 21 U/L (16-63) Alkaline Phosphatase 59 U/L (46-116) Total Protein 7.0 g/dL (6.4-8.2) Albumin 3.4 g/dL (3.4-5.0) Albumin/Globulin Ratio 0.9 (1.0-1.7) Review of Systems Review of Systems pain, sleeping OK, normal stools Assessment and Plan Assessmemt and Plan Problems Medical Problems: (1) Arm pain Status: Acute (2) Wrist spasm Status: Acute Comment Review of Relevant I have reviewed the following items le (where applicable) has been applied. Labs Laboratory Tests Test 02/16/18 05:10 02/17/18 03:40 White Blood Count 8.8 x10^3/uL (4.0-11.0) 9.0 x10^3/uL (4.0-11.0) Red Blood Count 4.23 x10^6/uL (4.30-5.70) 4.56 x10^6/uL (4.30-5.70) Hemoglobin 13.1 g/dL (13.0-17.5) 13.8 g/dL (13.0-17.5) Hematocrit 37.5 % (39.0-53.0) 40.6 % (39.0-53.0) Mean Corpuscular Volume 89 fL (79-100) 89 fL (79-100) Mean Corpuscular Hemoglobin 31 pg (25-35) 30 pg (25-35) Mean Corpuscular Hemoglobin Concent 35 g/dL (31-37) 34 g/dL (31-37) Red Cell Distribution Width 13.8 % (11.5-14.5) 14.2 % (11.5-14.5) Platelet Count 257 x10^3/uL (140-400) 273 x10^3/uL (140-400) Neutrophils (%) (Auto) 81 % (31-73) Lymphocytes (%) (Auto) 12 % (24-48) Monocytes (%) (Auto) 7 % (0-9) Eosinophils (%) (Auto) 0 % (0-3) Basophils (%) (Auto) 0 % (0-3) Neutrophils # (Auto) 7.1 x10^3uL (1.8-7.7) Lymphocytes # (Auto) 1.0 x10^3/uL (1.0-4.8) Monocytes # (Auto) 0.6 x10^3/uL (0.0-1.1) Eosinophils # (Auto) 0.0 x10^3/uL (0.0-0.7) Basophils # (Auto) 0.0 x10^3/uL (0.0-0.2) Sodium Level 139 mmol/L (136-145) 136 mmol/L (136-145) Potassium Level 4.1 mmol/L (3.5-5.1) 4.3 mmol/L (3.5-5.1) Chloride Level 102 mmol/L (98-107) 101 mmol/L (98-107) Carbon Dioxide Level 28 mmol/L (21-32) 24 mmol/L (21-32) Anion Gap 9 (6-14) 11 (6-14) Blood Urea Nitrogen 14 mg/dL (8-26) 11 mg/dL (8-26) Creatinine 0.9 mg/dL (0.7-1.3) 0.9 mg/dL (0.7-1.3) Estimated GFR (Cockcroft-Gault) 96.6 96.6 BUN/Creatinine Ratio 16 (6-20) 12 (6-20) Glucose Level 118 mg/dL (70-99) 119 mg/dL (70-99) Calcium Level 8.6 mg/dL (8.5-10.1) 9.1 mg/dL (8.5-10.1) Total Bilirubin 0.3 mg/dL (0.2-1.0) 0.5 mg/dL (0.2-1.0) Aspartate Amino Transf (AST/SGOT) 10 U/L (15-37) 11 U/L (15-37) Alanine Aminotransferase (ALT/SGPT) 22 U/L (16-63) 21 U/L (16-63) Alkaline Phosphatase 61 U/L (46-116) 59 U/L (46-116) Total Protein 6.7 g/dL (6.4-8.2) 7.0 g/dL (6.4-8.2) Albumin 3.3 g/dL (3.4-5.0) 3.4 g/dL (3.4-5.0) Albumin/Globulin Ratio 1.0 (1.0-1.7) 0.9 (1.0-1.7) Laboratory Tests Test 02/17/18 03:40 White Blood Count 9.0 x10^3/uL (4.0-11.0) Red Blood Count 4.56 x10^6/uL (4.30-5.70) Hemoglobin 13.8 g/dL (13.0-17.5) Hematocrit 40.6 % (39.0-53.0) Mean Corpuscular Volume 89 fL (79-100) Mean Corpuscular Hemoglobin 30 pg (25-35) Mean Corpuscular Hemoglobin Concent 34 g/dL (31-37) Red Cell Distribution Width 14.2 % (11.5-14.5) Platelet Count 273 x10^3/uL (140-400) Sodium Level 136 mmol/L (136-145) Potassium Level 4.3 mmol/L (3.5-5.1) Chloride Level 101 mmol/L (98-107) Carbon Dioxide Level 24 mmol/L (21-32) Anion Gap 11 (6-14) Blood Urea Nitrogen 11 mg/dL (8-26) Creatinine 0.9 mg/dL (0.7-1.3) Estimated GFR (Cockcroft-Gault) 96.6 BUN/Creatinine Ratio 12 (6-20) Glucose Level 119 mg/dL (70-99) Calcium Level 9.1 mg/dL (8.5-10.1) Total Bilirubin 0.5 mg/dL (0.2-1.0) Aspartate Amino Transf (AST/SGOT) 11 U/L (15-37) Alanine Aminotransferase (ALT/SGPT) 21 U/L (16-63) Alkaline Phosphatase 59 U/L (46-116) Total Protein 7.0 g/dL (6.4-8.2) Albumin 3.4 g/dL (3.4-5.0) Albumin/Globulin Ratio 0.9 (1.0-1.7) Medications Current Medications Morphine Sulfate (Morphine Sulfate) 4 mg PRN Q15MIN PRN IV/SQ PAIN GREATER THAN 3/10 Last administered on 02/02/18at 18:48; Start 02/02/18 at 18:00; Stop at 03:55; Status DC Sodium Chloride 1,000 ml @ 1,000 mls/hr Q1H IV Last administered on 02/02/18at 18:50; Start 02/02/18 at 17:57; Stop 02/02/18 at 18:56; Status DC Diazepam (Valium) 5 mg 1X ONCE PO Last administered on 02/02/18at 18:47; Start 02/02/18 at 18:00; Stop 02/02/18 at 18:05; Status DC Morphine Sulfate (Morphine Sulfate) 4 mg PRN Q2HR PRN IV SEVERE PAIN Last administered on 02/03/18at 03:07; Start 02/02/18 at 21:00; Stop 02/03/18 at 03:51 ; Status DC Oxycodone/ Acetaminophen (Percocet 10/325) 1 tab PRN Q4HRS PRN PO SEVERE PAIN Last administered on 02/08/18at 19:16; Start 02/02/18 at 21:00; Stop 02/08/18 at 20:14; Status DC Oxycodone/ Acetaminophen (Percocet 5/325) 1 tab PRN Q4HRS PRN PO MODERATE PAIN ; Start 02/02/18 at 21:00; Stop 02/08/18 at 10:27; Status DC Zolpidem Tartrate (Ambien) 5 mg PRN QHS PRN PO INSOMNIA Last administered on at 20:56; Start 02/02/18 at 21:00 Ondansetron HCl (Zofran) 4 mg PRN Q6HRS PRN IV NAUSEA/VOMITING 1ST CHOICE; Start 02/02/18 at 21:00; Status Cancel Ondansetron HCl (Zofran Odt) 4 mg PRN Q6HRS PRN PO NAUSEA/VOMITING 1ST CHOICE; Start 02/02/18 at 21:00 Acetaminophen (Tylenol) 500 mg PRN Q6HRS PRN PO MILD PAIN / TEMP; Start at 21:00 Calcium Carbonate/ Glycine (Tums) 500 mg PRN AFTMEALHC PRN PO INDIGESTION; Start 02/02/18 at 21:00 Albuterol Sulfate (Ventolin Neb Soln) 2.5 mg PRN Q4HRS PRN NEB soa; Start 02/02 at 21:15 Cyclobenzaprine HCl (Flexeril) 10 mg TID PO Last administered on 02/17/18at 08: 24; Start 02/03/18 at 09:00 Acetaminophen/ Hydrocodone Bitart (Lortab 5/325) 1 tab Q6HRS PO Last administered on 02/04/18at 05:51; Start 02/03/18 at 00:00; Stop 02/04/18 at 10:03 ; Status DC Mupirocin (Bactroban) 1 bienvenido TID TP ; Start 02/03/18 at 09:00 Ondansetron HCl (Zofran Odt) 4 mg PRN Q8HRS PRN PO NAUSEA VOMITING 1ST CHOICE; Start 02/02/18 at 21:15; Stop 02/02/18 at 21:15; Status DC Oxycodone/ Acetaminophen (Percocet 5/325) 1 tab PRN TID PRN PO severe pain; Start 02/02/18 at 21:15; Status Cancel Tamsulosin HCl (Flomax) 0.4 mg DAILY PO Last administered on 02/17/18at 08:24; Start 02/03/18 at 09:00 Non-Formulary Medication (Albuterol Sulfate (Proair Hfa Inhaler)) 1 puff PRN Q6HRS PRN INH SHORTNESS OF BREATH; Start 02/02/18 at 21:15; Status UNV Guaifenesin/ Codeine Phosphate (Robitussin Ac) 10 ml PRN Q6HRS PRN PO COUGH; Start 02/02/18 at 21:15 Fentanyl Citrate (Fentanyl 2ml Vial) 50 mcg PRN Q2HR PRN IV SEVERE PAIN Last administered on 02/04/18at 08:44; Start 02/03/18 at 04:00; Stop 02/04/18 at 21:51 ; Status DC Diazepam (Valium) 10 mg PRN Q8HRS PRN PO ANXIETY Last administered on at 17:50; Start 02/03/18 at 04:00; Stop 02/07/18 at 19:56; Status DC Lidocaine HCl (Lidocaine 1% 20ml Vial) 20 ml 1X ONCE INJ ; Start 02/03/18 at 09 :00; Stop 02/03/18 at 09:01; Status Cancel Lidocaine HCl (Lidocaine 1% 50ml Vial) 20 ml 1X ONCE INJ Last administered on 02/03/18at 09:07; Start 02/03/18 at 09:00; Stop 02/03/18 at 09:01; Status DC Fentanyl Citrate (Fentanyl 2ml Vial) 25 mcg PRN Q5MIN PRN IV MILD PAIN; Start 02/03/18 at 09:30; Stop 02/03/18 at 19:00; Status DC Fentanyl Citrate (Fentanyl 2ml Vial) 50 mcg PRN Q5MIN PRN IV MODERATE TO SEVERE PAIN Last administered on 02/03/18at 12:40; Start 02/03/18 at 09:30; Stop 02/03/18 at 19:00; Status DC Morphine Sulfate (Morphine Sulfate) 1 mg PRN Q10MIN PRN IV SEVERE PAIN; Start 02/03/18 at 09:30; Stop 02/03/18 at 19:00; Status DC Ringer's Solution 1,000 ml @ 30 mls/hr Q24H IV Last administered on 02/03/18at 09:35; Start 02/03/18 at 09:23; Stop 02/03/18 at 21:22; Status DC Lidocaine HCl (Xylocaine-Mpf 1% 2ml Vial) 2 ml 1X PRN PRN ID IV START; Start at 09:30; Stop 02/03/18 at 19:00; Status DC Hydromorphone HCl (Dilaudid) 0.5 mg PRN Q10MIN PRN IV SEV PAIN, Second choice Last administered on 02/03/18at 12:29; Start 02/03/18 at 09:30; Stop 02/03/18 at 19:00; Status DC Prochlorperazine Edisylate (Compazine) 5 mg PACU PRN PRN IV NAUSEA, MRX1; Start 02/03/18 at 09:30; Stop 02/03/18 at 19:00; Status DC Midazolam HCl (Versed) 2 mg STK-MED ONCE .ROUTE ; Start 02/03/18 at 09:33; Stop 02/03/18 at 09:34; Status DC Bupivacaine HCl/ Epinephrine Bitart (Marcaine-Epi 0.5%-1:[id number]) 50 ml STK-MED ONCE .ROUTE ; Start 02/03/18 at 08:34; Stop 02/03/18 at 09:35; Status DC Midazolam HCl (Versed) 2 mg 1X ONCE IV Last administered on 02/03/18at 09:41; Start 02/03/18 at 09:45; Stop 02/03/18 at 09:46; Status DC Dexamethasone Sodium Phosphate (Decadron) 20 mg STK-MED ONCE .ROUTE ; Start at 09:41; Stop 02/03/18 at 09:42; Status DC Ondansetron HCl (Zofran) 4 mg STK-MED ONCE .ROUTE ; Start 02/03/18 at 09:41; Stop 02/03/18 at 09:42; Status DC Fentanyl Citrate (Fentanyl 2ml Vial) 100 mcg STK-MED ONCE .ROUTE ; Start at 09:41; Stop 02/03/18 at 09:42; Status DC Famotidine (Pepcid Vial) 20 mg STK-MED ONCE .ROUTE ; Start 02/03/18 at 09:42; Stop 02/03/18 at 09:43; Status DC Propofol 20 ml @ As Directed STK-MED ONCE IV ; Start 02/03/18 at 09:42; Stop at 09:43; Status DC Succinylcholine Chloride (Anectine) 200 mg STK-MED ONCE .ROUTE ; Start 02/03/18 at 09:42; Stop 02/03/18 at 09:43; Status DC Rocuronium [place] (Zemuron) 50 mg STK-MED ONCE .ROUTE ; Start 02/03/18 at 09:45 ; Stop 02/03/18 at 09:46; Status DC Cefazolin Sodium/ Dextrose 50 ml @ As Directed STK-MED ONCE IV ; Start 02/03/18 at 09:46; Stop 02/03/18 at 09:47; Status DC Cefazolin Sodium/ Dextrose 50 ml @ 100 mls/hr 1X PREOP PRN IV Pre Op dose Last administered on 02/03/18at 10:30; Start 02/03/18 at 10:30; Stop 02/03/18 at 18:00; Status DC Fentanyl Citrate (Fentanyl 2ml Vial) 100 mcg STK-MED ONCE .ROUTE ; Start at 10:43; Stop 02/03/18 at 10:44; Status DC Bupivacaine HCl/ Epinephrine Bitart (Marcaine-Epi 0.5%-1:[id number]) 50 ml STK-MED ONCE INJ Last administered on 02/03/18at 10:36; Start 02/03/18 at 10:36; Stop at 11:17; Status DC Neostigmine Methylsulfate (Neostigmine Methylsulfate) 5 mg STK-MED ONCE .ROUTE ; Start 02/03/18 at 11:04; Stop 02/03/18 at 11:05; Status DC Glycopyrrolate (Robinul) 1 mg STK-MED ONCE .ROUTE ; Start 02/03/18 at 11:05; Stop 02/03/18 at 11:06; Status DC Senna/Docusate Sodium (Senna Plus) 1 tab DAILY PO Last administered on at 08:24; Start 02/04/18 at 09:00 Polyethylene Glycol (miraLAX PACKET) 17 gm PRN DAILY PRN PO CONSTIPATION 1ST CHOICE; Start 02/03/18 at 11:30 Ondansetron HCl (Zofran) 4 mg PRN Q4HRS PRN IV NAUSEA/VOMITING; Start 02/03/18 at 11:30 Magnesium Hydroxide (Milk Of Magnesia) 2,400 mg 1X PRN PRN PO CONSTIPATION; Start 02/04/18 at 06:00; Stop 02/05/18 at 05:59; Status DC Bisacodyl (Dulcolax Supp) 10 mg 1X PRN PRN NC CONSTIPATION; Start 02/04/18 at 16:00; Stop 02/05/18 at 15:59; Status DC Dextrose (Dextrose 50%-Water Syringe) 12.5 gm PRN Q15MIN PRN IV SEE COMMENTS; Start 02/03/18 at 11:30; Stop 02/14/18 at 15:08; Status DC Cefazolin Sodium/ Dextrose 50 ml @ 100 mls/hr Q6H IV ; Start 02/03/18 at 11:30 ; Stop 02/03/18 at 23:59; Status UNV Cefazolin Sodium/ Dextrose 50 ml @ 100 mls/hr Q8HRS IV Last administered on at 05:48; Start 02/03/18 at 14:00; Stop 02/13/18 at 08:24; Status DC Fentanyl Citrate (Fentanyl 2ml Vial) 50 mcg PRN Q5MIN PRN IV MODERATE TO SEVERE PAIN; Start 02/03/18 at 13:30; Stop 02/03/18 at 19:00; Status DC Docusate Sodium (Colace) 100 mg DAILY PO Last administered on 02/17/18at 08:24; Start 02/03/18 at 14:00 Fentanyl Citrate 30 ml @ 0 mls/hr CONT PRN PRN IV PER PROTOCOL Last administered on 02/04/18at 21:05; Start 02/04/18 at 10:00; Stop 02/04/18 at 23:03 ; Status DC Prednisone (Prednisone) 10 mg BID PO Last administered on 02/17/18at 08:31; Start 02/04/18 at 11:00 Ketorolac Tromethamine (Toradol 30mg Vial) 30 mg Q6HRS PRN IV PAIN; Start 02/04 at 10:00; Stop 02/04/18 at 10:24; Status DC Sodium Chloride 1,000 ml @ 75 mls/hr [id number] IV Last administered on at 21:20; Start 02/04/18 at 10:15; Stop 02/08/18 at 17:22; Status DC Ketorolac Tromethamine (Toradol 30mg Vial) 30 mg Q6HRS IV Last administered on 02/09/18at 05:09; Start 02/04/18 at 12:00; Stop 02/09/18 at 11:59; Status DC Ondansetron HCl (Zofran) 4 mg PRN Q6HRS PRN IV NAUSEA/VOMITING; Start 02/05/18 at 07:00; Stop 02/05/18 at 18:00; Status DC Fentanyl Citrate (Fentanyl 2ml Vial) 25 mcg PRN Q5MIN PRN IV MILD PAIN; Start 02/05/18 at 07:00; Stop 02/05/18 at 18:00; Status DC Fentanyl Citrate (Fentanyl 2ml Vial) 50 mcg PRN Q5MIN PRN IV MODERATE TO SEVERE PAIN; Start 02/05/18 at 07:00; Stop 02/05/18 at 18:00; Status DC Morphine Sulfate (Morphine Sulfate) 1 mg PRN Q10MIN PRN IV SEVERE PAIN; Start 02/05/18 at 07:00; Stop 02/05/18 at 18:00; Status DC Ringer's Solution 1,000 ml @ 30 mls/hr Q24H IV ; Start 02/05/18 at 07:00; Stop 02/05/18 at 17:44; Status DC Lidocaine HCl (Xylocaine-Mpf 1% 2ml Vial) 2 ml PRN 1X PRN ID IV START; Start at 07:00; Stop 02/05/18 at 18:00; Status DC Hydromorphone HCl (Dilaudid) 0.5 mg PRN Q10MIN PRN IV SEV PAIN, Second choice; Start 02/05/18 at 07:00; Stop 02/05/18 at 18:00; Status DC Prochlorperazine Edisylate (Compazine) 5 mg PACU PRN PRN IV NAUSEA, MRX1; Start 02/05/18 at 07:00; Stop 02/05/18 at 18:00; Status DC Diphenhydramine HCl (Benadryl) 25 mg PRN Q6HRS PRN PO ITCHING Last administered on 02/15/18at 22:05; Start 02/04/18 at 11:45 Diphenhydramine HCl (Benadryl) 25 mg 1X ONCE IVP Last administered on at 11:52; Start 02/04/18 at 12:00; Stop 02/04/18 at 12:01; Status DC Lactobacillus Rhamnosus (Culturelle) 1 cap BID PO Last administered on at 08:24; Start 02/04/18 at 21:00 Al Hydroxide/Mg Hydroxide (Mylanta Plus Xs) 30 ml PRN Q2HR PRN PO HEARTBURN / GAS Last administered on 02/16/18at 16:54; Start 02/04/18 at 18:45 Morphine Sulfate 30 ml @ 0 mls/hr CONT PRN PRN IV PER PROTOCOL Last administered on 02/08/18at 09:27; Start 02/04/18 at 23:00; Stop 02/08/18 at 10:28 ; Status DC Diphenhydramine HCl (Benadryl) 25 mg PRN Q6HRS PRN IVP ITCHING Last administered on 02/10/18at 05:58; Start 02/05/18 at 03:15; Stop 02/10/18 at 15:28 ; Status DC Bupivacaine HCl/ Epinephrine Bitart (Marcaine-Epi 0.5%-1:[id number]) 50 ml 1X ONCE IJ ; Start 02/05/18 at 10:30; Stop 02/05/18 at 10:31; Status Cancel Bupivacaine HCl (Marcaine 0.25%) 50 ml STK-MED ONCE .ROUTE Last administered on 02/05/18at 13:56; Start 02/05/18 at 11:33; Stop 02/05/18 at 12:34; Status DC Propofol 20 ml @ As Directed STK-MED ONCE IV ; Start 02/05/18 at 12:44; Stop at 12:45; Status DC Midazolam HCl (Versed) 2 mg STK-MED ONCE .ROUTE ; Start 02/05/18 at 12:44; Stop 02/05/18 at 12:45; Status DC Fentanyl Citrate (Fentanyl 2ml Vial) 100 mcg STK-MED ONCE .ROUTE ; Start at 12:44; Stop 02/05/18 at 12:45; Status DC Midazolam HCl (Versed) 2 mg STK-MED ONCE .ROUTE ; Start 02/05/18 at 12:52; Stop 02/05/18 at 12:53; Status DC Succinylcholine Chloride (Anectine) 200 mg STK-MED ONCE .ROUTE ; Start 02/05/18 at 13:03; Stop 02/05/18 at 13:04; Status DC Midazolam HCl (Versed) 2 mg 1X ONCE IV Last administered on 02/05/18at 13:09; Start 02/05/18 at 13:00; Stop 02/05/18 at 13:08; Status DC Ondansetron HCl (Zofran) 4 mg STK-MED ONCE .ROUTE ; Start 02/05/18 at 13:19; Stop 02/05/18 at 13:20; Status DC Dexamethasone Sodium Phosphate (Decadron) 20 mg STK-MED ONCE .ROUTE ; Start at 13:19; Stop 02/05/18 at 13:20; Status DC Ketorolac Tromethamine (Toradol For Or Only) 30 mg STK-MED ONCE INJ ; Start at 13:19; Stop 02/05/18 at 13:20; Status DC Potassium Chloride/Sodium Chloride 1,000 ml @ 125 mls/hr Q8H IV ; Start at 09:00; Stop 02/06/18 at 14:20; Status DC Lorazepam (Ativan) 0.5 mg PRN Q8HRS PRN PO ANXIETY Last administered on at 06:15; Start 02/06/18 at 13:15 Lorazepam (Ativan) 0.5 mg 1X ONCE IV Last administered on 02/07/18at 11:19; Start 02/07/18 at 08:45; Stop 02/07/18 at 08:46; Status DC Fentanyl Citrate (Fentanyl 2ml Vial) 100 mcg STK-MED ONCE .ROUTE ; Start at 12:00; Stop 02/07/18 at 12:01; Status DC Midazolam HCl (Versed) 2 mg STK-MED ONCE .ROUTE ; Start 02/07/18 at 12:00; Stop 02/07/18 at 12:01; Status DC Succinylcholine Chloride (Anectine) 200 mg STK-MED ONCE .ROUTE ; Start 02/07/18 at 12:00; Stop 02/07/18 at 12:01; Status DC Dexamethasone Sodium Phosphate (Decadron) 20 mg STK-MED ONCE .ROUTE ; Start at 12:01; Stop 02/07/18 at 12:02; Status DC Famotidine (Pepcid Vial) 20 mg STK-MED ONCE .ROUTE ; Start 02/07/18 at 12:01; Stop 02/07/18 at 12:02; Status DC Propofol 20 ml @ As Directed STK-MED ONCE IV ; Start 02/07/18 at 12:01; Stop at 12:02; Status DC Ondansetron HCl (Zofran) 4 mg STK-MED ONCE .ROUTE ; Start 02/07/18 at 12:01; Stop 02/07/18 at 12:02; Status DC Bupivacaine HCl/ Epinephrine Bitart (Sensorcain-Mpf Epi 0.5%-1:[id number]) 30 ml STK -MED ONCE .ROUTE Last administered on 02/07/18at 13:29; Start 02/07/18 at 11:29 ; Stop 02/07/18 at 12:30; Status DC Desflurane (Suprane) 30 ml STK-MED ONCE IH ; Start 02/07/18 at 13:34; Stop 02/07 at 13:35; Status DC Senna/Docusate Sodium (Senna Plus) 1 tab DAILY PO ; Start 02/08/18 at 09:00; Status UNV Polyethylene Glycol (miraLAX PACKET) 17 gm PRN DAILY PRN PO CONSTIPATION; Start 02/07/18 at 14:00; Status UNV Ondansetron HCl (Zofran) 4 mg PRN Q4HRS PRN IV NAUSEA/VOMITING; Start 02/07/18 at 14:00; Status UNV Magnesium Hydroxide (Milk Of Magnesia) 2,400 mg 1X PRN PRN PO CONSTIPATION; Start 02/08/18 at 06:00; Stop 02/09/18 at 05:59; Status DC Bisacodyl (Dulcolax Supp) 10 mg 1X PRN PRN NC CONSTIPATION; Start 02/08/18 at 16:00; Stop 02/09/18 at 15:59; Status DC Dextrose (Dextrose 50%-Water Syringe) 12.5 gm PRN Q15MIN PRN IV SEE COMMENTS; Start 02/07/18 at 14:00; Status UNV Cefazolin Sodium/ Dextrose 50 ml @ 100 mls/hr Q6H IV ; Start 02/07/18 at 14:00 ; Stop 02/08/18 at 02:29; Status UNV Desflurane (Suprane) 30 ml STK-MED ONCE IH ; Start 02/07/18 at 14:00; Stop 02/07 at 14:01; Status DC Morphine Sulfate (Ms Contin) 15 mg BID PO Last administered on 02/17/18at 08:25 ; Start 02/08/18 at 10:30 Morphine Sulfate (Morphine Sulfate) 4 mg PRN Q2HR PRN IV PAIN Last administered on 02/08/18at 19:17; Start 02/08/18 at 10:30; Stop 02/08/18 at 20:14 ; Status DC Naloxone HCl (Narcan) 0.4 mg PRN Q2MIN PRN IV SEE INSTRUCTIONS; Start 02/08/18 at 20:15 Sodium Chloride 1,000 ml @ 25 mls/hr Q24H IV Last administered on 02/09/18at 20 :25; Start 02/08/18 at 20:10; Stop 02/10/18 at 19:44; Status DC Morphine Sulfate 30 ml @ 0 mls/hr CONT PRN PRN IV PER PROTOCOL Last administered on 02/10/18at 07:41; Start 02/08/18 at 20:15; Stop 02/10/18 at 08:52 ; Status DC Diphenhydramine HCl (Benadryl) 25 mg PRN Q6HRS PRN IVP ITCHING Last administered on 02/17/18at 10:00; Start 02/09/18 at 11:00 Oxycodone/ Acetaminophen (Percocet 10/325) 1 tab PRN Q4HRS PRN PO MODERATE PAIN Last administered on 02/16/18at 10:45; Start 02/10/18 at 10:00 Morphine Sulfate (Morphine Sulfate) 4 mg 1X ONCE IV Last administered on at 11:15; Start 02/11/18 at 11:15; Stop 02/11/18 at 11:16; Status DC Morphine Sulfate (Morphine Sulfate) 4 mg 1X ONCE IV Last administered on at 14:28; Start 02/11/18 at 11:30; Stop 02/11/18 at 11:31; Status DC Morphine Sulfate (Morphine Sulfate) 4 mg PRN Q4HRS PRN IV PAIN Last administered on 02/17/18at 09:57; Start 02/11/18 at 16:15 Vancomycin HCl 1.5 gm/Sodium Chloride 500 ml @ 250 mls/hr 1X ONCE IV ; Start 02/12/18 at 12:00; Stop 02/12/18 at 13:59; Status UNV Vancomycin HCl 2 gm/Sodium Chloride 500 ml @ 250 mls/hr ONCE ONCE IV Last administered on 02/12/18at 12:48; Start 02/12/18 at 12:15; Stop 02/12/18 at 14:14 ; Status DC Metronidazole 100 ml @ 100 mls/hr Q6HRS IV Last administered on 02/17/18at 06: 13; Start 02/13/18 at 08:00 Tetanus/ Diphtheria Toxoids (Tenivac Syringe) 0.5 ml ONCE ONCE VAX IM Last administered on 02/13/18at 09:45; Start 02/13/18 at 08:00; Stop 02/13/18 at 08:30 ; Status DC Tetanus Immune Globulin (Hypertet) 2 ml ONCE ONCE VAX IM Last administered on at 09:39; Start 02/13/18 at 08:00; Stop 02/13/18 at 08:28; Status DC Piperacillin Sod/ Tazobactam Sod 4.5 gm/Sodium Chloride 100 ml @ 200 mls/hr Q6HRS IV Last administered on 02/17/18at 05:25; Start 02/13/18 at 08:30 Linezolid (Zyvox) 600 mg BID PO Last administered on 02/17/18at 08:24; Start at 09:00 Oxycodone/ Acetaminophen (Percocet 10/325) 2 tab PRN Q4HRS PRN PO SEVERE PAIN Last administered on 02/17/18at 08:23; Start 02/13/18 at 17:00 Ondansetron HCl (Zofran) 4 mg PRN Q6HRS PRN IV NAUSEA/VOMITING; Start 02/14/18 at 07:30; Stop 02/14/18 at 18:00; Status DC Fentanyl Citrate (Fentanyl 2ml Vial) 25 mcg PRN Q5MIN PRN IV MILD PAIN Last administered on 02/14/18at 14:35; Start 02/14/18 at 07:30; Stop 02/14/18 at 18:00 ; Status DC Fentanyl Citrate (Fentanyl 2ml Vial) 50 mcg PRN Q5MIN PRN IV MODERATE TO SEVERE PAIN Last administered on 02/14/18at 13:56; Start 02/14/18 at 07:30; Stop 02/14/18 at 18:00; Status DC Morphine Sulfate (Morphine Sulfate) 1 mg PRN Q10MIN PRN IV SEVERE PAIN; Start 02/14/18 at 07:30; Stop 02/14/18 at 18:00; Status DC Ringer's Solution 1,000 ml @ 30 mls/hr Q24H IV Last administered on 02/14/18at 14:13; Start 02/14/18 at 07:26; Stop 02/14/18 at 19:25; Status DC Lidocaine HCl (Xylocaine-Mpf 1% 2ml Vial) 2 ml 1X PRN PRN ID IV START; Start at 07:30; Stop 02/14/18 at 18:00; Status DC Hydromorphone HCl (Dilaudid) 0.5 mg PRN Q10MIN PRN IV SEV PAIN, Second choice Last administered on 02/14/18at 14:52; Start 02/14/18 at 07:30; Stop 02/14/18 at 18:00; Status DC Prochlorperazine Edisylate (Compazine) 5 mg PACU PRN PRN IV NAUSEA, MRX1; Start 02/14/18 at 07:30; Stop 02/14/18 at 18:00; Status DC Bupivacaine HCl/ Epinephrine Bitart (Marcaine-Epi 0.5%-1:[id number]) 50 ml STK-MED ONCE .ROUTE ; Start 02/14/18 at 10:43; Stop 02/14/18 at 11:44; Status DC Lorazepam (Ativan) 4 mg 1X ONCE IV Last administered on 02/14/18at 13:57; Start 02/14/18 at 13:45; Stop 02/14/18 at 13:46; Status DC Senna/Docusate Sodium (Senna Plus) 1 tab DAILY PO ; Start 02/15/18 at 09:00; Stop 02/15/18 at 09:00; Status DC Polyethylene Glycol (miraLAX PACKET) 17 gm PRN DAILY PRN PO CONSTIPATION; Start 02/14/18 at 13:45; Stop 02/15/18 at 08:08; Status DC Ondansetron HCl (Zofran) 4 mg PRN Q4HRS PRN IV NAUSEA/VOMITING; Start 02/14/18 at 13:45; Stop 02/14/18 at 16:46; Status DC Magnesium Hydroxide (Milk Of Magnesia) 2,400 mg 1X PRN PRN PO CONSTIPATION; Start 02/15/18 at 06:00; Stop 02/16/18 at 05:59; Status DC Dextrose (Dextrose 50%-Water Syringe) 12.5 gm PRN Q15MIN PRN IV SEE COMMENTS; Start 02/14/18 at 13:45 Hydromorphone HCl (Dilaudid) 1.5 mg 1X ONCE IV Last administered on 02/14/18at 15:03; Start 02/14/18 at 15:03; Stop 02/14/18 at 15:07; Status DC Propofol 20 ml @ As Directed STK-MED ONCE IV ; Start 02/14/18 at 13:23; Stop at 18:56; Status DC Ondansetron HCl (Zofran) 4 mg STK-MED ONCE .ROUTE ; Start 02/14/18 at 13:23; Stop 02/14/18 at 18:56; Status DC Dexamethasone Sodium Phosphate (Decadron) 20 mg STK-MED ONCE .ROUTE ; Start at 13:23; Stop 02/14/18 at 18:56; Status DC Sevoflurane (Ultane) 30 ml STK-MED ONCE IH ; Start 02/14/18 at 13:26; Stop 02/14 at 18:56; Status DC Fentanyl Citrate (Fentanyl 2ml Vial) 100 mcg STK-MED ONCE .ROUTE ; Start at 13:52; Stop 02/14/18 at 18:56; Status DC Active Scripts Active Percocet 5-325 Mg Tablet (Oxycodone/Acetaminophen) 1 Each Tablet 1-2 Each PO PRN TID PRN pain Cyclobenzaprine Hcl 10 Mg Tablet 1 Tab PO TID Beatrice 5-325 Tablet (Acetaminophen/Hydrocodone Bitart) 1 Each Tablet 1 Tab PO Q6HRS Zofran Odt (Ondansetron) 4 Mg Tab.rapdis 1 Tab SL Q8HRS Cipro (Ciprofloxacin Hcl) 500 Mg Tablet 1 Tab PO BID Flomax (Tamsulosin Hcl) 0.4 Mg Cap.er.24h 1 Cap PO DAILY Albuterol Sulfate Neb Soln (Albuterol Sulfate) 2.5 Mg/3 Ml Vial.neb 1 Vial NEB PRN Q4HRS Guaifenesin Ac Cough Syrup (Guaifenesin/Codeine Phosphate) 473 Ml Liquid 10 Ml PO Q4-6HRS PRN Prednisone 20 Mg Tablet 2 Tab PO DAILY Start on Saturday12/24/17 Proair Hfa Inhaler (Albuterol Sulfate) 8.5 Gm Hfa.aer.ad 1 Puff INH PRN Q6HRS PRN Doxycycline Hyclate 100 Mg Tablet 1 Tab PO BID Bactroban Cream (Mupirocin) 15 Gm Cream..g. 1 Bienvenido TP TID Vitals/I & O Vital Sign - Last 24 Hours 02/16/18 02/16/18 02/16/18 02/16/18 11:45 12:50 13:21 14:42 Pulse Ox 100 100 100 O2 Delivery Room Air Room Air Room Air O2 Flow Rate 96.0 96.0 96.0 96.0 02/16/18 02/16/18 02/16/18 02/16/18 15:45 15:57 16:54 17:30 Temp 97.9 97.9 Pulse 79 Resp 18 B/P (MAP) 110/66 (81) Pulse Ox 96 96 O2 Delivery Room Air Room Air O2 Flow Rate 96.0 96.0 96.0 02/16/18 02/16/18 02/16/18 02/16/18 18:39 19:00 20:00 20:05 Temp 97.9 97.9 Pulse 87 Resp 18 B/P (MAP) 113/73 (86) Pulse Ox 96 95 96 O2 Delivery Room Air Room Air Room Air Room Air O2 Flow Rate 96.0 02/16/18 02/16/18 02/17/18 02/17/18 20:57 23:01 00:01 01:23 Pulse Ox 96 96 96 96 O2 Delivery Room Air Room Air Room Air Room Air 02/17/18 02/17/18 02/17/18 02/17/18 03:00 04:07 05:07 05:25 Temp 98.2 98.2 Pulse 77 Resp 18 B/P (MAP) 114/62 (79) Pulse Ox 97 96 96 96 O2 Delivery Room Air Room Air Room Air 02/17/18 02/17/18 02/17/18 02/17/18 06:00 07:00 08:23 08:25 Temp 97.7 97.7 Pulse 104 Resp 14 18 18 B/P (MAP) 111/72 (85) Pulse Ox 96 99 O2 Delivery Room Air Room Air Room Air Room Air 02/17/18 02/17/18 09:57 10:04 Resp 18 18 O2 Delivery Room Air Room Air Intake and Output 02/16/18 02/16/18 02/17/18 15:00 23:00 07:00 Intake Total 360 ml 240 ml Balance 360 ml 240 ml AG FERRELL MD Feb 17, 2018 11:05
--- NOTE | 2018-02-17 11:57 | PDOC ---
Infectious Disease Note Subjective Subjective Mild right arm pain and ongoing pulling sensation Denies numbness/tingling No F/C/S/N/V/D Vital Sign Vital Signs Vital Signs Date Time Temp Pulse Resp B/P (MAP) Pulse Ox O2 Delivery O2 Flow Rate FiO2 02/17/18 11:00 97.9 102 16 115/75 (88) 97 Room Air 97.9 02/16/18 18:39 96.0 Physical Exam PHYSICAL EXAM GENERAL: Propped un ip bed, watching sports, NAD HEENT: Oral cavity, pharynx is clear. LUNGS: Clear to auscultation bilaterally. HEART: S1, S2 ABDOMEN: Soft, nontender and nondistended, with positive bowel sounds. EXTREMITIES: No gross edema. Right forearm/hand post-op splint in place. Fingers warm, brisk cap refill. No discoloration SKIN: Otherwise without signs of rash. NEUROLOGIC: ALert and oriented Labs Lab Laboratory Tests Test 02/17/18 03:40 White Blood Count 9.0 x10^3/uL (4.0-11.0) Red Blood Count 4.56 x10^6/uL (4.30-5.70) Hemoglobin 13.8 g/dL (13.0-17.5) Hematocrit 40.6 % (39.0-53.0) Mean Corpuscular Volume 89 fL (79-100) Mean Corpuscular Hemoglobin 30 pg (25-35) Mean Corpuscular Hemoglobin Concent 34 g/dL (31-37) Red Cell Distribution Width 14.2 % (11.5-14.5) Platelet Count 273 x10^3/uL (140-400) Sodium Level 136 mmol/L (136-145) Potassium Level 4.3 mmol/L (3.5-5.1) Chloride Level 101 mmol/L (98-107) Carbon Dioxide Level 24 mmol/L (21-32) Anion Gap 11 (6-14) Blood Urea Nitrogen 11 mg/dL (8-26) Creatinine 0.9 mg/dL (0.7-1.3) Estimated GFR (Cockcroft-Gault) 96.6 BUN/Creatinine Ratio 12 (6-20) Glucose Level 119 mg/dL (70-99) Calcium Level 9.1 mg/dL (8.5-10.1) Total Bilirubin 0.5 mg/dL (0.2-1.0) Aspartate Amino Transf (AST/SGOT) 11 U/L (15-37) Alanine Aminotransferase (ALT/SGPT) 21 U/L (16-63) Alkaline Phosphatase 59 U/L (46-116) Total Protein 7.0 g/dL (6.4-8.2) Albumin 3.4 g/dL (3.4-5.0) Albumin/Globulin Ratio 0.9 (1.0-1.7) Objective Assessment Right forearm compartment syndrome s/p Decompression fasciotomy, forearm and wrist, flexor and extensor compartments, without debridement of nonviable muscle Decompression fasciotomy, hand, right 02/03 back to OR 02/05 & 02/07. 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 improved H/o Asthma Plan Plan of Care change antibiotics to po zyvox and cipro supportive care d/w dr Jeferson BARCLAY,CONRADO David MD Feb 17, 2018 11:57
[2018-02-17 15:00] VITALS: BP 116/71
[2018-02-17 19:00] VITALS: BP 118/76
[2018-02-17] MEDS: CIPROFLOXACIN HCL 250 MG TABLET. PO SCH (20:31)
[2018-02-17] MEDS: ZOLPIDEM 5 MG TABLET. PO PRN (20:32)
[2018-02-17 23:00] VITALS: BP 102/69
[2018-02-18] MEDS: oxyCODONE/APAP 10/325 1 TAB TABLET PO PRN ×3 (00:58→08:49)
[2018-02-18] MEDS: diphenhydrAMINE 50 MG/ML VIAL IVP PRN ×2 (00:58→08:44)
[2018-02-18] MEDS: MORPHINE SULFATE 4 MG/ML VIAL. IV PRN ×2 (02:02→06:01)
[2018-02-18 03:00] VITALS: BP 104/69
[2018-02-18 07:00] VITALS: BP 109/65
[2018-02-18] MEDS: LACTOBACILLUS RHAMNOSUS GG 1 CAPSULE. PO SCH (08:40)
[2018-02-18] MEDS: CIPROFLOXACIN HCL 250 MG TABLET. PO SCH (08:41)
[2018-02-18] MEDS: CYCLOBENZAPRINE 10 MG TABLET. PO SCH (08:41)
[2018-02-18] MEDS: TAMSULOSIN 0.4 MG CAP.ER.24H. PO SCH (08:41)
[2018-02-18] MEDS: LINEZOLID 600 MG TABLET PO SCH (08:41)
[2018-02-18] MEDS: SENNOSIDES/DOCUSATE 8.6/50MG TABLET. PO SCH (08:43)
[2018-02-18] MEDS: MORPHINE ER 15 MG TABLET.ER PO SCH (08:43)
[2018-02-18] MEDS: predniSONE 10 MG TABLET PO SCH (08:44)
[2018-02-18] MEDS ORDERED: CIPR500T94 PO (08:47)
[2018-02-18] MEDS ORDERED: DOCU-109 PO ×2 (08:47→09:19)
[2018-02-18] MEDS ORDERED: OXYC-323 PO (08:47)
[2018-02-18] MEDS ORDERED: DOXY100T PO (08:47)
[2018-02-18] MEDS ORDERED: MORP15TA3 PO (08:47)
[2018-02-18] MEDS ORDERED: POLY17PO29 PO (09:19)
[2018-02-18] MEDS ORDERED: OXYC-328 PO (09:19)
--- NOTE | 2018-02-18 12:33 | PDOC ---
Infectious Disease Note Subjective Subjective Comfortable, less pain Getting ready to be discharged. Denies numbness/tingling No F/C/S/N/V/D ROS ROS per HPI otherwise neg Vital Sign Vital Signs Vital Signs Date Time Temp Pulse Resp B/P (MAP) Pulse Ox O2 Delivery O2 Flow Rate FiO2 02/18/18 08:49 16 Room Air 02/18/18 07:00 97.9 81 109/65 (80) 99 97.9 Physical Exam PHYSICAL EXAM GENERAL: Propped up in bed, NAD HEENT: Oral cavity, pharynx is clear. LUNGS: Clear to auscultation bilaterally. HEART: S1, S2 ABDOMEN: Soft, nontender and nondistended, with positive bowel sounds. EXTREMITIES: No gross edema. Right forearm/hand post-op splint in place. Fingers warm, brisk cap refill. No discoloration SKIN: Otherwise without signs of rash. NEUROLOGIC: Alert and oriented Objective Assessment Right forearm compartment syndrome s/p Decompression fasciotomy, forearm and wrist, flexor and extensor compartments, without debridement of nonviable muscle Decompression fasciotomy, hand, right 02/03 back to OR 02/05 & 02/07. 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 improved H/o Asthma Plan Plan of Care No cultures OK to discharge on doxy and cipro f/u ortho outpatient Supportive care Attending Co-Sign The patient was seen and interviewed as well as examined at the bedside. The chart was reviewed. The case was discussed. Agree with the plan of care. MARCELLA CASTILLO APRN Feb 18, 2018 12:33 CONRADO BARCLAY MD Feb 18, 2018 13:08
== END 2018-02-18 12:25 | disposition home or self-care (01) | DRG 903 ==
LOC: ER 17:09 → 5 NORTH 20:50
PROVIDERS: ADMIT Internal Medicine; ATTEND Internal Medicine
PROC: 0KNC0ZZ Release Right Hand Muscle, Open Approach (ICD-10-PCS; 2018-02-03)
PROC: 0KNC0ZZ Release Right Hand Muscle, Open Approach (ICD-10-PCS; 2018-02-03)
PROC: 0KN90ZZ Release Right Lower Arm and Wrist Muscle, Open Approach (ICD-10-PCS; 2018-02-03)
PROC: 0KN90ZZ Release Right Lower Arm and Wrist Muscle, Open Approach (ICD-10-PCS; 2018-02-03)
PROC: 0JBG0ZZ Excision of Right Lower Arm Subcutaneous Tissue and Fascia, Open Approach (ICD-10-PCS; principal; 2018-02-05 13:00)
PROC: 0XQJXZZ Repair Right Hand, External Approach (ICD-10-PCS; 2018-02-07)
PROC: 0XQDXZZ Repair Right Lower Arm, External Approach (ICD-10-PCS; 2018-02-07)
PROC: 2W3AX1Z Immobilization of Right Upper Arm using Splint (ICD-10-PCS; 2018-02-14)
PROC: 2W3EX1Z Immobilization of Right Hand using Splint (ICD-10-PCS; 2018-02-14)
DX: T79.A11A Traumatic compartment syndrome of right upper extremity, initial encounter (principal); J45.20 Mild intermittent asthma, uncomplicated; M24.531 Contracture, right wrist; M24.541 Contracture, right hand; D72.829 Elevated white blood cell count, unspecified; W17.89XA Other fall from one level to another, initial encounter; Z91.041 Radiographic dye allergy status; Z82.49 Family history of ischemic heart disease and other diseases of the circulatory system; Y93.44 Activity, trampolining; Y92.89 Other specified places as the place of occurrence of the external cause; Y99.8 Other external cause status; Z87.891 Personal history of nicotine dependence; Z87.442 Personal history of urinary calculi
CPT/HCPCS: 36415; 73090; 73110; 73221; 80048; 80053; 82550; 82962; 83605; 83735; 84100; 85007; 85014; 85018; 85025; 85027; 85651; 86140; 90714; 94640; A7015; J0330; J0690; J1100; J1170; J1200; J1670; J1885; J2060; J2250; J2270; J2405; J2543; J2704; J2710; J3010; J3370; J3490; J7030; J7040; J7120; J7512; Q0163; S0028; 99285-25; A4461

== ENCOUNTER 2018-02-23 18:47 | Inpatient (IN) | payer SELFPAY ==
[~2018-02-23] VITALS: Ht 180.3 cm; Wt 88.5 kg
[~2018-02-23 18:47] MED LIST changes: +DOCU-109 PO; +MORP15TA3 PO; +OXYC-328 PO; +POLY17PO29 PO
[2018-02-23] MEDS ORDERED: IV NORMAL SALINE 1000ML BAG 1,000 ML IV ONE ×2 (19:15→19:45)
[2018-02-23] MEDS ORDERED: fentaNYL PF VIAL 100 MCG/2 ML VIAL IV ONE (19:15)
[2018-02-23] MEDS ORDERED: ORPHENADRINE CITRATE 60 MG/2 ML VIAL. IV ONE (19:45)
[2018-02-23] MEDS ORDERED: diazePAM 5 MG TABLET PO ONE (19:45)
--- NOTE | 2018-02-23 20:24 | PHYS DOC ---
Past Medical History Past Medical History: Asthma Past Surgical History: Other Additional Past Surgical Histo: Right forearm fasciotomy - COMPARTMENT SYNDROME Alcohol Use: None Drug Use: None Adult General Chief Complaint Chief Complaint: POST-OP PROBLEM HPI HPI 32-year-old male presents with report of right arm swelling and pain with flexion of wrist and fingers which occurred upon waking this morning. Patient with recent history of hospitalization from 02/02/2018 and tell February 18, 2018 for compartment syndrome to the same extremity requiring fasciotomy. Patient reports he was in a splint but due to pain his ended up having to cut it off. Patient also reports that some of his itches have "popped " due to the swelling. He also reports fever Tmax 101. Denies recent trauma. Per [facility] review noted that there was some continued contractures after fasciotomy at which point patient did have monitoring under anesthesia on 02/14/2018 with normal compartment pressures and documentation that symptoms resolved after general anesthesia. Review of Systems Review of Systems Constitutional: Reports fever and chills Eyes: Denies change in visual acuity, redness, or eye pain [] HENT: Denies nasal congestion or sore throat [] Respiratory: Denies cough or shortness of breath [] Cardiovascular: Denies chest pain or pleuritic pain GI: Denies abdominal pain, nausea, vomiting, or diarrhea [] : Denies dysuria or hematuria [] Musculoskeletal: Reports right arm pain and contracture Integument: Reports swelling to right forearm Neurologic: Denies headache, focal weakness or sensory changes []] Complete systems were reviewed and found to be within normal limits, except as documented in this note. Current Medications Current Medications Current Medications Medications (Trade) Dose Ordered Sig/Parish Start Time Stop Time Status Last Admin Dose Admin Diazepam (Valium) 5 mg 1X ONCE 02/23/18 19:45 02/23/18 19:46 DC 02/23/18 20:50 5 MG Fentanyl Citrate (Fentanyl 2ml Vial) 50 mcg 1X ONCE 02/23/18 19:15 02/23/18 19:16 DC 02/23/18 20:51 50 MCG Orphenadrine Citrate (Norflex) 60 mg 1X ONCE 02/23/18 19:45 02/23/18 19:46 DC 02/23/18 20:52 60 MG Sodium Chloride 1,000 ml @ 1,000 mls/hr 1X ONCE 02/23/18 19:45 02/23/18 20:44 DC 02/23/18 20:54 1,000 MLS/HR Allergies Allergies Allergies Coded Allergies Type Severity Reaction Last Updated Verified Iodinated Contrast- Oral and IV Dye Allergy Severe 02/07/18 Yes Physical Exam Physical Exam Constitutional: Well developed, well nourished, appears uncomfortable, nontoxic in appearance HENT: Normocephalic, atraumatic, Eyes: Conjunctiva normal, no discharge. [] Neck: Normal range of motion, no tenderness, supple, no meningeal signs] Cardiovascular: Heart rate regular rhythm, no murmur [] Lungs & Thorax: Bilateral breath sounds clear to auscultation [] Skin: Warm, dry, mild erythema noted to dorsum of right hand, healing laceration clean and dry, no dehiscence appreciated although some sutures have since been removed Extremities: Mild edema and erythema to dorsum of right hand, muscle contracture appreciated to flexor musculature of right forearm, radial pulses +2 , he reports pain with palpation and unable to put into fingers into extension Neurologic: Alert and oriented X 3, speech normal Psychologic: Affect normal, judgement normal, mood- anxious EKG EKG [] Radiology/Procedures Radiology/Procedures [] Course & Med Decision Making Course & Med Decision Making Pertinent Labs and Imaging studies reviewed. (See chart for details) Patient presents with report of contracture of right forearm with some mild swelling and erythema with recent history of hospitalization for compartment syndrome status post fasciotomy. Symptoms confounding as appears to be muscle contracture at this time. Patient had similar experience during hospital stay at which point patient had been taken to the OR under general anesthesia for measurement of compartments and placement of splint. Patient's clinical presentation possibly similar. Discussed case with Dr. Messina (orthopedics) who requests admission for further evaluation and treatment. Dr. Messina requests consultation to Dr. Wood (ortho) for second option. Labs obtained and posted to chart. Pain addressed. IVF hydration given. Patient requiring admission for further evaluation and treatment. Discussed with Dr. Herrera (hospitalist) who is in agreement with admission. Discussed findings and plan with patient, who acknowledges understanding and agreement. Dragon Disclaimer Dragon Disclaimer This electronic medical record was generated, in whole or in part, using a voice recognition dictation system. Departure Departure Impression: Primary Impression: Contracture of muscle of right forearm Additional Impression: History of fasciotomy Disposition: 09 ADMITTED INPATIENT Admitting Physician: Xie. Toney Condition: STABLE Referrals: YOMI BETANCOURT (PCP) Problem Qualifiers SETH [place] DO Feb 23, 2018 20:24
[2018-02-23] MEDS ORDERED: ONDANSETRON PF 4 MG/2 ML VIAL. IV PRN (20:30)
[2018-02-23] MEDS ORDERED: fentaNYL PF VIAL 100 MCG/2 ML VIAL IV PRN (20:30)
[2018-02-23 20:49] LABS: BASO # 0.1 x10^3/uL (0.0-0.2); BASO % 1 % (0-3); EOS # 0.1 x10^3/uL (0.0-0.7); EOS % 1 % (0-3); HEMATOCRIT 43.2 % (39.0-53.0); HEMOGLOBIN 15.3 g/dL (13.0-17.5); LYMPH # 1.8 x10^3/uL (1.0-4.8); LYMPH % 21 % (24-48); MEAN CORPUSCULAR HEMOGLOBIN 31 pg (25-35); MEAN CORPUSCULAR HGB CONC 35 g/dL (31-37); MEAN CORPUSCULAR VOLUME 87 fL (79-100); MONO # 0.5 x10^3/uL (0.0-1.1); MONO % 6 % (0-9); NEUT # 6.2 x10^3uL (1.8-7.7); NEUT % 72 % (31-73); PLATELET COUNT 285 x10^3/uL (140-400); RED BLOOD COUNT 4.96 x10^6/uL (4.30-5.70); RED CELL DISTRIBUTION WIDTH 13.9 % (11.5-14.5); WHITE BLOOD COUNT 8.6 x10^3/uL (4.0-11.0)
[2018-02-23 21:03] LABS: CALCIUM 9.3 mg/dL (8.5-10.1); CREATININE 0.8 mg/dL (0.7-1.3); GFR 110.7; POTASSIUM 3.8 mmol/L (3.5-5.1); PROTHROMBIN TIME PATIENT 12.6 SEC (11.7-14.0)
[2018-02-23 21:21] LABS: ALBUMIN/GLOBULIN RATIO 1.1 (1.0-1.7); MAGNESIUM 2.1 mg/dL (1.8-2.4); TOTAL BILIRUBIN 0.5 mg/dL (0.2-1.0); TOTAL PROTEIN 7.8 g/dL (6.4-8.2)
[2018-02-23 23:16] VITALS: BP 120/80
[2018-02-23] MEDS ORDERED: MORPHINE SULFATE 2 MG/ML VIAL. IV PRN (23:30)
[2018-02-23] MEDS ORDERED: MORPHINE SULFATE 4 MG/ML VIAL. IV PRN (23:30)
[2018-02-24] VITALS (7 sets, daily range): BP systolic 105–135; BP diastolic 64–88
[2018-02-24] MEDS ORDERED: PIP/TAZO PER PHARMACY MC PRN (02:30)
[2018-02-24] MEDS ORDERED: VANCOMYCIN 2 GM in IV NORMAL SALINE 500ML BAG 500 ML IV ONE (03:00)
[2018-02-24] MEDS: IV NORMAL SALINE 1000ML BAG 1,000 ML IV SCH ×3 (03:16→20:28)
[2018-02-24] MEDS: MORPHINE SULFATE/PF 30 ML IV PRN ×4 (03:22→20:35)
[2018-02-24] MEDS: diphenhydrAMINE 50 MG/ML VIAL IVP PRN ×4 (03:25→19:07)
[2018-02-24] MEDS: VANCOMYCIN PER PHARMACY MC PRN (03:46)
[2018-02-24] MEDS: PIPERACILLIN/TAZOBACTAM 3.375 GM in IV NORMAL SALINE 50ML 50 ML IV SCH ×3 (06:00→17:34)
[2018-02-24] MEDS ORDERED: POLYETHYLENE GLYCOL 3350 17 GM PACKET. PO PRN (09:00)
[2018-02-24] MEDS ORDERED: MAGNESIUM HYDROXIDE 2,400 MG/30 ML ORAL.SUSP. PO PRN (09:00)
[2018-02-24] MEDS: DOCUSATE SODIUM 100 MG CAPSULE. PO SCH (09:13)
--- NOTE | 2018-02-24 10:14 | PDOC2 ---
CONSULT Date of Consult Date of Consult DATE: 02/24/18 TIME: 10:07 Reason for Consult Reason for Consult: Right arm contracture Referring Physician Referring Physician: Mayuri Identification/Chief Complaint Chief Complaint Right arm pain Source Source: Chart review, Patient History of Present Illness Reason for Visit: Patient is a very pleasant 32-year-old gentleman who underwent recent fasciotomies and subsequent wound exploration an examination under anesthesia by my colleague recently. I have reviewed the operative notes from the prior admission. The patient tells me that his right arm pain has really not improved. He is unable to bend his elbow wrist or fingers. He thinks his pain has been getting a little bit worse at times. He was prompted to come in after he noted some bloody drainage. He has not noted any other drainage from the incisions. It has not been persistent. He tells me his pain is worse with any attempted movement of his arm or hand. It may be a little bit better at rest. There is no radiation of this pain. He denies any other complaints or concerns. He does feel some numbness circumferentially throughout his arm and hand from his elbow distally Past Medical History Pulmonary: Asthma Musculoskeletal: Other Past Surgical History Past Surgical History: Other (I reviewed his prior operative notes from his recent admission.) Family History Family History: Hypertension Social History ALCOHOL: social Drugs: None Current Problem List Problem List Problems Medical Problems: (1) Contracture of muscle of right forearm Status: Acute Current Medications Current Medications Current Medications Sodium Chloride 1,000 ml @ 1,000 mls/hr 1X ONCE IV ; Start 02/23/18 at 19:15; Stop 02/23/18 at 20:14; Status DC Fentanyl Citrate (Fentanyl 2ml Vial) 50 mcg 1X ONCE IV Last administered on at 20:51; Start 02/23/18 at 19:15; Stop 02/23/18 at 19:16; Status DC Diazepam (Valium) 5 mg 1X ONCE PO Last administered on 02/23/18at 20:50; Start 02/23/18 at 19:45; Stop 02/23/18 at 19:46; Status DC Orphenadrine Citrate (Norflex) 60 mg 1X ONCE IV Last administered on at 20:52; Start 02/23/18 at 19:45; Stop 02/23/18 at 19:46; Status DC Sodium Chloride 1,000 ml @ 1,000 mls/hr 1X ONCE IV Last administered on at 20:54; Start 02/23/18 at 19:45; Stop 02/23/18 at 20:44; Status DC Ondansetron HCl (Zofran) 4 mg PRN Q8HRS PRN IV NAUSEA/VOMITING; Start 02/23/18 at 20:30; Stop 02/24/18 at 20:29 Fentanyl Citrate (Fentanyl 2ml Vial) 50 mcg PRN Q2HR PRN IV PAIN Last administered on 02/23/18at 22:46; Start 02/23/18 at 20:30; Stop 02/24/18 at 20:29 Morphine Sulfate (Morphine Sulfate) 2 mg PRN Q2HR PRN IV PAIN; Start 02/23/18 at 23:30 Morphine Sulfate (Morphine Sulfate) 4 mg PRN Q2HR PRN IV PAIN Last administered on 02/23/18at 23:46; Start 02/23/18 at 23:30 Morphine Sulfate 30 ml @ 0 mls/hr CONT PRN PRN IV PER PROTOCOL Last administered on 02/24/18at 09:05; Start 02/24/18 at 02:30 Diphenhydramine HCl (Benadryl) 25 mg PRN Q6HRS PRN IVP ITCHING Last administered on 02/24/18at 03:26; Start 02/24/18 at 02:30 Vancomycin HCl (Vanco Per Pharmacy) 1 each PRN DAILY PRN MC SEE COMMENTS Last administered on 02/24/18at 03:46; Start 02/24/18 at 02:30 Piperacillin Sod/ Tazobactam Sod (Zosyn Per Pharmacy) 1 each PRN DAILY PRN MC SEE COMMENTS; Start 02/24/18 at 02:30 Sodium Chloride 1,000 ml @ 100 mls/hr Q10H IV Last administered on 02/24/18at 09:13; Start 02/24/18 at 02:30 Vancomycin HCl 2 gm/Sodium Chloride 500 ml @ 250 mls/hr 1X ONCE IV Last administered on 02/24/18at 03:19; Start 02/24/18 at 03:00; Stop 02/24/18 at 04:59 ; Status DC Piperacillin Sod/ Tazobactam Sod 3.375 gm/Sodium Chloride 50 ml @ 100 mls/hr Q6HRS IV Last administered on 02/24/18at 06:00; Start 02/24/18 at 06:00 Vancomycin HCl 1.25 gm/Sodium Chloride 250 ml @ 167 mls/hr Q8H IV ; Start 02/24 at 11:30 Vancomycin HCl (Vancomycin Trough Level) 1 each 1X ONCE MC ; Start 02/25/18 at 03:00; Stop 02/25/18 at 03:01 Docusate Sodium (Colace) 100 mg DAILY PO Last administered on 02/24/18at 09:13; Start 02/24/18 at 09:00 Polyethylene Glycol (miraLAX PACKET) 17 gm PRN DAILY PRN PO CONSTIPATION 1ST CHOICE; Start 02/24/18 at 09:00 Magnesium Hydroxide (Milk Of Magnesia) 2,400 mg PRN DAILY PRN PO CONSTIPATION 2ND CHOICE; Start 02/24/18 at 09:00 Active Scripts Active Percocet 10-325 Mg Tablet (Oxycodone/Acetaminophen) 1 Each Tablet 1 Tab PO QID PRN Miralax (Polyethylene Glycol 3350) 17 Gm Powd.pack 1 Packet PO BID Colace (Docusate Sodium) 100 Mg Capsule 100 Mg PO BID Morphine Sulfate Er (Morphine Sulfate) 15 Mg Tablet.er 15 Mg PO BID Percocet 5-325 Mg Tablet (Oxycodone/Acetaminophen) 1 Each Tablet 1-2 Each PO PRN TID PRN pain Cipro (Ciprofloxacin Hcl) 500 Mg Tablet 1 Tab PO BID Doxycycline Hyclate 100 Mg Tablet 1 Tab PO BID Flomax (Tamsulosin Hcl) 0.4 Mg Cap.er.24h 1 Cap PO DAILY Albuterol Sulfate Neb Soln (Albuterol Sulfate) 2.5 Mg/3 Ml Vial.neb 1 Vial NEB PRN Q4HRS Guaifenesin Ac Cough Syrup (Guaifenesin/Codeine Phosphate) 473 Ml Liquid 10 Ml PO Q4-6HRS PRN Proair Hfa Inhaler (Albuterol Sulfate) 8.5 Gm Hfa.aer.ad 1 Puff INH PRN Q6HRS PRN Bactroban Cream (Mupirocin) 15 Gm Cream..g. 1 Bienvenido TP TID Allergies Allergies: Coded Allergies: Iodinated Contrast- Oral and IV Dye (Verified Allergy, Severe, 02/07/18) ROS General: No: Chills, Night Sweats, Fatigue, Malaise, Appetite, Other PSYCHOLOGICAL ROS: No: Anxiety, Behavioral Disorder, Concentration difficultie , Decreased libido, Depression, Disorientation, Hallucinations, Hostility, Irritablity, Memory difficulties, Mood Swings, Obsessive thoughts, Physical abuse, Sexual abuse, Sleep disturbances, Suicidal ideation, Other Eyes: No Blurry vision, No Decreased vision, No Double vision, No Dry eyes, No Excessive tearing, No Eye Pain, No Itchy Eyes, No Loss of vision, No Photophobia , No Scotomata, No Uses contacts, No Uses glasses, No Other HEENT: No: Heacaches, Visual Changes, Hearing change, Nasal congestion, Nasal discharge, Oral lesions, Sinus pain, Sore Throat, Epistaxis, Sneezing, Snoring, Tinnitus, Vertigo, Vocal changes, Other ALLERGY AND IMMUNOLOGY: No: Hives, Insect Bite Sensitivity, Itchy/Watery Eyes, Nasal Congestion, Post Nasal Drip, Seasonal Allergies, Other Hematological and Lymphatic: No: Bleeding Problems, Blood Clots, Blood Transfusions, Brusing, Night Sweats, Pallor, Swollen Lymph Nodes, Other Respiratory: No: Cough, Hemoptysis, Orthopnea, Pleuritic Pain, Shortness of breath, SOB with excertion, Sputum Changes, Stridor, Tachypnea, Wheezing, Other Cardiovascular: No Chest Pain, No Palpitations, No Orthopnea, No Paroxysmal Noc. Dyspnea, No Edema, No Lt Headedness, No Other Gastrointestinal: No Nausea, No Vomiting, No Abdominal Pain, No Diarrhea, No Constipation, No Melena, No Hematochezia, No Other Genitourinary: No Dysuria, No Frequency, No Incontinence, No Hematuria, No Retention, No Discharge, No Urgency, No Pain, No Flank Pain, No Other, No , No , No , No , No , No , No Musculoskeletal: Yes Joint Pain, Yes Joint Stiffness Neurological: Yes Numbness/Tingling; No Behavorial Changes, No Bowel/Bladder ControlChng, No Confusion, No Dizziness, No Gait Disturbance, No Headaches, No Impaired Coord/balance, No Memory Loss, No Seizures, No Speech Problems, No Tremors, No Visual Changes, No Weakness, No Other Skin: No Dry Skin, No Eczema, No Hair Changes, No Lumps, No Mole Changes, No Mottling, No Nail Changes, No Pruritus, No Rash, No Skin Lesion Changes, No Other, No Acne Physical Exam General: Alert, Oriented X3, No acute distress HEENT: Atraumatic, EOMI Lungs: Other (respirations aren't labored with symmetric chest rise) Heart: Regular rate, Other (radial pulse 2+ and symmetric) Abdomen: Soft, No tenderness Extremities: No edema, Normal pulses Skin: Other (pertinent skin exam findings as per below) Neuro: Normal speech, Other (he reports decreased sensation to light touch circumferentially forearm and hand and fingers. Unable to assess strength in his right upper gently. Normal in his left.) Psych/Mental Status: Mental status NL, Mood NL MUSCULOSKELETAL: Other (right upper extremity shows old healed dorsal and volar skin incisions. He has more recent incisions with sutures in place volarly and dorsally at his forearm and hand. These incisions are healing well, no drainage or fluctuance. Mild edema dorsum of hand and fingers is present. Unable to assess for pain with passive stretch due to clenched position. He maintains his elbow at 90 of flexion, wrist is flexed, fingers are clenched interface. Unable to passively change this. He has visible muscle bellies at her tight. Most notable in the dorsal forearm.) Vitals VITALS Vital Signs Date Time Temp Pulse Resp B/P (MAP) Pulse Ox O2 Delivery O2 Flow Rate FiO2 02/24/18 09:05 100 Room Air 02/24/18 07:00 97.8 90 16 119/70 (86) 97.8 Labs Labs Laboratory Tests Test 02/23/18 20:40 White Blood Count 8.6 x10^3/uL (4.0-11.0) Red Blood Count 4.96 x10^6/uL (4.30-5.70) Hemoglobin 15.3 g/dL (13.0-17.5) Hematocrit 43.2 % (39.0-53.0) Mean Corpuscular Volume 87 fL (79-100) Mean Corpuscular Hemoglobin 31 pg (25-35) Mean Corpuscular Hemoglobin Concent 35 g/dL (31-37) Red Cell Distribution Width 13.9 % (11.5-14.5) Platelet Count 285 x10^3/uL (140-400) Neutrophils (%) (Auto) 72 % (31-73) Lymphocytes (%) (Auto) 21 % (24-48) Monocytes (%) (Auto) 6 % (0-9) Eosinophils (%) (Auto) 1 % (0-3) Basophils (%) (Auto) 1 % (0-3) Neutrophils # (Auto) 6.2 x10^3uL (1.8-7.7) Lymphocytes # (Auto) 1.8 x10^3/uL (1.0-4.8) Monocytes # (Auto) 0.5 x10^3/uL (0.0-1.1) Eosinophils # (Auto) 0.1 x10^3/uL (0.0-0.7) Basophils # (Auto) 0.1 x10^3/uL (0.0-0.2) Prothrombin Time 12.6 SEC (11.7-14.0) Prothromb Time International Ratio 1.0 (0.8-1.1) Activated Partial Thromboplast Time 25 SEC (24-38) Sodium Level 138 mmol/L (136-145) Potassium Level 3.8 mmol/L (3.5-5.1) Chloride Level 101 mmol/L (98-107) Carbon Dioxide Level 24 mmol/L (21-32) Anion Gap 13 (6-14) Blood Urea Nitrogen 8 mg/dL (8-26) Creatinine 0.8 mg/dL (0.7-1.3) Estimated GFR (Cockcroft-Gault) 110.7 BUN/Creatinine Ratio 10 (6-20) Glucose Level 104 mg/dL (70-99) Lactic Acid Level 0.8 mmol/L (0.4-2.0) Calcium Level 9.3 mg/dL (8.5-10.1) Magnesium Level 2.1 mg/dL (1.8-2.4) Total Bilirubin 0.5 mg/dL (0.2-1.0) Aspartate Amino Transf (AST/SGOT) 24 U/L (15-37) Alanine Aminotransferase (ALT/SGPT) 24 U/L (16-63) Alkaline Phosphatase 83 U/L (46-116) Creatine Kinase 43 U/L (39-308) Total Protein 7.8 g/dL (6.4-8.2) Albumin 4.0 g/dL (3.4-5.0) Albumin/Globulin Ratio 1.1 (1.0-1.7) Laboratory Tests Test 02/23/18 20:40 White Blood Count 8.6 x10^3/uL (4.0-11.0) Red Blood Count 4.96 x10^6/uL (4.30-5.70) Hemoglobin 15.3 g/dL (13.0-17.5) Hematocrit 43.2 % (39.0-53.0) Mean Corpuscular Volume 87 fL (79-100) Mean Corpuscular Hemoglobin 31 pg (25-35) Mean Corpuscular Hemoglobin Concent 35 g/dL (31-37) Red Cell Distribution Width 13.9 % (11.5-14.5) Platelet Count 285 x10^3/uL (140-400) Neutrophils (%) (Auto) 72 % (31-73) Lymphocytes (%) (Auto) 21 % (24-48) Monocytes (%) (Auto) 6 % (0-9) Eosinophils (%) (Auto) 1 % (0-3) Basophils (%) (Auto) 1 % (0-3) Neutrophils # (Auto) 6.2 x10^3uL (1.8-7.7) Lymphocytes # (Auto) 1.8 x10^3/uL (1.0-4.8) Monocytes # (Auto) 0.5 x10^3/uL (0.0-1.1) Eosinophils # (Auto) 0.1 x10^3/uL (0.0-0.7) Basophils # (Auto) 0.1 x10^3/uL (0.0-0.2) Prothrombin Time 12.6 SEC (11.7-14.0) Prothromb Time International Ratio 1.0 (0.8-1.1) Activated Partial Thromboplast Time 25 SEC (24-38) Sodium Level 138 mmol/L (136-145) Potassium Level 3.8 mmol/L (3.5-5.1) Chloride Level 101 mmol/L (98-107) Carbon Dioxide Level 24 mmol/L (21-32) Anion Gap 13 (6-14) Blood Urea Nitrogen 8 mg/dL (8-26) Creatinine 0.8 mg/dL (0.7-1.3) Estimated GFR (Cockcroft-Gault) 110.7 BUN/Creatinine Ratio 10 (6-20) Glucose Level 104 mg/dL (70-99) Lactic Acid Level 0.8 mmol/L (0.4-2.0) Calcium Level 9.3 mg/dL (8.5-10.1) Magnesium Level 2.1 mg/dL (1.8-2.4) Total Bilirubin 0.5 mg/dL (0.2-1.0) Aspartate Amino Transf (AST/SGOT) 24 U/L (15-37) Alanine Aminotransferase (ALT/SGPT) 24 U/L (16-63) Alkaline Phosphatase 83 U/L (46-116) Creatine Kinase 43 U/L (39-308) Total Protein 7.8 g/dL (6.4-8.2) Albumin 4.0 g/dL (3.4-5.0) Albumin/Globulin Ratio 1.1 (1.0-1.7) Assessment/Plan Assessment/Plan After reviewing the prior evidence including operative notes and most recent examination under anesthesia and compartment pressures, I think that his overall clinical picture is not consistent with a compartment syndrome. This seems to be more of a pain response but is difficult to say with certainty. I will discuss his case with Dr. Messina again and make recommendations later. KIANA LARSON II, MD Feb 24, 2018 10:14
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
[2018-02-24] MEDS: VANCOMYCIN 1.25 GM in IV NORMAL SALINE 250ML 250 ML IV SCH ×2 (11:38→17:35)
--- NOTE | 2018-02-24 12:53 | PDOC2 ---
CONSULT Date of Consult Date of Consult DATE: 02/24/18 TIME: 12:43 Reason for Consult Reason for Consult: forearm contracture Identification/Chief Complaint Chief Complaint arm and wrist spasm Source Source: Chart review, Patient History of Present Illness Reason for Visit: Had fasciotomies of arm and hand last month. Has had unusual postop spasm/ contracture (not Volkmann's position, and goes away under anesthesia). I placed a heavy dorsal and volar splint at the last hospitalization in the SAFE position, to prevent permanent wrist/hand/finger contractures. His removed the splint due to spasm and bleeding. Past Medical History Pulmonary: Asthma Musculoskeletal: Other Past Surgical History Past Surgical History: Other (I reviewed his prior operative notes from his recent admission.) Family History Family History: Hypertension Social History No ALCOHOL: social Drugs: None Current Problem List Problem List Problems Medical Problems: (1) Contracture of muscle of right forearm Status: Acute Current Medications Current Medications Current Medications Sodium Chloride 1,000 ml @ 1,000 mls/hr 1X ONCE IV ; Start 02/23/18 at 19:15; Stop 02/23/18 at 20:14; Status DC Fentanyl Citrate (Fentanyl 2ml Vial) 50 mcg 1X ONCE IV Last administered on at 20:51; Start 02/23/18 at 19:15; Stop 02/23/18 at 19:16; Status DC Diazepam (Valium) 5 mg 1X ONCE PO Last administered on 02/23/18at 20:50; Start 02/23/18 at 19:45; Stop 02/23/18 at 19:46; Status DC Orphenadrine Citrate (Norflex) 60 mg 1X ONCE IV Last administered on at 20:52; Start 02/23/18 at 19:45; Stop 02/23/18 at 19:46; Status DC Sodium Chloride 1,000 ml @ 1,000 mls/hr 1X ONCE IV Last administered on at 20:54; Start 02/23/18 at 19:45; Stop 02/23/18 at 20:44; Status DC Ondansetron HCl (Zofran) 4 mg PRN Q8HRS PRN IV NAUSEA/VOMITING; Start 02/23/18 at 20:30; Stop 02/24/18 at 20:29 Fentanyl Citrate (Fentanyl 2ml Vial) 50 mcg PRN Q2HR PRN IV PAIN Last administered on 02/23/18at 22:46; Start 02/23/18 at 20:30; Stop 02/24/18 at 20:29 Morphine Sulfate (Morphine Sulfate) 2 mg PRN Q2HR PRN IV PAIN; Start 02/23/18 at 23:30 Morphine Sulfate (Morphine Sulfate) 4 mg PRN Q2HR PRN IV PAIN Last administered on 02/23/18at 23:46; Start 02/23/18 at 23:30 Morphine Sulfate 30 ml @ 0 mls/hr CONT PRN PRN IV PER PROTOCOL Last administered on 02/24/18at 09:05; Start 02/24/18 at 02:30 Diphenhydramine HCl (Benadryl) 25 mg PRN Q6HRS PRN IVP ITCHING Last administered on 02/24/18at 12:23; Start 02/24/18 at 02:30 Vancomycin HCl (Vanco Per Pharmacy) 1 each PRN DAILY PRN MC SEE COMMENTS Last administered on 02/24/18at 03:46; Start 02/24/18 at 02:30 Piperacillin Sod/ Tazobactam Sod (Zosyn Per Pharmacy) 1 each PRN DAILY PRN MC SEE COMMENTS; Start 02/24/18 at 02:30 Sodium Chloride 1,000 ml @ 100 mls/hr Q10H IV Last administered on 02/24/18at 09:13; Start 02/24/18 at 02:30 Vancomycin HCl 2 gm/Sodium Chloride 500 ml @ 250 mls/hr 1X ONCE IV Last administered on 02/24/18at 03:19; Start 02/24/18 at 03:00; Stop 02/24/18 at 04:59 ; Status DC Piperacillin Sod/ Tazobactam Sod 3.375 gm/Sodium Chloride 50 ml @ 100 mls/hr Q6HRS IV Last administered on 02/24/18at 11:37; Start 02/24/18 at 06:00 Vancomycin HCl 1.25 gm/Sodium Chloride 250 ml @ 167 mls/hr Q8H IV Last administered on 02/24/18at 11:38; Start 02/24/18 at 11:30 Vancomycin HCl (Vancomycin Trough Level) 1 each 1X ONCE MC ; Start 02/25/18 at 03:00; Stop 10/9/18 at 03:01 Docusate Sodium (Colace) 100 mg DAILY PO Last administered on 02/24/18at 09:13; Start 02/24/18 at 09:00 Polyethylene Glycol (miraLAX PACKET) 17 gm PRN DAILY PRN PO CONSTIPATION 1ST CHOICE; Start 02/24/18 at 09:00 Magnesium Hydroxide (Milk Of Magnesia) 2,400 mg PRN DAILY PRN PO CONSTIPATION 2ND CHOICE; Start 02/24/18 at 09:00 Active Scripts Active Percocet 10-325 Mg Tablet (Oxycodone/Acetaminophen) 1 Each Tablet 1 Tab PO QID PRN Miralax (Polyethylene Glycol 3350) 17 Gm Powd.pack 1 Packet PO BID Colace (Docusate Sodium) 100 Mg Capsule 100 Mg PO BID Morphine Sulfate Er (Morphine Sulfate) 15 Mg Tablet.er 15 Mg PO BID Percocet 5-325 Mg Tablet (Oxycodone/Acetaminophen) 1 Each Tablet 1-2 Each PO PRN TID PRN pain Cipro (Ciprofloxacin Hcl) 500 Mg Tablet 1 Tab PO BID Doxycycline Hyclate 100 Mg Tablet 1 Tab PO BID Flomax (Tamsulosin Hcl) 0.4 Mg Cap.er.24h 1 Cap PO DAILY Albuterol Sulfate Neb Soln (Albuterol Sulfate) 2.5 Mg/3 Ml Vial.neb 1 Vial NEB PRN Q4HRS Guaifenesin Ac Cough Syrup (Guaifenesin/Codeine Phosphate) 473 Ml Liquid 10 Ml PO Q4-6HRS PRN Proair Hfa Inhaler (Albuterol Sulfate) 8.5 Gm Hfa.aer.ad 1 Puff INH PRN Q6HRS PRN Bactroban Cream (Mupirocin) 15 Gm Cream..g. 1 Bienvenido TP TID Allergies Allergies: Coded Allergies: Iodinated Contrast- Oral and IV Dye (Verified Allergy, Severe, 02/07/18) Physical Exam General: Cooperative, mild distress HEENT: Atraumatic Lungs: Normal air movement Heart: Regular rate Abdomen: Soft Extremities: Other (He has nearly the same position as before but slightly better motion today of wrist and fingers than previously. Tense muscle spasm/ activation of finger flexors persists. Cap refill normal. Incisions nearly healed. There are some missing sutures from where he describes things " breaking open and bleeding" but the incision at this area is nearly healed with no dehiscense or any drainage currently. All incisions dry.) Vitals VITALS Vital Signs Date Time Temp Pulse Resp B/P (MAP) Pulse Ox O2 Delivery O2 Flow Rate FiO2 02/24/18 11:00 98.2 96 16 120/80 (93) 99 Room Air 98.2 Labs Labs Laboratory Tests Test 02/23/18 20:40 02/24/18 09:20 White Blood Count 8.6 x10^3/uL (4.0-11.0) Red Blood Count 4.96 x10^6/uL (4.30-5.70) Hemoglobin 15.3 g/dL (13.0-17.5) Hematocrit 43.2 % (39.0-53.0) Mean Corpuscular Volume 87 fL (79-100) Mean Corpuscular Hemoglobin 31 pg (25-35) Mean Corpuscular Hemoglobin Concent 35 g/dL (31-37) Red Cell Distribution Width 13.9 % (11.5-14.5) Platelet Count 285 x10^3/uL (140-400) Neutrophils (%) (Auto) 72 % (31-73) Lymphocytes (%) (Auto) 21 % (24-48) Monocytes (%) (Auto) 6 % (0-9) Eosinophils (%) (Auto) 1 % (0-3) Basophils (%) (Auto) 1 % (0-3) Neutrophils # (Auto) 6.2 x10^3uL (1.8-7.7) Lymphocytes # (Auto) 1.8 x10^3/uL (1.0-4.8) Monocytes # (Auto) 0.5 x10^3/uL (0.0-1.1) Eosinophils # (Auto) 0.1 x10^3/uL (0.0-0.7) Basophils # (Auto) 0.1 x10^3/uL (0.0-0.2) Prothrombin Time 12.6 SEC (11.7-14.0) Prothromb Time International Ratio 1.0 (0.8-1.1) Activated Partial Thromboplast Time 25 SEC (24-38) Sodium Level 138 mmol/L (136-145) Potassium Level 3.8 mmol/L (3.5-5.1) Chloride Level 101 mmol/L (98-107) Carbon Dioxide Level 24 mmol/L (21-32) Anion Gap 13 (6-14) Blood Urea Nitrogen 8 mg/dL (8-26) Creatinine 0.8 mg/dL (0.7-1.3) Estimated GFR (Cockcroft-Gault) 110.7 BUN/Creatinine Ratio 10 (6-20) Glucose Level 104 mg/dL (70-99) Lactic Acid Level 0.8 mmol/L (0.4-2.0) Calcium Level 9.3 mg/dL (8.5-10.1) Magnesium Level 2.1 mg/dL (1.8-2.4) Total Bilirubin 0.5 mg/dL (0.2-1.0) Aspartate Amino Transf (AST/SGOT) 24 U/L (15-37) Alanine Aminotransferase (ALT/SGPT) 24 U/L (16-63) Alkaline Phosphatase 83 U/L (46-116) Creatine Kinase 43 U/L (39-308) Total Protein 7.8 g/dL (6.4-8.2) Albumin 4.0 g/dL (3.4-5.0) Albumin/Globulin Ratio 1.1 (1.0-1.7) Erythrocyte Sedimentation Rate 5 (0-15) Laboratory Tests Test 02/23/18 20:40 02/24/18 09:20 White Blood Count 8.6 x10^3/uL (4.0-11.0) Red Blood Count 4.96 x10^6/uL (4.30-5.70) Hemoglobin 15.3 g/dL (13.0-17.5) Hematocrit 43.2 % (39.0-53.0) Mean Corpuscular Volume 87 fL (79-100) Mean Corpuscular Hemoglobin 31 pg (25-35) Mean Corpuscular Hemoglobin Concent 35 g/dL (31-37) Red Cell Distribution Width 13.9 % (11.5-14.5) Platelet Count 285 x10^3/uL (140-400) Neutrophils (%) (Auto) 72 % (31-73) Lymphocytes (%) (Auto) 21 % (24-48) Monocytes (%) (Auto) 6 % (0-9) Eosinophils (%) (Auto) 1 % (0-3) Basophils (%) (Auto) 1 % (0-3) Neutrophils # (Auto) 6.2 x10^3uL (1.8-7.7) Lymphocytes # (Auto) 1.8 x10^3/uL (1.0-4.8) Monocytes # (Auto) 0.5 x10^3/uL (0.0-1.1) Eosinophils # (Auto) 0.1 x10^3/uL (0.0-0.7) Basophils # (Auto) 0.1 x10^3/uL (0.0-0.2) Prothrombin Time 12.6 SEC (11.7-14.0) Prothromb Time International Ratio 1.0 (0.8-1.1) Activated Partial Thromboplast Time 25 SEC (24-38) Sodium Level 138 mmol/L (136-145) Potassium Level 3.8 mmol/L (3.5-5.1) Chloride Level 101 mmol/L (98-107) Carbon Dioxide Level 24 mmol/L (21-32) Anion Gap 13 (6-14) Blood Urea Nitrogen 8 mg/dL (8-26) Creatinine 0.8 mg/dL (0.7-1.3) Estimated GFR (Cockcroft-Gault) 110.7 BUN/Creatinine Ratio 10 (6-20) Glucose Level 104 mg/dL (70-99) Lactic Acid Level 0.8 mmol/L (0.4-2.0) Calcium Level 9.3 mg/dL (8.5-10.1) Magnesium Level 2.1 mg/dL (1.8-2.4) Total Bilirubin 0.5 mg/dL (0.2-1.0) Aspartate Amino Transf (AST/SGOT) 24 U/L (15-37) Alanine Aminotransferase (ALT/SGPT) 24 U/L (16-63) Alkaline Phosphatase 83 U/L (46-116) Creatine Kinase 43 U/L (39-308) Total Protein 7.8 g/dL (6.4-8.2) Albumin 4.0 g/dL (3.4-5.0) Albumin/Globulin Ratio 1.1 (1.0-1.7) Erythrocyte Sedimentation Rate 5 (0-15) Assessment/Plan Assessment/Plan Dr. Wood's input appreciated. Muscle spasm after fasciotomies for compartment syndrome. He has slightly better wrist motion and finger motion than he did my last exam so I'm hopeful this will resolve with further time. I cannot reposition him while awake. (At last visit, the flexed positioning resolved under anesthesia, so I would believe spasm, rather than contracture is the diagnosis.) However, if he keeps the hand, wrist and fingers in this flexed position, he WILL develop permanent contractures. I recommend a return to the OR for splint/cast under anesthesia into the SAFE position. Will also discuss with Dr. Wood. ESDRAS RBOWN MD Feb 24, 2018 12:53
[2018-02-24] MEDS: LACTOBACILLUS RHAMNOSUS GG 1 CAPSULE. PO SCH (20:24)
[2018-02-25] VITALS (9 sets, daily range): BP systolic 91–122; BP diastolic 52–67
[2018-02-25] MEDS: MORPHINE SULFATE/PF 30 ML IV PRN ×4 (01:05→20:54)
[2018-02-25] MEDS: diphenhydrAMINE 50 MG/ML VIAL IVP PRN ×4 (01:10→20:49)
[2018-02-25 04:34] LABS: VANC TR 20.6 mcg/mL (10.0-20.0)
[2018-02-25] MEDS: VANCOMYCIN PER PHARMACY MC PRN ×2 (04:50→19:30)
[2018-02-25] MEDS: VANCOMYCIN 1.25 GM in IV NORMAL SALINE 250ML 250 ML IV SCH ×3 (04:52→20:51)
[2018-02-25] MEDS: PIPERACILLIN/TAZOBACTAM 3.375 GM in IV NORMAL SALINE 50ML 50 ML IV SCH ×5 (04:54→18:00)
[2018-02-25] MEDS: DOCUSATE SODIUM 100 MG CAPSULE. PO SCH (07:50)
[2018-02-25] MEDS: IV NORMAL SALINE 1000ML BAG 1,000 ML IV SCH ×2 (07:50→20:51)
[2018-02-25] MEDS: LACTOBACILLUS RHAMNOSUS GG 1 CAPSULE. PO SCH ×2 (07:50→20:53)
[2018-02-25] MEDS ORDERED: IV RINGERS,LACTATED 1000ML 1,000 ML IV SCH (08:52)
[2018-02-25] MEDS ORDERED: fentaNYL PF VIAL 100 MCG/2 ML VIAL IV PRN ×2 (09:00)
[2018-02-25] MEDS ORDERED: LIDOCAINE 1% PF 2 ML VIAL. ID PRN (09:00)
[2018-02-25] MEDS ORDERED: MORPHINE SULFATE 2 MG/ML VIAL. IV PRN (09:00)
[2018-02-25] MEDS ORDERED: PROCHLORPERAZINE 10 MG/2 ML VIAL. IV PRN (09:00)
[2018-02-25] MEDS ORDERED: ONDANSETRON PF 4 MG/2 ML VIAL. IV PRN ×2 (09:00→18:30)
[2018-02-25] MEDS ORDERED: HYDROmorphone 2 MG/ML VIAL IV PRN (09:00)
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
[2018-02-25 12:22] LABS: GFR 85.5
[2018-02-25] MEDS ORDERED: ONDANSETRON PF 4 MG/2 ML VIAL. ONE (16:47)
[2018-02-25] MEDS ORDERED: DEXAMETHASONE SOD PHOS 20 MG/5 ML VIAL. ONE (16:47)
[2018-02-25] MEDS ORDERED: PROPOFOL 20 ML IV ONE (16:47)
[2018-02-25] MEDS ORDERED: fentaNYL PF VIAL 100 MCG/2 ML VIAL ONE ×2 (16:47→19:12)
[2018-02-25] MEDS ORDERED: KETAMINE HCL 50 MG/5 ML SYRINGE ONE (18:12)
[2018-02-25] MEDS ORDERED: MIDAZOLAM HCL/PF 2 MG/2 ML VIAL. ONE (18:19)
[2018-02-25] MEDS ORDERED: GLYCOPYRROLATE 1 MG/5 ML VIAL. ONE (18:19)
[2018-02-25] MEDS ORDERED: POLYETHYLENE GLYCOL 3350 17 GM PACKET. PO PRN (18:30)
[2018-02-25] MEDS ORDERED: DEXTROSE 50% 25 GM / 50ML DISP.SYRIN. IV PRN (18:30)
--- NOTE | 2018-02-25 18:46 | PDOC4 ---
Operative Note Operative Note Date of Procedure: February 25, 2018 Pre-Op Diagnosis: Right forearm contracture, muscle spasm, status post fasciotomy for compartment syndrome Post-Op Diagnosis: Same Procedure: Exam under anesthesia. Manipulation under anesthesia. Short arm splint application. Surgeon: Esdras Messina MD Countersinker Balance Screw Hole: Gail Leiva PA-C Anesthesia: General EBL: None Specimens Obtained: none Complications: none Drains: none Findings:Spasm of the forearm resolves under anesthesia. The fingers and wrist remained slightly flexed under anesthesia but were able to be passively manipulated. He is developing flexion contractures of the fingers and wrist. He is developing skin changes from constant finger flexion. Indications for Procedure: The patient is a 32-year-old man with an interesting history and course. He had compartment syndrome in the forearm 10 years ago, and another episode of compartment syndrome last month after a trampoline injury. The compartment syndrome is resolved based on compartment pressures and examination. Despite this, he complains of pain and inability to relax the forearm and wrist. He perseverates about the swelling and pain. Approximately 2 weeks ago, in the operating room, I documented normal compartment pressures, and applied a volar and dorsal plaster splints in the SAFE position. He still had sutures in at that time from recent closure of the fasciotomies. Unfortunately, his removed the splint, due to pain and bleeding from the sutured incisions. He had been splinted in a safe position, but once the splints were removed, the flexed posture of the wrist, fingers, and forearm returned. He has retained sutures. He is unable to extend the fingers actively or passively, and has extreme pain and withdrawal from any attempt to extend the fingers.I cannot achieve finger or wrist range of motion with him awake. I recommend exam under anesthesia, suture removal, and repeat splint application to prevent permanent contractures. I have obtained a second opinion with another orthopedic surgeon, and neurology consultation, without a clear diagnosis for the persistent muscle spasm and active wrist and finger flexion. The patient and I discussed the risks, benefits and alternatives of surgery. He agrees to proceed. Procedure in Detail: The patient was identified in the preoperative holding area. The correct right upper extremity was marked by me. The patient was taken to the operating room where general anesthesia was used. The patient was positioned supine on the hospital cart. A timeout procedure was performed. After induction of anesthesia, the previously very firm forearm muscles were now completely relaxed. I can straighten the fingers and he is starting to develop superficial skin maceration, and slight odor of tinea infection. The skin was cleansed with alcohol. Sutures removed from the hand and forearm. I used a Doppler device, and verified radial pulse, ulnar pulse, brachial pulse , and axillary pulse, all of which are normal and triphasic. Capillary refill is under anesthesia. (When he is awake, there is some skin blanching from the constant contracted position.) After careful manipulation of the fingers and wrist to overcome mild fixed contractures, I was able to apply a well-padded splint in the SAFE position. Cotton stockinette was used first, followed by cast padding, and then volar and dorsal plaster splints, 15 sheets thickness each. Mukesh wraps were applied. The splint hardened under anesthesia. There were no apparent complications. The patient was allowed to awaken taken to the recovery room in good condition. ESDRAS MESSINA MD Feb 25, 2018 18:46
[2018-02-26] VITALS (7 sets, daily range): BP systolic 96–116; BP diastolic 53–63
[2018-02-26] MEDS: PIPERACILLIN/TAZOBACTAM 3.375 GM in IV NORMAL SALINE 50ML 50 ML IV SCH ×4 (00:45→18:17)
[2018-02-26] MEDS: diphenhydrAMINE 50 MG/ML VIAL IVP PRN ×3 (04:28→18:17)
[2018-02-26] MEDS: VANCOMYCIN 1.25 GM in IV NORMAL SALINE 250ML 250 ML IV SCH ×3 (04:30→19:49)
[2018-02-26] MEDS: IV NORMAL SALINE 1000ML BAG 1,000 ML IV SCH ×2 (04:30→14:24)
[2018-02-26] MEDS ORDERED: MAGNESIUM HYDROXIDE 2,400 MG/30 ML ORAL.SUSP. PO PRN (06:00)
[2018-02-26 06:12] LABS: CREATININE 1.1 mg/dL (0.7-1.3); GFR 76.6
[2018-02-26] MEDS: SENNOSIDES/DOCUSATE 8.6/50MG TABLET. PO SCH (09:01)
[2018-02-26] MEDS: LACTOBACILLUS RHAMNOSUS GG 1 CAPSULE. PO SCH ×2 (09:01→21:42)
[2018-02-26] MEDS: DOCUSATE SODIUM 100 MG CAPSULE. PO SCH (09:01)
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
--- NOTE | 2018-02-26 10:07 | PDOC ---
PROGRESS NOTES Subjective Subjective Pt states he is sore, but pain is better. Objective Vital Signs Vital Signs Date Time Temp Pulse Resp B/P (MAP) Pulse Ox O2 Delivery O2 Flow Rate FiO2 02/26/18 07:00 97.9 64 20 96/54 (68) 99 Nasal Cannula 2.0 97.9 Physical Exam Right arm plaster splint intact. Fingers are splinted as well, so he is not able to demonstrate motion. States fingers feel numb, but he can feel me touching fingertips. Labs Laboratory Tests Test 02/25/18 04:15 02/26/18 05:00 Creatinine 1.0 mg/dL (0.7-1.3) 1.1 mg/dL (0.7-1.3) Estimated GFR (Cockcroft-Gault) 85.5 76.6 Vancomycin Level Trough 20.6 mcg/mL (10.0-20.0) Vancomycin Last Dose Date [id number] Vancomycin Last Dose Time 193 Laboratory Tests Test 02/26/18 05:00 Creatinine 1.1 mg/dL (0.7-1.3) Estimated GFR (Cockcroft-Gault) 76.6 Assessment Assessment POD #1 right forearm and hand suture removal, exam under anesthesia, and splint application Plan Plan of Care Keep splint intact. Dr. Messina has consulted Dr. Nelson for further evaluation of patient and possible CRPS. JULIO VILLANUEVA Feb 26, 2018 10:07
[2018-02-26] MEDS: MORPHINE SULFATE/PF 30 ML IV PRN ×2 (10:54→19:55)
[2018-02-26] MEDS: VANCOMYCIN PER PHARMACY MC PRN (15:38)
[2018-02-26] MEDS ORDERED: BISACODYL 10 MG SUPP.RECT. PR PRN (16:00)
[2018-02-27] MEDS: IV NORMAL SALINE 1000ML BAG 1,000 ML IV SCH ×3 (00:30→22:35)
[2018-02-27] MEDS: diphenhydrAMINE 50 MG/ML VIAL IVP PRN ×3 (00:30→12:51)
[2018-02-27 03:17] VITALS: BP 137/88
[2018-02-27] MEDS: VANCOMYCIN 1.25 GM in IV NORMAL SALINE 250ML 250 ML IV SCH ×2 (03:31→11:21)
[2018-02-27] MEDS: MORPHINE SULFATE/PF 30 ML IV PRN ×3 (03:36→18:37)
[2018-02-27] MEDS: PIPERACILLIN/TAZOBACTAM 3.375 GM in IV NORMAL SALINE 50ML 50 ML IV SCH ×5 (06:01→17:36)
[2018-02-27 07:00] VITALS: BP 95/50
[2018-02-27] MEDS: SENNOSIDES/DOCUSATE 8.6/50MG TABLET. PO SCH (08:06)
[2018-02-27] MEDS: LACTOBACILLUS RHAMNOSUS GG 1 CAPSULE. PO SCH ×2 (08:06→20:13)
[2018-02-27] MEDS: DOCUSATE SODIUM 100 MG CAPSULE. PO SCH (08:07)
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
[2018-02-27 11:00] VITALS: BP 99/47
[2018-02-27 11:25] LABS: CREATININE 1.2 mg/dL (0.7-1.3); GFR 69.3
[2018-02-27 12:49] LABS: VANC TR 30.7 mcg/mL (10.0-20.0)
[2018-02-27] MEDS: VANCOMYCIN PER PHARMACY MC PRN (13:08)
[2018-02-27] MEDS: diphenhydrAMINE HCL 25 MG CAPSULE PO PRN ×2 (13:40→20:13)
[2018-02-27 15:00] VITALS: BP 134/47
[2018-02-27 19:30] VITALS: BP 112/93
[2018-02-27 23:17] VITALS: BP 128/66
[2018-02-28] VITALS (7 sets, daily range): BP systolic 105–135; BP diastolic 49–66
[2018-02-28] MEDS: PIPERACILLIN/TAZOBACTAM 3.375 GM in IV NORMAL SALINE 50ML 50 ML IV SCH ×5 (00:03→23:57)
[2018-02-28] MEDS: diphenhydrAMINE HCL 25 MG CAPSULE PO PRN ×2 (02:18→09:47)
[2018-02-28] MEDS: MORPHINE SULFATE/PF 30 ML IV PRN ×4 (02:24→18:51)
[2018-02-28] MEDS ORDERED: VANCOMYCIN RANDOM LEVEL. MC ONE (06:00)
[2018-02-28] MEDS: IV NORMAL SALINE 1000ML BAG 1,000 ML IV SCH ×2 (06:30→10:32)
[2018-02-28 07:12] LABS: BASO # 0.1 x10^3/uL (0.0-0.2); BASO % 1 % (0-3); EOS # 0.1 x10^3/uL (0.0-0.7); EOS % 2 % (0-3); HEMATOCRIT 35.4 % (39.0-53.0); HEMOGLOBIN 12.2 g/dL (13.0-17.5); LYMPH # 1.6 x10^3/uL (1.0-4.8); LYMPH % 18 % (24-48); MEAN CORPUSCULAR HEMOGLOBIN 31 pg (25-35); MEAN CORPUSCULAR HGB CONC 34 g/dL (31-37); MEAN CORPUSCULAR VOLUME 90 fL (79-100); MONO # 0.8 x10^3/uL (0.0-1.1); MONO % 10 % (0-9); NEUT # 6.1 x10^3uL (1.8-7.7); NEUT % 70 % (31-73); PLATELET COUNT 237 x10^3/uL (140-400); RED BLOOD COUNT 3.95 x10^6/uL (4.30-5.70); RED CELL DISTRIBUTION WIDTH 13.8 % (11.5-14.5); WHITE BLOOD COUNT 8.7 x10^3/uL (4.0-11.0)
[2018-02-28 07:24] LABS: CALCIUM 9.1 mg/dL (8.5-10.1); CREATININE 1.5 mg/dL (0.7-1.3); GFR 53.6; POTASSIUM 3.8 mmol/L (3.5-5.1)
[2018-02-28] MEDS: VANCOMYCIN PER PHARMACY MC PRN (08:13)
[2018-02-28] MEDS: LACTOBACILLUS RHAMNOSUS GG 1 CAPSULE. PO SCH ×2 (09:47→21:09)
[2018-02-28] MEDS: SENNOSIDES/DOCUSATE 8.6/50MG TABLET. PO SCH (09:47)
[2018-02-28] MEDS: DOCUSATE SODIUM 100 MG CAPSULE. PO SCH (09:47)
[2018-02-28] MEDS: ACETAMINOPHEN 500 MG TABLET PO PRN (10:32)
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
[2018-02-28] MEDS: VANCOMYCIN 1 GM in IV NORMAL SALINE 250ML 250 ML IV SCH (17:32)
[2018-03-01] MEDS: diphenhydrAMINE HCL 25 MG CAPSULE PO PRN ×3 (00:01→20:58)
[2018-03-01] MEDS: ACETAMINOPHEN 500 MG TABLET PO PRN ×2 (00:01→20:58)
[2018-03-01] MEDS: IV NORMAL SALINE 1000ML BAG 1,000 ML IV SCH ×3 (00:01→21:00)
[2018-03-01 03:00] VITALS: BP 111/46
[2018-03-01] MEDS: MORPHINE SULFATE/PF 30 ML IV PRN ×3 (04:35→22:43)
[2018-03-01] MEDS: VANCOMYCIN 1 GM in IV NORMAL SALINE 250ML 250 ML IV SCH ×2 (05:07→17:41)
[2018-03-01] MEDS: PIPERACILLIN/TAZOBACTAM 3.375 GM in IV NORMAL SALINE 50ML 50 ML IV SCH ×3 (06:50→19:13)
[2018-03-01 07:00] VITALS: BP 119/59
[2018-03-01] MEDS: VANCOMYCIN PER PHARMACY MC PRN (08:32)
[2018-03-01] MEDS: DOCUSATE SODIUM 100 MG CAPSULE. PO SCH (09:32)
[2018-03-01] MEDS: LACTOBACILLUS RHAMNOSUS GG 1 CAPSULE. PO SCH ×2 (09:32→20:58)
[2018-03-01] MEDS: SENNOSIDES/DOCUSATE 8.6/50MG TABLET. PO SCH (09:52)
[2018-03-01 10:43] VITALS: BP 120/58
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
[2018-03-01 15:08] VITALS: BP 128/62
[2018-03-01 19:00] VITALS: BP 129/85
[2018-03-01 23:22] VITALS: BP 114/72
[2018-03-02] MEDS: PIPERACILLIN/TAZOBACTAM 3.375 GM in IV NORMAL SALINE 50ML 50 ML IV SCH ×5 (00:25→23:30)
[2018-03-02 03:00] VITALS: BP 121/59
[2018-03-02 03:35] LABS: BASO % 1 % (0-3); EOS # 0.3 x10^3/uL (0.0-0.7); EOS % 5 % (0-3); HEMATOCRIT 33.4 % (39.0-53.0); HEMOGLOBIN 11.6 g/dL (13.0-17.5); LYMPH # 1.3 x10^3/uL (1.0-4.8); LYMPH % 22 % (24-48); MEAN CORPUSCULAR HEMOGLOBIN 31 pg (25-35); MEAN CORPUSCULAR HGB CONC 35 g/dL (31-37); MEAN CORPUSCULAR VOLUME 90 fL (79-100); MONO # 0.5 x10^3/uL (0.0-1.1); MONO % 9 % (0-9); NEUT # 3.9 x10^3uL (1.8-7.7); NEUT % 64 % (31-73); PLATELET COUNT 214 x10^3/uL (140-400); RED BLOOD COUNT 3.71 x10^6/uL (4.30-5.70); RED CELL DISTRIBUTION WIDTH 13.3 % (11.5-14.5); WHITE BLOOD COUNT 6.1 x10^3/uL (4.0-11.0)
[2018-03-02 03:52] LABS: ALBUMIN/GLOBULIN RATIO 0.9 (1.0-1.7); CALCIUM 8.8 mg/dL (8.5-10.1); CREATININE 1.5 mg/dL (0.7-1.3); GFR 53.6; POTASSIUM 4.2 mmol/L (3.5-5.1); TOTAL BILIRUBIN 0.9 mg/dL (0.2-1.0); TOTAL PROTEIN 6.2 g/dL (6.4-8.2)
[2018-03-02 03:53] LABS: VANC TR 20.4 mcg/mL (10.0-20.0)
[2018-03-02] MEDS: VANCOMYCIN 1 GM in IV NORMAL SALINE 250ML 250 ML IV SCH ×2 (05:24→17:16)
[2018-03-02] MEDS: VANCOMYCIN PER PHARMACY MC PRN ×2 (06:15→13:16)
[2018-03-02 07:00] VITALS: BP 125/70
[2018-03-02] MEDS: IV NORMAL SALINE 1000ML BAG 1,000 ML IV SCH ×2 (08:30→17:17)
[2018-03-02] MEDS: LACTOBACILLUS RHAMNOSUS GG 1 CAPSULE. PO SCH ×2 (09:04→21:00)
[2018-03-02] MEDS: SENNOSIDES/DOCUSATE 8.6/50MG TABLET. PO SCH (09:04)
[2018-03-02] MEDS: DOCUSATE SODIUM 100 MG CAPSULE. PO SCH (09:04)
[2018-03-02] MEDS: diphenhydrAMINE HCL 25 MG CAPSULE PO PRN ×2 (09:08→21:00)
[2018-03-02 11:00] VITALS: BP 128/68
[2018-03-02] MEDS: MORPHINE SULFATE/PF 30 ML IV PRN ×2 (11:51→19:06)
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
[2018-03-02 15:00] VITALS: BP 123/64
[2018-03-02 19:30] VITALS: BP 124/91
[2018-03-02] MEDS: ACETAMINOPHEN 500 MG TABLET PO PRN (21:00)
[2018-03-02 23:00] VITALS: BP 117/54
[2018-03-03 03:00] VITALS: BP 119/63
[2018-03-03 04:02] LABS: BASO % 1 % (0-3); EOS # 0.3 x10^3/uL (0.0-0.7); EOS % 7 % (0-3); HEMATOCRIT 32.4 % (39.0-53.0); HEMOGLOBIN 11.2 g/dL (13.0-17.5); LYMPH # 1.3 x10^3/uL (1.0-4.8); LYMPH % 27 % (24-48); MEAN CORPUSCULAR HEMOGLOBIN 31 pg (25-35); MEAN CORPUSCULAR HGB CONC 35 g/dL (31-37); MEAN CORPUSCULAR VOLUME 89 fL (79-100); MONO # 0.4 x10^3/uL (0.0-1.1); MONO % 9 % (0-9); NEUT # 2.6 x10^3uL (1.8-7.7); NEUT % 56 % (31-73); PLATELET COUNT 245 x10^3/uL (140-400); RED BLOOD COUNT 3.63 x10^6/uL (4.30-5.70); RED CELL DISTRIBUTION WIDTH 13.1 % (11.5-14.5); WHITE BLOOD COUNT 4.7 x10^3/uL (4.0-11.0)
[2018-03-03] MEDS: MORPHINE SULFATE/PF 30 ML IV PRN ×2 (04:25→14:01)
[2018-03-03] MEDS: IV NORMAL SALINE 1000ML BAG 1,000 ML IV SCH ×2 (04:29→15:30)
[2018-03-03] MEDS: VANCOMYCIN 1 GM in IV NORMAL SALINE 250ML 250 ML IV SCH (04:30)
[2018-03-03 04:44] LABS: ALBUMIN 2.9 g/dL (3.4-5.0); ALBUMIN/GLOBULIN RATIO 0.8 (1.0-1.7); CALCIUM 8.7 mg/dL (8.5-10.1); CREATININE 1.5 mg/dL (0.7-1.3); GFR 53.6; POTASSIUM 3.9 mmol/L (3.5-5.1); TOTAL BILIRUBIN 0.6 mg/dL (0.2-1.0); TOTAL PROTEIN 6.5 g/dL (6.4-8.2)
[2018-03-03] MEDS: PIPERACILLIN/TAZOBACTAM 3.375 GM in IV NORMAL SALINE 50ML 50 ML IV SCH ×2 (05:44→12:43)
[2018-03-03 07:00] VITALS: BP 115/58
[2018-03-03] MEDS: SENNOSIDES/DOCUSATE 8.6/50MG TABLET. PO SCH (09:08)
[2018-03-03] MEDS: LACTOBACILLUS RHAMNOSUS GG 1 CAPSULE. PO SCH ×2 (09:08→20:19)
[2018-03-03] MEDS: DOCUSATE SODIUM 100 MG CAPSULE. PO SCH (09:08)
[2018-03-03 11:00] VITALS: BP 132/74
[2018-03-03] MEDS ORDERED: MORPHINE SULFATE 2 MG/ML VIAL. IV PRN (14:30)
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
[2018-03-03 15:21] VITALS: BP 109/86
[2018-03-03] MEDS: oxyCODONE ER 10 MG TAB.ER.12H PO SCH ×2 (15:30→23:21)
[2018-03-03 19:00] VITALS: BP 122/84
[2018-03-03] MEDS: diphenhydrAMINE HCL 25 MG CAPSULE PO PRN (20:24)
[2018-03-03] MEDS: ENOXAPARIN 40 MG/0.4 ML SYRINGE. SQ SCH (20:29)
[2018-03-03 23:00] VITALS: BP 124/67
[2018-03-03] MEDS: oxyCODONE/APAP 10/325 1 TAB TABLET PO PRN (23:20)
[2018-03-04] MEDS: IV NORMAL SALINE 1000ML BAG 1,000 ML IV SCH ×2 (01:03→10:23)
[2018-03-04 03:00] VITALS: BP 107/63
[2018-03-04] MEDS: MORPHINE SULFATE 4 MG/ML VIAL. IV PRN ×6 (03:07→21:30)
[2018-03-04 04:17] LABS: BASO % 1 % (0-3); EOS # 0.3 x10^3/uL (0.0-0.7); EOS % 7 % (0-3); HEMATOCRIT 34.5 % (39.0-53.0); HEMOGLOBIN 11.9 g/dL (13.0-17.5); LYMPH # 1.1 x10^3/uL (1.0-4.8); LYMPH % 24 % (24-48); MEAN CORPUSCULAR HEMOGLOBIN 30 pg (25-35); MEAN CORPUSCULAR HGB CONC 35 g/dL (31-37); MEAN CORPUSCULAR VOLUME 88 fL (79-100); MONO # 0.4 x10^3/uL (0.0-1.1); MONO % 9 % (0-9); NEUT # 2.9 x10^3uL (1.8-7.7); NEUT % 60 % (31-73); PLATELET COUNT 247 x10^3/uL (140-400); RED BLOOD COUNT 3.91 x10^6/uL (4.30-5.70); WHITE BLOOD COUNT 4.8 x10^3/uL (4.0-11.0)
[2018-03-04] MEDS: oxyCODONE/APAP 10/325 1 TAB TABLET PO PRN ×4 (04:19→20:12)
[2018-03-04 04:36] LABS: ALBUMIN/GLOBULIN RATIO 0.8 (1.0-1.7); CREATININE 1.3 mg/dL (0.7-1.3); GFR 63.2; POTASSIUM 3.8 mmol/L (3.5-5.1); TOTAL BILIRUBIN 0.4 mg/dL (0.2-1.0); TOTAL PROTEIN 6.9 g/dL (6.4-8.2)
[2018-03-04 07:00] VITALS: BP 118/70
[2018-03-04] MEDS: oxyCODONE ER 10 MG TAB.ER.12H PO SCH (08:37)
[2018-03-04] MEDS: SENNOSIDES/DOCUSATE 8.6/50MG TABLET. PO SCH (08:38)
[2018-03-04] MEDS: DOCUSATE SODIUM 100 MG CAPSULE. PO SCH (08:38)
[2018-03-04] MEDS: LACTOBACILLUS RHAMNOSUS GG 1 CAPSULE. PO SCH ×2 (08:38→20:13)
[2018-03-04] MEDS ORDERED: oxyCODONE ER 10 MG TAB.ER.12H PO ONE (11:00)
[2018-03-04 11:33] VITALS: BP 98/72
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
[2018-03-04 15:38] VITALS: BP 84/66
[2018-03-04 19:00] VITALS: BP 97/43
[2018-03-04] MEDS: oxyCODONE ER 15 MG TAB.ER.12H PO SCH (20:11)
[2018-03-04] MEDS: diphenhydrAMINE HCL 25 MG CAPSULE PO PRN (20:13)
[2018-03-04] MEDS: ENOXAPARIN 40 MG/0.4 ML SYRINGE. SQ SCH (21:00)
[2018-03-04 23:00] VITALS: BP 107/67
[2018-03-05] VITALS (7 sets, daily range): BP systolic 97–135; BP diastolic 48–83
[2018-03-05] MEDS: oxyCODONE/APAP 10/325 1 TAB TABLET PO PRN ×2 (01:01→05:13)
[2018-03-05] MEDS: MORPHINE SULFATE 4 MG/ML VIAL. IV PRN ×3 (01:02→17:15)
[2018-03-05] MEDS: LACTOBACILLUS RHAMNOSUS GG 1 CAPSULE. PO SCH ×2 (08:38→21:48)
[2018-03-05] MEDS: SENNOSIDES/DOCUSATE 8.6/50MG TABLET. PO SCH ×2 (08:38→21:48)
[2018-03-05] MEDS: DOCUSATE SODIUM 100 MG CAPSULE. PO SCH ×2 (08:38→21:48)
[2018-03-05] MEDS: oxyCODONE ER 15 MG TAB.ER.12H PO SCH (08:39)
[2018-03-05] MEDS ORDERED: oxyCODONE/APAP 10/325 1 TAB TABLET PO PRN (09:45)
[2018-03-05] MEDS ORDERED: LACTULOSE 20 GM/30 ML SOLUTION. PO PRN (10:30)
[2018-03-05] MEDS ORDERED: fentaNYL 75MCG/HR PATCH 1 PATCH PATCH.TD72 TD SCH (11:00)
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
[2018-03-05] MEDS: oxyCODONE IR 5 MG TABLET PO PRN ×2 (13:43→20:12)
[2018-03-05] MEDS ORDERED: MAGNESIUM HYDROXIDE 2,400 MG/30 ML ORAL.SUSP. PO PRN (21:00)
[2018-03-05] MEDS: ENOXAPARIN 40 MG/0.4 ML SYRINGE. SQ SCH (21:48)
[2018-03-06] MEDS: oxyCODONE IR 5 MG TABLET PO PRN ×3 (00:33→11:17)
[2018-03-06 03:00] VITALS: BP 111/79
[2018-03-06 07:00] VITALS: BP 118/66
[2018-03-06] MEDS: SENNOSIDES/DOCUSATE 8.6/50MG TABLET. PO SCH ×2 (07:52→20:41)
[2018-03-06] MEDS: LACTOBACILLUS RHAMNOSUS GG 1 CAPSULE. PO SCH ×2 (07:52→20:41)
[2018-03-06] MEDS: DOCUSATE SODIUM 100 MG CAPSULE. PO SCH ×2 (07:52→20:41)
[2018-03-06] MEDS: MORPHINE SULFATE 4 MG/ML VIAL. IV PRN ×2 (07:53→18:51)
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
[2018-03-06 11:00] VITALS: BP 137/62
[2018-03-06] MEDS ORDERED: fentaNYL 100MCG/HR PATCH 1 PATCH PATCH TD SCH (12:00)
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
[2018-03-06 15:00] VITALS: BP 113/70
[2018-03-06 19:00] VITALS: BP 126/91
[2018-03-06] MEDS: ENOXAPARIN 40 MG/0.4 ML SYRINGE. SQ SCH (21:00)
[2018-03-06 23:00] VITALS: BP 122/96
[2018-03-07] MEDS: MORPHINE SULFATE 4 MG/ML VIAL. IV PRN ×3 (00:41→11:53)
[2018-03-07 03:00] VITALS: BP 108/82
[2018-03-07 07:00] VITALS: BP 118/72
[2018-03-07] MEDS: LACTOBACILLUS RHAMNOSUS GG 1 CAPSULE. PO SCH (08:06)
[2018-03-07] MEDS: SENNOSIDES/DOCUSATE 8.6/50MG TABLET. PO SCH (08:06)
[2018-03-07] MEDS: DOCUSATE SODIUM 100 MG CAPSULE. PO SCH (08:06)
[2018-03-07 11:00] VITALS: BP 128/84
[2018-03-07 12:21] LABS: ALBUMIN 3.6 g/dL (3.4-5.0); ALBUMIN/GLOBULIN RATIO 0.9 (1.0-1.7); CALCIUM 9.5 mg/dL (8.5-10.1); CREATININE 1.4 mg/dL (0.7-1.3); POTASSIUM 3.7 mmol/L (3.5-5.1); TOTAL BILIRUBIN 0.2 mg/dL (0.2-1.0); TOTAL PROTEIN 7.7 g/dL (6.4-8.2)
[2018-03-07] MEDS ORDERED: OXYC30TA PO (13:17)
[2018-03-07] MEDS ORDERED: POLY17PO29 PO (13:17)
[2018-03-07] MEDS ORDERED: MORP30TA3 PO (13:17)
[2018-03-07] MEDS ORDERED: DOCU-109 PO (13:17)
[2018-03-07] MEDS ORDERED: MORPHINE ER 30 MG TABLET.ER PO SCH (13:30)
[2018-03-07 15:00] VITALS: BP 140/65
--- NOTE | 2018-03-07 15:40 | RAD ---
CT of the neck without contrast, 03/07/2018: HISTORY: Neck pain No IV contrast was administered to the given history of an iodine allergy. The laryngeal region is unremarkable. No airway narrowing is seen. The thyroid and parotid glands are unremarkable. The submandibular glands are asymmetric suggesting hypoplasia or atrophy on the right. No cervical adenopathy is seen. There is a bony defect in the anterosuperior left maxillary sinus region suggesting previous surgery. The right mastoid sinus is unremarkable. The visualized paranasal sinuses show no abnormality. There are minimal degenerative changes involving scattered facet joints in the cervical spine. IMPRESSION: No acute neck abnormality is detected. Electronically signed by: Ruel Curran MD (03/07/2018 3:37 PM) [facility]
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
[2018-03-28] MEDS ORDERED: MORP30TA3 PO (13:45)
[2018-03-28] MEDS ORDERED: OXYC30TA PO (13:45)
== END 2018-03-07 17:28 | disposition home or self-care (01) | DRG 555 ==
LOC: ER 18:47 → EEVIPCON 20:28 → 4 NORTH 20:28 → 5 SOUTH 02-28 12:31
PROVIDERS: ADMIT Internal Medicine; ATTEND Internal Medicine
PROC: 2W3AX1Z Immobilization of Right Upper Arm using Splint (ICD-10-PCS; principal; 2018-02-25 17:45)
DX: M62.431 Contracture of muscle, right forearm (principal); N17.0 Acute kidney failure with tubular necrosis; K59.00 Constipation, unspecified; M62.838 Other muscle spasm; J45.20 Mild intermittent asthma, uncomplicated; M20.099 Other deformity of finger(s), unspecified finger(s); Z79.899 Other long term (current) drug therapy; Z82.49 Family history of ischemic heart disease and other diseases of the circulatory system; Z91.81 History of falling
CPT/HCPCS: 36415; 70490; 80048; 80053; 80202; 82550; 82565; 83605; 83735; 85025; 85610; 85651; 85730; 87040; 96361; 96374; 96375; J1100; J1200; J1650; J2250; J2270; J2360; J2405; J2543; J2704; J3010; J3370; J3490; J7030; J7040; J7050; Q0163; 97116; 97530; 99285-25

== ENCOUNTER 2018-04-14 10:47 | Emergency (ER) | payer SELFPAY ==
[~2018-04-14] VITALS: Ht 180.3 cm; Wt 88.5 kg
[~2018-04-14 10:47] MED LIST changes: +HYDR-3164 PO; -HYDR-971 PO; +MORP30TA3 PO; -OXYC-323 PO; -OXYC-328 PO; +OXYC1TAB15 PO; +OXYC1TAB22 PO; +OXYC30TA3 PO
[2018-04-14] MEDS ORDERED: oxyCODONE/APAP 10/325 1 TAB TABLET PO ONE (11:30)
[2018-04-14 11:48] LABS: BASO # 0.1 x10^3/uL (0.0-0.2); BASO % 1 % (0-3); EOS # 0.1 x10^3/uL (0.0-0.7); EOS % 1 % (0-3); HEMATOCRIT 40.5 % (39.0-53.0); HEMOGLOBIN 14.2 g/dL (13.0-17.5); LYMPH # 1.3 x10^3/uL (1.0-4.8); LYMPH % 20 % (24-48); MEAN CORPUSCULAR HEMOGLOBIN 30 pg (25-35); MEAN CORPUSCULAR HGB CONC 35 g/dL (31-37); MEAN CORPUSCULAR VOLUME 86 fL (79-100); MONO # 0.4 x10^3/uL (0.0-1.1); MONO % 5 % (0-9); NEUT # 4.9 x10^3uL (1.8-7.7); NEUT % 73 % (31-73); PLATELET COUNT 350 x10^3/uL (140-400); RED BLOOD COUNT 4.74 x10^6/uL (4.30-5.70); RED CELL DISTRIBUTION WIDTH 12.8 % (11.5-14.5); WHITE BLOOD COUNT 6.7 x10^3/uL (4.0-11.0)
[2018-04-14 12:15] LABS: CALCIUM 9.7 mg/dL (8.5-10.1); GFR 85.5; POTASSIUM 3.6 mmol/L (3.5-5.1)
[2018-04-14 12:20] LABS: ALBUMIN/GLOBULIN RATIO 0.9 (1.0-1.7); TOTAL BILIRUBIN 0.4 mg/dL (0.2-1.0); TOTAL PROTEIN 8.3 g/dL (6.4-8.2)
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
[2018-04-14 13:09] VITALS: BP 115/71
== END 2018-04-14 13:09 | disposition home or self-care (01) ==
LOC: ER 10:47
DX: T79.A0XA Compartment syndrome, unspecified, initial encounter (principal); M79.601 Pain in right arm; M79.89 Other specified soft tissue disorders; W17.89XA Other fall from one level to another, initial encounter; Z91.041 Radiographic dye allergy status
CPT/HCPCS: 36415; 80053; 85025; 99283

== ENCOUNTER 2018-04-14 16:53 | Inpatient (IN) | payer SELFPAY ==
[~2018-04-14] VITALS: Ht 180.3 cm; Wt 88.5 kg
[2018-04-14] MEDS ORDERED: ONDANSETRON PF 4 MG/2 ML VIAL. IV PRN (17:45)
[2018-04-14] MEDS ORDERED: MORPHINE SULFATE 2 MG/ML VIAL. IV PRN (17:45)
[2018-04-14 18:00] VITALS: BP 114/72
[2018-04-14 19:30] VITALS: BP 113/75
[2018-04-14] MEDS: MORPHINE SULFATE 4 MG/ML VIAL. IV PRN ×2 (19:45→22:12)
[2018-04-14] MEDS: oxyCODONE IR 5 MG TABLET PO PRN (19:45)
--- NOTE | 2018-04-14 19:56 | HP ---
ADMIT DATE: 04/14/2018 CHIEF COMPLAINT: Compartment syndrome. HISTORY OF PRESENT ILLNESS: The patient is a pleasant middle-aged male who had a fracture and suffered compartment syndrome 3 months ago. Since then he has been seeing Dr. Messina. He has also seeing Dr. Carrillo Nelson for pain management. Apparently, they removed a cast today at the Orthopedic office and when the removed the hand cannot extend and seems to be contracted. Dr. Messina's office called me and explained the situation. They wanted to take him to the OR tomorrow to see if they can help fix this. I admitted the patient at their request. The patient does have 9/10 pain. He keeps asking about his pain meds. Has associated anxiety. Rates his symptoms at 9/10. PAST MEDICAL HISTORY: He seems to have narcotic dependence, but insists these all just developed over the past few months with this injury. 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 I think he is . His is here with him. MEDICATIONS: Reviewed, please refer to the MRAD. He is on morphine sulfate 30 mg b.i.d. and oxycodone 30 mg p.o. q. 4 hours p.r.n., also on albuterol. ALLERGIES: IODINE. FAMILY HISTORY: Hypertension. REVIEW OF SYSTEMS: GENERAL: No history of weight change, weakness or fevers. SKIN: No bruising, hair changes or rashes. EYES: No blurred, double or loss of vision. NOSE AND THROAT: No history of nosebleeds, hoarseness or sore throat. HEART: No history of palpitations, chest pain or shortness of breath on exertion. LUNGS: Denies cough, hemoptysis, wheezing or shortness of breath. GASTROINTESTINAL: Denies changes in appetite, nausea, vomiting, diarrhea or constipation. GENITOURINARY: No history of frequency, urgency, hesitancy or nocturia. NEUROLOGIC: Denies history of numbness, tingling, tremor or weakness. PSYCHIATRIC: No history of panic, anxiety or depression. ENDOCRINE: No history of heat or cold intolerance, polyuria or polydipsia. EXTREMITIES: He complains of right arm pain and contraction. PHYSICAL EXAMINATION: VITAL SIGNS: Temperature afebrile, pulse 98, respirations 18, blood pressure 113/44. GENERAL: He is alert, cooperative. His is present. HEART: Normal S1, S2. LUNGS: Clear to auscultation. ABDOMEN: Soft, positive bowel sounds. EXTREMITIES: The right arm is quite contracted. ENDOCRINE: No thyromegaly. LYMPHATICS: No cervical nodes. HEMATOPOIETIC: No bruising. LABORATORY DATA: Pending. ASSESSMENT AND PLAN: Recent compartment syndrome that now has perhaps put the patient at risk for a contracture of the hand and wrist. We will go admit the patient. We have consulted Dr. Messina. He is going to take him, I think, to the OR tomorrow. For now, I will give his home meds, going to discuss the case with his nurse and his . We want to try to back off some of his narcotics, I do not want him to become dependent on them. PT, OT. Frequent labs. JULIETA QUISPE DO DR: JORGE/sydnie JOB#: [id number] / [id number]
[2018-04-14] MEDS: IV NORMAL SALINE 1000ML BAG 1,000 ML IV SCH (20:53)
[2018-04-14 23:24] VITALS: BP 106/61
[2018-04-15] MEDS: oxyCODONE IR 5 MG TABLET PO PRN ×4 (00:14→12:06)
[2018-04-15] MEDS: MORPHINE SULFATE 4 MG/ML VIAL. IV PRN ×6 (00:14→12:06)
[2018-04-15 03:32] VITALS: BP 110/58
[2018-04-15 07:00] VITALS: BP 103/60
[2018-04-15] MEDS: IV NORMAL SALINE 1000ML BAG 1,000 ML IV SCH (07:05)
--- NOTE | 2018-04-15 08:21 | PDOC2 ---
CONSULT Date of Consult Date of Consult DATE: 04/15/18 TIME: 08:15 Identification/Chief Complaint Chief Complaint right hand contracture Source Source: Chart review, Patient History of Present Illness Reason for Visit: 32 year old with remote history of compartment syndrome. Unusual hand posturing (which resolves under anesthesia). He was doing better with casting but cast had to be removed at two weeks. Due to the nonanatomic features of his condition, I am considering this could be conversion disorder. I don't know if an inpatient psychiatric consult is available, but if so, would be helpful. Past Medical History Pulmonary: Asthma Musculoskeletal: Other Past Surgical History Past Surgical History: Other Family History Family History: Hypertension Social History ALCOHOL: social Drugs: None Current Medications Current Medications Current Medications Sodium Chloride 1,000 ml @ 75 mls/hr [id number] IV Last administered on at 20:53; Start 04/14/18 at 17:45 Morphine Sulfate (Morphine Sulfate) 2 mg PRN Q2HR PRN IV MODERATE PAIN; Start 04/14/18 at 17:45 Morphine Sulfate (Morphine Sulfate) 4 mg PRN Q2HR PRN IV SEVERE PAIN Last administered on 04/15/18at 06:21; Start 04/14/18 at 17:45 Ondansetron HCl (Zofran) 4 mg PRN Q6HRS PRN IV NAUSEA/VOMITING; Start at 17:45 Oxycodone HCl (Roxicodone) 20 mg PRN Q4HRS PRN PO SEVERE PAIN Last administered on 04/15/18at 04:17; Start 04/14/18 at 19:00 Active Scripts Active Oxycodone Hcl 30 Mg Tablet 30 Mg PO PRN Q4HRS PRN Morphine Sulfate Er (Morphine Sulfate) 30 Mg Tablet.er 30 Mg PO BID Albuterol Sulfate Neb Soln (Albuterol Sulfate) 2.5 Mg/3 Ml Vial.neb 1 Vial NEB PRN Q4HRS Allergies Allergies: Coded Allergies: Iodinated Contrast- Oral and IV Dye (Verified Allergy, Severe, 02/07/18) Physical Exam General: Alert, Cooperative HEENT: Atraumatic Lungs: Normal air movement Heart: Regular rate Abdomen: Soft Extremities: Other (swelling was present in the cast, so it became too tight and was removed yesterday. Otherwise he was making progress with casting.) Skin: Other (scars present, well healed) Psych/Mental Status: Mood NL Vitals VITALS Vital Signs Date Time Temp Pulse Resp B/P (MAP) Pulse Ox O2 Delivery O2 Flow Rate FiO2 04/15/18 06:21 20 Room Air 04/15/18 03:32 98.1 78 110/58 (75) 97 98.1 Assessment/Plan Assessment/Plan The awake posturing is going to cause a permanent contracture, and can be avoided with casting in a safe position. (It resolves under anesthesia). I do recommend psychiatric consult to assess for conversion disorder. He is agreeable to repeat casting in the OR which I do recommend. I have spoken to him about the likely psychiatric nature of the posturing. ESDRAS BROWN MD Apr 15, 2018 08:21
[2018-04-15] MEDS ORDERED: IV RINGERS,LACTATED 1000ML 1,000 ML IV SCH (09:23)
[2018-04-15] MEDS ORDERED: DEXAMETHASONE SOD PHOS 20 MG/5 ML VIAL. ONE (09:28)
[2018-04-15] MEDS ORDERED: PROPOFOL 20 ML IV ONE ×2 (09:28→10:42)
[2018-04-15] MEDS ORDERED: LIDOCAINE 2% PF Vial for OR 5 ML VIAL. ONE (09:28)
[2018-04-15] MEDS ORDERED: ONDANSETRON PF 4 MG/2 ML VIAL. ONE (09:28)
[2018-04-15] MEDS ORDERED: fentaNYL PF VIAL 100 MCG/2 ML VIAL ONE (09:29)
[2018-04-15] MEDS ORDERED: MIDAZOLAM HCL/PF 2 MG/2 ML VIAL. ONE (09:29)
[2018-04-15] MEDS ORDERED: MORPHINE SULFATE 2 MG/ML VIAL. IV PRN (09:30)
[2018-04-15] MEDS ORDERED: fentaNYL PF VIAL 100 MCG/2 ML VIAL IV PRN ×2 (09:30)
[2018-04-15] MEDS ORDERED: ONDANSETRON PF 4 MG/2 ML VIAL. IV PRN (09:30)
[2018-04-15] MEDS ORDERED: PROCHLORPERAZINE 10 MG/2 ML VIAL. IV PRN (09:30)
[2018-04-15] MEDS ORDERED: LIDOCAINE 1% PF 2 ML VIAL. ID PRN (09:30)
[2018-04-15] MEDS ORDERED: HYDROmorphone 2 MG/ML VIAL IV PRN (09:30)
[2018-04-15] MEDS ORDERED: SEVOFLURANE 16 TO 30 MINUTES. IH ONE (10:40)
[2018-04-15] MEDS ORDERED: DEXTROSE 50% 25 GM / 50ML DISP.SYRIN. IV PRN (11:00)
[2018-04-15 11:23] VITALS: BP 123/57
--- NOTE | 2018-04-15 13:03 | PDOC4 ---
Operative Note Operative Note Date of Procedure: April 15, 2018 Pre-Op Diagnosis: contracture right hand and wrist Post-Op Diagnosis: same, plus conversion disorder Procedure: exam under anesthesia, short arm cast application Surgeon: Esdras Messina MD Home Visit Field Care Manager: Gail Leiva PA-C Anesthesia: General EBL: none Specimens Obtained: none Complications: none Drains: none Findings: The fixed contractures are minimal at this time, primarily at the IP joints of all fingers and slight wrist flexion contracture compared to normal passive range of motion. The intense posturing of the elbow, wrist, hand, fingers and thumb nearly completely resolves under anesthesia. Indications for Procedure: The patient is a 32-year-old with contractures of the right elbow wrist hand and fingers. He is beginning to develop permanent contractures of the fingers due to prolonged positioning. I recommended cast application in the safe position to help prevent permanent contractures. I also advised psychiatric evaluation, as I believe he has conversion disorder. The cast is to maintain flexibility in the fingers until he can get adequate treatment of the conversion disorder so that the permanent contractures do not form. The patient and I discussed the risks, benefits and alternatives of surgery. Procedure in Detail: The patient was identified in the preoperative holding area. I made a quick video of his intense posturing and contractures preoperatively in the preoperative holding area, and the pain he encounters with attempts to straighten the fingers. The correct right upper extremity was marked by me. The patient was taken to the operating room where general anesthesia was used. The patient was positioned supine on the hospital cart. I made a quick video of examination under anesthesia, showing the flexibility which is present when he is asleep. A timeout procedure was performed. A well- padded short arm cast was applied with extension into the fingers, and application in the safe position. Thumb spica casting was used to prevent thumb contracture. He tolerated this well and awoke without difficulty. There were no apparent complications. He returned to the recovery room without evidence of complications. I spoke to his female financial analyst about his condition, and recommend cognitive therapy, and psychiatric care. ESDRAS MESSINA MD Apr 15, 2018 13:03
--- NOTE | 2018-04-15 13:23 | PDOC3 ---
Discharge Summary [facility] Date of Admission: Apr 14, 2018 Discharge Date: Apr 15, 2018 Admitting Diagnosis intractable rt forearm pain with wrist sprain/muscle spasm with h/o recent rt forearm with compartment syndrome and contracture, possible conversion syndrome Intermittent asthma h/o recent rt forearm with compartment syndrome s/p Decompression fasciotomy anxiety CONSULTS CONSULTS merlin Procedures cast application Brief Hospital Course Brief Hospital Course Mr. Ortiz is a 32 old M who fell from a trendler 1- 2 months ago got decompression fasciostomy for rt arm compartment syndrome, then readmitted for cont rt forearm contracture and severe pain. came to ER for rt forearm pain. pt has no PCP nor insurance. when pt was readmitted on 02/21, DR. Coles took pt to OR, no compartment syndrome at that time, Short arm splint application applied. Pt has a hard time to control his pain got CAREER SERVICES COORDINATOR, and evantually dced with mscontin 30mg bid and oxycodone 30mg q6h. pt followed with dr. Messina in the clinicthe next week. as per pt, dr. Messina concerned about permanent nerve damage, recommended a shot which cost 900 bucks and pt refused. pt now still feels severe rt forearm pain, cannot move rt hand with wrist drop. Pt seen in the room, very anxious, keeps walking around in the room. denies constipation, but want stool softner. Dr. Messina took pt to OR on 03/28, did Manipulation wrist, under anesthesia and Short arm cast application. THOught pt may have wrist sprain with muscle spasm dced with duloxitine with dr. Messina. mscontin and oxycodone high dose 20pills given. ok to dc as per merlin. Pt was readmitted 04/[address] Messina office. pt said the cast was swallen, pain , and showed me the rt wrist drop. i talked to dr. Messina today, who took pt to OR today , did another longer short arm cast for the rt hand under anesthesia. dr. Messina said pt appeared pain when we try to move his fingers when he is awake, but easy to move when he was out. He has no contracture. He likely has conversion syndrome. i told nurse to get SW to get outpt psych office info, but 1h after OR, pt insists to leave hosp now saying has family issues. told him to fu psych as outpt if could. no pain meds precribed by me today, got some with dr. Messina yesterday, also should take duloxitine. dc time 35min. GENERAL: He is alert, cooperative. His is present. HEART: Normal S1, S2. LUNGS: Clear to auscultation. ABDOMEN: Soft, positive bowel sounds. EXTREMITIES: The right arm is quite contracted, now has cast on post op. ENDOCRINE: No thyromegaly. LYMPHATICS: No cervical nodes. HEMATOPOIETIC: No bruising. Patient History: Patient reports no known family medical history. Disposition home CONDITION AT DISCHARGE: Stable Scheduled Albuterol Sulfate (Albuterol Sulfate Neb Soln), 1 VIAL NEB PRN Q4HRS Morphine Sulfate (Morphine Sulfate Er), 30 MG PO BID Scheduled PRN Oxycodone Hcl (Oxycodone Hcl), 30 MG PO PRN Q4HRS PRN for PAIN SRIKANTH SONG MD Apr 15, 2018 13:23
== END 2018-04-15 13:30 | disposition home or self-care (01) | DRG 566 ==
LOC: 4 NORTH 16:58 → EEVIPCON 16:58
PROVIDERS: ADMIT Internal Medicine; ATTEND Internal Medicine
PROC: 2W3AX2Z Immobilization of Right Upper Arm using Cast (ICD-10-PCS; principal; 2018-04-15 10:45)
DX: M24.541 Contracture, right hand (principal); F44.9 Dissociative and conversion disorder, unspecified; J45.909 Unspecified asthma, uncomplicated; F41.9 Anxiety disorder, unspecified; M20.099 Other deformity of finger(s), unspecified finger(s); Z91.041 Radiographic dye allergy status; Z79.899 Other long term (current) drug therapy; Z82.49 Family history of ischemic heart disease and other diseases of the circulatory system
CPT/HCPCS: A7015; J1100; J2001; J2250; J2270; J2405; J2704; J3010; J7030

== ENCOUNTER 2018-05-26 01:00 | Emergency (ER) | payer SELFPAY ==
[~2018-05-26] VITALS: Ht 177.8 cm; Wt 83.9 kg
[~2018-05-26 01:00] MED LIST changes: +ALBU2.5V8 INH; -PROAIR HFA8.5 GM INH
[2018-05-26 01:06] VITALS: BP 123/80
--- NOTE | 2018-05-26 01:26 | PHYS DOC ---
Past Medical History Past Medical History: Other Additional Past Medical Histor: compartment syndrome, Past Surgical History: Other Additional Past Surgical Histo: salivary gland removed, fasciotomy to R arm Alcohol Use: None Drug Use: None Adult General Chief Complaint Chief Complaint: HAND PROBLEM HPI HPI Patient is a 32 year old male who presents with right wrist/forearm pain and swelling. Approximately 20 hours ago patient had his arm closed in a door by his son accidentally. 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 Patient has limited range of motion at baseline. Reports increased pain not controlled by his narcotic pain medicine since the new injury yesterday.[] Review of Systems Review of Systems Constitutional: Denies fever or chills [] Eyes: Denies change in visual acuity, redness, or eye pain [] HENT: Denies nasal congestion or sore throat [] Respiratory: Denies cough or shortness of breath [] Cardiovascular: No chest pain or palpitations[] GI: Denies abdominal pain, nausea, vomiting, bloody stools or diarrhea [] : Denies dysuria or hematuria [] Musculoskeletal: See history of present illness[] Integument: Denies rash or skin lesions [] Neurologic: Denies headache, focal weakness or sensory changes [] Endocrine: Denies polyuria or polydipsia [] All other systems were reviewed and found to be within normal limits, except as documented in this note. Current Medications Current Medications Current Medications Medications (Trade) Dose Ordered Sig/Parish Start Time Stop Time Status Last Admin Dose Admin Ketorolac Tromethamine (Toradol 15mg Vial) 15 mg 1X ONCE 05/26/18 02:00 05/26/18 02:01 DC 05/26/18 02:00 15 MG Allergies Allergies Allergies Coded Allergies Type Severity Reaction Last Updated Verified Iodinated Contrast- Oral and IV Dye Allergy Severe 02/07/18 Yes Physical Exam Physical Exam Constitutional: Well developed, well nourished, no acute distress, non-toxic appearance. [] HENT: Normocephalic, atraumatic, bilateral external ears normal, oropharynx moist, no oral exudates, nose normal. [] Eyes: PERRLA, EOMI, conjunctiva normal, no discharge. [] Neck: Normal range of motion, no tenderness, supple, no stridor. [] Cardiovascular:Heart rate regular rhythm, no murmur [] Lungs & Thorax: Bilateral breath sounds clear to auscultation [] Abdomen: Not examined[] Skin: Warm, dry, no erythema, no rash. [] Back: No tenderness, no CVA tenderness. [] Extremities: Right upper extremity, scarring consistent with previous surgical history, edema at the distal radius and ulna on the dorsal aspect, limited active range of motion of the hand and wrist which patient reports is at his baseline. There is no elbow tenderness. Full active range of motion of the elbow.. [] Neurologic: Alert and oriented X 3, normal motor function, normal sensory function, no focal deficits noted. [] Psychologic: Affect normal, judgement normal, mood normal. [] EKG EKG [] Radiology/Procedures Radiology/Procedures X-rays of the wrist and forearm, right side, show no acute fractures or dislocations.[] Course & Med Decision Making Course & Med Decision Making Pertinent Labs and Imaging studies reviewed. (See chart for details) Medical decision making: There is no evidence of any acute fracture or dislocation. Do not see any evidence of a new compartment syndrome.[] Dragon Disclaimer Dragon Disclaimer This electronic medical record was generated, in whole or in part, using a voice recognition dictation system. Departure Departure Impression: Primary Impression: Right arm pain Disposition: 01 HOME, SELF-CARE Condition: GOOD Referrals: NO PCP (PCP) Patient Instructions: Contusion Additional Instructions: Follow-up with your regular doctor and orthopedic surgeon in 2 days. Return to the ER if worsening pain or any other concerns. ANN-MARIE HIGUERA DO May 26, 2018 01:26
[2018-05-26] MEDS ORDERED: KETOROLAC 15 MG/ML VIAL. IM ONE (02:00)
--- NOTE | 2018-05-26 04:36 | RAD ---
Right wrist 3 views, right forearm 2 views HISTORY: Pain post having wrist and arm slammed in door, history of compartment syndrome, hand contracted, pain Right forearm 2 views the right forearm show soft tissue swelling especially dorsally distally. There is no acute fracture or acute osseous abnormality. Right wrist 3 views were taken of the right wrist. There is not evidence of an acute fracture. There is posterior soft tissue swelling. IMPRESSION: 1. Soft tissue swelling. 2. No fracture noted in the right forearm. 3. No fracture noted at the right wrist. Electronically signed by: Harvinder Casiano MD (05/26/2018 4:31 AM) [id number]
== END 2018-05-26 02:25 | disposition home or self-care (01) ==
LOC: ER 01:00
DX: M25.531 Pain in right wrist (principal); M79.631 Pain in right forearm; Z91.041 Radiographic dye allergy status
CPT/HCPCS: 73090; 73110; 96372; 99283; J1885

== ENCOUNTER 2018-07-09 12:59 | Emergency (ER) | payer SELFPAY ==
[~2018-07-09] VITALS: Ht 180.3 cm; Wt 81.6 kg
[2018-07-09] MEDS ORDERED: HYDROcodone/APAP 5/325MG 1 TAB TABLET PO ONE (13:30)
--- NOTE | 2018-07-09 13:59 | RAD ---
3 view study of the left wrist Clinical indications: Left wrist pain after falling on ice this morning. FINDINGS: No acute fracture or dislocation or lytic process is seen. The wrist and hand are locked in a flexed position. IMPRESSION: No acute osseous abnormality. Electronically signed by: Davon Torres MD (07/09/2018 1:56 PM) [id number]
--- NOTE | 2018-07-09 14:13 | PHYS DOC ---
Past Medical History Past Medical History: Asthma Additional Past Medical Histor: compartment syndrome, Past Surgical History: Tonsillectomy Additional Past Surgical Histo: RIGHT HAND/ARM, EAR SURGERY Alcohol Use: None Drug Use: None Adult General Chief Complaint Chief Complaint: WRIST PAIN HPI HPI Patient is a 32 year old male who presents to the emergency department with complaints of left wrist pain after slipping and falling on ice today at 1130. Patient states he is unable to move his left wrist due to pain. He currently reports his pain as a 9/10 on the pain scale. He denies any head injury or loss of consciousness from the fall. Review of Systems Review of Systems Constitutional: Denies fever or chills [] Eyes: Denies change in visual acuity, redness, or eye pain [] HENT: Denies nasal congestion or sore throat [] Musculoskeletal: See HPI Integument: Denies rash or skin lesions [] Neurologic: Denies headache, focal weakness or sensory changes [] Current Medications Current Medications Current Medications Medications (Trade) Dose Ordered Sig/Parish Start Time Stop Time Status Last Admin Dose Admin Acetaminophen/ Hydrocodone Bitart (Lortab 5/325) 1 tab 1X ONCE 07/09/18 13:30 07/09/18 13:31 DC 07/09/18 13:30 1 TAB Allergies Allergies Allergies Coded Allergies Type Severity Reaction Last Updated Verified Iodinated Contrast- Oral and IV Dye Allergy Severe 02/07/18 Yes Physical Exam Physical Exam Constitutional: Well developed, well nourished, no acute distress, non-toxic appearance. [] HENT: Normocephalic, atraumatic, bilateral external ears normal, nose normal. [] Eyes: PERRLA, no discharge. [] Neck: Normal range of motion, no stridor. [] Cardiovascular:Heart rate regular rhythm Lungs & Thorax: respirations even and unlabored, no retractions, no distress Skin: Warm, dry, no erythema, no rash. [] Extremities: No cyanosis, no clubbing, no edema; left wrist TTP, no bruising, no swelling, no deformity, sensation intact, 2+ radial pulse, Neurologic: Alert and oriented X 3, normal motor function, normal sensory function, no focal deficits noted. [] Psychologic: Affect normal, judgement normal, mood normal. [] Current Patient Data Vital Signs EKG EKG [] Radiology/Procedures Radiology/Procedures PROCEDURE: WRIST 3V LEFT 3 view study of the left wrist Clinical indications: Left wrist pain after falling on ice this morning. FINDINGS: No acute fracture or dislocation or lytic process is seen. The wrist and hand are locked in a flexed position. IMPRESSION: No acute osseous abnormality.[] Course & Med Decision Making Course & Med Decision Making Pertinent Labs and Imaging studies reviewed. (See chart for details) [] Dragon Disclaimer Dragon Disclaimer This electronic medical record was generated, in whole or in part, using a voice recognition dictation system. Departure Departure Impression: Primary Impression: Acute pain of left wrist Disposition: HOME, SELF-CARE Condition: STABLE Referrals: NO PCP (PCP) Patient Instructions: Wrist Pain, [id number] Additional Instructions: Take Tylenol or ibuprofen as needed for pain Recommend application of ice, elevation, and rest of affected extremity. Wear the Mukesh wrap that was provided in the ER as needed for comfort. Follow up with your primary care doctor if symptoms persist. Return to the ER if your symptoms worsen. GLORIA HEDRICK APRN Jul 09, 2018 14:13
== END 2018-07-09 14:17 | disposition home or self-care (01) ==
LOC: ER 12:59
DX: M25.532 Pain in left wrist (principal); J45.909 Unspecified asthma, uncomplicated; Z90.89 Acquired absence of other organs
CPT/HCPCS: 73110; 99283

== ENCOUNTER 2018-08-02 17:31 | Emergency (ER) | payer SELFPAY ==
[~2018-08-02] VITALS: Ht 180.3 cm; Wt 83.9 kg
[2018-08-02 17:43] VITALS: BP 135/72
[2018-08-02] MEDS ORDERED: HYDROcodone/APAP 5/325MG 1 TAB TABLET PO ONE (18:15)
--- NOTE | 2018-08-02 18:31 | PHYS DOC ---
Past Medical History Past Medical History: Asthma Additional Past Medical Histor: compartment syndrome, Past Surgical History: Tonsillectomy Additional Past Surgical Histo: RIGHT HAND/ARM, EAR SURGERY Alcohol Use: None Drug Use: None Adult General Chief Complaint Chief Complaint: HAND PROBLEM HPI HPI Patient is a 32 year old male who presents with son slammed the car door on his right wrist this morning. Patient rates his pain a 9 out of 10. Patient states 2 months ago he had compartment syndrome surgery and he called Dr. Messina this morning and let him know what happened. Patient states the swelling has not gone down in his wrist. Patient states he had full function of his hand but at this time his fist is clenched shut. Review of Systems Review of Systems Constitutional: Denies fever or chills [] Eyes: Denies change in visual acuity, redness, or eye pain [] HENT: Denies nasal congestion or sore throat [] Respiratory: Denies cough or shortness of breath [] Cardiovascular: No additional information not addressed in HPI [] GI: Denies abdominal pain, nausea, vomiting, bloody stools or diarrhea [] : Denies dysuria or hematuria [] Musculoskeletal: Denies back pain or right wrist joint pain [] Integument: Denies rash or skin lesions [] Neurologic: Denies headache, focal weakness or sensory changes [] All other systems were reviewed and found to be within normal limits, except as documented in this note. Current Medications Current Medications Current Medications Medications (Trade) Dose Ordered Sig/Parish Start Time Stop Time Status Last Admin Dose Admin Acetaminophen/ Hydrocodone Bitart (Lortab 5/325) 1 tab 1X ONCE 08/02/18 18:15 08/02/18 18:17 DC 08/02/18 18:27 1 TAB Allergies Allergies Allergies Coded Allergies Type Severity Reaction Last Updated Verified Iodinated Contrast- Oral and IV Dye Allergy Severe 02/07/18 Yes Physical Exam Physical Exam Constitutional: Well developed, well nourished, no acute distress, non-toxic appearance. [] HENT: Normocephalic, atraumatic, bilateral external ears normal, oropharynx moist, no oral exudates, nose normal. [] Eyes: PERRLA, EOMI, conjunctiva normal, no discharge. [] Neck: Normal range of motion, no tenderness, supple, no stridor. [] Cardiovascular:Heart rate regular rhythm, no murmur [] Lungs & Thorax: Bilateral breath sounds clear to auscultation [] Abdomen: Bowel sounds normal, soft, no tenderness, no masses, no pulsatile masses. [] Skin: Warm, dry, no erythema, no rash. [] Back: No tenderness, no CVA tenderness. [] Extremities: Right wrist tenderness, no cyanosis, no clubbing, right wrist ROM not intact, right wrist 3+ edema. [] Neurologic: Alert and oriented X 3, normal motor function, normal sensory function, no focal deficits noted. [] Psychologic: Affect normal, judgement normal, mood normal. [] Current Patient Data Vital Signs Vital Signs Date Time Temp Pulse Resp B/P (MAP) Pulse Ox O2 Delivery O2 Flow Rate FiO2 08/02/18 17:43 97.9 102 135/72 (93) 99 Room Air 97.9 EKG EKG [] Radiology/Procedures Radiology/Procedures [] Impressions: [facility] [address] [place], [place] [id number] IMAGING REPORT Signed PATIENT: MARLENI HAWKINS ACCOUNT: [id number] : 1985 LOCATION: ER AGE: 32 SEX: M EXAM STATUS: REG ER ORD. PHYSICIAN: CHARLENE ELMORE APRN REASON: INJURY PROCEDURE: WRIST 3V RIGHT Right wrist 3 views. HISTORY: Slammed wrist in car door, hand and fingers are flexed and unable to move 3 views were taken of the right hand. There is no fracture or acute osseous abnormality. There is posterior soft tissue swelling. Limited evaluation of the fingers due to the flexion. IMPRESSION: 1. Soft tissue swelling right hand. 2. No fracture or acute osseous abnormality. Electronically signed by: Harvinder Casiano MD (08/02/2018 6:38 PM) [id number] DICTATED and SIGNED BY: HARVINDER CASIANO MD DATE: 08/02/18 183 Course & Med Decision Making Course & Med Decision Making Patient is a 32 year old male who presents with son slammed the car door on his right wrist this morning. Patient rates his pain a 9 out of 10. Patient states 2 months ago he had compartment syndrome surgery and he called Dr. Messina this morning and let him know what happened. Patient states the swelling has not gone down in his wrist. Patient states he had full function of his hand but at this time his fist is clenched shut. Some bruising to the dorsal ulna side of right wrist. I'm unable to unclenched fists as it is tightly clenched and is very painful for the patient. Radial pulses present and skin is pink warm and dry. Cap refill is less than 3 seconds. Wrist is 3+ swollen at ulnar side of wrist. Patient does have tenderness to radial wrist side dorsal wrist with palpation. Range of motion to the right wrist is not intact due to pain and swelling. Patient states that last time he ate was at 0700's morning. Patient states that after the injury he still had function of his hand his hand did not start to clenched shut until 1100. X-ray shows no acute findings for fluid build up to the posterior wrist. 1858: I spoken to Dr. Messina and let him know about the patients injury and that the hand is clenched shut and he states that the patient's hand has been clenched shut for the last 2 months and that is nothing new. Dr. Messina is told x- ray results and examination results of patient's tenderness in wrist found. Dr. Messina states that the patient can be discharged and follow-up with him. I will give the patient pain medication. Dragon Disclaimer Dragon Disclaimer This electronic medical record was generated, in whole or in part, using a voice recognition dictation system. Departure Departure Impression: Primary Impression: Wrist pain, right Disposition: HOME, SELF-CARE Condition: STABLE Referrals: NO PCP (PCP) Patient Instructions: Wrist Pain Additional Instructions: Follow-up with Dr. Messina. Continue using ice, ibuprofen and the medication I have prescribed free. If you begin having numbness of the hand begins in color changes return to the ED. Scripts Hydrocodone/Apap 5-325 (NORCO 5-325 TABLET) 1 Each Tablet 1 TAB PO PRN Q6HRS PRN for PAIN, #10 TAB 0 Refills Prov: CHARLENE ELMORE APRN 08/02/18 CHARLENE ELMORE APRN Aug 02, 2018 18:31
--- NOTE | 2018-08-02 18:41 | RAD ---
Right wrist 3 views. HISTORY: Slammed wrist in car door, hand and fingers are flexed and unable to move 3 views were taken of the right hand. There is no fracture or acute osseous abnormality. There is posterior soft tissue swelling. Limited evaluation of the fingers due to the flexion. IMPRESSION: 1. Soft tissue swelling right hand. 2. No fracture or acute osseous abnormality. Electronically signed by: Harvinder Casiano MD (08/02/2018 6:38 PM) [id number]
[2018-08-02] MEDS ORDERED: HYDR-3164 PO (19:05)
== END 2018-08-02 19:32 | disposition home or self-care (01) ==
LOC: ER 17:31
DX: M25.531 Pain in right wrist (principal); J45.909 Unspecified asthma, uncomplicated; Z90.89 Acquired absence of other organs; Z91.041 Radiographic dye allergy status
CPT/HCPCS: 73110; 99283

== ENCOUNTER 2018-08-03 09:42 | Emergency (ER) | payer SELFPAY ==
[~2018-08-03] VITALS: Ht 180.3 cm; Wt 83.9 kg
--- NOTE | 2018-08-03 10:13 | PHYS DOC ---
Past Medical History Past Medical History: Asthma Additional Past Medical Histor: RT ARM COMPARTMENT SYNDROME 2019 Past Surgical History: Tonsillectomy Additional Past Surgical Histo: RIGHT HAND/ARM, EAR SURGERY Alcohol Use: None Drug Use: None Adult General Chief Complaint Chief Complaint: HAND PROBLEM HPI HPI Patient is a 32-year-old male who is familiar to me from prior ER visits. Briefly, he has a remote history of a compartment syndrome in his right arm many years ago with a fasciotomy. He was seen in the emergency department again this past fall, after an injury on trampoline, and resultant muscle spasm and flexion of his right wrist. He was seen by orthopedics and diagnosed with a compartment syndrome and underwent fasciotomy. Postoperatively, he did poorly with recurrent flexion contractions of his right wrist. However, based on review to notes by the orthopedist, it appears that the patient's contractures relax under anesthesia, suggesting that this is not true contracture based syndrome. The patient has been seen in the emergency department several times for this. He reported another minor injury to his right wrist yesterday when his right hand was struck by a car door, actually his right wrist, dorsally. He was seen in the emergency department and had negative x-rays and Dr. Messina was contacted at the time. However the patient returns today because he is reporting persistent or worsening pain in his right wrist. He is unable to extend his hand or wrist, or extend his elbow either. I did speak with Dr. Alfaro , who states that the patient has had elbow contraction in the past, and this is not a new finding per se. However given the patient's history he will come in to the emergency department and see the patient and measure his pressures. Review of Systems Review of Systems Constitutional: Denies fever or chills [] Eyes: Denies change in visual acuity, redness, or eye pain [] HENT: Denies nasal congestion or sore throat [] Respiratory: Denies cough or shortness of breath [] GI: Denies abdominal pain, nausea, vomiting, bloody stools or diarrhea [] : Denies dysuria or hematuria [] Musculoskeletal: Denies back pain or joint pain [] Neurologic: Denies headache, new focal weakness or sensory changes [] Endocrine: Denies polyuria or polydipsia [] Current Medications Current Medications Current Medications Medications (Trade) Dose Ordered Sig/Parish Start Time Stop Time Status Last Admin Dose Admin Midazolam HCl (Versed) 5 mg STK-MED ONCE 08/03/18 11:24 08/03/18 11:25 DC Propofol 20 ml @ 0 mls/hr 1X ONCE 08/03/18 11:59 08/03/18 12:04 DC Allergies Allergies Allergies Coded Allergies Type Severity Reaction Last Updated Verified Iodinated Contrast- Oral and IV Dye Allergy Severe 02/07/18 Yes Physical Exam Physical Exam PHYSICAL EXAM: CONSTITUTIONAL: Well developed, well nourished HEAD: normocephalic, atraumatic EENT: PERRL, EOMI. Conjunctivae normal color, sclerae non-icteric; moist mucous membranes. NECK: Supple, non-tender; no meningismus. LUNGS: Lungs CTA, breathing even and unlabored. Normal air movement. HEART: Regular rate and rhythm, no murmur CHEST: No deformity; non-tender ABDOMEN: The abdomen is soft, and non-tender, no masses or bruits. EXTREM: There is flexion of the right hand, right wrist, and right elbow, unable to be passively extended, due to pain. The muscle compartments in the forearm are not edematous, but are somewhat firm, likely related to the muscle contracture, the biceps tendon is prominently palpable in and distal to the antecubital fossa. There is a strong radial pulse. There are healed fasciotomy scars. The remainder of extremities are unremarkable, with Normal ROM; no deformity, no calf tenderness. Normal pulses palpable in all extremities. There is no pedal edema. SKIN: No rash; no diaphoresis NEURO: Alert; normal speech and cognition; CN's grossly intact; strength grossly intact without focal deficit. BACK: No CVA TTP. Current Patient Data Vital Signs Vital Signs Date Time Temp Pulse Resp B/P (MAP) Pulse Ox O2 Delivery O2 Flow Rate FiO2 08/03/18 12:05 88 24 131/73 (92) 100 Room Air 08/03/18 11:48 98.4 2.0 98.6 2.0 2.0 EKG EKG [] Radiology/Procedures Radiology/Procedures [] Course & Med Decision Making Course & Med Decision Making Pertinent Labs and Imaging studies reviewed. (See chart for details) 11:50: AM: Patient's was sedated with propofol, most immediately when he was sedated, his extremities relaxed to the point he was able to have his wrist and hand fully extended, although he does have some mild deformity in his right pinky finger. Compartment pressures were not significantly elevated. Dr. Alfaro checked the compartment pressures, I performed the sedation. The patient was monitored with end-tidal CO2 and oxygen and did not have any complications. He recovered uneventfully. He'll be released from the emergency department for close outpatient follow-up with Dr. Alfaro. It should be noted that when the patient ambulated out of the emergency department he was holding his discharge instructions in his right hand , which no longer appeared contractured are flexed, and he did appear to have movement in the hand and wrist. Dragon Disclaimer Dragon Disclaimer This electronic medical record was generated, in whole or in part, using a voice recognition dictation system. Departure Departure Impression: Primary Impression: Wrist pain, right Disposition: 01 HOME, SELF-CARE Condition: STABLE Patient Instructions: Contusion Additional Instructions: Follow-up with Dr. Messina for further care. DANNY WHITE MD Aug 03, 2018 10:13
[2018-08-03] MEDS ORDERED: MIDAZOLAM HCL/PF 5 MG/5 ML VIAL. ONE (11:24)
[2018-08-03] MEDS ORDERED: PROPOFOL 20 ML IV ONE ×3 (11:24→11:59)
[2018-08-03 11:48] VITALS: BP 132/79
[2018-08-03 12:05] VITALS: BP 131/73
--- NOTE | 2018-08-03 13:33 | PDOC ---
Provider Note Provider Note 32 man familiar to me from multiple surgeries and recent office visits. He reports that his son smashed his right hand in the car door, and he has more pain and swelling. He was at the emergency room yesterday and released, and returns today with continued pain. On examination, he appears comfortable. He has the arm and wrist in the flexed position seen previously. He has severe pain with any attempt at passive range of motion, essentially identical to that seen previously. The biceps is contracted and tender, although there is no clear biological mechanism for that, based on hand/wrist car door injury. There is so much muscle spasm that compartment pressures are likely to be spuriously elevated, and I recommended sedation. Dr. Schilling agrees. I spoke to the patient about checking his compartment pressures under sedation and he agreed. Dr. Schilling sedated the patient with propofol. 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 The ring finger has a partial chronic deformity. The skin was prepared with chlorhexidine, into 2 areas on the dorsal hand, as well as the volar and extensor forearm muscle compartments. Compartment pressures were: -Radial hand (indexmiddle finger metacarpal interosseous compartment 15 mmHg -Ulnar hand (middle fingerring finger metacarpal interosseous compartment) 28 mmHg -Extensor forearm muscle compartment 15 mmHg -Volar forearm muscle compartment 28 mmHg None of these indicate acute compartment syndrome. I suspect he has chronically elevated compartment pressures in the volar forearm and ulnar hand due to the chronic contractions, scar tissue, and prior compartment syndrome. I recommended nonoperative treatment, rest, NSAIDs, ice, elevation and time. ESDRAS BROWN MD Aug 03, 2018 13:33
== END 2018-08-03 12:23 | disposition home or self-care (01) ==
LOC: ER 09:42
DX: M25.531 Pain in right wrist (principal); J45.909 Unspecified asthma, uncomplicated; Z90.89 Acquired absence of other organs; Z91.041 Radiographic dye allergy status
CPT/HCPCS: 99285; J2704

== ENCOUNTER 2019-03-02 18:59 | Emergency (ER) | payer SELFPAY ==
[~2019-03-02] VITALS: Ht 180.3 cm; Wt 93.0 kg
[~2019-03-02 18:59] MED LIST changes: +MORP-15 PO; +MORP-16 PO; -MORP15TA3 PO; -MORP30TA3 PO
[2019-03-02] MEDS ORDERED: fentaNYL PF VIAL 100 MCG/2 ML VIAL IV PRN (20:45)
--- NOTE | 2019-03-02 20:50 | PHYS DOC ---
Past Medical History Past Medical History: Asthma Additional Past Medical Histor: RT ARM COMPARTMENT SYNDROME 2019 Past Surgical History: Tonsillectomy Additional Past Surgical Histo: RIGHT HAND/ARM, EAR SURGERY Alcohol Use: None Drug Use: None Adult General Chief Complaint Chief Complaint: NAUSEA/VOMITING/[facility] HPI Patient is a 33-year-old male who presents with complaint of abdominal pain with nausea and vomiting for the last 3 days. Patient indicates that he has not been passing gas and is had no bowel movement since that time. He rates pain in his abdomen at a 7 out of 10. He states that he has not been able to keep anything down to include water and states that started. He denies any chest pain or shortness of breath. He also denies any fever. He is getting to the point where he starting to feel weak.[] Review of Systems Review of Systems Constitutional: Denies fever or chills [] Respiratory: Denies cough or shortness of breath [] Cardiovascular: No additional information not addressed in HPI [] GI: Complains of abdominal pain with nausea and vomiting. Denies diarrhea [] Integument: Denies rash or skin lesions [] Neurologic: Denies headache, focal weakness or sensory changes [] All other systems were reviewed and found to be within normal limits, except as documented in this note. Current Medications Current Medications Current Medications Medications (Trade) Dose Ordered Sig/Parish Start Time Stop Time Status Last Admin Dose Admin Fentanyl Citrate (Fentanyl 2ml Vial) 50 mcg PRN Q15MIN PRN 03/02/19 20:45 03/03/19 20:44 03/02/19 22:35 50 MCG Ondansetron HCl (Zofran) 4 mg 1X ONCE 03/02/19 21:00 03/02/19 21:01 DC 03/02/19 22:36 4 MG Sodium Chloride 1,000 ml @ 1,000 mls/hr Q1H 03/02/19 21:00 03/02/19 21:59 DC 03/02/19 22:34 1,000 MLS/HR Allergies Allergies Allergies Coded Allergies Type Severity Reaction Last Updated Verified Iodinated Contrast Media Allergy Severe 02/07/18 Yes Physical Exam Physical Exam Constitutional: Well developed, well nourished, no acute distress, non-toxic appearance. [] HENT: Normocephalic, atraumatic, bilateral external ears normal, oropharynx moist, no oral exudates, nose normal. [] Eyes: PERRLA, EOMI, conjunctiva normal, no discharge. [] Neck: Normal range of motion, no tenderness, supple, no stridor. [] Cardiovascular:Heart rate regular rhythm, no murmur [] Lungs & Thorax: Bilateral breath sounds clear to auscultation [] Abdomen: Bowel sounds diminished, soft, with diffuse tenderness. [] Skin: Warm, dry, no erythema, no rash. [] Extremities: No tenderness, no cyanosis, no clubbing, ROM intact, no edema. [] Neurologic: Alert and oriented X 3, no focal deficits noted. [] Current Patient Data Vital Signs Vital Signs Date Time Temp Pulse Resp B/P (MAP) Pulse Ox O2 Delivery O2 Flow Rate FiO2 03/02/19 22:35 18 97 Room Air 03/02/19 20:40 97.9 80 152/93 (112) 97.9 Lab Values Laboratory Tests Test 03/02/19 22:05 White Blood Count 8.9 x10^3/uL (4.0-11.0) Red Blood Count 5.31 x10^6/uL (4.30-5.70) Hemoglobin 16.0 g/dL (13.0-17.5) Hematocrit 46.6 % (39.0-53.0) Mean Corpuscular Volume 88 fL (79-100) Mean Corpuscular Hemoglobin 30 pg (25-35) Mean Corpuscular Hemoglobin Concent 34 g/dL (31-37) Red Cell Distribution Width 13.5 % (11.5-14.5) Platelet Count 279 x10^3/uL (140-400) Neutrophils (%) (Auto) 75 % (31-73) H Lymphocytes (%) (Auto) 18 % (24-48) L Monocytes (%) (Auto) 6 % (0-9) Eosinophils (%) (Auto) 1 % (0-3) Basophils (%) (Auto) 1 % (0-3) Neutrophils # (Auto) 6.7 x10^3/uL (1.8-7.7) Lymphocytes # (Auto) 1.6 x10^3/uL (1.0-4.8) Monocytes # (Auto) 0.5 x10^3/uL (0.0-1.1) Eosinophils # (Auto) 0.0 x10^3/uL (0.0-0.7) Basophils # (Auto) 0.0 x10^3/uL (0.0-0.2) Sodium Level 142 mmol/L (136-145) Potassium Level 3.9 mmol/L (3.5-5.1) Chloride Level 104 mmol/L (98-107) Carbon Dioxide Level 29 mmol/L (21-32) Anion Gap 9 (6-14) Blood Urea Nitrogen 13 mg/dL (8-26) Creatinine 0.9 mg/dL (0.7-1.3) Estimated GFR (Cockcroft-Gault) 96.0 BUN/Creatinine Ratio 14 (6-20) Glucose Level 101 mg/dL (70-99) H Calcium Level 9.3 mg/dL (8.5-10.1) Total Bilirubin 0.7 mg/dL (0.2-1.0) Aspartate Amino Transferase (AST) 27 U/L (15-37) Alanine Aminotransferase (ALT) 42 U/L (16-63) Alkaline Phosphatase 87 U/L (46-116) Total Protein 7.9 g/dL (6.4-8.2) Albumin 4.5 g/dL (3.4-5.0) Albumin/Globulin Ratio 1.3 (1.0-1.7) Lipase 69 U/L (73-393) L Laboratory Tests 03/02/19 22:05 Laboratory Tests 03/02/19 22:05 EKG EKG [] Radiology/Procedures Radiology/Procedures [] Impressions: PROCEDURE: CT ABDOMEN PELVIS WO CONTRAST CT abdomen and pelvis without contrast COMPARISON: CT abdomen and pelvis January 17, 2018. PQRS statement: CT scans at this facility use dose reduction including either automated exposure control, iterative reconstructions, and /or weight based radiation dosing via mA and kV modification when appropriate to reduce radiation dose to as low as reasonably achievable. HISTORY: Abdominal pain and vomiting. Abdomen findings: Lung bases unremarkable. Disc bulge L5-S1. Liver, gallbladder, pancreas, spleen, adrenal glands and kidneys are unremarkable. No urinary calculi or hydronephrosis. The appendix is negative. No obstruction or inflammatory changes in GI tract. No abdominal fluid. Pelvis findings: No bladder calculi. Bladder, prostate, rectum and bones are unremarkable. IMPRESSION: No acute process. The appendix is negative. Electronically signed by: Scotty Thurston MD (03/02/2019 9:15 PM) Course & Med Decision Making Course & Med Decision Making Pertinent Labs and Imaging studies reviewed. (See chart for details) [] Dragon Disclaimer Dragon Disclaimer This electronic medical record was generated, in whole or in part, using a voice recognition dictation system. Departure Departure Impression: Primary Impression: Nausea and vomiting Disposition: HOME, SELF-CARE Condition: STABLE Referrals: NO PCP (PCP) Patient Instructions: Form - Excuse from Work, School, or Physical Activity, Nausea and Vomiting, Viral Gastroenteritis Scripts Ondansetron Hcl (ZOFRAN) 4 Mg Tablet 4 MG PO PRN TID PRN for NAUSEA, #15 TAB nausea/vomiting Prov: SHAHBAZ DONOHUE Jr. DO 03/02/19 Problem Qualifiers Primary Impression: Nausea and vomiting Vomiting type: unspecified Vomiting Intractability: non-intractable Qualified Codes: R11.2 - Nausea with vomiting, unspecified SHAHBAZ DONOHUE Jr. DO Mar 02, 2019 20:50
[2019-03-02] MEDS ORDERED: IV NORMAL SALINE 1000ML BAG 1,000 ML IV SCH (21:00)
[2019-03-02] MEDS ORDERED: ONDANSETRON PF 4 MG/2 ML VIAL. IV ONE (21:00)
--- NOTE | 2019-03-02 21:18 | RAD ---
CT abdomen and pelvis without contrast COMPARISON: CT abdomen and pelvis January 17, 2018. PQRS statement: CT scans at this facility use dose reduction including either automated exposure control, iterative reconstructions, and /or weight based radiation dosing via mA and kV modification when appropriate to reduce radiation dose to as low as reasonably achievable. HISTORY: Abdominal pain and vomiting. Abdomen findings: Lung bases unremarkable. Disc bulge L5-S1. Liver, gallbladder, pancreas, spleen, adrenal glands and kidneys are unremarkable. No urinary calculi or hydronephrosis. The appendix is negative. No obstruction or inflammatory changes in GI tract. No abdominal fluid. Pelvis findings: No bladder calculi. Bladder, prostate, rectum and bones are unremarkable. IMPRESSION: No acute process. The appendix is negative. Electronically signed by: Scotty Thurston MD (03/02/2019 9:15 PM) [facility]
[2019-03-02 22:24] LABS: BASO % 1 % (0-3); EOS % 1 % (0-3); HEMATOCRIT 46.6 % (39.0-53.0); LYMPH # 1.6 x10^3/uL (1.0-4.8); LYMPH % 18 % (24-48); MEAN CORPUSCULAR HEMOGLOBIN 30 pg (25-35); MEAN CORPUSCULAR HGB CONC 34 g/dL (31-37); MEAN CORPUSCULAR VOLUME 88 fL (79-100); MONO # 0.5 x10^3/uL (0.0-1.1); MONO % 6 % (0-9); NEUT # 6.7 x10^3/uL (1.8-7.7); NEUT % 75 % (31-73); PLATELET COUNT 279 x10^3/uL (140-400); RED BLOOD COUNT 5.31 x10^6/uL (4.30-5.70); RED CELL DISTRIBUTION WIDTH 13.5 % (11.5-14.5); WHITE BLOOD COUNT 8.9 x10^3/uL (4.0-11.0)
[2019-03-02 22:35] VITALS: BP 123/61
[2019-03-02 22:43] LABS: CALCIUM 9.3 mg/dL (8.5-10.1); CREATININE 0.9 mg/dL (0.7-1.3); POTASSIUM 3.9 mmol/L (3.5-5.1)
[2019-03-02 22:51] LABS: ALBUMIN 4.5 g/dL (3.4-5.0); ALBUMIN/GLOBULIN RATIO 1.3 (1.0-1.7); TOTAL BILIRUBIN 0.7 mg/dL (0.2-1.0); TOTAL PROTEIN 7.9 g/dL (6.4-8.2)
[2019-03-02] MEDS ORDERED: ONDA4TAB7 PO (23:14)
[2019-03-02 23:26] LABS: BILIRUBIN,URINE NEGATIVE (NEG); CLARITY,URINE CLOUDY; COLOR,URINE YELLOW; NITRITE,URINE NEGATIVE (NEG); PROTEIN,URINE NEGATIVE (NEG-TRACE); UROBILINOGEN,URINE 0.2 mg/dL (0.2 mg/dL)
[2019-03-02 23:33] LABS: AMORPHOUS SEDIMENT,UR PRESENT /HPF; BACTERIA,URINE 0 /HPF (0-FEW); RBC,URINE 0 /HPF (0-2)
[2019-03-02 23:34] LABS: WBC,URINE OCC /HPF (0-4)
== END 2019-03-02 23:57 | disposition home or self-care (01) ==
LOC: ER 18:59
DX: R11.2 Nausea with vomiting, unspecified (principal); R10.84 Generalized abdominal pain; J45.909 Unspecified asthma, uncomplicated; Z91.041 Radiographic dye allergy status
CPT/HCPCS: 36415; 74176; 80053; 81001; 83690; 85025; 96361; 96374; 96375; 99285; J2405; J3010; J7030

== ENCOUNTER 2019-03-21 18:01 | Emergency (ER) | payer SELFPAY ==
[~2019-03-21] VITALS: Ht 180.3 cm; Wt 93.0 kg
[~2019-03-21 18:01] MED LIST changes: +ONDA4TAB7 PO
[2019-03-21 18:15] VITALS: BP 163/86
[2019-03-21] MEDS ORDERED: HYDR-3164 PO (18:30)
[2019-03-21] MEDS ORDERED: AMOX500C PO (18:30)
--- NOTE | 2019-03-21 18:31 | PHYS DOC ---
Past Medical History Past Medical History: Asthma Additional Past Medical Histor: RT ARM COMPARTMENT SYNDROME 2019 (SHANTELL HOPSON APRN) Past Surgical History: Tonsillectomy Additional Past Surgical Histo: RIGHT HAND/ARM, EAR SURGERY (SHANTELL HOPSON APRN) Alcohol Use: None Drug Use: None (SHANTELL HOPSON APRN) Attending Signature I have participated in the care of this patient and I have reviewed and agree with all pertinent clinical information above including history, exam, and recommendations. (MIKE ANDINO MD) Adult General Chief Complaint Chief Complaint: DENTAL PROBLEM HPI HPI Patient is a 33 year old male who presents with 8 out of 10 pain on the left lower gum that began yesterday. Patient denies any fever or trismus. He states he has an appointment with her dentist next week. Describes the pain as sharp and constant. (SHANTELL HOPSON APRN) Review of Systems Review of Systems Constitutional: Denies fever or chills [] Eyes: Denies change in visual acuity, redness, or eye pain [] HENT: Reports left lower gum dental pain. Denies nasal congestion or sore throat [] Musculoskeletal: Denies back pain or joint pain [] Integument: Denies rash or skin lesions [] Neurologic: Denies headache, focal weakness or sensory changes [] All other systems were reviewed and found to be within normal limits, except as documented in this note. (SHANTELL HOPSON APRN) Allergies Allergies Allergies Coded Allergies Type Severity Reaction Last Updated Verified Iodinated Contrast Media Allergy Severe 02/07/18 Yes (MIKE ANDINO MD) Physical Exam Physical Exam Constitutional: Well developed, well nourished, no acute distress, non-toxic appearance. [] HENT: Normocephalic, atraumatic, bilateral external ears normal, oropharynx moist, no oral exudates, nose normal. [] Left lower gum with mild swelling, very poor dentition, missing teeth on the left lower gum. No fluctuance on the swollen part of the gums. Skin: Warm, dry, no erythema, no rash. [] Back: No tenderness, no CVA tenderness. [] Extremities: No tenderness, no cyanosis, no clubbing, ROM intact, no edema. [] Neurologic: Alert and oriented X 3, normal motor function, normal sensory function, no focal deficits noted. [] Psychologic: Affect normal, judgement normal, mood normal. [] (SHANTELL HPOSON APRN) Current Patient Data Vital Signs Vital Signs Date Time Temp Pulse Resp B/P (MAP) Pulse Ox O2 Delivery O2 Flow Rate FiO2 03/21/19 18:15 99.1 104 18 163/86 (111) 99 Room Air 99.1 (MIKE ANDINO MD) EKG EKG [] (SHANTELL HOPSON APRN) Radiology/Procedures Radiology/Procedures [] (SHANTELL HOPSON APRN) Course & Med Decision Making Course & Med Decision Making Pertinent Labs and Imaging studies reviewed. (See chart for details) This is a 33-year-old male patient with a dental abscess. Discharged with amoxicillin. Follow-up with the dentist next week. (SHANTELL HOPSON APRN) Dragon Disclaimer Dragon Disclaimer This electronic medical record was generated, in whole or in part, using a voice recognition dictation system. (SHANTELL HOPSON APRN) Departure Departure Impression: Primary Impression: Dental abscess Disposition: 01 HOME, SELF-CARE Condition: STABLE Referrals: NO PCP (PCP) follow up with a dentist next week Patient Instructions: Dental Abscess Additional Instructions: You have a dental abscess, we put you on antibiotics, ensure you complete them. Follow-up with your dentist next week. Scripts Amoxicillin (AMOXICILLIN) 500 Mg Capsule 1 CAP PO BID, #20 CAP Prov: SHANTELL HOPSON APRN 03/21/19 Hydrocodone/Apap 5-325 (NORCO 5-325 TABLET) 1 Each Tablet 1 TAB PO Q6-8HRS PRN for PAIN, #10 TAB Prov: SHANTELL HOPSON APRN 03/21/19 SHANTELL HOPSON APRN Mar 21, 2019 18:31 MIKE ANDINO MD Mar 21, 2019 23:16
== END 2019-03-21 18:40 | disposition home or self-care (01) ==
LOC: ER 18:01
DX: K04.7 Periapical abscess without sinus (principal); J45.909 Unspecified asthma, uncomplicated; Z90.89 Acquired absence of other organs; Z91.041 Radiographic dye allergy status
CPT/HCPCS: 99283

== ENCOUNTER 2019-04-30 01:46 | Emergency (ER) | payer SELFPAY ==
[~2019-04-30] VITALS: Ht 180.3 cm; Wt 93.0 kg
[~2019-04-30 01:46] MED LIST changes: +AMOX500C PO
[2019-04-30] MEDS ORDERED: ASPIRIN CHEWABLE 81 MG TABLET. PO ONE (02:15)
--- NOTE | 2019-04-30 02:47 | RAD ---
EXAM: CHEST 1 VIEW History: Chest pain COMPARISON: 11/06/2017 TECHNIQUE: Single portable radiograph of the chest FINDINGS: The cardiac silhouette is unremarkable. The lungs are clear bilaterally. The costophrenic sulci are clear and well demarcated. IMPRESSION: No radiographic evidence of an acute cardiopulmonary process. Electronically signed by: Stephan García MD (04/30/2019 2:44 AM) [facility]
[2019-04-30 03:10] LABS: BASO # 0.1 x10^3/uL (0.0-0.2); BASO % 1 % (0-3); EOS # 0.1 x10^3/uL (0.0-0.7); EOS % 1 % (0-3); HEMATOCRIT 42.4 % (39.0-53.0); HEMOGLOBIN 14.5 g/dL (13.0-17.5); LYMPH # 1.6 x10^3/uL (1.0-4.8); LYMPH % 25 % (24-48); MEAN CORPUSCULAR HEMOGLOBIN 29 pg (25-35); MEAN CORPUSCULAR HGB CONC 34 g/dL (31-37); MEAN CORPUSCULAR VOLUME 86 fL (79-100); MONO # 0.4 x10^3/uL (0.0-1.1); MONO % 7 % (0-9); NEUT # 4.2 x10^3/uL (1.8-7.7); NEUT % 66 % (31-73); PLATELET COUNT 290 x10^3/uL (140-400); RED BLOOD COUNT 4.94 x10^6/uL (4.30-5.70); RED CELL DISTRIBUTION WIDTH 12.1 % (11.5-14.5); WHITE BLOOD COUNT 6.3 x10^3/uL (4.0-11.0)
--- NOTE | 2019-04-30 03:29 | PHYS DOC ---
Past Medical History Past Medical History: Anxiety, Asthma Additional Past Medical Histor: RT ARM COMPARTMENT SYNDROME 2019 Past Surgical History: Tonsillectomy Additional Past Surgical Histo: RIGHT HAND/ARM, EAR SURGERY Alcohol Use: None Drug Use: None Adult General Chief Complaint Chief Complaint: CHEST PAIN HPI HPI 33-year-old male presents to the emergency Department complaints of chest pain. He states the pain woke him up from sleep. He described the center aspect of his chest with no radiation. Denies any nausea, vomiting, shortness of breath, fevers. She has had recent illness within the last week. It is of note he has underlying history of asthma. Nothing makes his symptoms worse, nothing makes his symptoms better. Review of Systems Review of Systems Constitutional: Denies fever or chills [] Respiratory: Denies cough or shortness of breath [] Cardiovascular: No additional information not addressed in HPI [] GI: Denies abdominal pain, nausea, vomiting, bloody stools or diarrhea [] Musculoskeletal: Denies back pain or joint pain [] Neurologic: Denies headache, focal weakness or sensory changes [] All other systems were reviewed and found to be within normal limits, except as documented in this note. Current Medications Current Medications Current Medications Medications (Trade) Dose Ordered Sig/Parish Start Time Stop Time Status Last Admin Dose Admin Aspirin (Children'S Aspirin) 324 mg 1X ONCE 04/30/19 02:15 04/30/19 02:25 DC 04/30/19 02:15 324 MG Ketorolac Tromethamine (Toradol 30mg Vial) 30 mg 1X ONCE 04/30/19 03:45 04/30/19 03:46 DC 04/30/19 03:56 30 MG Magnesium Sulfate 50 ml @ 25 mls/hr 1X ONCE 04/30/19 04:30 04/30/19 06:29 UNV Potassium Chloride (Klor-Con) 40 meq 1X ONCE 04/30/19 04:30 04/30/19 04:31 UNV Allergies Allergies Allergies Coded Allergies Type Severity Reaction Last Updated Verified Iodinated Contrast Media Allergy Severe 02/07/18 Yes Physical Exam Physical Exam Constitutional: Well developed, well nourished, no acute distress, non-toxic appearance. [] HENT: Normocephalic, atraumatic, bilateral external ears normal, oropharynx moist, no oral exudates, nose normal. [] Eyes: PERRLA, EOMI, conjunctiva normal, no discharge. [] Cardiovascular:Heart rate regular rhythm, no murmur [] Lungs & Thorax: Bilateral breath sounds clear to auscultation [] Abdomen: Bowel sounds normal, soft, no tenderness, no masses, no pulsatile masses. [] Skin: Warm, dry, no erythema, no rash. [] Back: No tenderness, no CVA tenderness. [] Extremities: No tenderness, no edema. [] Neurologic: Alert and oriented X 3, no focal deficits noted. [] Psychologic: Affect normal, judgement normal, mood normal. [] Current Patient Data Vital Signs Vital Signs Date Time Temp Pulse Resp B/P (MAP) Pulse Ox O2 Delivery O2 Flow Rate FiO2 04/30/19 01:58 98.8 102 24 126/74 (91) 98 Room Air 98.8 Lab Values Laboratory Tests Test 04/30/19 03:00 White Blood Count 6.3 x10^3/uL (4.0-11.0) Red Blood Count 4.94 x10^6/uL (4.30-5.70) Hemoglobin 14.5 g/dL (13.0-17.5) Hematocrit 42.4 % (39.0-53.0) Mean Corpuscular Volume 86 fL (79-100) Mean Corpuscular Hemoglobin 29 pg (25-35) Mean Corpuscular Hemoglobin Concent 34 g/dL (31-37) Red Cell Distribution Width 12.1 % (11.5-14.5) Platelet Count 290 x10^3/uL (140-400) Neutrophils (%) (Auto) 66 % (31-73) Lymphocytes (%) (Auto) 25 % (24-48) Monocytes (%) (Auto) 7 % (0-9) Eosinophils (%) (Auto) 1 % (0-3) Basophils (%) (Auto) 1 % (0-3) Neutrophils # (Auto) 4.2 x10^3/uL (1.8-7.7) Lymphocytes # (Auto) 1.6 x10^3/uL (1.0-4.8) Monocytes # (Auto) 0.4 x10^3/uL (0.0-1.1) Eosinophils # (Auto) 0.1 x10^3/uL (0.0-0.7) Basophils # (Auto) 0.1 x10^3/uL (0.0-0.2) Sodium Level 138 mmol/L (136-145) Potassium Level 3.1 mmol/L (3.5-5.1) L Chloride Level 101 mmol/L (98-107) Carbon Dioxide Level 29 mmol/L (21-32) Anion Gap 8 (6-14) Blood Urea Nitrogen 9 mg/dL (8-26) Creatinine 1.1 mg/dL (0.7-1.3) Estimated GFR (Cockcroft-Gault) 76.2 BUN/Creatinine Ratio 8 (6-20) Glucose Level 132 mg/dL (70-99) H Calcium Level 8.8 mg/dL (8.5-10.1) Magnesium Level 1.7 mg/dL (1.8-2.4) L Total Bilirubin 0.4 mg/dL (0.2-1.0) Aspartate Amino Transferase (AST) 18 U/L (15-37) Alanine Aminotransferase (ALT) 19 U/L (16-63) Alkaline Phosphatase 71 U/L (46-116) Troponin I Quantitative < 0.017 ng/mL (0.000-0.055) Total Protein 7.2 g/dL (6.4-8.2) Albumin 3.8 g/dL (3.4-5.0) Albumin/Globulin Ratio 1.1 (1.0-1.7) Laboratory Tests 04/30/19 03:00 Laboratory Tests 04/30/19 03:00 EKG EKG [] Radiology/Procedures Radiology/Procedures [facility] [address] [place] [address] IMAGING REPORT Signed PATIENT: MARLENI HAWKINS ACCOUNT: [id number] : 1985 LOCATION: ER AGE: 33 SEX: M EXAM STATUS: PRE ER ORD. PHYSICIAN: MIKE ANDINO MD REASON: chest pain PROCEDURE: PORTABLE CHEST 1V EXAM: CHEST 1 VIEW History: Chest pain COMPARISON: 11/06/2017 TECHNIQUE: Single portable radiograph of the chest FINDINGS: The cardiac silhouette is unremarkable. The lungs are clear bilaterally. The costophrenic sulci are clear and well demarcated. IMPRESSION: No radiographic evidence of an acute cardiopulmonary process. Electronically signed by: Stephan García MD (04/30/2019 2:44 AM) [facility] DICTATED and SIGNED BY: STEPHAN GARCÍA MD DATE: 04/30/19 0244 [] Course & Med Decision Making Course & Med Decision Making Pertinent Labs and Imaging studies reviewed. (See chart for details) []33-year-old male presents to the emergency Department complaints of chest pain. He states the pain woke him up from sleep. He described the center aspect of his chest with no radiation. Denies any nausea, vomiting, shortness of breath, fevers. She has had recent illness within the last week. It is of note he has underlying history of asthma. Nothing makes his symptoms worse, nothing makes his symptoms better. EKG reviewed, no evidence of acute process, troponin within normal limits Chest x-ray reviewed without acute consolidation Labs with evidence of hypokalemia and hypomag - replaced in ER Recommend follow up with PCP as outpatient Return precautions provided Dragon Disclaimer Dragon Disclaimer This electronic medical record was generated, in whole or in part, using a voice recognition dictation system. Departure Departure Impression: Primary Impression: Chest pain Additional Impressions: Hypomagnesemia Hypokalemia Disposition: 01 HOME, SELF-CARE Condition: IMPROVED Referrals: NO PCP (PCP) Patient Instructions: Chest Pain Observation, Hypokalemia-Brief, Hypomagnesemia Problem Qualifiers Primary Impression: Chest pain Chest pain type: unspecified Qualified Codes: R07.9 - Chest pain, unspecified MIKE ANDINO MD Apr 30, 2019 03:29
[2019-04-30] MEDS ORDERED: KETOROLAC 30 MG/ML VIAL. IV ONE (03:45)
[2019-04-30 03:51] LABS: CALCIUM 8.8 mg/dL (8.5-10.1); CREATININE 1.1 mg/dL (0.7-1.3); GFR 76.2; POTASSIUM 3.1 mmol/L (3.5-5.1)
[2019-04-30 03:59] LABS: ALBUMIN 3.8 g/dL (3.4-5.0); ALBUMIN/GLOBULIN RATIO 1.1 (1.0-1.7); MAGNESIUM 1.7 mg/dL (1.8-2.4); TOTAL BILIRUBIN 0.4 mg/dL (0.2-1.0); TOTAL PROTEIN 7.2 g/dL (6.4-8.2)
[2019-04-30] MEDS ORDERED: MAGNESIUM SULFATE 2GM 50 ML IV ONE (04:45)
[2019-04-30] MEDS ORDERED: POTASSIUM CHLORIDE 20 MEQ TABLET.ER. PO ONE (04:45)
[2019-04-30 05:00] VITALS: BP 112/67
--- NOTE | 2019-05-04 07:55 | EKG ---
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
== END 2019-04-30 05:23 | disposition home or self-care (01) ==
LOC: ER 01:46
DX: R07.89 Other chest pain (principal); E83.42 Hypomagnesemia; E87.6 Hypokalemia; J45.909 Unspecified asthma, uncomplicated; Z90.89 Acquired absence of other organs; Z79.82 Long term (current) use of aspirin; Z91.041 Radiographic dye allergy status
CPT/HCPCS: 36415; 71045; 80053; 83735; 84484; 85025; 93005; 96365; 96375; 99285; J1885; J3475

== ENCOUNTER 2019-05-03 19:05 | Emergency (ER) | payer SELFPAY ==
[~2019-05-03] VITALS: Ht 180.3 cm; Wt 93.0 kg
[2019-05-03 19:57] LABS: BILIRUBIN,URINE NEGATIVE (NEG); CLARITY,URINE CLEAR; COLOR,URINE YELLOW; NITRITE,URINE NEGATIVE (NEG); PH,URINE 7.5; PROTEIN,URINE NEGATIVE (NEG-TRACE); UROBILINOGEN,URINE 0.2 mg/dL (0.2 mg/dL)
[2019-05-03] MEDS ORDERED: AZITHROMYCIN 250 MG TABLET. PO ONE (20:00)
[2019-05-03] MEDS ORDERED: IV NORMAL SALINE 1000ML BAG 1,000 ML IV ONE (20:00)
[2019-05-03] MEDS ORDERED: FAMOTIDINE 20 MG/2 ML VIAL IVP ONE (20:00)
[2019-05-03] MEDS ORDERED: KETOROLAC 15 MG/ML VIAL. IVP ONE (20:00)
[2019-05-03] MEDS ORDERED: cefTRIAXone IM 250 MG VIAL IM ONE (20:00)
[2019-05-03 20:02] LABS: RBC,URINE 0 /HPF (0-2)
[2019-05-03 20:03] LABS: BACTERIA,URINE 0 /HPF (0-FEW); SQUAMOUS EPITHELIAL CELL,UR OCC /LPF; WBC,URINE OCC /HPF (0-4)
--- NOTE | 2019-05-03 20:05 | PHYS DOC ---
Past Medical History Past Medical History: Anxiety, Asthma Additional Past Medical Histor: RT ARM COMPARTMENT SYNDROME 2019 Past Surgical History: Tonsillectomy Additional Past Surgical Histo: RIGHT HAND/ARM, EAR SURGERY Additional Information: Nonsmoker Alcohol Use: None Drug Use: None Adult General Chief Complaint Chief Complaint: ABDOMINAL PAIN HPI HPI Patient is a 33 year old male who presents with 4 days of epigastric abdominal pain and trouble swallowing that began tonight. Reports difficulty swallowing while eating dinner, looking in his throat afterwards, and noticing large bumps on the back of his tongue, which prompted him to come to the emergency department. In addition, he reports a fever of 102 earlier today which has been controlled with Tylenol. His abdominal pain began 4 days ago and is described as sharp, epigastric, waxes and wanes in intensity, goes through to the back, and is not associated with eating food, as far as he can tell. He denies any nausea or vomiting but endorses anorexia. He denies diarrhea. He has not had a bowel movement for 2 days, which is abnormal for him. He is also reporting increased urinary frequency, urgency, and is concerned he may have an STI. He denies any chest pain, shortness of breath, or other complaints. Review of Systems Review of Systems Constitutional: Reports fever at home that's since resolved Eyes: Denies redness or eye pain HENT: Denies nasal congestion or sore throat. Reports large "bumps" on the back of his throat. Respiratory: Denies cough or shortness of breath Cardiovascular: Denies chest pain or palpitations GI: Relports epigastric abdominal pain. But denies nausea or vomiting : Denies dysuria or hematuria. Admits increased frequency and urgency. Musculoskeletal: Denies back pain or joint pain Integument: Denies rash or skin lesions Neurologic: Denies headache, focal weakness or sensory changes Complete systems were reviewed and found to be within normal limits, except as documented in this note. Current Medications Current Medications Current Medications Medications (Trade) Dose Ordered Sig/Parish Start Time Stop Time Status Last Admin Dose Admin Azithromycin (Zithromax) 1,000 mg 1X ONCE 05/03/19 20:00 05/03/19 20:01 DC 05/03/19 20:33 1,000 MG Ceftriaxone Sodium (Rocephin Im) 250 mg 1X ONCE 05/03/19 20:00 05/03/19 20:01 DC 05/03/19 20:31 250 MG Famotidine (Pepcid Vial) 20 mg 1X ONCE 05/03/19 20:00 05/03/19 20:01 DC 05/03/19 20:33 20 MG Ketorolac Tromethamine (Toradol 15mg Vial) 15 mg 1X ONCE 05/03/19 20:00 05/03/19 20:01 DC 05/03/19 20:32 15 MG Sodium Chloride 1,000 ml @ 1,000 mls/hr 1X ONCE 05/03/19 20:00 05/03/19 20:59 DC 05/03/19 20:31 1,000 MLS/HR Allergies Allergies Allergies Coded Allergies Type Severity Reaction Last Updated Verified Iodinated Contrast Media Allergy Severe 02/07/18 Yes Physical Exam Physical Exam Constitutional: Well developed, well nourished, no acute distress, non-toxic appearance HENT: Normocephalic, atraumatic, oropharynx moist. Papillar bumps on back of his throat. Eyes: conjunctiva normal, no discharge Neck: Normal range of motion, no tenderness, supple Cardiovascular: Heart rate normal, regular rhythm Lungs & Thorax: Bilateral breath sounds clear to auscultation, no wheezing Abdomen: Soft. TTP in RUQ, epigastrium, and RLQ with voluntary guarding. Positive Dela Cruz's sign. Skin: Warm, dry, no erythema, no rash Back: No tenderness, no CVA tenderness Extremities: No tenderness, ROM intact, no edema Neurologic: Alert and oriented X 3, normal motor function, normal sensory function, no focal deficits noted Psychologic: Affect normal, judgement normal, mood normal Current Patient Data Vital Signs Vital Signs Date Time Temp Pulse Resp B/P (MAP) Pulse Ox O2 Delivery O2 Flow Rate FiO2 05/03/19 22:32 74 117/64 (81) 97 Room Air 05/03/19 19:23 98.6 18 98.6 Lab Values Laboratory Tests Test 05/03/19 19:20 05/03/19 20:50 Urine Collection Type Void Urine Color Yellow Urine Clarity Clear Urine pH 7.5 Urine Specific [place] 1.015 Urine Protein Negative mg/dL (NEG-TRACE) Urine Glucose (UA) Negative mg/dL (NEG) Urine Ketones (Stick) Negative mg/dL (NEG) Urine Blood Negative (NEG) Urine Nitrite Negative (NEG) Urine Bilirubin Negative (NEG) Urine Urobilinogen Dipstick 0.2 mg/dL (0.2 mg/dL) Urine Leukocyte Esterase Negative (NEG) Urine RBC 0 /HPF (0-2) Urine WBC Occ /HPF (0-4) Urine Squamous Epithelial Cells Occ /LPF Urine Bacteria 0 /HPF (0-FEW) Urine Chlamydia DNA (PCR) Negative (Negative) Neisseria gonorrhoeae DNA (PCR) Negative (Negative) White Blood Count 7.1 x10^3/uL (4.0-11.0) Red Blood Count 5.34 x10^6/uL (4.30-5.70) Hemoglobin 15.6 g/dL (13.0-17.5) Hematocrit 45.9 % (39.0-53.0) Mean Corpuscular Volume 86 fL (79-100) Mean Corpuscular Hemoglobin 29 pg (25-35) Mean Corpuscular Hemoglobin Concent 34 g/dL (31-37) Red Cell Distribution Width 12.3 % (11.5-14.5) Platelet Count 295 x10^3/uL (140-400) Neutrophils (%) (Auto) 77 % (31-73) H Lymphocytes (%) (Auto) 17 % (24-48) L Monocytes (%) (Auto) 5 % (0-9) Eosinophils (%) (Auto) 0 % (0-3) Basophils (%) (Auto) 1 % (0-3) Neutrophils # (Auto) 5.5 x10^3/uL (1.8-7.7) Lymphocytes # (Auto) 1.2 x10^3/uL (1.0-4.8) Monocytes # (Auto) 0.4 x10^3/uL (0.0-1.1) Eosinophils # (Auto) 0.0 x10^3/uL (0.0-0.7) Basophils # (Auto) 0.0 x10^3/uL (0.0-0.2) Sodium Level 139 mmol/L (136-145) Potassium Level 3.8 mmol/L (3.5-5.1) Chloride Level 101 mmol/L (98-107) Carbon Dioxide Level 31 mmol/L (21-32) Anion Gap 7 (6-14) Blood Urea Nitrogen 6 mg/dL (8-26) L Creatinine 1.1 mg/dL (0.7-1.3) Estimated GFR (Cockcroft-Gault) 76.2 BUN/Creatinine Ratio 5 (6-20) L Glucose Level 104 mg/dL (70-99) H Calcium Level 9.1 mg/dL (8.5-10.1) Total Bilirubin 0.6 mg/dL (0.2-1.0) Aspartate Amino Transferase (AST) 12 U/L (15-37) L Alanine Aminotransferase (ALT) 14 U/L (16-63) L Alkaline Phosphatase 75 U/L (46-116) Creatine Kinase 78 U/L (39-308) Creatine Kinase MB (Mass) < 0.5 ng/mL (0.0-3.6) Creatine Kinase MB Relative Index % (0-4) Troponin I Quantitative < 0.017 ng/mL (0.000-0.055) Total Protein 7.8 g/dL (6.4-8.2) Albumin 4.0 g/dL (3.4-5.0) Albumin/Globulin Ratio 1.1 (1.0-1.7) Lipase 65 U/L (73-393) L Laboratory Tests 05/03/19 20:50 Laboratory Tests 05/03/19 20:50 EKG EKG 05/03/2019 @19:58 shows Sinus Rhythm at 80bpm. No ST elevations. Non-sustained T-wave artifact present in leads 1 and 2. [] Radiology/Procedures Radiology/Procedures PROCEDURE: ABDOMEN LTD Right upper quadrant ultrasound dated 05/03/2019. No comparison available. Clinical indication: Right upper quadrant pain. FINDINGS: Liver is homogeneous in echogenicity. No focal hepatic mass. Intrahepatic and extrahepatic biliary tree normal in caliber. The common bile duct measures 4 mm. Gallbladder normal in size and echogenicity. No gallbladder wall thickening or pericholecystic fluid. No gallstones are seen. Right kidney measures 9.1 cm in length without hydronephrosis. Left kidney was not imaged. Limited visualized portions of pancreas aorta and IVC unremarkable. No significant ascites. IMPRESSION: No acute sonographic abnormality. Electronically signed by: Francisco Wood MD (05/03/2019 8:42 PM) [facility] Course & Med Decision Making Course & Med Decision Making Mr. Ortiz is a 33-year-old male who presents with 4 days of epigastric abdominal pain that is sharp and radiates through to the back. In addition he noticed trouble swallowing and large bumps in the back of his throat tonight. He reports a fever at home that has since resolved with Tylenol. Abdominal labs were obtained and ultrasound of the gallbladder was ordered, both of which were unremarkable. Urine was analyzed for concern for STI. Empiric antibiotics given. Patient administered ketorolac for pain control and famotidine as well. Patient stable for discharge with outpatient follow-up with PCP. Discussed findings and plan with patient who acknowledges understanding and agreement. Dragon Disclaimer Dragon Disclaimer This electronic medical record was generated, in whole or in part, using a voice recognition dictation system. Departure Departure Impression: Primary Impression: Epigastric pain Additional Impression: Concern about sexually transmitted disease in male without diagnosis Disposition: 01 HOME, SELF-CARE Condition: STABLE Referrals: NO PCP (PCP) AAYUSH RIOS MD Patient Instructions: Abdominal Pain (Nonspecific), Gastritis, Adult, [id number] Scripts Hyoscyamine Sulfate (LEVSIN-SL) 0.125 Mg Tab.subl 0.125 MG SL Q4-6HRS PRN for PAIN, #30 TAB Prov: FRANCISCO CORONA DO 05/03/19 Famotidine (PEPCID) 20 Mg Tablet 20 MG PO BID for 14 Days, #28 TAB Prov: FRANCISCO CORONA DO 05/03/19 Problem Qualifiers FRANCISCO CORONA DO May 03, 2019 20:05
--- NOTE | 2019-05-03 20:45 | RAD ---
Right upper quadrant ultrasound dated 05/03/2019. No comparison available. Clinical indication: Right upper quadrant pain. FINDINGS: Liver is homogeneous in echogenicity. No focal hepatic mass. Intrahepatic and extrahepatic biliary tree normal in caliber. The common bile duct measures 4 mm. Gallbladder normal in size and echogenicity. No gallbladder wall thickening or pericholecystic fluid. No gallstones are seen. Right kidney measures 9.1 cm in length without hydronephrosis. Left kidney was not imaged. Limited visualized portions of pancreas aorta and IVC unremarkable. No significant ascites. IMPRESSION: No acute sonographic abnormality. Electronically signed by: Francisco Wood MD (05/03/2019 8:42 PM) [facility]
[2019-05-03 21:03] LABS: BASO % 1 % (0-3); EOS % 0 % (0-3); HEMATOCRIT 45.9 % (39.0-53.0); HEMOGLOBIN 15.6 g/dL (13.0-17.5); LYMPH # 1.2 x10^3/uL (1.0-4.8); LYMPH % 17 % (24-48); MEAN CORPUSCULAR HEMOGLOBIN 29 pg (25-35); MEAN CORPUSCULAR HGB CONC 34 g/dL (31-37); MEAN CORPUSCULAR VOLUME 86 fL (79-100); MONO # 0.4 x10^3/uL (0.0-1.1); MONO % 5 % (0-9); NEUT # 5.5 x10^3/uL (1.8-7.7); NEUT % 77 % (31-73); PLATELET COUNT 295 x10^3/uL (140-400); RED BLOOD COUNT 5.34 x10^6/uL (4.30-5.70); RED CELL DISTRIBUTION WIDTH 12.3 % (11.5-14.5); WHITE BLOOD COUNT 7.1 x10^3/uL (4.0-11.0)
[2019-05-03 21:22] LABS: CALCIUM 9.1 mg/dL (8.5-10.1); CREATININE 1.1 mg/dL (0.7-1.3); GFR 76.2; POTASSIUM 3.8 mmol/L (3.5-5.1)
[2019-05-03 21:29] LABS: ALBUMIN/GLOBULIN RATIO 1.1 (1.0-1.7); TOTAL BILIRUBIN 0.6 mg/dL (0.2-1.0); TOTAL PROTEIN 7.8 g/dL (6.4-8.2)
[2019-05-03 21:34] LABS: CREATINE KINASE 78 U/L (39-308)
[2019-05-03 22:32] VITALS: BP 117/64
[2019-05-03] MEDS ORDERED: HYOS0.1265 SL (23:02)
[2019-05-03] MEDS ORDERED: FAMO-63 PO (23:02)
--- NOTE | 2019-05-04 07:07 | EKG ---
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
== END 2019-05-03 23:48 | disposition home or self-care (01) ==
LOC: ER 19:05
DX: R10.13 Epigastric pain (principal); R39.15 Urgency of urination; F41.9 Anxiety disorder, unspecified; J45.909 Unspecified asthma, uncomplicated; Z98.890 Other specified postprocedural states; Z90.89 Acquired absence of other organs; Z20.2 Contact with and (suspected) exposure to infections with a predominantly sexual mode of transmission; Z91.041 Radiographic dye allergy status; Z79.899 Other long term (current) drug therapy
CPT/HCPCS: 36415; 76705; 80053; 81001; 82553; 83690; 84484; 85025; 87491; 87591; 93005; 96372; 96374; 96375; 99285; J0696; J1885; J3490; J7030; Q0144

== ENCOUNTER 2019-11-02 10:41 | Emergency (ER) | payer SELFPAY ==
[~2019-11-02] VITALS: Ht 180.3 cm; Wt 96.3 kg
[~2019-11-02 10:41] MED LIST changes: +FAMO-63 PO; +HYOS0.1265 SL
--- NOTE | 2019-11-02 10:57 | PHYS DOC ---
Past Medical History Past Medical History: Anxiety, Asthma Additional Past Medical Histor: RT ARM COMPARTMENT SYNDROME 2019 Past Surgical History: Tonsillectomy Additional Past Surgical Histo: RIGHT HAND/ARM, EAR SURGERY Smoking Status: Never Smoker Alcohol Use: None Drug Use: None General Adult EDM: Chief Complaint: CHEST PAIN HPI: HPI: Patient is a 34 year old male presents with report of right sided/midsternal chest pain which started today at 1000. Reports worse with deep inspiration. Denies trauma. Denies fever/chills. Denies trauma. Patient denies known sick contacts. Reports he had a positive COVID19 test on 09/18/19. Reports those symptoms have since improved. Review of Systems: Review of Systems: Constitutional: Denies fever or chills Eyes: Denies redness or eye pain HENT: Denies nasal congestion or sore throat Respiratory: Reports cough and shortness of breath and pleuritic chest pain Cardiovascular: Reports chest pain; denies palpitations GI: Denies abdominal pain, nausea, or vomiting : Denies dysuria or hematuria Musculoskeletal: Denies back pain or joint pain Integument: Denies rash or skin lesions Neurologic: Denies headache, focal weakness or sensory changes Complete systems were reviewed and found to be within normal limits, except as documented in this note. Heart Score: HEART Score for Chest Pain: HEART Score for Chest Pain Response (Comments) Value History Moderately Suspicious 1 ECG Normal 0 Age < 45 0 Risk Factors No Risk Factors 0 Troponin < Normal Limit 0 Total 1 Risk Factors: Risk Factors: DM, Current or recent (<one month) smoker, HTN, HLP, family history of CAD, obesity. Risk Scores: Score 0 - 3: 2.5% MACE over next 6 weeks - Discharge Home Score 4 - 6: 20.3% MACE over next 6 weeks - Admit for Clinical Observation Score 7 - 10: 72.7% MACE over next 6 weeks - Early Invasive Strategies Allergies: Allergies: Allergies Coded Allergies Type Severity Reaction Last Updated Verified Iodinated Contrast Media Allergy Severe 02/07/18 Yes Physical Exam: PE: Constitutional: Well developed, well nourished, no acute distress, non-toxic appearance HENT: Normocephalic, atraumatic Eyes: Conjunctiva normal, no discharge Neck: Normal range of motion, no tenderness, supple Cardiovascular: Heart rate normal, regular rhythm Lungs & Thorax: Bilateral breath sounds clear to auscultation, no wheezing Abdomen: Soft, no tenderness Skin: Warm, dry, no erythema, no rash Back: No tenderness, no CVA tenderness Extremities: No tenderness, ROM intact, no edema Neurologic: Alert and oriented X 3, no focal deficits noted Psychologic: Affect normal, judgment normal EKG: EKG: @1049 NSR at 77bpm, NO ST elevation, QRS 90ms, QT/QTc 362/411ms Radiology/Procedures: Radiology/Procedures: PROCEDURE: CHEST AP ONLY Single AP view of the chest. Comparison: 04/30/2019. Indication: Chest pain Findings: The heart is at the upper limits of normal but stable. There is no pneumothorax or effusion. No air space or interstitial disease. Impression: 1. No acute cardiopulmonary process. Electronically signed by: Jim Escoto MD (11/02/2019 11:53 AM) [id number] Course & Med Decision Making: Course & Med Decision Making Pertinent Labs and Imaging studies reviewed. (See chart for details) Patient presents with atypical chest pain. No cardiac risk factors. EKG stable. Labs obtained and posted to chart. Initial troponin within normal limits. D-dimer also within normal limits. Chest x-ray without acute process. HEART score 1. Patient stable for discharge with outpatient follow-up with PCP. Discussed findings and plan with patient, who acknowledges understanding and agreement. Tayler Disclaimer: Tayler Disclaimer: This electronic medical record was generated, in whole or in part, using a voice recognition dictation system. Departure Departure Impression: Primary Impression: Atypical chest pain Disposition: HOME, SELF-CARE Condition: STABLE Referrals: NO PCP (PCP) AAYUSH RIOS MD Patient Instructions: Chest Pain (Nonspecific), [facility] Scripts Famotidine (PEPCID) 20 Mg Tablet 20 MG PO BID, #20 TAB Prov: SETH CORONA DO 11/02/19 Justicifation of Admission Dx: Justifications for Admission: Justification of Admission Dx: N/A SETH CORONA DO Nov 02, 2019 10:57
[2019-11-02] MEDS ORDERED: ASPIRIN 325 MG TABLET PO ONE (11:00)
[2019-11-02] MEDS ORDERED: IV NORMAL SALINE 1000ML BAG 1,000 ML IV ONE (11:00)
[2019-11-02 11:07] LABS: BASO % 1 % (0-3); EOS # 0.1 x10^3/uL (0.0-0.7); EOS % 2 % (0-3); HEMATOCRIT 44.6 % (39.0-53.0); HEMOGLOBIN 15.7 g/dL (13.0-17.5); LYMPH # 1.3 x10^3/uL (1.0-4.8); LYMPH % 24 % (24-48); MEAN CORPUSCULAR HEMOGLOBIN 30 pg (25-35); MEAN CORPUSCULAR HGB CONC 35 g/dL (31-37); MEAN CORPUSCULAR VOLUME 85 fL (79-100); MONO # 0.4 x10^3/uL (0.0-1.1); MONO % 8 % (0-9); NEUT # 3.4 x10^3/uL (1.8-7.7); NEUT % 65 % (31-73); PLATELET COUNT 301 x10^3/uL (140-400); RED BLOOD COUNT 5.25 x10^6/uL (4.30-5.70); RED CELL DISTRIBUTION WIDTH 12.3 % (11.5-14.5); WHITE BLOOD COUNT 5.3 x10^3/uL (4.0-11.0)
[2019-11-02] MEDS ORDERED: KETOROLAC 15 MG/ML VIAL. IVP ONE (11:15)
[2019-11-02] MEDS ORDERED: FAMOTIDINE 20 MG/2 ML VIAL IVP ONE (11:15)
[2019-11-02 11:16] LABS: PARTIAL THROMBOPLASTIN TIME 30 SEC (24-38); PROTHROMBIN TIME PATIENT 13.1 SEC (11.7-14.0)
[2019-11-02 11:21] LABS: CALCIUM 8.6 mg/dL (8.5-10.1); CREATININE 1.1 mg/dL (0.7-1.3); D-DIMER < 0.27 ug/mlFEU (0.00-0.50); GFR 75.7; POTASSIUM 3.5 mmol/L (3.5-5.1)
[2019-11-02 11:27] LABS: ALBUMIN 3.7 g/dL (3.4-5.0); ALBUMIN/GLOBULIN RATIO 1.2 (1.0-1.7); MAGNESIUM 1.7 mg/dL (1.8-2.4); TOTAL BILIRUBIN 0.5 mg/dL (0.2-1.0); TOTAL PROTEIN 6.9 g/dL (6.4-8.2)
[2019-11-02 11:37] LABS: CREATINE KINASE 74 U/L (39-308)
[2019-11-02 11:44] VITALS: BP 141/75
--- NOTE | 2019-11-02 11:56 | RAD ---
Single AP view of the chest. Comparison: 04/30/2019. Indication: Chest pain Findings: The heart is at the upper limits of normal but stable. There is no pneumothorax or effusion. No air space or interstitial disease. Impression: 1. No acute cardiopulmonary process. Electronically signed by: Jim Escoto MD (11/02/2019 11:53 AM) [id number]
[2019-11-02] MEDS ORDERED: FAMO-63 PO (12:12)
--- NOTE | 2019-11-03 07:00 | EKG ---
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
== END 2019-11-02 12:18 | disposition home or self-care (01) ==
LOC: ER 10:41
DX: R07.89 Other chest pain (principal); R06.02 Shortness of breath; R05 Cough; F41.9 Anxiety disorder, unspecified; J45.909 Unspecified asthma, uncomplicated; Z98.890 Other specified postprocedural states; Z91.041 Radiographic dye allergy status
CPT/HCPCS: 36415; 71045; 80053; 82553; 83690; 83735; 83880; 84484; 85025; 85379; 85610; 85730; 93005; 96374; 96375; 99285; J1885; J3490; J7030

== ENCOUNTER 2019-11-28 19:43 | Emergency (ER) | payer SELFPAY ==
[~2019-11-28] VITALS: Ht 180.3 cm; Wt 93.1 kg
--- NOTE | 2019-11-28 20:57 | RAD ---
Right wrist 3 views INDICATION: Wrist pain COMPARISON: 08/02/2018 right wrist x-rays. FINDINGS: There is fixed flexion contraction of the wrist, limiting detailed evaluation. The fist is clenched as before. There is mild diffuse soft tissue swelling that appears more conspicuous in the interval. No fracture or aggressive appearing osseous lesions is seen. IMPRESSION: Soft tissue swelling of the right wrist without acute osseous abnormality shown with persistent flexion contracture noted. Electronically signed by: Kayla Springer MD (11/28/2019 8:54 PM) [facility] [place]
[2019-11-28] MEDS ORDERED: MORPHINE SULFATE 4 MG/ML VIAL. IM ONE (21:15)
--- NOTE | 2019-11-28 21:40 | PHYS DOC ---
Past Medical History Past Medical History: Anxiety, Asthma Additional Past Medical Histor: RT ARM COMPARTMENT SYNDROME 2019 Past Surgical History: Tonsillectomy Additional Past Surgical Histo: RIGHT HAND/ARM, EAR SURGERY, R. ARM FASCIOTOMY Smoking Status: Never Smoker Alcohol Use: None Drug Use: None General Adult EDM: Chief Complaint: HAND PROBLEM HPI: HPI: 34-year-old male presents for the valuation after right wrist injury. Patient states he was playing baseball sliding into second when he injured his right wrist. Sudden onset of pain and contracture of the right wrist. Patient has a past medical history of wrist fracture with compartment syndrome. On exam patient's biceps forearm and wrist are flexed. Review of Systems: Review of Systems: Constitutional: Denies fever or chills. [] Eyes: Denies change in visual acuity. [] HENT: Denies nasal congestion or sore throat. [] Respiratory: Denies cough or shortness of breath. [] Cardiovascular: Denies chest pain or edema. [] GI: Denies abdominal pain, nausea, vomiting, bloody stools or diarrhea. [] : Denies dysuria. [] Musculoskeletal: positive right arm pain Integument: Denies rash. [] Neurologic: Denies headache, focal weakness or sensory changes. [] Endocrine: Denies polyuria or polydipsia. [] Lymphatic: Denies swollen glands. [] Psychiatric: Denies depression or anxiety. [] Heart Score: Risk Factors: Risk Factors: DM, Current or recent (<one month) smoker, HTN, HLP, family history of CAD, obesity. Risk Scores: Score 0 - 3: 2.5% MACE over next 6 weeks - Discharge Home Score 4 - 6: 20.3% MACE over next 6 weeks - Admit for Clinical Observation Score 7 - 10: 72.7% MACE over next 6 weeks - Early Invasive Strategies Current Medications: Current Medications Medications (Trade) Dose Ordered Sig/Parish Start Time Stop Time Status Last Admin Dose Admin Morphine Sulfate (Morphine Sulfate) 4 mg 1X ONCE 11/28/19 21:15 11/28/19 21:16 DC 11/28/19 21:17 4 MG Allergies: Allergies: Allergies Coded Allergies Type Severity Reaction Last Updated Verified Iodinated Contrast Media Allergy Severe 02/07/18 Yes Physical Exam: PE: Constitutional: Well developed, well nourished, no acute distress, non-toxic appearance. [] HENT: Normocephalic, atraumatic, bilateral external ears normal, oropharynx moist, no oral exudates, nose normal. [] Eyes: PERRLA, EOMI, conjunctiva normal, no discharge. [] Neck: Normal range of motion, no tenderness, supple, no stridor. [] Cardiovascular:Heart rate regular rhythm, no murmur [] Lungs & Thorax: Bilateral breath sounds clear to auscultation [] Abdomen: Bowel sounds normal, soft, no tenderness, no masses, no pulsatile masses. [] Skin: Warm, dry, no erythema, no rash. [] Back: No tenderness, no CVA tenderness. [] Extremities: right upper extremity flexed, bicep,forearm and wrist Neurologic: Alert and oriented X 3, normal motor function, normal sensory function, no focal deficits noted. [] Psychologic: Affect normal, judgement normal, mood normal. [] Current Patient Data: Vital Signs: Vital Signs Date Time Temp Pulse Resp B/P (MAP) Pulse Ox O2 Delivery O2 Flow Rate FiO2 11/28/19 21:17 14 97 Room Air 11/28/19 19:51 98.9 83 120/72 (88) 98.9 EKG: EKG: [] Radiology/Procedures: Radiology/Procedures: [] Impression: Xray no acute process Course & Med Decision Making: Course & Med Decision Making Pertinent Labs and Imaging studies reviewed. (See chart for details) [] Patient was evaluated for chief complaint. Work-up consisted of radiologic imaging. Results reviewed and discussed with patient. Patient's previous hospital and operating room notes reviewed. Patient's pain was treated with morphine. Initial evaluation patient states pain is improved but his arm still appears to be contracted. His arm is contracted from bicep forcep and wrist. Patient's states he injured his wrist but he has contractures in multiple compartments. I do not believe the patient has compartment syndrome. I do not believe the patient needs to be admitted to the hospital. Patient will be discharged home on some pain and muscle relaxant. Patient needs to follow- up with his primary care physician or orthopedic surgeon. Tayler Disclaimer: Tayler Disclaimer: This electronic medical record was generated, in whole or in part, using a voice recognition dictation system. Departure Departure Impression: Primary Impression: Wrist pain, right Additional Impression: Right arm pain Disposition: HOME, SELF-CARE Condition: STABLE Referrals: NO PCP (PCP) Patient Instructions: Wrist Sprain with [facility] Scripts Cyclobenzaprine Hcl (CYCLOBENZAPRINE HCL) 10 Mg Tablet 1 TAB PO QHS, #20 TAB Prov: JOSE NG DO 11/28/19 Tramadol Hcl (ULTRAM) 50 Mg Tablet 1 TAB PO PRN Q6HRS PRN for pain MDD 4 Tablet(s) for 7 Days, #20 TAB 0 Refills Prov: JOSE NG DO 11/28/19 Justicifation of Admission Dx: Justifications for Admission: Justification of Admission Dx: N/A JOSE NG DO Nov 28, 2019 21:40
[2019-11-28] MEDS ORDERED: MORPHINE SULFATE 4 MG/ML VIAL. IV ONE (23:00)
[2019-11-28] MEDS ORDERED: CYCL10TA2 PO (23:10)
[2019-11-28] MEDS ORDERED: TRAM-48 PO (23:10)
[2019-11-28 23:26] VITALS: BP 125/71
== END 2019-11-28 23:30 | disposition home or self-care (01) ==
LOC: ER 19:43
DX: M25.531 Pain in right wrist (principal); M79.601 Pain in right arm; J45.909 Unspecified asthma, uncomplicated; Z91.041 Radiographic dye allergy status
CPT/HCPCS: 36415; 73110; 82550; 96372; 96374; 96375; 99285; J2060; J2270

== ENCOUNTER 2020-01-22 05:45 | Emergency (ER) | payer SELFPAY ==
[~2020-01-22] VITALS: Ht 180.3 cm; Wt 93.0 kg
[~2020-01-22 05:45] MED LIST changes: +TRAM-48 PO
[2020-01-22 05:55] VITALS: BP 121/73
== END 2020-01-22 06:35 | disposition left against medical advice (07) ==
LOC: ER 05:45
DX: R10.9 Unspecified abdominal pain (principal); Z53.21 Procedure and treatment not carried out due to patient leaving prior to being seen by health care provider

== ENCOUNTER 2020-01-25 03:16 | Emergency (ER) | payer SELFPAY ==
[~2020-01-25] VITALS: Ht 180.3 cm; Wt 93.2 kg
[2020-01-25] MEDS ORDERED: KETOROLAC 30 MG/ML VIAL. IVP ONE (03:30)
[2020-01-25 03:53] LABS: BASO # 0.1 x10^3/uL (0.0-0.2); BASO % 1 % (0-3); EOS # 0.2 x10^3/uL (0.0-0.7); EOS % 3 % (0-3); HEMOGLOBIN 14.7 g/dL (13.0-17.5); LYMPH % 31 % (24-48); MEAN CORPUSCULAR HEMOGLOBIN 30 pg (25-35); MEAN CORPUSCULAR HGB CONC 35 g/dL (31-37); MEAN CORPUSCULAR VOLUME 86 fL (79-100); MONO # 0.6 x10^3/uL (0.0-1.1); MONO % 10 % (0-9); NEUT # 3.6 x10^3/uL (1.8-7.7); NEUT % 56 % (31-73); PLATELET COUNT 245 x10^3/uL (140-400); RED BLOOD COUNT 4.91 x10^6/uL (4.30-5.70); RED CELL DISTRIBUTION WIDTH 13.3 % (11.5-14.5); WHITE BLOOD COUNT 6.4 x10^3/uL (4.0-11.0)
[2020-01-25 04:23] LABS: CALCIUM 8.4 mg/dL (8.5-10.1); CREATININE 1.2 mg/dL (0.7-1.3); GFR 68.5; POTASSIUM 3.2 mmol/L (3.5-5.1)
--- NOTE | 2020-01-25 04:23 | PHYS DOC ---
Past Medical History Past Medical History: Anxiety, Asthma Additional Past Medical Histor: RT ARM COMPARTMENT SYNDROME 2019 Past Surgical History: Tonsillectomy Additional Past Surgical Histo: RIGHT HAND/ARM, EAR SURGERY, R. ARM FASCIOTOMY Smoking Status: Never Smoker Alcohol Use: None Drug Use: None General Adult EDM: Chief Complaint: ABDOMINAL PAIN HPI: HPI: Patient is a 34 year old male presents with a chief complaint of abdominal pain. Patient states abdominal pain is been ongoing for 1 week. Patient's pain is periumbilical region that radiates to the right upper quadrant and down to the left lower quadrant. Patient has associated nausea and vomiting. Denies diarrhea and states has been constipated. Review of Systems: Review of Systems: Constitutional: Denies fever or chills. [] Eyes: Denies change in visual acuity. [] HENT: Denies nasal congestion or sore throat. [] Respiratory: Denies cough or shortness of breath. [] Cardiovascular: Denies chest pain or edema. [] GI: positive abdominal pain, nausea, vomiting, : Denies dysuria. [] Musculoskeletal: Denies back pain or joint pain. [] Integument: Denies rash. [] Neurologic: Denies headache, focal weakness or sensory changes. [] Endocrine: Denies polyuria or polydipsia. [] Lymphatic: Denies swollen glands. [] Psychiatric: Denies depression or anxiety. [] Heart Score: Risk Factors: Risk Factors: DM, Current or recent (<one month) smoker, HTN, HLP, family history of CAD, obesity. Risk Scores: Score 0 - 3: 2.5% MACE over next 6 weeks - Discharge Home Score 4 - 6: 20.3% MACE over next 6 weeks - Admit for Clinical Observation Score 7 - 10: 72.7% MACE over next 6 weeks - Early Invasive Strategies Current Medications: Current Medications Medications (Trade) Dose Ordered Sig/Parish Start Time Stop Time Status Last Admin Dose Admin Ketorolac Tromethamine (Toradol 30mg Vial) 30 mg 1X ONCE 01/25/20 03:30 01/25/20 03:33 DC 01/25/20 03:40 30 MG Allergies: Allergies: Allergies Coded Allergies Type Severity Reaction Last Updated Verified Iodinated Contrast Media Allergy Severe 02/07/18 Yes Physical Exam: PE: Constitutional: Well developed, well nourished, no acute distress, non-toxic appearance. [] HENT: Normocephalic, atraumatic, bilateral external ears normal, oropharynx moist, no oral exudates, nose normal. [] Eyes: PERRLA, EOMI, conjunctiva normal, no discharge. [] Neck: Normal range of motion, no tenderness, supple, no stridor. [] Cardiovascular:Heart rate regular rhythm, no murmur [] Lungs & Thorax: Bilateral breath sounds clear to auscultation [] Abdomen: soft, diffuse tenderness, no masses, no pulsatile masses. [no rebound or guarding] Skin: Warm, dry, no erythema, no rash. [] Back: No tenderness, no CVA tenderness. [] Extremities: No tenderness, no cyanosis, no clubbing, ROM intact, no edema. [] Neurologic: Alert and oriented X 3, normal motor function, normal sensory function, no focal deficits noted. [] Psychologic: Affect normal, judgement normal, mood normal. [] Current Patient Data: Labs: Laboratory Tests Test 01/25/20 03:30 White Blood Count 6.4 x10^3/uL (4.0-11.0) Red Blood Count 4.91 x10^6/uL (4.30-5.70) Hemoglobin 14.7 g/dL (13.0-17.5) Hematocrit 42.0 % (39.0-53.0) Mean Corpuscular Volume 86 fL (79-100) Mean Corpuscular Hemoglobin 30 pg (25-35) Mean Corpuscular Hemoglobin Concent 35 g/dL (31-37) Red Cell Distribution Width 13.3 % (11.5-14.5) Platelet Count 245 x10^3/uL (140-400) Neutrophils (%) (Auto) 56 % (31-73) Lymphocytes (%) (Auto) 31 % (24-48) Monocytes (%) (Auto) 10 % (0-9) H Eosinophils (%) (Auto) 3 % (0-3) Basophils (%) (Auto) 1 % (0-3) Neutrophils # (Auto) 3.6 x10^3/uL (1.8-7.7) Lymphocytes # (Auto) 2.0 x10^3/uL (1.0-4.8) Monocytes # (Auto) 0.6 x10^3/uL (0.0-1.1) Eosinophils # (Auto) 0.2 x10^3/uL (0.0-0.7) Basophils # (Auto) 0.1 x10^3/uL (0.0-0.2) Laboratory Tests 01/25/20 03:30 Vital Signs: Vital Signs Date Time Temp Pulse Resp B/P (MAP) Pulse Ox O2 Delivery O2 Flow Rate FiO2 01/25/20 03:20 98.0 100 20 121/64 (83) 92 Room Air 98.0 EKG: EKG: [] Radiology/Procedures: Radiology/Procedures: [] Course & Med Decision Making: Course & Med Decision Making Pertinent Labs and Imaging studies reviewed. (See chart for details) [] Patient evaluated for chief complaint. Work-up consisted of laboratory analysis radiologic imaging. Results reviewed and discussed with patient. No acute intra-abdominal abnormalities. Patient will be discharged home with prescription of ultram and Bentyl. Dragon Disclaimer: Dragon Disclaimer: This electronic medical record was generated, in whole or in part, using a voice recognition dictation system. Departure Departure Impression: Primary Impression: Abdominal pain Disposition: HOME, SELF-CARE Condition: STABLE Referrals: NO PCP (PCP) Patient Instructions: Abdominal Pain, Constipation, Adult Scripts Tramadol Hcl (ULTRAM) 50 Mg Tablet 1 TAB PO PRN Q6HRS PRN for pain MDD 4 Tablet(s) for 7 Days, #28 TAB 0 Refills Prov: JOSE GN DO 01/25/20 Dicyclomine Hcl (DICYCLOMINE HCL) 10 Mg Capsule 10 MG PO QID, #20 CAP Prov: JOSE NG DO 01/25/20 Justicifation of Admission Dx: Justifications for Admission: Justification of Admission Dx: N/A JOSE NG DO Jan 25, 2020 04:23
[2020-01-25 04:26] VITALS: BP 115/71
[2020-01-25 04:31] LABS: ALBUMIN 3.9 g/dL (3.4-5.0); ALBUMIN/GLOBULIN RATIO 1.1 (1.0-1.7); TOTAL BILIRUBIN 0.5 mg/dL (0.2-1.0); TOTAL PROTEIN 7.4 g/dL (6.4-8.2)
--- NOTE | 2020-01-25 04:31 | RAD ---
PQRS Compliance Statement: One or more of the following individualized dose reduction techniques were utilized for this examination: 1. Automated exposure control 2. Adjustment of the mA and/or kV according to patient size 3. Use of iterative reconstruction technique CT ABDOMEN PELVIS WO CONTRAST Clinical Indication: Reason: abd pain / Spl. Instructions: / History: Comparison: CT abdomen and pelvis without contrast, March 02, 2019. Technique: Helical CT imaging of the abdomen and pelvis is performed without IV or oral contrast. Findings: Evaluation of solid organs and bowel is limited without oral and IV contrast, decreasing sensitivity for detection of pathology. Thin linear scarring or discoid atelectasis in the right middle lobe. Lung bases otherwise clear. Cardiac size normal. The liver, gallbladder, spleen, pancreas, adrenal glands, abdominal aorta, and kidneys are normal. No renal calculus. No obvious abnormality of the stomach. No dilated small bowel. The appendix is normal. There is no colon wall thickening. No abdominal adenopathy or free fluid. Urinary bladder is normal. Prostate and seminal vesicles are normal. No pelvic free fluid. No inguinal adenopathy. No acute bone abnormality. IMPRESSION: No acute abdominal or pelvic abnormality. Electronically signed by: Chris Panda MD (01/25/2020 4:28 AM) [facility]
[2020-01-25] MEDS ORDERED: DICY10CA3 PO (04:43)
[2020-01-25] MEDS ORDERED: TRAM-48 PO (04:43)
[2020-01-25 04:58] LABS: BILIRUBIN,URINE NEGATIVE (NEG); CLARITY,URINE CLEAR; COLOR,URINE YELLOW; NITRITE,URINE NEGATIVE (NEG); PROTEIN,URINE NEGATIVE (NEG-TRACE)
[2020-01-25 05:05] LABS: BACTERIA,URINE 0 /HPF (0-FEW); RBC,URINE OCC /HPF (0-2)
[2020-01-25 05:06] LABS: SQUAMOUS EPITHELIAL CELL,UR OCC /LPF
== END 2020-01-25 04:55 | disposition home or self-care (01) ==
LOC: ER 03:16
DX: R10.33 Periumbilical pain (principal); R11.2 Nausea with vomiting, unspecified; F41.9 Anxiety disorder, unspecified; J45.909 Unspecified asthma, uncomplicated; Z98.890 Other specified postprocedural states; Z90.89 Acquired absence of other organs; Z91.040 Latex allergy status
CPT/HCPCS: 36415; 74176; 80053; 81001; 83690; 85025; 96374; 99284; J1885

== ENCOUNTER 2020-01-27 03:37 | Emergency (ER) | payer SELFPAY ==
[~2020-01-27] VITALS: Ht 180.3 cm; Wt 93.1 kg
[~2020-01-27 03:37] MED LIST changes: +DICY10CA3 PO
[2020-01-27 03:47] VITALS: BP 140/75
[2020-01-27] MEDS ORDERED: TRAM-48 PO (04:16)
--- NOTE | 2020-01-27 04:16 | PHYS DOC ---
Past Medical History Past Medical History: No Pertinent History, Anxiety, Asthma Additional Past Medical Histor: RT ARM COMPARTMENT SYNDROME 2019 Past Surgical History: Tonsillectomy Additional Past Surgical Histo: RIGHT HAND/ARM, EAR SURGERY, R. ARM FASCIOTOMY Smoking Status: Never Smoker Alcohol Use: None Drug Use: None General Adult EDM: Chief Complaint: NOSEBLEED HPI: HPI: Patient is a 34 year old male presents after a stated fall. Patient states he may have fallen down 9 steps. Patient presents with complaint of nose bleed and nasal pain. Review of Systems: Review of Systems: Constitutional: Denies fever or chills. [] Eyes: Denies change in visual acuity. [] HENT: Denies nasal congestion or sore throat. [positive nose pain positive epistaxis] Respiratory: Denies cough or shortness of breath. [] Cardiovascular: Denies chest pain or edema. [] GI: Denies abdominal pain, nausea, vomiting, bloody stools or diarrhea. [] : Denies dysuria. [] Musculoskeletal: Denies back pain or joint pain. [] Integument: Denies rash. [] Neurologic: Denies headache, focal weakness or sensory changes. [] Endocrine: Denies polyuria or polydipsia. [] Lymphatic: Denies swollen glands. [] Psychiatric: Denies depression or anxiety. [] Heart Score: Risk Factors: Risk Factors: DM, Current or recent (<one month) smoker, HTN, HLP, family history of CAD, obesity. Risk Scores: Score 0 - 3: 2.5% MACE over next 6 weeks - Discharge Home Score 4 - 6: 20.3% MACE over next 6 weeks - Admit for Clinical Observation Score 7 - 10: 72.7% MACE over next 6 weeks - Early Invasive Strategies Allergies: Allergies: Allergies Coded Allergies Type Severity Reaction Last Updated Verified Iodinated Contrast Media Allergy Severe 02/07/18 Yes Physical Exam: PE: Constitutional: Well developed, well nourished, no acute distress, non-toxic appearance. [] HENT: Normocephalic, bilateral external ears normal, oropharynx moist, no oral exudates, nose tender to palpation, no active bleeding no septal hematoma, dried blood in oral mucosa. Eyes: PERRLA, EOMI, conjunctiva normal, no discharge. [] Neck: Normal range of motion, no tenderness, supple, no stridor. [] Cardiovascular:Heart rate regular rhythm, no murmur [] Lungs & Thorax: Bilateral breath sounds clear to auscultation [] Abdomen: Bowel sounds normal, soft, no tenderness, no masses, no pulsatile masses. [] Skin: Warm, dry, no erythema, no rash. [] Back: No tenderness, no CVA tenderness. [] Extremities: No tenderness, no cyanosis, no clubbing, ROM intact, no edema. [] Neurologic: Alert and oriented X 3, normal motor function, normal sensory function, no focal deficits noted. [] Psychologic: Affect normal, judgement normal, mood normal. [] Current Patient Data: Vital Signs: Vital Signs Date Time Temp Pulse Resp B/P (MAP) Pulse Ox O2 Delivery O2 Flow Rate FiO2 01/27/20 03:47 98.9 18 140/75 (96) 98 Room Air 98.9 EKG: EKG: [] Radiology/Procedures: Radiology/Procedures: [] Course & Med Decision Making: Course & Med Decision Making Pertinent Labs and Imaging studies reviewed. (See chart for details) [] Bleeding stopped during my exam. Probably nasal bone fracture. Patient with multiple recent visits. [employer] Disclaimer: [employer] Disclaimer: This electronic medical record was generated, in whole or in part, using a voice recognition dictation system. Departure Departure Impression: Primary Impression: Nasal contusion Additional Impression: Epistaxis due to trauma Disposition: 01 HOME, SELF-CARE Condition: STABLE Referrals: NO PCP (PCP) Patient Instructions: Nasal Foreign Body, Nosebleed Scripts Tramadol Hcl (ULTRAM) 50 Mg Tablet 1 TAB PO PRN Q6HRS PRN for pain MDD 4 Tablet(s) for 7 Days, #20 TAB 0 Refills Prov: JOSE NG DO 01/27/20 Justicifation of Admission Dx: Justifications for Admission: Justification of Admission Dx: N/A JOSE NG DO Jan 27, 2020 04:16
== END 2020-01-27 04:45 | disposition home or self-care (01) ==
LOC: ER 03:37
DX: S00.33XA Contusion of nose, initial encounter (principal); R04.0 Epistaxis; F41.9 Anxiety disorder, unspecified; Z90.89 Acquired absence of other organs; Z98.890 Other specified postprocedural states; Z91.040 Latex allergy status; W18.39XA Other fall on same level, initial encounter; Y93.89 Activity, other specified; Y92.89 Other specified places as the place of occurrence of the external cause; Y99.8 Other external cause status
CPT/HCPCS: 99283

== ENCOUNTER 2020-02-19 20:51 | Emergency (ER) | payer SELFPAY ==
[~2020-02-19] VITALS: Ht 182.9 cm; Wt 80.0 kg
[2020-02-19] MEDS ORDERED: IV NORMAL SALINE 1000ML BAG 1,000 ML IV SCH (21:30)
[2020-02-19] MEDS ORDERED: ALBUTEROL SULFATE 2.5 MG/3 ML NEBU. NEB ONE (21:30)
[2020-02-19] MEDS: MECLIZINE HCL 12.5 MG TABLET. PO ONE ×2 (21:30→23:11)
[2020-02-19] MEDS: methylPREDNISolone SOD SUCC PF 125 MG/2 ML VIAL. IV ONE ×2 (21:30→23:12)
--- NOTE | 2020-02-19 21:48 | PHYS DOC ---
Past Medical History Past Medical History: No Pertinent History, Anxiety, Asthma Additional Past Medical Histor: RT ARM COMPARTMENT SYNDROME 2019 (CHARLENE ELMORE APRN) Past Surgical History: Tonsillectomy Additional Past Surgical Histo: RIGHT HAND/ARM, EAR SURGERY, R. ARM FASCIOTOMY (CHARLENE ELMORE [employer]) Smoking Status: Never Smoker Alcohol Use: None Drug Use: None (CHARLENE ELMORE APRN) General Adult EDM: Chief Complaint: CHEST PAIN HPI: HPI: Patient is a 34 year old male who presents with dizziness for the last 3 days and he states the dizziness is worse when laying to sitting or sitting to standing. He states is hard for him to walk. When nurse was in the room doing orthostatics when patient stood up he started to stumble backward. Patient denies headache or numbness and tingling. He does state that he does have some chest tightness but has not been using his albuterol inhaler. He does have asthma. He states that he coughs every now and then. Patient denies chest pain, headache, vision changes, numbness or tingling, focal weakness, light sensitivity, neck pain, back pain, fall, LOC, abdominal pain, nausea, vomiting, diarrhea. He states he has a history of seasonal allergies, asthma, right arm compartment syndrome with a fasciotomy and anxiety. (CHARLENE ELMORE [employer]) Review of Systems: Review of Systems: Constitutional: Denies fever or chills. [] Eyes: Denies change in visual acuity. [] HENT: Denies nasal congestion or sore throat. [] Respiratory: + cough or +shortness of breath. [] Cardiovascular: + Chest tightness. Denies chest pain or edema. [] GI: Denies abdominal pain, nausea, vomiting, bloody stools or diarrhea. [] : Denies dysuria. [] Musculoskeletal: Denies back pain or joint pain. [] Integument: Denies rash. [] Neurologic: Denies headache, focal weakness or sensory changes. + Dizziness [] Endocrine: Denies polyuria or polydipsia. [] Lymphatic: Denies swollen glands. [] Psychiatric: Denies depression or anxiety. [] (CHARLENE ELMORE APRN) Heart Score: Risk Factors: Risk Factors: DM, Current or recent (<one month) smoker, HTN, HLP, family history of CAD, obesity. Risk Scores: Score 0 - 3: 2.5% MACE over next 6 weeks - Discharge Home Score 4 - 6: 20.3% MACE over next 6 weeks - Admit for Clinical Observation Score 7 - 10: 72.7% MACE over next 6 weeks - Early Invasive Strategies (CHARLENE ELMORE APRN) Current Medications: Current Medications Medications (Trade) Dose Ordered Sig/Parish Start Time Stop Time Status Last Admin Dose Admin Albuterol Sulfate (Ventolin Neb Soln) 2.5 mg 1X ONCE 02/19/20 21:30 02/19/20 21:31 DC Meclizine HCl (Antivert) 25 mg 1X ONCE 02/19/20 21:30 02/19/20 21:31 DC Methylprednisolone Sodium Succinate (SOLU-Medrol 125MG VIAL) 125 mg 1X ONCE 02/19/20 21:30 02/19/20 21:31 DC Sodium Chloride 1,000 ml @ 1,000 mls/hr Q1H 02/19/20 21:30 02/19/20 22:29 (CHARLENE ELMORE [employer]) Allergies: Allergies: Allergies Coded Allergies Type Severity Reaction Last Updated Verified Iodinated Contrast Media Allergy Severe 02/07/18 Yes [facility] Physical Exam: PE: Constitutional: Well developed, well nourished, no acute distress, non-toxic appearance. [] HENT: Normocephalic, atraumatic, bilateral external ears normal, oropharynx moist, no oral exudates, nose normal. [] Eyes: PERRLA, EOMI, conjunctiva normal, no discharge. [] Neck: Normal range of motion, no tenderness, supple, no stridor. [] Cardiovascular:Heart rate regular rhythm, no murmur [] Lungs & Thorax: Bilateral breath sounds clear to auscultation [] Abdomen: Bowel sounds normal, soft, no tenderness, no masses, no pulsatile masses. [] Skin: Warm, dry, no erythema, no rash. [] Back: No tenderness, no CVA tenderness. [] Extremities: No tenderness, no cyanosis, no clubbing, ROM intact, no edema. [] Neurologic: Alert and oriented X 3, normal motor function, normal sensory fun ction, no focal deficits noted. [] Psychologic: Affect normal, judgement normal, mood normal. [] (CHARLENE ELMORE APRN) EKG: EK and read by Dr. Carrillo as sinus rhythm and no STEMI [] (CHARLENE ELMORE APRN) Radiology/Procedures: Radiology/Procedures: [] Impression: [place] [address] IMAGING REPORT Signed PATIENT: MARLENI HAWKINS ACCOUNT: [id number] : 1985 LOCATION: ER AGE: 34 SEX: M EXAM STATUS: REG ER ORD. PHYSICIAN: CHARLENE ELMORE APRN REASON: chest pain PROCEDURE: PORTABLE CHEST 1V Exam: Chest one view INDICATION: Chest pain TECHNIQUE: Frontal view of the chest Comparisons: 11/02/2019 FINDINGS: The cardiomediastinal silhouette and pulmonary vessels are within normal limits. The lung and pleural spaces are clear. IMPRESSION: No acute cardiopulmonary process. Electronically signed by: Mira Young MD (02/19/2020 9:52 PM) [facility] DICTATED and SIGNED BY: MIRA YOUNG MD DATE: 02/19/202151 [place] [id number] IMAGING REPORT Signed PATIENT: MARLENI HAWKINS ACCOUNT: [id number] : 1985 LOCATION: ER AGE: 34 SEX: M EXAM STATUS: REG ER ORD. PHYSICIAN: CHARLENE ELMORE APRN REASON: dizziness PROCEDURE: CT HEAD WO CONTRAST Exam: CT head INDICATION: Dizziness TECHNIQUE: Sequential axial images through the head were obtained without the administration of IV contrast. Comparisons: None FINDINGS: No focal parenchymal lesion or hemorrhage is identified. There is no midline shift or sulcal effacement. No acute vascular territory infarction is identified. Mcdonald-white distinction is preserved. The ventricular system is within normal limits without compression hydrocephalus. The basal cisterns are well maintained. The visualized portions of the paranasal sinuses and mastoid air cells are well-pneumatized. No acute fractures. IMPRESSION: No acute intracranial abnormality. Exposure: One or more of the following in the visualized dose reduction techniques were utilized for this examination: 1. Automated exposure control 2. Adjustment of the MA and/or KV according to patient size Use of iterative of reconstructive technique Electronically signed by: Mira Young MD (02/19/2020 10:23 PM) [facility] DICTATED and SIGNED BY: MIRA YOUNG MD DATE: 02/19/202222 (CHARLENE ELMORE APRN) Course & Med Decision Making: Course & Med Decision Making Pertinent Labs and Imaging studies reviewed. (See chart for details) COVID-19 CRITERIA: The patient was evaluated during the global COVID-19 pandemic, and that diagnosis was suspected/considered upon their initial presentation. Their evaluation, treatment and testing was consistent with curr ent guidelines for patients who present with complaints or symptoms that may be related to COVID-19. See HPI. Alert and oriented x4. Ambulatory with slow slightly wavering gait. Abdomen is soft and nontender. Skin pink warm and dry. Afebrile. PERRLA. Speaks in full complete sentences. no extremity edema. Orthostatics are as followed: Layin/66, 74; sittin/55, 82; standin/52, 67. Nurse states that the patient eloped. Other staff saw the patient walking out of the ED with a steady gait. Patient was stable and alert and oriented. Patient did not tell staff that he was leaving. Patient never received any medications or fluids. He did receive a CT and a chest x-ray that showed no acute findings. Blood work shows no acute findings. Patient never gave a urine specimen. Last blood pressure was 110/57. [] (CHARLENE ELMORE APRN) Course & Med Decision Making I have reviewed the PA/SENIOR WAREHOUSE CLERK's note and Plan of Care. I was available for consultation as needed during the patient's visit in the emergency department. I agree with the clinical impression, plans and disposition. (AAYUSH CARRILLO MD) Tayler Disclaimer: Dragcary Disclaimer: This electronic medical record was generated, in whole or in part, using a voice recognition dictation system. (CHARLENE ELMORE APRN) COVID-19 Patient Risks: Age 65 or older: No Sign of co-morbidity: No Exp to person + for COVID: No Exp to PUI: No Travel from affected area: No Lower respiratory symptoms: Yes Fever: No Other: No (CHARLENE ELMORE APRN) PPE Use: Full PPE with N95 mask or PAPR: Yes (CHARLENE ELMORE APRN) NIHSS Stroke Scale NIH Stroke Scale: NIH Stroke Scale Response (Comments) Value Level of Consciousness: 0 Alert/Responsive 0 LOC Questions: 0 Answers both correctly 0 LOC Commands: 0 Performs both tasks 0 Best Gaze: 0 Normal 0 Visual: 0 No visual loss 0 Facial Palsy: 0 Normal, symmetrical 0 Motor - Left Arm 0 No drift 0 Motor - Right Arm 0 No drift 0 Motor - Left Leg 0 No drift 0 Motor: Right Leg 0 No drift 0 Limb Ataxia: 0 Absent 0 Sensory: 0 No loss 0 Best Language: 0 Normal 0 Dysathria: 0 Normal 0 Extinction and Inattention: 0 Normal 0 Total 0 Departure Departure Impression: Primary Impression: Eloped from emergency department Additional Impressions: Dizziness Chest tightness Disposition: 07 AGAINST MEDICAL ADVICE (ELOPED) Condition: STABLE Referrals: NO PCP (PCP) CHARLENE ELMORE APRN Feb 19, 2020 21:48 AAYUSH CARRILLO MD Feb 20, 2020 04:42
--- NOTE | 2020-02-19 21:54 | RAD ---
Exam: Chest one view INDICATION: Chest pain TECHNIQUE: Frontal view of the chest Comparisons: 11/02/2019 FINDINGS: The cardiomediastinal silhouette and pulmonary vessels are within normal limits. The lung and pleural spaces are clear. IMPRESSION: No acute cardiopulmonary process. Electronically signed by: Mira Franco MD (02/19/2020 9:52 PM) [facility]
[2020-02-19 22:13] LABS: PROTHROMBIN TIME PATIENT 13.5 SEC (11.7-14.0)
[2020-02-19 22:25] VITALS: BP 110/57
--- NOTE | 2020-02-19 22:27 | RAD ---
Exam: CT head INDICATION: Dizziness TECHNIQUE: Sequential axial images through the head were obtained without the administration of IV contrast. Comparisons: None FINDINGS: No focal parenchymal lesion or hemorrhage is identified. There is no midline shift or sulcal effacement. No acute vascular territory infarction is identified. Mcdonald-white distinction is preserved. The ventricular system is within normal limits without compression hydrocephalus. The basal cisterns are well maintained. The visualized portions of the paranasal sinuses and mastoid air cells are well-pneumatized. No acute fractures. IMPRESSION: No acute intracranial abnormality. Exposure: One or more of the following in the visualized dose reduction techniques were utilized for this examination: 1. Automated exposure control 2. Adjustment of the MA and/or KV according to patient size Use of iterative of reconstructive technique Electronically signed by: Mira Franco MD (02/19/2020 10:23 PM) [facility]
[2020-02-19] MEDS ORDERED: IV NORMAL SALINE 1000ML BAG 1,000 ML IV ONE (22:30)
[2020-02-19 23:00] LABS: BASO # 0.1 x10^3/uL (0.0-0.2); BASO % 1 % (0-3); EOS # 0.1 x10^3/uL (0.0-0.7); EOS % 1 % (0-3); HEMATOCRIT 48.2 % (39.0-53.0); HEMOGLOBIN 16.8 g/dL (13.0-17.5); LYMPH # 1.6 x10^3/uL (1.0-4.8); LYMPH % 17 % (24-48); MEAN CORPUSCULAR HEMOGLOBIN 30 pg (25-35); MEAN CORPUSCULAR HGB CONC 35 g/dL (31-37); MEAN CORPUSCULAR VOLUME 86 fL (79-100); MONO # 0.6 x10^3/uL (0.0-1.1); MONO % 6 % (0-9); NEUT % 75 % (31-73); PLATELET COUNT 324 x10^3/uL (140-400); RED BLOOD COUNT 5.59 x10^6/uL (4.30-5.70); RED CELL DISTRIBUTION WIDTH 13.8 % (11.5-14.5); WHITE BLOOD COUNT 9.3 x10^3/uL (4.0-11.0)
[2020-02-19 23:11] LABS: CALCIUM 9.4 mg/dL (8.5-10.1); CREATININE 1.1 mg/dL (0.7-1.3); GFR 75.7; POTASSIUM 3.8 mmol/L (3.5-5.1)
[2020-02-19 23:25] LABS: ALBUMIN 3.9 g/dL (3.4-5.0); TOTAL BILIRUBIN 0.7 mg/dL (0.2-1.0)
== END 2020-02-19 23:15 | disposition left against medical advice (07) ==
LOC: ER 20:51
DX: R42 Dizziness and giddiness (principal); R07.89 Other chest pain; J45.909 Unspecified asthma, uncomplicated; F41.9 Anxiety disorder, unspecified; Z91.041 Radiographic dye allergy status
CPT/HCPCS: 36415; 70450; 71045; 80053; 83690; 83880; 84484; 85025; 85379; 85610; 99285; G0480; J2930; J8597

== ENCOUNTER 2020-05-20 21:23 | Emergency (ER) | payer OTHER ==
[~2020-05-20] VITALS: Ht 180.3 cm; Wt 87.3 kg
[2020-05-20 22:05] VITALS: BP 126/82
[2020-05-20] MEDS ORDERED: ORPH100T PO (22:44)
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
[2020-05-20] MEDS ORDERED: ORPHENADRINE CITRATE 60 MG/2 ML VIAL. IM ONE (23:00)
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
== END 2020-05-20 22:55 | disposition home or self-care (01) ==
LOC: ER 21:23
DX: S20.211A Contusion of right front wall of thorax, initial encounter (principal); R51.9 Headache, unspecified; J45.909 Unspecified asthma, uncomplicated; Z91.041 Radiographic dye allergy status; V47.5XXA Car driver injured in collision with fixed or stationary object in traffic accident, initial encounter; Y92.415 Exit ramp or entrance ramp of street or highway as the place of occurrence of the external cause; Y93.89 Activity, other specified; Y99.8 Other external cause status
CPT/HCPCS: 71101; 96372; 99283; J2360

== ENCOUNTER 2021-01-18 17:16 | Emergency (ER) | payer SELFPAY ==
[~2021-01-18] VITALS: Ht 182.9 cm; Wt 90.9 kg
[~2021-01-18 17:16] MED LIST changes: +ORPH100T PO
[2021-01-18] MEDS ORDERED: ASPIRIN 325 MG TABLET PO ONE (17:30)
[2021-01-18] MEDS ORDERED: MORPHINE SULFATE 4 MG/ML INJ. IV/SQ PRN (17:30)
[2021-01-18] MEDS ORDERED: NITROGLYCERIN SUBLINGUAL 0.4 MG BOTTLE OF 25. SL PRN (17:30)
[2021-01-18 17:33] VITALS: BP 177/98
[2021-01-18 17:44] LABS: BASO # 0.1 x10^3/uL (0.0-0.2); BASO % 0 % (0-3); EOS % 0 % (0-3); HEMATOCRIT 42.7 % (39.0-53.0); HEMOGLOBIN 14.9 g/dL (13.0-17.5); LYMPH # 2.5 x10^3/uL (1.0-4.8); LYMPH % 20 % (24-48); MEAN CORPUSCULAR HEMOGLOBIN 31 pg (25-35); MEAN CORPUSCULAR HGB CONC 35 g/dL (31-37); MEAN CORPUSCULAR VOLUME 88 fL (79-100); MONO # 0.5 x10^3/uL (0.0-1.1); MONO % 4 % (0-9); NEUT # 9.7 x10^3/uL (1.8-7.7); NEUT % 76 % (31-73); PLATELET COUNT 340 x10^3/uL (140-400); RED BLOOD COUNT 4.85 x10^6/uL (4.30-5.70); WHITE BLOOD COUNT 12.9 x10^3/uL (4.0-11.0)
--- NOTE | 2021-01-18 17:54 | RAD ---
INDICATION: Reason: chest pain / Spl. Instructions: / History: COMPARISON: May 20, 2020 FINDINGS: Single view of chest obtained. Cardiac silhouette is unremarkable. Degenerative changes of the spine. Mild haziness left lung base IMPRESSION: * Mild hazy opacity at the left lung base. This is a common location for atelectasis but mild infilt rate could have this appearance. Electronically signed by: Kan Lund MD (01/18/2021 5:52 PM) [id number]
[2021-01-18 18:01] LABS: ALBUMIN 4.4 g/dL (3.4-5.0); ALBUMIN/GLOBULIN RATIO 1.2 (1.0-1.7); CALCIUM 9.1 mg/dL (8.5-10.1); CREATININE 1.3 mg/dL (0.7-1.3); GFR 62.1; MAGNESIUM 1.5 mg/dL (1.8-2.4); TOTAL BILIRUBIN 0.7 mg/dL (0.2-1.0); TOTAL PROTEIN 8.2 g/dL (6.4-8.2)
[2021-01-18 18:05] LABS: POTASSIUM 2.9 mmol/L (3.5-5.1)
--- NOTE | 2021-01-18 19:33 | PHYS DOC ---
Past Medical History Past Medical History: Anxiety, Asthma, Other Additional Past Medical Histor: RT ARM COMPARTMENT SYNDROME 2019,TACHYCARDIA Past Surgical History: Tonsillectomy, Other Additional Past Surgical Histo: RIGHT HAND/ARM, EAR SURGERY, R. ARM FASCIOTOMY Smoking Status: Never Smoker Alcohol Use: Occasionally Drug Use: None General Adult EDM: Chief Complaint: CHEST PAIN HPI: HPI: Patient is a 35 year old male with history of anxiety, asthma, tachycardia on atenolol, who presents to the ED today complaining of 9 out of 10 sharp substernal chest pain nonradiating in nature, symptoms began yesterday. Patient denies anything specifically exacerbating or relieving his symptoms. Patient states he was exposed to COVID-19 by a family member a couple days ago. Denies any fever, coughing or congestion. Review of Systems: Review of Systems: Constitutional: Reports Covid exposure. Denies fever or chills. [] Eyes: Denies change in visual acuity. [] HENT: Denies nasal congestion or sore throat. [] Respiratory: Denies cough or shortness of breath. [] Cardiovascular: Reports chest pain GI: Denies abdominal pain, nausea, vomiting, bloody stools or diarrhea. [] : Denies dysuria. [] Musculoskeletal: Denies back pain or joint pain. [] Integument: Denies rash. [] Neurologic: Denies headache, focal weakness or sensory changes. [] [] Psychiatric: Denies depression or anxiety. [] Heart Score: C/O Chest Pain: N/A Risk Factors: Risk Factors: DM, Current or recent (<one month) smoker, HTN, HLP, family history of CAD, obesity. Risk Scores: Score 0 - 3: 2.5% MACE over next 6 weeks - Discharge Home Score 4 - 6: 20.3% MACE over next 6 weeks - Admit for Clinical Observation Score 7 - 10: 72.7% MACE over next 6 weeks - Early Invasive Strategies Current Medications: Current Medications Medications (Trade) Dose Ordered Sig/Parish Start Time Stop Time Status Last Admin Dose Admin Aspirin (Malu Aspirin) 325 mg 1X ONCE 01/18/21 17:30 01/18/21 17:33 DC Morphine Sulfate (Morphine Sulfate) 4 mg PRN Q15MIN PRN 01/18/21 17:30 01/18/21 18:12 DC Nitroglycerin (Nitrostat) 0.4 mg PRN Q5MIN PRN 01/18/21 17:30 01/18/21 18:12 DC Allergies: Allergies: Allergies Coded Allergies Type Severity Reaction Last Updated Verified Iodinated Contrast Media Allergy Severe 02/07/18 Yes Physical Exam: PE: Constitutional: Well developed, well nourished, no acute distress, non-toxic appearance. [] HENT: Normocephalic, atraumatic, bilateral external ears normal, oropharynx m oist, no oral exudates, nose normal. [] Eyes: PERRLA, EOMI, conjunctiva normal, no discharge. [] Neck: Normal range of motion, no tenderness, supple, no stridor. [] Cardiovascular:Heart rate regular rhythm, no murmur [] Lungs & Thorax: Bilateral breath sounds clear to auscultation [] Abdomen: Bowel sounds normal, soft, no tenderness, no masses, no pulsatile masses. [] Skin: Warm, dry, no erythema, no rash. [] Back: No tenderness, no CVA tenderness. [] Extremities: No tenderness, no cyanosis, no clubbing, ROM intact, no edema. [] Neurologic: Alert and oriented X 3, normal motor function, normal sensory function, no focal deficits noted. [] Psychologic: Affect normal, judgement normal, mood normal. [] Current Patient Data: Labs: Laboratory Tests Test 01/18/21 17:38 White Blood Count 12.9 x10^3/uL (4.0-11.0) H Red Blood Count 4.85 x10^6/uL (4.30-5.70) Hemoglobin 14.9 g/dL (13.0-17.5) Hematocrit 42.7 % (39.0-53.0) Mean Corpuscular Volume 88 fL (79-100) Mean Corpuscular Hemoglobin 31 pg (25-35) Mean Corpuscular Hemoglobin Concent 35 g/dL (31-37) Red Cell Distribution Width 14.0 % (11.5-14.5) Platelet Count 340 x10^3/uL (140-400) Neutrophils (%) (Auto) 76 % (31-73) H Lymphocytes (%) (Auto) 20 % (24-48) L Monocytes (%) (Auto) 4 % (0-9) Eosinophils (%) (Auto) 0 % (0-3) Basophils (%) (Auto) 0 % (0-3) Neutrophils # (Auto) 9.7 x10^3/uL (1.8-7.7) H Lymphocytes # (Auto) 2.5 x10^3/uL (1.0-4.8) Monocytes # (Auto) 0.5 x10^3/uL (0.0-1.1) Eosinophils # (Auto) 0.0 x10^3/uL (0.0-0.7) Basophils # (Auto) 0.1 x10^3/uL (0.0-0.2) Sodium Level 138 mmol/L (136-145) Potassium Level 2.9 mmol/L (3.5-5.1) *L Chloride Level 99 mmol/L (98-107) Carbon Dioxide Level 27 mmol/L (21-32) Anion Gap 12 (6-14) Blood Urea Nitrogen 8 mg/dL (8-26) Creatinine 1.3 mg/dL (0.7-1.3) Estimated GFR (Cockcroft-Gault) 62.1 BUN/Creatinine Ratio 6 (6-20) Glucose Level 97 mg/dL (70-99) Calcium Level 9.1 mg/dL (8.5-10.1) Magnesium Level 1.5 mg/dL (1.8-2.4) L Total Bilirubin 0.7 mg/dL (0.2-1.0) Aspartate Amino Transferase (AST) 6 U/L (15-37) L Alanine Aminotransferase (ALT) 10 U/L (16-63) L Alkaline Phosphatase 74 U/L (46-116) Troponin I Quantitative < 0.017 ng/mL (0.000-0.055) LN-Glq-G-Type Natriuretic Peptide 17 pg/mL (0-124) Total Protein 8.2 g/dL (6.4-8.2) Albumin 4.4 g/dL (3.4-5.0) Albumin/Globulin Ratio 1.2 (1.0-1.7) Thyroid Stimulating Hormone (TSH) 2.070 uIU/mL (0.358-3.74) Laboratory Tests 01/18/21 17:38 Laboratory Tests 01/18/21 17:38 Vital Signs: Vital Signs Date Time Temp Pulse Resp B/P (MAP) Pulse Ox O2 Delivery O2 Flow Rate FiO2 01/18/21 17:33 112 15 177/98 (124) 97 Room Air 01/18/21 17:16 99.1 99.1 EKG: EKG: [] Radiology/Procedures: Radiology/Procedures: [] Course & Med Decision Making: Course & Med Decision Making Pertinent Labs and Imaging studies reviewed. (See chart for details) This is a 35-year-old male patient presented to the ED today complaining of chest pain. Symptoms began yesterday. Also reporting Covid exposure. Patient eloped from the ED. Dragon Disclaimer: Dragon Disclaimer: This electronic medical record was generated, in whole or in part, using a voice recognition dictation system. 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
== END 2021-01-18 17:41 | disposition left against medical advice (07) ==
LOC: ER 17:16
DX: R07.2 Precordial pain (principal); J45.909 Unspecified asthma, uncomplicated; Z91.041 Radiographic dye allergy status
CPT/HCPCS: 36415; 71045; 80053; 83735; 83880; 84443; 84484; 85025; 93005; 99284; 99285

== ENCOUNTER 2021-03-17 18:36 | Emergency (ER) | payer SELFPAY ==
[~2021-03-17] VITALS: Ht 175.3 cm; Wt 86.3 kg
[~2021-03-17 18:36] MED LIST changes: +CYCL10TA19 PO; -CYCL10TA2 PO
[2021-03-17 21:22] VITALS: BP 153/66
--- NOTE | 2021-03-17 21:40 | PHYS DOC ---
Past Medical History Past Medical History: Anxiety, Asthma, Other Additional Past Medical Histor: RT ARM COMPARTMENT SYNDROME 2019,TACHYCARDIA Past Surgical History: Tonsillectomy, Other Additional Past Surgical Histo: RIGHT HAND/ARM, EAR SURGERY, R. ARM FASCIOTOMY Smoking Status: Never Smoker Alcohol Use: Occasionally Drug Use: None General Adult EDM: Chief Complaint: DENTAL PROBLEM HPI: HPI: Patient is a 35 year old male who presents with right-sided dental pain. He rates his pain constant 10/10. Patient states he has had the pain for a couple of weeks, but 2 days ago the pain increased significantly and he had increased swelling. Patient reports associated body aches, but denies fever, chills, night sweats. Patient reports he is taking ibuprofen, but it is not relieving his pain. He states he has an appointment with his dentist a week from today. He was instructed to come to the emergency department if his pain was not able to be managed at home. Patient has no other complaints at this time. Review of Systems: Review of Systems: 12 systems reviewed. ROS negative except as mentioned in HPI. Heart Score: C/O Chest Pain: No Allergies: Allergies: Allergies Coded Allergies Type Severity Reaction Last Updated Verified Iodinated Contrast Media Allergy Severe 02/07/18 Yes Physical Exam: PE: Constitutional: Well developed, well nourished, non-toxic appearance. Patient is obviously in pain. HENT: Normocephalic, atraumatic, bilateral external ears normal, oropharynx moist, poor dentition, multiple areas of induration and swelling to the left cheek, nose normal. Eyes: PERRLA, EOMI, conjunctiva normal, no discharge. Neck: Normal range of motion, swelling noted in the left submandibular area with tenderness. Cardiovascular: Heart rate regular rhythm, no murmur. Lungs & Thorax: Bilateral breath sounds clear to auscultation. Course & Med Decision Making: Course & Med Decision Making Pertinent Labs and Imaging studies reviewed. (See chart for details) Patient has significant swelling to the left side of his face, however there is no trismus, no sublingual abnormalities and he is able to control his secretions at this time. He will be provided with his first dose of clindamycin as well as subq morphine here in the department. Patient is strongly advised to keep his appointment with his dentist next week. In the meantime, he should take full course of antibiotics and will be provided with tramadol for pain control. Patient given strict return precautions for any chest pain, difficulty breathing, or throat swelling. Patient understands and is agreeable to discharge plan. Tayler Disclaimer: Tayler Disclaimer: This electronic medical record was generated, in whole or in part, using a voice recognition dictation system. Departure Departure Impression: Primary Impression: Dental abscess Additional Impression: Poor dental hygiene Disposition: HOME / SELF CARE / HOMELESS Condition: STABLE Referrals: NO PCP (PCP) Patient Instructions: Dental Abscess, Dental Pain, [id number] Additional Instructions: As discussed, please take the full course of antibiotics. You should take 3 capsules 3 times per day. Please keep your appointment with your dentist next week, as dental care is the only place to receive definitive management. Please return to the emergency department if your pain becomes uncontrollable at home, or if you develop new symptoms, especially chest pain, shortness of breath, fever or swelling of your neck/throat. Scripts Tramadol Hcl (TRAMADOL HCL) 50 Mg Tablet 50 MG PO Q4HRS PRN for PAIN, #20 TAB Prov: ZAINA FERRARO 03/17/21 Clindamycin Hcl (CLINDAMYCIN HCL) 150 Mg Capsule 3 CAP PO TID for 7 Days, #60 CAP Prov: ZAINA FERRARO 03/17/21 ZAINA FERRARO Mar 17, 2021 21:40
[2021-03-17] MEDS ORDERED: MORPHINE SULFATE 10 MG/ML VIAL. SQ ONE (21:45)
[2021-03-17] MEDS ORDERED: CLINDAMYCIN HCL 150 MG CAPSULE. PO ONE (21:45)
[2021-03-17] MEDS ORDERED: CLIN150C16 PO (21:56)
[2021-03-17] MEDS ORDERED: TRAM50TA PO (21:56)
== END 2021-03-17 22:49 | disposition home or self-care (01) ==
LOC: ER 18:36
DX: K04.7 Periapical abscess without sinus (principal); J45.909 Unspecified asthma, uncomplicated; Z91.041 Radiographic dye allergy status
CPT/HCPCS: 96372; 99283; J2270

== ENCOUNTER 2021-04-15 20:05 | Emergency (ER) | payer SELFPAY ==
[~2021-04-15] VITALS: Ht 180.3 cm; Wt 86.4 kg
[~2021-04-15 20:05] MED LIST changes: +CLIN150C16 PO; +TRAM50TA PO
[2021-04-15] MEDS ORDERED: CLINDAMYCIN HCL 150 MG CAPSULE. PO ONE (20:30)
[2021-04-15] MEDS ORDERED: TRAM-48 PO (20:34)
[2021-04-15] MEDS ORDERED: CLIN-94 PO (20:34)
--- NOTE | 2021-04-15 20:36 | PHYS DOC ---
Past Medical History Past Medical History: Anxiety, Asthma, Other Additional Past Medical Histor: RT ARM COMPARTMENT SYNDROME 2019,TACHYCARDIA Past Surgical History: Tonsillectomy, Other Additional Past Surgical Histo: RIGHT HAND/ARM, EAR SURGERY, R. ARM FASCIOTOMY Smoking Status: Never Smoker Alcohol Use: None Drug Use: None General Adult EDM: Chief Complaint: DENTAL PROBLEM HPI: HPI: Patient is a 35 year old male presents with a chief complaint of dental pain. Patient's dental pain is located right lower posterior molar. He states he has associated swelling. Patient was previously seen prescribed clindamycin. Patient states swelling had greatly improved he followed up with [facility] who change his antibiotics to amoxicillin. Patient states since he started amoxicillin swelling has increased and pain has intensified. Patient was referred to oral maxillofacial and has an appointment scheduled for 1 and half weeks. Review of Systems: Review of Systems: Constitutional: Denies fever or chills. [] Eyes: Denies change in visual acuity. [] HENT: Denies nasal congestion or sore throat. [] Positive dental pain Respiratory: Denies cough or shortness of breath. [] Cardiovascular: Denies chest pain or edema. [] GI: Denies abdominal pain, nausea, vomiting, bloody stools or diarrhea. [] : Denies dysuria. [] Musculoskeletal: Denies back pain or joint pain. [] Integument: Denies rash. [] Neurologic: Denies headache, focal weakness or sensory changes. [] Endocrine: Denies polyuria or polydipsia. [] Lymphatic: Denies swollen glands. [] Psychiatric: Denies depression or anxiety. [] Heart Score: C/O Chest Pain: N/A Risk Factors: Risk Factors: DM, Current or recent (<one month) smoker, HTN, HLP, family history of CAD, obesity. Risk Scores: Score 0 - 3: 2.5% MACE over next 6 weeks - Discharge Home Score 4 - 6: 20.3% MACE over next 6 weeks - Admit for Clinical Observation Score 7 - 10: 72.7% MACE over next 6 weeks - Early Invasive Strategies Current Medications: Current Medications Medications (Trade) Dose Ordered Sig/Parish Start Time Stop Time Status Last Admin Dose Admin Clindamycin HCl (Cleocin) 300 mg 1X ONCE 04/15/21 20:30 04/15/21 20:31 UNV Ketorolac Tromethamine (Toradol Im) 60 mg 1X ONCE 04/15/21 20:30 04/15/21 20:31 UNV Allergies: Allergies: Allergies Coded Allergies Type Severity Reaction Last Updated Verified Iodinated Contrast Media Allergy Severe 02/07/18 Yes Physical Exam: PE: Constitutional: Well developed, well nourished, no acute distress, non-toxic appearance. [] HENT: Normocephalic, atraumatic, bilateral external ears normal, oropharynx moist, no oral exudates, nose normal. [Swelling right lower molar gums consistent with abscess. Patient is able to handle his oral secretions] Eyes: PERRLA, EOMI, conjunctiva normal, no discharge. [] Neck: Normal range of motion, no tenderness, supple, no stridor. [] Cardiovascular:Heart rate regular rhythm, no murmur [] Lungs & Thorax: Bilateral breath sounds clear to auscultation [no airway compromise] Abdomen: Bowel sounds normal, soft, no tenderness, no masses, no pulsatile masses. [] Skin: Warm, dry, no erythema, no rash. [] Back: No tenderness, no CVA tenderness. [] Extremities: No tenderness, no cyanosis, no clubbing, ROM intact, no edema. [] Neurologic: Alert and oriented X 3, normal motor function, normal sensory function, no focal deficits noted. [] Psychologic: Affect normal, judgement normal, mood normal. [] EKG: EKG: [] Radiology/Procedures: Radiology/Procedures: [] Course & Med Decision Making: Course & Med Decision Making Pertinent Labs and Imaging studies reviewed. (See chart for details) [] Treatment in the emergency department included Toradol 60 mg IM. Patient received a dose of clindamycin 600 mg p.o. Patient has scheduled appointment with oral maxillofacial 1 and half months. Patient states clindamycin seemed to work better and swelling had greatly improved until he stopped clindamycin and started amoxicillin. Will DC amoxicillin and place patient back on clindamycin. Will prescribe patient Ultram. Advised to take Tylenol ibuprofen as needed for pain. Will give patient contact follow-up information for for [facility] Tayler Disclaimer: Tayler Disclaimer: This electronic medical record was generated, in whole or in part, using a voice recognition dictation system. Departure Departure Impression: Primary Impression: Dental abscess Disposition: 01 HOME / SELF CARE / HOMELESS Condition: STABLE Referrals: NO PCP (PCP) Patient Instructions: Dental Abscess Additional Instructions: [facility] school of dentistry Address: [address] [place] [address], [place] [address] Scripts Clindamycin Hcl (CLINDAMYCIN HCL) 300 Mg Capsule 450 MG PO TID for 10 Days, #90 CAP Prov: JOSE NG DO 04/15/21 Tramadol Hcl (ULTRAM) 50 Mg Tablet 1 TAB PO PRN Q6HRS PRN for pain MDD 4 Tablet(s) for 7 Days, #28 TAB 0 Refills Prov: JOSE NG DO 04/15/21 JOSE NG DO Apr 15, 2021 20:36
[2021-04-15 20:40] VITALS: BP 140/71
[2021-04-15] MEDS: KETOROLAC 60 MG/2 ML VIAL. IM ONE ×2 (20:42→20:43)
== END 2021-04-15 20:45 | disposition home or self-care (01) ==
LOC: ER 20:05
DX: K04.7 Periapical abscess without sinus (principal); J45.909 Unspecified asthma, uncomplicated; Z91.041 Radiographic dye allergy status
CPT/HCPCS: 99283; J1885